=== PATIENT | male | born 1945 | race Caucasian/White ===

== ENCOUNTER → 2017-06-13 | Outpatient (CLI) | payer MEDICARE ==
[2017-06-13 16:34] LABS: ALT 35 U/L (21-72); AST 22 U/L (17-59); Albumin 4.2 g/dL (3.5-5.0); Alkaline Phosphatase 101 U/L (38-126); Anion Gap 13 mmol/L; Blood Urea Nitrogen 21 mg/dL (9-20); Calcium 10.5 mg/dL (8.4-10.2); Carbon Dioxide 28 mmol/L (22-30); Chloride 96 mmol/L (98-107); Glucose 243 mg/dL (74-99); Potassium 4.4 mmol/L (3.5-5.1); Sodium 137 mmol/L (137-145); Total Bilirubin 1.2 mg/dL (0.2-1.3); Total Protein 7.2 g/dL (6.3-8.2)
[2017-06-13 16:49] LABS: T4, Free (Free Thyroxine) 0.74 ng/dL (0.78-2.19)
[2017-06-14 02:09] LABS: ACTH 26.1 pg/mL (0.00-45.99)
== END | disposition home or self-care (01) ==
LOC: LABWHC1 15:58
PROVIDERS: ATTEND Internal Medicine Endocrinology, Diabetes & Metabolism
DX: D35.2 Benign neoplasm of pituitary gland (principal); E11.65 Type 2 diabetes mellitus with hyperglycemia
CPT/HCPCS: 36415; 80053; 82024; 82533; 83001; 83002; 84146; 84403; 84439; 84443

== ENCOUNTER → 2017-06-21 | Outpatient (CLI) | payer MEDICARE | END | disposition home or self-care (01) | LOC: LABWHC1 08:18 | PROVIDERS: ATTEND Internal Medicine Endocrinology, Diabetes & Metabolism | DX: D35.2 Benign neoplasm of pituitary gland (principal) | CPT/HCPCS: 36415; 84146 ==

== ENCOUNTER → 2017-11-03 | Outpatient (CLI) | payer MEDICARE ==
[2017-11-03 09:26] LABS: Calcium 9.5 mg/dL (8.4-10.2); Potassium 4.8 mmol/L (3.5-5.1); Total Bilirubin 1.4 mg/dL (0.2-1.3); Total Protein 6.5 g/dL (6.3-8.2)
[2017-11-03 17:33] LABS: Hemoglobin A1C 12.5 % (4.0-6.0)
== END | disposition home or self-care (01) ==
LOC: LABWHC1 07:54
PROVIDERS: ATTEND Internal Medicine Endocrinology, Diabetes & Metabolism
DX: E11.65 Type 2 diabetes mellitus with hyperglycemia (principal); E78.5 Hyperlipidemia, unspecified; D35.2 Benign neoplasm of pituitary gland
CPT/HCPCS: 36415; 80053; 80061; 82043; 82570; 83036; 84146

== ENCOUNTER → 2018-02-07 | Outpatient (CLI) | payer MEDICARE ==
[2018-02-07 08:42] LABS: Albumin 3.8 g/dL (3.5-5.0); Calcium 9.9 mg/dL (8.4-10.2); Potassium 4.4 mmol/L (3.5-5.1); Total Protein 6.7 g/dL (6.3-8.2)
== END | disposition home or self-care (01) ==
LOC: LABWHC1 07:15
PROVIDERS: ATTEND Internal Medicine
DX: E11.65 Type 2 diabetes mellitus with hyperglycemia (principal); E78.2 Mixed hyperlipidemia; D35.2 Benign neoplasm of pituitary gland; I10 Essential (primary) hypertension
CPT/HCPCS: 36415; 80053; 80061; 82043; 82570; 83036; 84146

== ENCOUNTER → 2018-03-03 | Outpatient (CLI) | payer MEDICARE ==
--- NOTE | 2018-03-03 16:25 | US ---
EXAMINATION TYPE: US abdomen complete DATE OF EXAM: 03/03/2018 COMPARISON: NONE CLINICAL HISTORY: R10.13 ABD PAIN,R22.2 ABD MASS. EXAM MEASUREMENTS: Liver Length: 15.2 cm Gallbladder Wall: Surgically absent CBD: 0.7 cm Spleen: 11.1 cm Right Kidney: 11.1 x 4.1 x 4.6 cm Left Kidney: 11.6 x 5.5 x 4.6 cm Pancreas: Obscured by bowel gas Liver: Coarse, heterogeneous. Portal vein appears dilated Gallbladder: Surgically absent Evidence for sonographic Santiago's sign: No CBD: wnl Spleen: Granulomas visualized Right Kidney: No hydronephrosis or masses seen Left Kidney: No hydronephrosis or masses seen Upper IVC: wnl Abd Aorta: Obscured by overlying bowel gas, visualized portions show no AAA At the area of the patient's palpable, there is a hyperechoic area visualized measuring 0.5 x 0.5 x 0.5 cm, possible lipoma vs other etiology. IMPRESSION: 1. Intra-abdominal ultrasound appears unremarkable. There is a subcutaneous hyperechoic nodule could be related to lipoma at the palpable abnormality.
== END ==
LOC: RADUSWWP 07:12
PROVIDERS: ATTEND Internal Medicine
DX: R10.13 Epigastric pain (principal); R19.00 Intra-abdominal and pelvic swelling, mass and lump, unspecified site
CPT/HCPCS: 76700

== ENCOUNTER → 2018-09-15 | Outpatient (CLI) | payer MEDICARE ==
[2018-09-15 17:37] LABS: Albumin 3.4 g/dL (3.80-4.90); Albumin/Globulin Ratio 1.26 (1.60-3.17); Anion Gap 9.1 mmol/L (4.00-12.00); Bilirubin, Conjugated 0.3 mg/dL (0.20-0.40); Bilirubin,Unconjugated 0.6 mg/dL; Carbon Dioxide 22.9 mmol/L (21.6-31.8); Globulin 2.7 g/dL (1.6-3.3); LDL Cholesterol,Calculated 41.8 mg/dL (0.0-131.0); Potassium 4.7 mmol/L (3.5-5.5); Total Bilirubin 0.9 mg/dL (0.3-1.2); Total Protein 6.1 g/dL (6.2-8.2); VLDL Calculation 26.2 mg/dL (5.00-40.00)
[2018-09-15 21:39] LABS: Hemoglobin A1C 8.9 % (4.0-6.0)
== END ==
LOC: LABWHC1 08:01
PROVIDERS: ATTEND Internal Medicine
DX: I10 Essential (primary) hypertension (principal); E11.9 Type 2 diabetes mellitus without complications
CPT/HCPCS: 36415; 80051; 80061; 80076; 82565; 83036; 84520

== ENCOUNTER 2018-10-01 10:24 | Inpatient (IN) | payer MEDICARE ==
[2018-10-01] MEDS ORDERED: VANCOMYCIN IV PER PHARMACY 1 EACH MISC MISCELLANE PRN (16:00)
[2018-10-01 17:00] LABS: Glucose,Whole Blood 289 mg/dL (75-99)
[2018-10-01] MEDS ORDERED: VANCOMYCIN 1,750 MG in SODIUM CHLORIDE 0.9% 500 ML 500 ML IVPB ONE (17:00)
[2018-10-01 17:18] LABS: Calcium 8.9 mg/dL (8.4-10.2)
[2018-10-01] MEDS ORDERED: LUBIPROSTONE 24 MCG PO SCH (17:30)
[2018-10-01] MEDS: PIPERACILLIN-TAZOBACTAM 3.375 GM in SODIUM CHLORIDE 0.9% 100 ML IVPB SCH ×2 (17:52→23:05)
[2018-10-01] MEDS: SODIUM CHLORIDE 0.9% 1,000 ML IV SCH (17:53)
[2018-10-01] MEDS: INSULN ASP PRT/INSULIN ASPART 100 UNIT/ML 10 ML VIAL SQ SCH (17:54)
[2018-10-01] MEDS: INSULIN ASPART (NovoLOG) 100 UNIT/ML VIAL SQ SCH ×2 (18:11→20:52)
[2018-10-01] MEDS: LUBIPROSTONE 24 MCG PO SCH (20:03)
[2018-10-01 20:37] LABS: Glucose,Whole Blood 279 mg/dL (75-99)
[2018-10-01] MEDS: ALBUTEROL NEBULIZED 2.5 MG/3 ML INHALATION PRN (20:46)
[2018-10-01] MEDS: METOPROLOL TARTRATE 25 MG TAB PO SCH (20:53)
[2018-10-01] MEDS: ATORVASTATIN 20 MG TAB PO SCH (20:53)
[2018-10-01] MEDS: DOCUSATE 100 MG CAP PO SCH (20:53)
[2018-10-01] MEDS: BENZONATATE 100 MG CAP PO PRN (20:58)
[2018-10-01] MEDS ORDERED: SERTRALINE 50 MG TAB PO SCH (21:00)
[2018-10-02] MEDS: SODIUM CHLORIDE 0.9% 1,000 ML IV SCH ×3 (03:13→20:56)
[2018-10-02 05:33] LABS: Glucose,Whole Blood 296 mg/dL (75-99)
[2018-10-02 05:33] LABS: Anisocytosis Slight; Basophils % (A) 0 %; Eosinophils # (A) 0.2 k/uL (0-0.7); Eosinophils % (A) 2 %; HCT 29.6 % (39.0-53.0); HGB 8.6 gm/dL (13.0-17.5); Hypochromasia Marked; Lymphocytes # (A) 1.2 k/uL (1.0-4.8); Lymphocytes % (A) 11 %; MCH 21.4 pg (25.0-35.0); MCHC 29.2 g/dL (31.0-37.0); MCV 73.4 fL (80.0-100.0); Microcytosis Moderate; Monocytes # (A) 0.5 k/uL (0-1.0); Monocytes % (A) 5 %; Neutrophils % (A) 79 %; Platelet Count 515 k/uL (150-450); Poikilocytosis Slight; RBC 4.04 m/uL (4.30-5.90); RDW 16.7 % (11.5-15.5); WBC 10.1 k/uL (3.8-10.6)
[2018-10-02 05:47] LABS: Potassium 4.5 mmol/L (3.5-5.1)
[2018-10-02] MEDS: PANTOPRAZOLE 40 MG TABLET PO SCH (06:29)
[2018-10-02] MEDS: LUBIPROSTONE 24 MCG PO SCH ×2 (06:30→17:50)
[2018-10-02] MEDS: INSULIN ASPART (NovoLOG) 100 UNIT/ML VIAL SQ SCH ×4 (06:31→20:51)
[2018-10-02] MEDS: ALBUTEROL NEBULIZED 2.5 MG/3 ML INHALATION PRN ×4 (07:17→20:00)
[2018-10-02] MEDS: LINAGLIPTIN 5 MG TABLET PO SCH (08:14)
[2018-10-02] MEDS: ASPIRIN 81 MG PO SCH (08:14)
[2018-10-02] MEDS: DOCUSATE 100 MG CAP PO SCH ×2 (08:14→20:56)
[2018-10-02] MEDS: PIOGLITAZONE 15 MG TAB PO SCH (08:14)
[2018-10-02] MEDS: METOPROLOL TARTRATE 25 MG TAB PO SCH ×2 (08:14→20:56)
[2018-10-02] MEDS: FUROSEMIDE 20 MG TAB PO SCH (08:14)
[2018-10-02] MEDS: PIPERACILLIN-TAZOBACTAM 3.375 GM in SODIUM CHLORIDE 0.9% 100 ML IVPB SCH ×3 (08:22→23:32)
[2018-10-02] MEDS: BENZONATATE 100 MG CAP PO PRN ×2 (08:22→20:56)
[2018-10-02] MEDS: INSULN ASP PRT/INSULIN ASPART 100 UNIT/ML 10 ML VIAL SQ SCH ×3 (08:22→17:52)
[2018-10-02] MEDS: VANCOMYCIN 1,750 MG in SODIUM CHLORIDE 0.9% 500 ML 500 ML IVPB SCH ×3 (08:25→20:48)
[2018-10-02] MEDS: CABERGOLINE 0.5 MG PO SCH (08:29)
[2018-10-02] MEDS ORDERED: CITALOPRAM HYDROBROMIDE 20 MG TAB PO SCH (09:00)
[2018-10-02 11:48] LABS: Glucose,Whole Blood 298 mg/dL (75-99)
--- NOTE | 2018-10-02 14:24 | P.GSCN ---
History of Present Illness Consult date: 10/02/18 Reason for Consult: Left pleural effusion. Requesting physician: Julia Okeefe History of present illness: This is a 73-year-old gentleman who is followed by Dr. Dietrich on an outpatient basis. He has a past medical history significant for diabetes mellitus insulin- dependent, hypertension, hyperlipidemia, chronic kidney disease stage III, TIA, benign pituitary tumor, chronic lower back pain, remote history of smoking, coronary artery disease with previous stenting and coronary artery bypass grafting surgery and recent hospitalization in June 2018 which he was treated for pneumonia and discharged home on Augmentin. Recently, over the past couple of weeks he has had complaints of a worsening cough, nausea and vomiting, generalized weakness, fever and chills. He also reports that he has had a 20 pound weight loss. He denies any pain, recent trauma, syncope or syncope. Subsequent leak, he presented to the emergency room at [facility] on 09/28/2018 with the above mentioned complaints. On presentation to the emergency department his oxygen saturations were in the 80s on 6 L high flow nasal cannula. A chest x-ray was completed which showed a left-sided pleural effusion and for further evaluation an ultrasound of his left chest was was completed which demonstrated a large left-sided pleural effusion. Subsequently a left thoracentesis was performed with roughly 1.2 L of brownish fluid drained with cytology results pending. Also on presentation to the emergency department his WBC count was 16.9, lactic acid 5.7, proBNP 6580 and 3 sets of troponins were negative. A transthoracic 2-D echocardiogram was also completed which demonstrated a normal left ventricular systolic function with an ejection fraction of 50-55%, and trace mitral valve regurgitation. Subsequently due to his left pleural effusion he was transferred to [facility] per cardiothoracic surgery was consulted for further evaluation and treatment recommendations. Review of Systems A 14 point review of system was completed and was negative except as mentioned in the HPI. Past Medical History Past Medical History: Coronary Artery Disease (CAD), Chest Pain / Angina, CVA/TIA, Diabetes Mellitus, GERD/Reflux, Hyperlipidemia, Hypertension, Pneumonia, Renal Disease Additional Past Medical History / Comment(s): IDDM type II, TIA, low back pain, occasional lower leg edema, benign pituitary tumor, L eye retinal bleed, sinus problems, recent tooth infection treated with ABX, history of bilateral eye cataracts recent weight loss of approximately 20 pounds. History of Any Multi-Drug Resistant Organisms: None Reported Past Surgical History: Appendectomy, Cholecystectomy, Coronary Bypass/CABG, Heart Catheterization, Heart Catheterization With Stent, Orthopedic Surgery Additional Past Surgical History / Comment(s): PCI with stent, 2010 CABG-6 vessel, R femur fracture with surgery-kassy inserted and since removed however, drill bit broke off and is still in leg, hemorrhoidectomy, colonoscopies, demetrius ateral cataract removals/lens implants, L eye retinal laser surgery Past Anesthesia/Blood Transfusion Reactions: No Reported Reaction Date of Last Stent Placement:: 2009 Past Psychological History: Depression Additional Psychological History / Comment(s): Pt resides with his spouse. He occasionally uses a cane to ambulate. He has not been driving lately, his spouse has been driving him. Smoking Status: Former smoker Past Alcohol Use History: None Reported Additional Past Alcohol Use History / Comment(s): Pt started smoking in 1955 and quit in 1971 Past Drug Use History: None Reported - Past Family History Father Additional Family Medical History / Comment(s): Father had a blood vessel rupture in his heart. Mother Additional Family Medical History / Comment(s): Mother had an aneurysm in the bottom of her heart that ruptured. Medications and Allergies Home Medications Medication Instructions Recorded Confirmed Type Atorvastatin Calcium [Lipitor] 20 mg PO HS 06/26/18 10/01/18 History Cabergoline 0.5 mg PO MOWE 06/26/18 10/01/18 History Furosemide [Lasix] 20 mg PO DAILY 06/26/18 10/01/18 History Insulin Aspart Protam & Aspart 60 unit SQ AC-BID@0800,1200 06/26/18 10/01/18 History [NovoLOG MIX 70-30 Flexpen] Insulin Aspart Protam & Aspart 130 unit SQ AC-SUPPER@1700 06/26/18 10/01/18 History [NovoLOG MIX 70-30 Flexpen] Lubiprostone [Amitiza] 24 mcg PO BID-W/MEALS 06/26/18 10/01/18 History Omeprazole [PriLOSEC] 20 mg PO DAILY 06/26/18 10/01/18 History Pioglitazone HCl [Actos] 15 mg PO DAILY 06/26/18 10/01/18 History amLODIPine BESYLATE/BENAZEPRIL 1 cap PO DAILY 06/26/18 10/01/18 History [Lotrel 5-20 MG] sitaGLIPtin PHOSPHATE [Januvia] 50 mg PO DAILY 06/26/18 10/01/18 History Albuterol Nebulized [Ventolin 2.5 mg INHALATION Q6H PRN 10/01/18 10/01/18 History Nebulized] Aspirin [[place] Aspirin EC] 81 mg PO DAILY 10/01/18 10/01/18 History Clindamycin HCl [Cleocin] 300 mg PO Q8H 10/01/18 10/01/18 History Docusate [Colace] 100 mg PO BID 10/01/18 10/01/18 History Losartan Potassium [Cozaar] 50 mg PO DAILY 10/01/18 10/01/18 History Metoprolol Tartrate [Lopressor] 25 mg PO BID 10/01/18 10/01/18 History amLODIPine [Norvasc] 5 mg PO DAILY 10/01/18 10/01/18 History Allergies Allergy/AdvReac Type Severity Reaction Status Date / Time dextromethorphan Allergy Rash/Hives Verified 10/01/18 14:36 [From Dimetapp Cold-Congestion] diphenhydramine Allergy Rash/Hives Verified 10/01/18 14:36 [From Dimetapp Cold-Congestion] guaifenesin Allergy Rash/Hives Verified 10/01/18 14:36 [From Dimetapp Cold-Congestion] phenylephrine Allergy Rash/Hives Verified 10/01/18 14:36 [From Dimetapp Cold-Congestion] pseudoephedrine Allergy Rash/Hives Verified 10/01/18 14:36 [From Dimetapp Cold-Congestion] Surgical - Exam Vital Signs Temp Pulse Resp BP Pulse Ox 98.6 F 89 18 152/70 94 L 10/01/18 14:48 10/01/18 14:48 10/01/18 14:48 10/01/18 14:48 10/01/18 14:48 - General well developed, well nourished, no distress, no pain, chronically ill, obese - Eyes PERRL, normal ocular movement - ENT normal pinna, normal nares, normal mucosa, no hearing loss, no congestion, poor jail - Neck Neck is supple, no lymphadenopathy. no masses, no bruits, trachea midline, no venous distension - Respiratory Lung sounds are essentially clear to his bilateral upper lobes, diminished to his left lower lobe. Respirations are symmetrical and nonlabored. Oxygen saturation are 97 percent on room air. - Cardiovascular Regular rhythm and rate. S1 and S2 present, negative for S3, gallop or murmur. Remote telemetry showing normal sinus rhythm heart rate 80. +1 edema to his bilateral lower extremities. Peripheral pulses palpable. - Abdomen Abdomen is soft, nontender nondistended. Active bowel sounds to all 4 abdominal quadrants. No guarding or rigidity. No organomegaly. - Genitourinary Deferred - Rectum Deferred - Integumentary no rash, no growths, no abnormal pigmentation - Neurologic normal coordination, normal sensation - Musculoskeletal normal gait, normal posture - Psychiatric Disoriented to time, reports the year is 2016 and could not state what month it is. oriented to person, oriented to place, speech is normal Results - Labs 10/02/18 05:16 10/02/18 05:16 Abnormal Lab Results - Last 24 Hours (Table) 10/01/18 10/01/18 10/01/18 Range/Units 16:52 16:53 20:35 RBC (4.30-5.90) m/uL Hgb (13.0-17.5) gm/dL Hct (39.0-53.0) % MCV (80.0-100.0) fL MCH (25.0-35.0) pg MCHC (31.0-37.0) g/dL RDW (11.5-15.5) % Plt Count (150-450) k/uL Neutrophils # (1.3-7.7) k/uL Sodium 135 L (137-145) mmol/L Carbon Dioxide (22-30) mmol/L Glucose 266 H (74-99) mg/dL POC Glucose (mg/dL) 289 H 279 H (75-99) mg/dL 10/02/18 10/02/18 10/02/18 Range/Units 05:16 05:16 05:31 RBC 4.04 L (4.30-5.90) m/uL Hgb 8.6 L (13.0-17.5) gm/dL Hct 29.6 L (39.0-53.0) % MCV 73.4 L (80.0-100.0) fL MCH 21.4 L (25.0-35.0) pg MCHC 29.2 L (31.0-37.0) g/dL RDW 16.7 H (11.5-15.5) % Plt Count 515 H (150-450) k/uL Neutrophils # 8.0 H (1.3-7.7) k/uL Sodium 135 L (137-145) mmol/L Carbon Dioxide 21 L (22-30) mmol/L Glucose 280 H (74-99) mg/dL POC Glucose (mg/dL) 296 H (75-99) mg/dL Diabetes panel 10/01/18 10/02/18 Range/Units 16:53 05:16 Sodium 135 L 135 L (137-145) mmol/L Potassium 4.0 4.5 (3.5-5.1) mmol/L Chloride 103 104 (98-107) mmol/L Carbon Dioxide 22 21 L (22-30) mmol/L BUN 17 12 (9-20) mg/dL Creatinine 1.09 1.00 (0.66-1.25) mg/dL Glucose 266 H 280 H (74-99) mg/dL Calcium 8.9 9.0 (8.4-10.2) mg/dL Calcium panel 10/01/18 10/02/18 Range/Units 16:53 05:16 Calcium 8.9 9.0 (8.4-10.2) mg/dL Pituitary panel 10/01/18 10/02/18 Range/Units 16:53 05:16 Sodium 135 L 135 L (137-145) mmol/L Potassium 4.0 4.5 (3.5-5.1) mmol/L Chloride 103 104 (98-107) mmol/L Carbon Dioxide 22 21 L (22-30) mmol/L BUN 17 12 (9-20) mg/dL Creatinine 1.09 1.00 (0.66-1.25) mg/dL Glucose 266 H 280 H (74-99) mg/dL Calcium 8.9 9.0 (8.4-10.2) mg/dL Adrenal panel 10/01/18 10/02/18 Range/Units 16:53 05:16 Sodium 135 L 135 L (137-145) mmol/L Potassium 4.0 4.5 (3.5-5.1) mmol/L Chloride 103 104 (98-107) mmol/L Carbon Dioxide 22 21 L (22-30) mmol/L BUN 17 12 (9-20) mg/dL Creatinine 1.09 1.00 (0.66-1.25) mg/dL Glucose 266 H 280 H (74-99) mg/dL Calcium 8.9 9.0 (8.4-10.2) mg/dL - Imaging Chest x-ray: report reviewed, image reviewed CT scan - chest: report reviewed, image reviewed Assessment and Plan Assessment: 1. Left pleural effusion status post left thoracentesis with 1150 mL of cloudy brownish colored fluid drained. 2. Acute anemia, hemoglobin today 8.6 3. Acute on chronic kidney disease stage III 4. History of hypertension 5. History of hyperlipidemia 6. History of pituitary tumor 7. History of insulin-dependent diabetes mellitus with an admission hemoglobin A1c of 8.7%. 8. History of coronary artery disease with previous coronary artery bypass grafting surgery 6 vessels and previous stent placements 9. History of TIA 10. Recent weight loss 11. Remote history of chronic back or dependence in remission in 1971 12. History of recent pneumonia left lower lobe which he was hospitalized in June 2018 13. Chronic lower back pain Plan: The patient was seen and examined. His chart diagnostics were reviewed. Chest x-ray, ultrasound results and computed tomography scan of his chest results were reviewed with Dr. Kenney from pulmonary medicine. Bronchodilators and pulmonary management recommendations per Dr. Kenney. Encourage use of incentive spirometry every hour while awake. GI and DVT prophylaxis. This case was also discussed with Dr. Ingram from cardiothoracic surgery and recommendati ons at this time are to consult interventional radiology for placement of a left chest pigtail catheter and subsequent alteplase treatments. Encourage continued smoking cessation. Plan has been discussed with the patient and his and her questions were answered to the best of my ability. Thank you Dr. Okeefe for this consult and we look for to working with you in the care of your patient. Time with Patient: Greater than 30
--- NOTE | 2018-10-02 14:37 | P.HPIM ---
History of Present Illness 73-year-old male was transferred from [facility] for possibility of VATS procedure. Patient had an empyema and had removal of 1.1 L of purulent fluid cultures are not available yet. Patient was on broad-spectrum antibiotics vancomycin and Zosyn as patient was severely septic and hypotensive although never required any pressor support. Patient had renal dysfunction secondary to acute tubular necrosis which also improved.patient is diabetic with uncontrolled blood sugars and and is on very high-dose of insulin about 200 units. Patient presently denied any fever chills nausea vomiting abdominal pain. Consider thoracic surgery evaluated the patient is recommending a pigtail catheter by interventional radiology. Review of Systems REVIEW OF SYSTEMS: CONSTITUTIONAL: No fever, no malaise, no fatigue. HEENT: No recent visual problems or hearing problems. Denied any sore throat. CARDIOVASCULAR: No chest pain, orthopnea, PND, no palpitations, no syncope. PULMONARY: No shortness of breath, no cough, no hemoptysis. GASTROINTESTINAL: No diarrhea, no nausea, no vomiting, no abdominal pain. NEUROLOGICAL: No headaches, no weakness, no numbness. HEMATOLOGICAL: Denies any bleeding or petechiae. GENITOURINARY: Denies any burning micturition, frequency, or urgency. MUSCULOSKELETAL/RHEUMATOLOGICAL: Denies any joint pain, swelling, or any muscle pain. ENDOCRINE: Denies any polyuria or polydipsia. The rest of the 14-point review of systems is negative. Past Medical History Past Medical History: Coronary Artery Disease (CAD), Chest Pain / Angina, CVA/TIA, Diabetes Mellitus, GERD/Reflux, Hyperlipidemia, Hypertension, Pneumonia, Renal Disease Additional Past Medical History / Comment(s): IDDM type II, TIA, low back pain, occasional lower leg edema, benign pituitary tumor, L eye retinal bleed, sinus problems, recent tooth infection treated with ABX, history of bilateral eye cataracts recent weight loss of approximately 20 pounds. History of Any Multi-Drug Resistant Organisms: None Reported Past Surgical History: Appendectomy, Cholecystectomy, Coronary Bypass/CABG, Heart Catheterization, Heart Catheterization With Stent, Orthopedic Surgery Additional Past Surgical History / Comment(s): PCI with stent, 2010 CABG-6 vessel, R femur fracture with surgery-kassy inserted and since removed however, drill bit broke off and is still in leg, hemorrhoidectomy, colonoscopies, bilateral cataract removals/lens implants, L eye retinal laser surgery Past Anesthesia/Blood Transfusion Reactions: No Reported Reaction Date of Last Stent Placement:: 2009 Past Psychological History: Depression Additional Psychological History / Comment(s): Pt resides with his spouse. He occasionally uses a cane to ambulate. He has not been driving lately, his spouse has been driving him. Smoking Status: Former smoker Past Alcohol Use History: None Reported Additional Past Alcohol Use History / Comment(s): Pt started smoking in 5 and quit in 1971 Past Drug Use History: None Reported - Past Family History Father Additional Family Medical History / Comment(s): Father had a blood vessel rupture in his heart. Mother Additional Family Medical History / Comment(s): Mother had an aneurysm in the bottom of her heart that ruptured. Medications and Allergies Home Medications Medication Instructions Recorded Confirmed Type Atorvastatin Calcium [Lipitor] 20 mg PO HS 06/26/18 10/01/18 History Cabergoline 0.5 mg PO MOWE 06/26/18 10/01/18 History Furosemide [Lasix] 20 mg PO DAILY 06/26/18 10/01/18 History Insulin Aspart Protam & Aspart 60 unit SQ AC-BID@0800,1200 06/26/18 10/01/18 History [NovoLOG MIX 70-30 Flexpen] Insulin Aspart Protam & Aspart 130 unit SQ AC-SUPPER@1700 06/26/18 10/01/18 History [NovoLOG MIX 70-30 Flexpen] Lubiprostone [Amitiza] 24 mcg PO BID-W/MEALS 06/26/18 10/01/18 History Omeprazole [PriLOSEC] 20 mg PO DAILY 06/26/18 10/01/18 History Pioglitazone HCl [Actos] 15 mg PO DAILY 06/26/18 10/01/18 History amLODIPine BESYLATE/BENAZEPRIL 1 cap PO DAILY 06/26/18 10/01/18 History [Lotrel 5-20 MG] sitaGLIPtin PHOSPHATE [Januvia] 50 mg PO DAILY 06/26/18 10/01/18 History Albuterol Nebulized [Ventolin 2.5 mg INHALATION Q6H PRN 10/01/18 10/01/18 History Nebulized] Aspirin [[place] Aspirin EC] 81 mg PO DAILY 10/01/18 10/01/18 History Clindamycin HCl [Cleocin] 300 mg PO Q8H 10/01/18 10/01/18 History Docusate [Colace] 100 mg PO BID 10/01/18 10/01/18 History Losartan Potassium [Cozaar] 50 mg PO DAILY 10/01/18 10/01/18 History Metoprolol Tartrate [Lopressor] 25 mg PO BID 10/01/18 10/01/18 History amLODIPine [Norvasc] 5 mg PO DAILY 10/01/18 10/01/18 History Allergies Allergy/AdvReac Type Severity Reaction Status Date / Time dextromethorphan Allergy Rash/Hives Verified 10/01/18 14:36 [From Dimetapp Cold-Congestion] diphenhydramine Allergy Rash/Hives Verified 10/01/18 14:36 [From Dimetapp Cold-Congestion] guaifenesin Allergy Rash/Hives Verified 10/01/18 14:36 [From Dimetapp Cold-Congestion] phenylephrine Allergy Rash/Hives Verified 10/01/18 14:36 [From Dimetapp Cold-Congestion] pseudoephedrine Allergy Rash/Hives Verified 10/01/18 14:36 [From Dimetapp Cold-Congestion] Physical Exam Vitals: Vital Signs Temp Pulse Pulse Resp BP Pulse Ox 10/02/18 12:23 82 10/02/18 12:13 84 10/02/18 11:22 70 16 123/67 97 10/02/18 09:10 80 10/02/18 09:01 84 10/02/18 07:46 97.1 F L 89 16 127/59 96 10/02/18 03:39 98.5 F 80 18 128/60 95 10/01/18 23:16 75 18 10/01/18 23:15 98.0 F 75 18 121/59 98 10/01/18 20:56 80 10/01/18 20:46 80 10/01/18 20:00 98.4 F 83 18 130/79 98 10/01/18 16:00 89 18 10/01/18 14:48 98.6 F 89 18 152/70 94 L Intake and Output 10/01/18 10/02/18 10/02/18 22:59 06:59 14:59 Intake Total 1300 440 Output Total 250 1250 400 Balance -250 50 40 Intake: Intake, IV Titration 1300 100 Amount Piperacillin-Tazobactam 3 100 .375 gm In Sodium Chloride 0.9% 100 ml @ 25 mls/hr IVPB Q8HR ROBERT Rx# :[id number] Sodium Chloride 0.9% 1, 800 000 ml @ 100 mls/hr IV . Q10H ROBERT Rx#:[id number] Vancomycin 1,750 mg In 500 Sodium Chloride 0.9% 500 ml 500 ml @ 167 mls/hr IVPB Q16H ROBERT Rx#: [id number] Oral 340 Output: Urine 250 1250 400 Other: Voiding Method Urinal Urinal # Voids 1 1 Weight 97.1 kg 97.2 kg PHYSICAL EXAMINATION: GENERAL: The patient is alert and oriented x3, not in any acute distress. Well developed, well nourished. HEENT: Pupils are round and equally reacting to light. EOMI. No scleral icterus. No conjunctival pallor. Normocephalic, atraumatic. No pharyngeal erythema. No thyromegaly. CARDIOVASCULAR: S1 and S2 present. No murmurs, rubs, or gallops. PULMONARY: minimal basilar crackles on the left side ABDOMEN: Soft, nontender, nondistended, normoactive bowel sounds. No palpable organomegaly. MUSCULOSKELETAL: No joint swelling or deformity. EXTREMITIES: No cyanosis, clubbing, or pedal edema. NEUROLOGICAL: Gross neurological examination did not reveal any focal deficits. SKIN: No rashes. Results CBC & Chem 7: 10/02/18 05:16 10/02/18 05:16 Labs: Abnormal Lab Results - Last 24 Hours (Table) 10/01/18 10/01/18 10/01/18 Range/Units 16:52 16:53 20:35 RBC (4.30-5.90) m/uL Hgb (13.0-17.5) gm/dL Hct (39.0-53.0) % MCV (80.0-100.0) fL MCH (25.0-35.0) pg MCHC (31.0-37.0) g/dL RDW (11.5-15.5) % Plt Count (150-450) k/uL Neutrophils # (1.3-7.7) k/uL Sodium 135 L (137-145) mmol/L Carbon Dioxide (22-30) mmol/L Glucose 266 H (74-99) mg/dL POC Glucose (mg/dL) 289 H 279 H (75-99) mg/dL 10/02/18 10/02/18 10/02/18 Range/Units 05:16 05:16 05:31 RBC 4.04 L (4.30-5.90) m/uL Hgb 8.6 L (13.0-17.5) gm/dL Hct 29.6 L (39.0-53.0) % MCV 73.4 L (80.0-100.0) fL MCH 21.4 L (25.0-35.0) pg MCHC 29.2 L (31.0-37.0) g/dL RDW 16.7 H (11.5-15.5) % Plt Count 515 H (150-450) k/uL Neutrophils # 8.0 H (1.3-7.7) k/uL Sodium 135 L (137-145) mmol/L Carbon Dioxide 21 L (22-30) mmol/L Glucose 280 H (74-99) mg/dL POC Glucose (mg/dL) 296 H (75-99) mg/dL 10/02/18 Range/Units 11:45 RBC (4.30-5.90) m/uL Hgb (13.0-17.5) gm/dL Hct (39.0-53.0) % MCV (80.0-100.0) fL MCH (25.0-35.0) pg MCHC (31.0-37.0) g/dL RDW (11.5-15.5) % Plt Count (150-450) k/uL Neutrophils # (1.3-7.7) k/uL Sodium (137-145) mmol/L Carbon Dioxide (22-30) mmol/L Glucose (74-99) mg/dL POC Glucose (mg/dL) 298 H (75-99) mg/dL Thrombosis Risk Factor Assmnt - Choose All That Apply Each Factor Represents 1 point: Abnormal pulmonary function (COPD), Obesity (BMI >25) Each Risk Factor Represents 2 Points: Age 61-74 years Thrombosis Risk Factor Assessment Total Risk Factor Score: 4 Thrombosis Risk Factor Assessment Level: Moderate Risk Assessment and Plan Plan: -pneumonia parapneumonic effusion and empyema: Status post removal of 1.1 L of purulent fluid. Cardiothoracic surgery valid the patient in the interventional radiology will be consulted for pigtail catheter placementpatient is presently on vancomycin and Zosyn -type 2 diabetes mellitus uncontrolled and elevated blood sugars will continue with present insulin regimen along with sliding scale depending on the sliding scale limits patient's insulin her diabetic regimen and we have titrated -Hyperlipidemia -Hypertension holding off antidepressant medications since his sepsis presently not requiring any medications at this time. #acute renal failure secondary to acute tubular necrosis which improved with IV fluids -COPD without any significant exacerbation -CVA and TIA in the past patient will need pharmacologic GI as well as DVT prophylaxis
[2018-10-02 14:49] LABS: Prothrombin Time 10.8 sec (9.0-12.0)
[2018-10-02] MEDS: HEPARIN SODIUM,PORCINE 5,000 UNIT/ML 1 ML VIAL SQ SCH ×2 (16:26→23:32)
[2018-10-02 16:44] LABS: Glucose,Whole Blood 180 mg/dL (75-99)
--- NOTE | 2018-10-02 16:53 | P.CNPUL ---
History of Present Illness Consult date: 10/02/18 Reason for consult: pneumonia History of present illness: A 73-year-old male patient was transferred from [facility] because of a large right-sided pleural effusion, parapneumonic in nature. The patient was in the hospital approximately 3 weeks ago for a left-sided pneumonia and treated in the hospital for total of 2 days and the patient was discharged home on Augmentin. Following that the patient continued to have shortness of breath and chest pain. The patient is known to have diabetes mellitus, hypertension, hyperlipidemia and chronic kidney disease with stage III kidney failure, TIA, previous history of pituitary tumor, chronic back pain, and previous history of coronary artery disease for which she has undergone bypass surgery back in 2019. The patient continued to be symptomatic and for that reason he end up coming back to the hospital. Over the past few weeks he was having worsening cough, shortness of breath, nausea, generalized weakness and some fever and chills. He states that he has lost also 20 pounds. He denied having any chest pain. Upon arrival to [facility], the patient was hypoxic. He was placed on high flow oxygen 6 L per minute nasal cannula. Chest x-ray showed a large loculated left-sided pleural effusion. Ultrasound was done which confirmed the findings. Following that the patient underwent a thoracentesis and a total of 1.2 L of dark brownish fluid was drained from the left side. Fluid cytology and chemistry still pending. Note that the patient's white cell count was 16.5 and lactic acid level was 5.7 with a proBNP of 6580 and the patient recently for troponins were negative. Echocardiac Eugene showed a reserved LV function with an ejection fraction of 50-55% and mild mitral regurgitation. Following the thoracentesis, the patient had a CAT scan of the chest that showed ongoing consolidation of the left lower lobe in addition to lose some residual loculated pleural effusion with some pleural thickening and formation of her rind. The patient got transferred to our hospital for a surgical evaluation. For now his culture are still pending from the pleural fluid and currently is on examination of Zosyn and vancomycin. I reviewed the CAT scan images and I discussed this with the cardiothoracic surgeon and I've recommended recommendations for insertion of a pigtail catheter in the left lung by interventional radiology. Review of Systems Constitutional: Reports fatigue, Reports fever, Reports lethargy, Reports night sweats, Reports weakness, Reports weight loss Eyes: denies as per HPI, denies blurred vision, denies bulging eye, denies decreased vision, denies diplopia, denies discharge, denies dry eye, denies irritation, denies itching, denies pain, denies photophobia, denies loss of peripheral vision, denies loss of vision, denies tunnel vision/blind spots Ears: deny: decreased hearing, ear discharge, earache, tinnitus Ears, nose, mouth and throat: Denies headache, Denies sore throat Breasts: absent: as per HPI, gynecomastia Cardiovascular: Reports decreased exercise tolerance, Reports dyspnea on exertion, Reports shortness of breath Respiratory: Reports cough, Reports dyspnea, Reports respiratory infections Gastrointestinal: Reports loss of appetite, Reports nausea Genitourinary: Reports as per HPI Musculoskeletal: Reports as per HPI Musculoskeletal: absent: ankle pain, ankle stiffness, ankle swelling, as per HPI, elbow pain, elbow stiffness, elbow swelling, foot pain, foot stiffness, foot swelling, hand pain, hand stiffness, hand swelling, hip pain, hip stiffness, hip swelling, knee pain, knee stiffness, knee swelling, shoulder pain, shoulder stiffness, shoulder swelling, wrist pain, wrist stiffness, wrist swelling Integumentary: Denies pruritus, Denies rash Neurological: Reports as per HPI, Reports weakness Psychiatric: Reports as per HPI Endocrine: Reports fatigue Hematologic/Lymphatic: Reports as per HPI Allergic/Immunologic: Reports as per HPI Past Medical History Past Medical History: Coronary Artery Disease (CAD), Chest Pain / Angina, CVA/TIA, Diabetes Mellitus, GERD/Reflux, Hyperlipidemia, Hypertension, Pneumonia, Renal Disease Additional Past Medical History / Comment(s): IDDM type II, TIA, low back pain, occasional lower leg edema, benign pituitary tumor, L eye retinal bleed, sinus problems, recent tooth infection treated with ABX, history of bilateral eye cataracts recent weight loss of approximately 20 pounds. History of Any Multi-Drug Resistant Organisms: None Reported Past Surgical History: Appendectomy, Cholecystectomy, Coronary Bypass/CABG, Heart Catheterization, Heart Catheterization With Stent, Orthopedic Surgery Additional Past Surgical History / Comment(s): PCI with stent, 2010 CABG-6 vessel, R femur fracture with surgery-kassy inserted and since removed however, drill bit broke off and is still in leg, hemorrhoidectomy, colonoscopies, bilateral cataract removals/lens implants, L eye retinal laser surgery Past Anesthesia/Blood Transfusion Reactions: No Reported Reaction Date of Last Stent Placement:: 2009 Past Psychological History: Depression Additional Psychological History / Comment(s): Pt resides with his spouse. He occasionally uses a cane to ambulate. He has not been driving lately, his spouse has been driving him. Smoking Status: Former smoker Past Alcohol Use History: None Reported Additional Past Alcohol Use History / Comment(s): Pt started smoking in 1955 and quit in 1971 Past Drug Use History: None Reported - Past Family History Father Additional Family Medical History / Comment(s): Father had a blood vessel ru pture in his heart. Mother Additional Family Medical History / Comment(s): Mother had an aneurysm in the bottom of her heart that ruptured. Medications and Allergies Home Medications Medication Instructions Recorded Confirmed Type Atorvastatin Calcium [Lipitor] 20 mg PO HS 06/26/18 10/01/18 History Cabergoline 0.5 mg PO MOWE 06/26/18 10/01/18 History Furosemide [Lasix] 20 mg PO DAILY 06/26/18 10/01/18 History Insulin Aspart Protam & Aspart 60 unit SQ AC-BID@0800,1200 06/26/18 10/01/18 History [NovoLOG MIX 70-30 Flexpen] Insulin Aspart Protam & Aspart 130 unit SQ AC-SUPPER@1700 06/26/18 10/01/18 His tory [NovoLOG MIX 70-30 Flexpen] Lubiprostone [Amitiza] 24 mcg PO BID-W/MEALS 06/26/18 10/01/18 History Omeprazole [PriLOSEC] 20 mg PO DAILY 06/26/18 10/01/18 History Pioglitazone HCl [Actos] 15 mg PO DAILY 06/26/18 10/01/18 History amLODIPine BESYLATE/BENAZEPRIL 1 cap PO DAILY 06/26/18 10/01/18 History [Lotrel 5-20 MG] sitaGLIPtin PHOSPHATE [Januvia] 50 mg PO DAILY 06/26/18 10/01/18 History Albuterol Nebulized [Ventolin 2.5 mg INHALATION Q6H PRN 10/01/18 10/01/18 History Nebulized] Aspirin [[place] Aspirin EC] 81 mg PO DAILY 10/01/18 10/01/18 History Clindamycin HCl [Cleocin] 300 mg PO Q8H 10/01/18 10/01/18 History Docusate [Colace] 100 mg PO BID 10/01/18 10/01/18 History Losartan Potassium [Cozaar] 50 mg PO DAILY 10/01/18 10/01/18 History Metoprolol Tartrate [Lopressor] 25 mg PO BID 10/01/18 10/01/18 History amLODIPine [Norvasc] 5 mg PO DAILY 10/01/18 10/01/18 History Allergies Allergy/AdvReac Type Severity Reaction Status Date / Time dextromethorphan Allergy Rash/Hives Verified 10/01/18 14:36 [From [place]app Cold-Congestion] diphenhydramine Allergy Rash/Hives Verified 10/01/18 14:36 [From [place]app Cold-Congestion] guaifenesin Allergy Rash/Hives Verified 10/01/18 14:36 [From [place]app Cold-Congestion] phenylephrine Allergy Rash/Hives Verified 10/01/18 14:36 [From [place]app Cold-Congestion] pseudoephedrine Allergy Rash/Hives Verified 10/01/18 14:36 [From [place]etapp Cold-Congestion] Physical Exam Vitals: Vital Signs Temp Pulse Pulse Resp BP Pulse Ox 10/02/18 16:33 79 16 129/64 99 10/02/18 15:55 16 134/74 98 10/02/18 15:30 16 131/76 98 10/02/18 15:15 16 151/82 97 10/02/18 12:23 82 10/02/18 12:13 84 10/02/18 11:22 70 16 123/67 97 10/02/18 09:10 80 10/02/18 09:01 84 10/02/18 07:46 97.1 F L 89 16 127/59 96 10/02/18 03:39 98.5 F 80 18 128/60 95 10/01/18 23:16 75 18 10/01/18 23:15 98.0 F 75 18 121/59 98 10/01/18 20:56 80 10/01/18 20:46 80 10/01/18 20:00 98.4 F 83 18 130/79 98 Intake and Output 10/02/18 10/02/18 10/02/18 06:59 14:59 22:59 Intake Total 1300 440 Output Total 1250 400 Balance 50 40 Intake: Intake, IV Titration 1300 100 Amount Piperacillin-Tazobactam 3 100 .375 gm In Sodium Chloride 0.9% 100 ml @ 25 mls/hr IVPB Q8HR ROBERT Rx# :[id number] Sodium Chloride 0.9% 1, 800 000 ml @ 100 mls/hr IV . Q10H ROBERT Rx#:[id number] Vancomycin 1,750 mg In 500 Sodium Chloride 0.9% 500 ml 500 ml @ 167 mls/hr IVPB Q16H ROBERT Rx#: [id number] Oral 340 Output: Urine 1250 400 Other: Voiding Method Urinal # Voids 1 Weight 97.2 kg GENERAL: The patient is alert and oriented x3, not in any acute distress. Well developed, well nourished. Head exam was generally normal. There was no scleral icterus or corneal arcus. Mucous membranes were moist. HEENT: Pupils are round and equally reacting to light. EOMI. No scleral icterus. No conjunctival pallor. Normocephalic, atraumatic. No pharyngeal erythema. No thyromegaly. CARDIOVASCULAR: S1 and S2 present. No murmurs, rubs, or gallops. PULMONARY: minimal basilar crackles on the left side ABDOMEN: Soft, nontender, nondistended, normoactive bowel sounds. No palpable organomegaly. MUSCULOSKELETAL: No joint swelling or deformity. EXTREMITIES: No cyanosis, clubbing, or pedal edema. NEUROLOGICAL: Gross neurological examination did not reveal any focal deficits. SKIN: No rashes. Examination of the skin revealed no evidence of significant rashes, suspicious appearing nevi or other concerning lesions. Results - Laboratory Findings CBC and BMP: 10/02/18 05:16 10/02/18 05:16 PT/INR, D-dimer PT 10.8 sec (9.0-12.0) 10/02/18 14:29 INR 1.0 (<1.2) 10/02/18 14:29 Abnormal lab findings: Abnormal Labs 10/01/18 10/01/18 10/01/18 16:52 16:53 20:35 RBC Hgb Hct MCV MCH MCHC RDW Plt Count Neutrophils # Sodium 135 L Carbon Dioxide Glucose 266 H POC Glucose (mg/dL) 289 H 279 H 10/02/18 10/02/18 10/02/18 05:16 05:16 05:31 RBC 4.04 L Hgb 8.6 L Hct 29.6 L MCV 73.4 L MCH 21.4 L MCHC 29.2 L RDW 16.7 H Plt Count 515 H Neutrophils # 8.0 H Sodium 135 L Carbon Dioxide 21 L Glucose 280 H POC Glucose (mg/dL) 296 H 10/02/18 10/02/18 11:45 16:41 RBC Hgb Hct MCV MCH MCHC RDW Plt Count Neutrophils # Sodium Carbon Dioxide Glucose POC Glucose (mg/dL) 298 H 180 H - Diagnostic Findings CT scan - chest: image reviewed Assessment and Plan Plan: 1 complicated parapneumonic left-sided pleural effusion which is quite loculated and there is still dense consolidation of the left lower lobe. Consider empyema. Thoracentesis was performed and a total of 1.1 L of fluid was removed from the left lung. There is still residual consolidation and effusion left lung base. Currently on a combination of Zosyn and vancomycin. Pleural fluid analysis is still pending for now. 2 recent authorization for left lower lobe pneumonia discharged home on Augmentin, cultures are all negative 3 acute hypoxic respiratory failure, improved postthoracentesis 4 acute lactic acidosis secondary to above 5 shortness of breath and cough and addition to weight loss and other constitutional symptoms secondary to pneumonia and possible pleural space infection 6 history of pituitary tumor 7 diabetes mellitus type 2 8 hypertension 9 hyperlipidemia 10 coronary artery disease with previous bypass surgery 11 COPD 13 previous history of CVA/TIA Plan Continue Zosyn and vancomycin. Reviewed the images. Consult interventional radiology for a chest tube insertion and possible TPA infusion within the left pleural space to evacuate the residual loculated left-sided pleural effusion. Meanwhile, awaiting the fluid cytology, cultures and chemistry. Continue Zosyn and vancomycin for now. Provide the patient incentive spirometer. We'll continue to follow.
[2018-10-02 20:30] LABS: Color,BF Brown
[2018-10-02 20:31] LABS: Appearance,BF Cloudy; Nucleated Cells, Body Fluid 161400 /uL; RBC, Body Fluid 1600 /uL
[2018-10-02 20:47] LABS: Glucose,Whole Blood 87 mg/dL (75-99)
[2018-10-02] MEDS: ATORVASTATIN 20 MG TAB PO SCH (20:56)
[2018-10-02] MEDS: ACETAMINOPHEN TAB 325 MG TAB PO PRN (20:56)
[2018-10-03 00:08] LABS: Total Protein, Body Fluid 1402 mg/dL
[2018-10-03 05:33] LABS: Glucose,Whole Blood 90 mg/dL (75-99)
[2018-10-03] MEDS: INSULIN ASPART (NovoLOG) 100 UNIT/ML VIAL SQ SCH ×4 (06:04→21:04)
[2018-10-03] MEDS: PANTOPRAZOLE 40 MG TABLET PO SCH (06:24)
[2018-10-03] MEDS: LUBIPROSTONE 24 MCG PO SCH ×2 (06:24→18:20)
[2018-10-03] MEDS: PIPERACILLIN-TAZOBACTAM 3.375 GM in SODIUM CHLORIDE 0.9% 100 ML IVPB SCH ×3 (08:31→23:02)
[2018-10-03] MEDS: LINAGLIPTIN 5 MG TABLET PO SCH (08:31)
[2018-10-03] MEDS: SODIUM CHLORIDE 0.9% 1,000 ML IV SCH ×4 (08:31→22:57)
[2018-10-03] MEDS: DOCUSATE 100 MG CAP PO SCH ×2 (08:31→21:04)
[2018-10-03] MEDS: METOPROLOL TARTRATE 25 MG TAB PO SCH ×2 (08:31→21:04)
[2018-10-03] MEDS: FUROSEMIDE 20 MG TAB PO SCH (08:31)
[2018-10-03] MEDS: ASPIRIN 81 MG PO SCH (08:31)
[2018-10-03] MEDS: PIOGLITAZONE 15 MG TAB PO SCH (08:31)
[2018-10-03] MEDS: HEPARIN SODIUM,PORCINE 5,000 UNIT/ML 1 ML VIAL SQ SCH ×3 (08:31→23:02)
[2018-10-03] MEDS: INSULN ASP PRT/INSULIN ASPART 100 UNIT/ML 10 ML VIAL SQ SCH ×3 (08:34→18:21)
[2018-10-03] MEDS: ALBUTEROL NEBULIZED 2.5 MG/3 ML INHALATION PRN ×2 (08:40→19:27)
--- NOTE | 2018-10-03 09:07 | XR ---
EXAMINATION TYPE: XR chest 1V portable DATE OF EXAM: 10/03/2018 COMPARISON: 10/01/2018 HISTORY: Left pleural effusion TECHNIQUE: Single frontal view of the chest is obtained. FINDINGS: There is persistent left-sided consolidation and pleural effusion which is reduced relativ e to the prior exam. Left-sided chest tube seen in position with no sizable pneumothorax. Chronic rib deformities on the right. Postsurgical changes noted. Heart size stable. IMPRESSION: Persistent left-sided consolidation and pleural effusion. Chest tube noted in position.
--- NOTE | 2018-10-03 09:28 | CT ---
EXAMINATION TYPE: CT chest tube insertion DATE OF EXAM: 10/02/2018 COMPARISON: CT chest 09/29/2018 HISTORY: Left empyema CT DLP: 885 mGycm The procedure is discussed with the patient, the risks, complications, benefits and alternatives, wer e discussed and any questions were answered. Informed consent was obtained. The patient is placed p nandini on the CT table, prepped and draped in the usual sterile fashion. Utilizing a 22-gauge Chiba needle access into the pleural space was achieved and there is aspiration approximately 20 cc of purulent material. Sample sent to pathology for analysis. There is subsequent placement of an O.018 guidewire, conversion to an O.035 system and serial dilation 8 [place] with plac ement 8 [place] drainage catheter within the left pleural space. Repeat imaging demonstrated ideal larisa cement catheter. Fixed into position. All elements of maximal barrier and sterile technique were utilized. The patient remained stable th roughout the procedure with no immediate postprocedural complication. IMPRESSION: 1. Successful CT guided left chest tube insertion for empyema
[2018-10-03 09:31] LABS: Anisocytosis Slight; Basophils # (A) 0.1 k/uL (0-0.2); Basophils % (A) 1 %; Eosinophils # (A) 0.1 k/uL (0-0.7); Eosinophils % (A) 1 %; HCT 28.6 % (39.0-53.0); HGB 8.3 gm/dL (13.0-17.5); Hypochromasia Marked; Lymphocytes # (A) 1.3 k/uL (1.0-4.8); Lymphocytes % (A) 13 %; MCH 21.2 pg (25.0-35.0); MCHC 29.1 g/dL (31.0-37.0); MCV 72.9 fL (80.0-100.0); Mean Platelet Volume 6.8; Microcytosis Moderate; Monocytes # (A) 0.5 k/uL (0-1.0); Monocytes % (A) 5 %; Neutrophils # (A) 7.8 k/uL (1.3-7.7); Neutrophils % (A) 78 %; Platelet Count 524 k/uL (150-450); Poikilocytosis Slight; RBC 3.92 m/uL (4.30-5.90); RDW 17.4 % (11.5-15.5)
[2018-10-03 09:32] LABS: Calcium 8.5 mg/dL (8.4-10.2); Magnesium 1.7 mg/dL (1.6-2.3); Potassium 3.9 mmol/L (3.5-5.1)
[2018-10-03 11:27] LABS: Glucose,Whole Blood 185 mg/dL (75-99)
--- NOTE | 2018-10-03 12:50 | P.PN ---
Subjective Progress Note Date: 10/03/18 Principal diagnosis: Complicated parapneumonic left-sided pleural effusion A 73-year-old male patient was transferred from [facility] because of a large right-sided pleural effusion, parapneumonic in nature. The patient was in the hospital approximately 3 weeks ago for a left-sided pneumonia and treated in the hospital for total of 2 days and the patient was discharged home on Augmentin. Following that the patient continued to have shortness of breath and chest pain. The patient is known to have diabetes mellitus, hypertension, hyperlipidemia and chronic kidney disease with stage III kidney failure, TIA, previous history of pituitary tumor, chronic back pain, and previous history of coronary artery disease for which she has undergone bypass surgery back in 2019. The patient continued to be symptomatic and for that reason he end up coming back to the hospital. Over the past few weeks he was having worsening cough, shortness of breath, nausea, generalized weakness and some fever and chills. He states that he has lost also 20 pounds. He denied having any chest pain. Upon arrival to [facility], the patient was hypoxic. He was placed on high flow oxygen 6 L per minute nasal cannula. Chest x-ray showed a large loculated left-sided pleural effusion. Ultrasound was done which confirmed the findings. Following that the patient underwent a thoracentesis and a total of 1.2 L of dark brownish fluid was drained from the left side. Fluid cytology and chemistry still pending. Note that the patient's white cell count was 16.5 and lactic acid level was 5.7 with a proBNP of 6580 and the patient recently for troponins were negative. Echocardiac Eugene showed a reserved LV function with an ejection fraction of 50-55% and mild mitral regurgitation. Following the thoracentesis, the patient had a CAT scan of the chest that showed ongoing consolidation of the left lower lobe in addition to lose some residual loculated pleural effusion with some pleural thickening and formation of her rind. The patient got transferred to our hospital for a surgical evaluation. For now his culture are still pending from the pleural fluid and currently is on examination of Zosyn and vancomycin. I reviewed the CAT scan images and I discussed this with the cardiothoracic surgeon and I've recommended recommendations for insertion of a pigtail catheter in the left lung by interventional radiology. The patient is seen today 10/03/2018 in follow-up on the selective care unit. He is currently awake and alert in no acute distress. Maintaining good O2 saturations in the 90s on room air. The patient did have persistent left-sided consolidation and pleural effusions on chest x-ray today. Chest tube remains in place. A total of 700 ML's of milky brown fluid has been returned. Fluid analysis is exudative in nature. Total protein 14. LDH greater than 4200. Remains on vancomycin and Zosyn. White count 10.0. Hemoglobin 8.3. Creatinine 1.05. Objective - Vital Signs Vital signs: Vital Signs Temp 97.2 F L 10/03/18 07:41 Pulse 71 10/03/18 12:00 Resp 16 10/03/18 12:00 BP 112/53 10/03/18 12:00 Pulse Ox 97 10/03/18 12:00 Intake & Output 10/02/18 10/03/18 10/03/18 18:59 06:59 18:59 Intake Total 680 1400 222 Output Total 640 1475 Balance 40 -75 222 Weight 95.4 kg Intake: Intake, IV Titration 100 1400 Amount Piperacillin-Tazobactam 3 100 100 .375 gm In Sodium Chloride 0.9% 100 ml @ 25 mls/hr IVPB Q8HR ROBERT Rx# :[id number] Sodium Chloride 0.9% 1, 800 000 ml @ 100 mls/hr IV . Q10H ROBERT Rx#:[id number] Vancomycin 1,750 mg In 500 Sodium Chloride 0.9% 500 ml 500 ml @ 167 mls/hr IVPB Q16H ROBERT Rx#: [id number] Oral 580 222 Output: Chest Tube Drainage 240 325 Left Posterior Chest 240 325 Urine 400 1150 Other: Voiding Method Urinal - Exam GENERAL: The patient is alert and oriented x3, not in any acute distress. Well developed, well nourished. On room air. Head exam was generally normal. There was no scleral icterus or corneal arcus. Mucous membranes were moist. HEENT: Pupils are round and equally reacting to light. EOMI. No scleral icterus. No conjunctival pallor. Normocephalic, atraumatic. No pharyngeal erythema. No thyromegaly. CARDIOVASCULAR: S1 and S2 present. No murmurs, rubs, or gallops. PULMONARY: minimal basilar crackles on the left side, chest tube remains in place with thick purulent drainage. ABDOMEN: Soft, nontender, nondistended, normoactive bowel sounds. No palpable organomegaly. MUSCULOSKELETAL: No joint swelling or deformity. EXTREMITIES: No cyanosis, clubbing, or pedal edema. NEUROLOGICAL: Gross neurological examination did not reveal any focal deficits. SKIN: No rashes. Examination of the skin revealed no evidence of significant rashes, suspicious appearing nevi or other concerning lesions. - Labs CBC & Chem 7: 10/03/18 08:53 10/03/18 08:53 Labs: Abnormal Lab Results - Last 24 Hours (Table) 10/02/18 10/03/18 10/03/18 Range/Units 16:41 08:53 11:23 RBC 3.92 L (4.30-5.90) m/uL Hgb 8.3 L (13.0-17.5) gm/dL Hct 28.6 L (39.0-53.0) % MCV 72.9 L (80.0-100.0) fL MCH 21.2 L (25.0-35.0) pg MCHC 29.1 L (31.0-37.0) g/dL RDW 17.4 H (11.5-15.5) % Plt Count 524 H (150-450) k/uL Neutrophils # 7.8 H (1.3-7.7) k/uL POC Glucose (mg/dL) 180 H 185 H (75-99) mg/dL Microbiology - Last 24 Hours (Table) 10/02/18 15:50 Gram Stain - Preliminary Pleural Fluid Body Fluid Culture - Preliminary 10/02/18 15:50 Anaerobic Culture - Preliminary Pleural Fluid 10/02/18 15:50 Fungal Culture - Preliminary Pleural Fluid Assessment and Plan Assessment: Impression: 1 complicated parapneumonic left-sided pleural effusion which is quite loculated and there is still dense consolidation of the left lower lobe. Thoracentesis was performed and a total of 1.1 L of fluid was removed from the left lung. There is still residual consolidation and effusion left lung base. Currently on a combination of Zosyn and vancomycin. Pleural fluid analysis is exudative in nature. Cultures pending. Left sided chest tube remains in place with 700 ML's of purulent drainage returned. Empyema. 2 recent authorization for left lower lobe pneumonia discharged home on Augmentin, cultures are all negative 3 acute hypoxic respiratory failure, improved postthoracentesis 4 acute lactic acidosis secondary to above 5 shortness of breath and cough and addition to weight loss and other const itutional symptoms secondary to pneumonia and possible pleural space infection 6 history of pituitary tumor 7 diabetes mellitus type 2 8 hypertension 9 hyperlipidemia 10 coronary artery disease with previous bypass surgery 11 COPD 13 previous history of CVA/TIA Plan The patient was seen and evaluated by Dr. Kenney. Chest x-ray and labs reviewed. Chest tube is in place with 700 ML's of thick purulent drainage returned thus far. Cultures pending. Continue vancomycin and Zosyn for now. We'll continue to follow make further recommendations based on his clinical status. I, the cosigning physician, performed a history & physical examination of the patient. Lungs sounds with scattered rhonchi left greater than right. Maintaining good O2 saturations in the 90s on room air. I discussed the assessment and plan of care with my nurse practitioner, Stephy Bonds. I attest to the above note as dictated by her.
--- NOTE | 2018-10-03 12:51 | P.PN ---
Subjective Progress Note Date: 10/03/18 Principal diagnosis: Left pleural effusion, probable empyema. Previous medical history of tobacco dependence, insulin-dependent diabetes mellitus, hypertension, hyperlipidemia, chronic kidney disease stage III, TIA, benign pituitary tumor, chronic lower back pain, coronary artery disease with previous stenting and coronary artery bypass grafting surgery and recent hospitalization for pneumonia in June 2018 discharged home on Augmentin. POD #1 CT-guided left chest tube insertion by interventional radiology The patient's currently sitting up in clinic in no acute distress. States pain is well-controlled. States breathing has significantly improved since admission. Patient has been ambulatory about the room. No new complaints. Pigtail catheter remains connected to atrium waterseal, no air leak present, drainage appears thick and yellowish white in color. Objective - Vital Signs Vital signs: Vital Signs Temp 97.2 F L 10/03/18 07:41 Pulse 89 10/03/18 08:52 Resp 18 10/03/18 07:41 BP 100/59 10/03/18 07:41 Pulse Ox 99 10/03/18 07:41 Intake & Output 10/02/18 10/03/18 10/03/18 18:59 06:59 18:59 Intake Total 680 1400 222 Output Total 640 1475 Balance 40 -75 222 Weight 95.4 kg Intake: Intake, IV Titration 100 1400 Amount Piperacillin-Tazobactam 3 100 100 .375 gm In Sodium Chloride 0.9% 100 ml @ 25 mls/hr IVPB Q8HR ROBERT Rx# :[id number] Sodium Chloride 0.9% 1, 800 000 ml @ 100 mls/hr IV . Q10H ROBERT Rx#:[id number] Vancomycin 1,750 mg In 500 Sodium Chloride 0.9% 500 ml 500 ml @ 167 mls/hr IVPB Q16H ROBERT Rx#: [id number] Oral 580 222 Output: Chest Tube Drainage 240 325 Left Posterior Chest 240 325 Urine 400 1150 Other: Voiding Method Urinal - Constitutional General appearance: Present: cooperative, no acute distress, obese - Respiratory Details: Lungs sounds diminished bilaterally. Respirations even, nonlabored. Currently on room air with oxygen saturation 96%. Able to achieve 1500 mL on his incentive spirometry. Left pleural pigtail catheter present, connected to atrium to waterseal, 325 mL yellowish-white drainage overnight, 700 mL drainage since insertion. - Cardiovascular Details: S1, S2 present. Regular rate and rhythm, sinus rhythm on telemetry. Palpable peripheral pulses bilaterally. Trace bilateral lower extremity edema present. No calf pain or tenderness noted. - Gastrointestinal Gastrointestinal Comment(s): Abdomen soft, nontender, nondistended. Active bowel sounds present 4 quadrants. Tolerating diet. - Genitourinary Genitourinary Comment(s): Continues to void clear, yellow urine. - Integumentary Integumentary Comment(s): Skin is warm and dry with evidence of good perfusion. Left pigtail catheter site covered with dry intact dressing. - Neurologic Neurologic: Present: CNII-XII intact - Musculoskeletal Musculoskeletal: Present: gait normal, strength equal bilaterally - Psychiatric Psychiatric: Present: A&O x's 3, appropriate affect, intact judgment & insight - Allied health notes Allied health notes reviewed: nursing - Labs CBC & Chem 7: 10/03/18 08:53 10/03/18 08:53 Labs: Abnormal Lab Results - Last 24 Hours (Table) 10/02/18 10/03/18 10/03/18 Range/Units 16:41 08:53 11:23 RBC 3.92 L (4.30-5.90) m/uL Hgb 8.3 L (13.0-17.5) gm/dL Hct 28.6 L (39.0-53.0) % MCV 72.9 L (80.0-100.0) fL MCH 21.2 L (25.0-35.0) pg MCHC 29.1 L (31.0-37.0) g/dL RDW 17.4 H (11.5-15.5) % Plt Count 524 H (150-450) k/uL Neutrophils # 7.8 H (1.3-7.7) k/uL POC Glucose (mg/dL) 180 H 185 H (75-99) mg/dL Microbiology - Last 24 Hours (Table) 10/02/18 15:50 Gram Stain - Preliminary Pleural Fluid Body Fluid Culture - Preliminary 10/02/18 15:50 Anaerobic Culture - Preliminary Pleural Fluid 10/02/18 15:50 Fungal Culture - Preliminary Pleural Fluid - Imaging and Cardiology Chest x-ray: report reviewed, image reviewed Assessment and Plan Assessment: 1. Left pleural effusion, likely empyema, status post left thoracentesis and placement of left sided pigtail catheter by interventional radiology. 2. Acute anemia, unknown cause 3. Acute on chronic kidney disease 4. Recent weight loss 5. History of tobacco dependence 6. Uncontrolled Insulin-dependent diabetes mellitus with hemoglobin A1c 8.7% 7. History of hypertension 8. History of hyperlipidemia 9. History of benign pituitary tumor 10. History of coronary artery disease status post previous stenting and coronary artery bypass grafting surgery 11. History of TIA 12. History of recent pneumonia left lower lobe hospitalization in June 2018 13. Chronic lower back pain Plan: 1. Continue pigtail catheter to waterseal. Will monitor drainage. We will instill alteplase as appropriate, will hold off today. 2. Encourage is and spirometry is 10 times every hour while awake. 3. Increase activity, ambulate as tolerated. 4. Will monitor x-rays. 5. Bronchodilators per pulmonology. 6. Antibiotics, management of other comorbid conditions per primary care service. 7. GI/DVT prophylaxis. 8. Patient may need thoracoscopic surgery in the near future. Recommend maximizing medical status with antibiotics, bronchodilators, and monitoring drainage for now. 9. More recommendations to follow based on clinical course. Time with Patient: Greater than 30
--- NOTE | 2018-10-03 13:29 | P.PN ---
Subjective 73-year-old male was transferred from [facility] for possibility of VATS procedure. Patient had an empyema and had removal of 1.1 L of purulent fluid cultures are not available yet. Patient was on broad-spectrum antibiotics vancomycin and Zosyn as patient was severely septic and hypotensive although never required any pressor support. Patient had renal dysfunction secondary to acute tubular necrosis which also improved.patient is diabetic with uncontrolled blood sugars and and is on very high-dose of insulin about 200 units. Patient presently denied any fever chills nausea vomiting abdominal pain. Consider thoracic surgery evaluated the patient is recommending a pigtail catheter by interventional radiology. 10/03/2018 Patient is clinically doing well patient the chest tube drained about 800 mL of purulent drainage patient has Prevotella. Patient was a evaluated by cardiac thoracic surgery. Patient is in any fevers patient is feeling well did infectious disease will be consulted. We'll cut down the dose of nighttime 7 0:30. CT surgery will continue to evaluate for VATS Constitutional: Denied any fatigue denied any fever. Cardio vascular: denied any chest pain, palpitations Gastrointestinal denied any nausea vomiting Pulmonary: Denied any shortness of breath cough Neurologic denied any new focal deficits All inpatient medications were reviewed and appropriate changes in these medications as dictated in the interval history and assessment and plan. Objective - Vital Signs Vital signs: Vital Signs Temp 97.2 F L 10/03/18 07:41 Pulse 71 10/03/18 12:00 Resp 16 10/03/18 12:00 BP 112/53 10/03/18 12:00 Pulse Ox 97 10/03/18 12:00 Intake & Output 10/02/18 10/03/18 10/03/18 18:59 06:59 18:59 Intake Total 680 1400 222 Output Total 640 1475 Balance 40 -75 222 Weight 95.4 kg Intake: Intake, IV Titration 100 1400 Amount Piperacillin-Tazobactam 3 100 100 .375 gm In Sodium Chloride 0.9% 100 ml @ 25 mls/hr IVPB Q8HR [facility]ERT Rx# :[id number] Sodium Chloride 0.9% 1, 800 000 ml @ 100 mls/hr IV . Q10H ROBERT Rx#:[id number] Vancomycin 1,750 mg In 500 Sodium Chloride 0.9% 500 ml 500 ml @ 167 mls/hr IVPB Q16H ROBERT Rx#: [id number] Oral 580 222 Output: Chest Tube Drainage 240 325 Left Posterior Chest 240 325 Urine 400 1150 Other: Voiding Method Urinal - Exam PHYSICAL EXAMINATION: GENERAL: The patient is alert and oriented x3, not in any acute distress. Well developed, well nourished. HEENT: Pupils are round and equally reacting to light. EOMI. No scleral icterus. No conjunctival pallor. Normocephalic, atraumatic. No pharyngeal erythema. No thyromegaly. CARDIOVASCULAR: S1 and S2 present. No murmurs, rubs, or gallops. PULMONARY: minimal basilar crackles on the left side, patient has a left-sided chest tube drained about 800 mL of purulent fluid ABDOMEN: Soft, nontender, nondistended, normoactive bowel sounds. No palpable organomegaly. MUSCULOSKELETAL: No joint swelling or deformity. EXTREMITIES: No cyanosis, clubbing, or pedal edema. NEUROLOGICAL: Gross neurological examination did not reveal any focal deficits. SKIN: No rashes. - Labs CBC & Chem 7: 10/03/18 08:53 10/03/18 08:53 Labs: Abnormal Lab Results - Last 24 Hours (Table) 10/02/18 10/03/18 10/03/18 Range/Units 16:41 08:53 11:23 RBC 3.92 L (4.30-5.90) m/uL Hgb 8.3 L (13.0-17.5) gm/dL Hct 28.6 L (39.0-53.0) % MCV 72.9 L (80.0-100.0) fL MCH 21.2 L (25.0-35.0) pg MCHC 29.1 L (31.0-37.0) g/dL RDW 17.4 H (11.5-15.5) % Plt Count 524 H (150-450) k/uL Neutrophils # 7.8 H (1.3-7.7) k/uL POC Glucose (mg/dL) 180 H 185 H (75-99) mg/dL Microbiology - Last 24 Hours (Table) 10/02/18 15:50 Gram Stain - Preliminary Pleural Fluid Body Fluid Culture - Preliminary 10/02/18 15:50 Anaerobic Culture - Preliminary Pleural Fluid 10/02/18 15:50 Fungal Culture - Preliminary Pleural Fluid Assessment and Plan Plan: -pneumonia parapneumonic effusion and empyema: Status post removal of 1.1 L of purulent fluid. 800 mL of purulent drainage the chest to today Cardiothoracic surgery evaluated the patient Vanco mycin will be discontinued and patient has Prevotella infectious disease was consulted Zosyn will be continued. -type 2 diabetes mellitus uncontrolled and elevated blood sugars will continue with present insulin regimen along with sliding scale depending on the sliding scale limits patient's insulin her diabetic regimen and we have titrated -Hyperlipidemia -Hypertension holding off antidepressant medications since his sepsis presently not requiring any medications at this time. #acute renal failure secondary to acute tubular necrosis which improved with IV fluids -COPD without any significant exacerbation -CVA and TIA in the past patient will need pharmacologic GI as well as DVT prophylaxis
[2018-10-03] MEDS: VANCOMYCIN 1,750 MG in SODIUM CHLORIDE 0.9% 500 ML 500 ML IVPB SCH (13:30)
[2018-10-03 16:08] LABS: Glucose,Whole Blood 273 mg/dL (75-99)
--- NOTE | 2018-10-03 16:17 | P.CONS ---
History of Present Illness - Reason for Consult Consult date: 10/03/18 - Chief Complaint Shortness of breath - History of Present Illness Pleasant 73-year-old male who has a recent extensive history starting in June 2018 which point in time he was diagnosed with pneumonia and treated with a course of antibiotic therapy. Since that time his had worsening of his symptoms with increasing amounts of weakness and shortness of breath and cough. He had episodes of nausea and emesis and fevers and chills. The relates that he had about a 20 pound weight loss also. Because he was feeling so poorly he did present to the [facility] 09/28/2018 which point in time there is evidence of relative hypoxia and complete obliteration of the left chest cavity by fluid. Thoracentesis was performed and approximately 1.2 L of a thick brownish material was drained. Pulmonary cytology report revealed no evidence of any malignant cells. Culture reveals evidence of Prevotella species and other cultures are pending at this point in time. The patient continued to have difficulties with his pulmonary status and given that he had a history of prior coronary artery bypass grafting procedure and may require surgical intervention to the chest was transferred to [facility] for further evaluation. He has now been seen by the cardiothoracic service and depending on response to treatment such as alteplase will determine if a VATS procedure will be required. Review of Systems HEENT:Denies headache or acute visual change. Denies sinus or mouth discomforts. Denies neck stiffness or pain. Denies significant oral cavity pain. Denies difficulty on swallowing. Lungs: His severe shortness of breath is improved greatly with the thoracentesis and the pigtail catheter placement that was performed at this facility Cardiovascular: Chest wall pain is occurring but no deep chest pain. His shortness of breath at rest is improved. His dyspnea with activity is also much improved. He does not have orthopnea. No syncope Gastrointestinal:Denies nausea, vomiting, diarrhea, constipation, hematemesis, melena, hematochezia. No no significant change of bowel habit noticed. Musculoskeletal: denies significant myalgias or arthralgias. No new joint swelling. Denies new back pain. Skin: Denies new rash or lesions. No new ulcers or wounds are related.. Neuro: Denies headache or visual change. Denies any new onset weakness or difficulty with ambulation. Denies falls or seizures. Psychiatric:Denies anxiety or depression. Endocrine: Has had significant fatigue and about a 20 pound weight loss with his illness. Past Medical History Past Medical History: Coronary Artery Disease (CAD), Chest Pain / Angina, CVA/TIA, Diabetes Mellitus, GERD/Reflux, Hyperlipidemia, Hypertension, Pneumonia, Renal Disease Additional Past Medical History / Comment(s): IDDM type II, TIA, low back pain, occasional lower leg edema, benign pituitary tumor, L eye retinal bleed, sinus problems, recent tooth infection treated with ABX, history of bilateral eye cataracts recent weight loss of approximately 20 pounds. History of Any Multi-Drug Resistant Organisms: None Reported Past Surgical History: Appendectomy, Cholecystectomy, Coronary Bypass/CABG, Heart Catheterization, Heart Catheterization With Stent, Orthopedic Surgery Additional Past Surgical History / Comment(s): PCI with stent, 2010 CABG-6 vessel, R femur fracture with surgery-kassy inserted and since removed however, dr adrienne henderson broke off and is still in leg, hemorrhoidectomy, colonoscopies, bilateral cataract removals/lens implants, L eye retinal laser surgery Past Anesthesia/Blood Transfusion Reactions: No Reported Reaction Date of Last Stent Placement:: 2009 Past Psychological History: Depression Additional Psychological History / Comment(s): Pt resides with his spouse. He occasionally uses a cane to ambulate. He has not been driving lately, his spouse has been driving him. 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 No experience. No extensive travel. Stopped tobacco smoking years ago. No alcohol or recreational drug use. No animals in the home Smoking Status: Former smoker Past Alcohol Use History: None Reported Additional Past Alcohol Use History / Comment(s): Pt started smoking in 1956 and quit in 1971 Past Drug Use History: None Reported - Past Family History Father Additional Family Medical History / Comment(s): Father had a blood vessel rupture in his heart. Mother Additional Family Medical History / Comment(s): Mother had an aneurysm in the bottom of her heart that ruptured. Medications and Allergies Home Medications and Allergies Comment(s): Current Medications Acetaminophen (Tylenol Tab) 650 mg PO Q4HR PRN PRN Reason: Fever and/ or Pain Last Admin: 10/02/18 20:56 Dose: 650 mg Documented by: Albuterol Sulfate (Ventolin Nebulized) 2.5 mg INHALATION Q6H PRN PRN Reason: Wheezing Last Admin: 10/03/18 08:40 Dose: 2.5 mg Documented by: Aspirin (Aspirin) 81 mg PO DAILY [facility] Last Admin: 10/03/18 08:31 Dose: 81 mg Documented by: Atorvastatin Calcium (Lipitor) 20 mg PO HS [facility] Last Admin: 10/02/18 20:56 Dose: 20 mg Documented by: Benzonatate (Tessalon Perles) 100 mg PO TID PRN PRN Reason: Cough Last Admin: 10/02/18 20:56 Dose: 100 mg Documented by: Docusate Sodium (Colace) 100 mg PO BID [facility] Last Admin: 10/03/18 08:31 Dose: 100 mg Documented by: Heparin Sodium (Porcine) (Heparin) 5,000 unit SQ Q8HR [facility] Last Admin: 10/03/18 08:31 Dose: 5,000 unit Documented by: Piperacillin Sod/Tazobactam (Sod 3.375 gm/ Sodium Chloride) 100 mls @ 25 mls/hr IVPB Q8HR [facility] Last Admin: 10/03/18 08:31 Dose: 25 mls/hr Documented by: Sodium Chloride (Saline 0.9%) 1,000 mls @ 100 mls/hr IV .Q10H [facility] Last Admin: 10/03/18 08:31 Dose: 100 mls/hr Documented by: Sodium Chloride (Saline 0.9%) 1,000 mls @ 75 mls/hr IV .[id number] [facility] Last Admin: 10/03/18 13:35 Dose: 75 mls/hr Documented by: Insulin Aspart (Novolog Mix 70-30 Vial) 60 unit SQ AC-BID@0800,1200 [facility] Last Admin: 10/03/18 13:31 Dose: 60 unit Documented by: Insulin Aspart (Novolog) 0 unit SQ ACHS [facility]; Protocol Last Admin: 10/03/18 13:30 Dose: 2 unit Documented by: Insulin Aspart (Novolog Mix 70-30 Vial) 110 unit SQ AC-SUPPER@1700 [facility] Linagliptin (Tradjenta) 5 mg PO DAILY [facility] Last Admin: 10/03/18 08:31 Dose: 5 mg Documented by: Metoprolol Tartrate (Lopressor) 25 mg PO BID [facility] Last Admin: 10/03/18 08:31 Dose: 25 mg Documented by: Patient's Own ( (Cabergoline 0.5 Mg)) 0.5 mg PO MOWE [facility] Last Admin: 10/02/18 08:29 Dose: Not Given Documented by: Patient's Own ( Lubiprostone [ Amitiza] 24 Mcg) 24 mcg PO BID-W/MEALS [facility] Last Admin: 10/03/18 06:24 Dose: 24 mcg Documented by: Pantoprazole Sodium (Protonix) 40 mg PO AC-BRKFST [facility] Last Admin: 10/03/18 06:24 Dose: 40 mg Documented by: Pioglitazone HCl (Actos) 15 mg PO DAILY [facility] Last Admin: 10/03/18 08:31 Dose: 15 mg Documented by: Home Medications Medication Instructions Recorded Confirmed Type Atorvastatin Calcium [Lipitor] 20 mg PO HS 06/26/18 10/01/18 History Cabergoline 0.5 mg PO MOWE 06/26/18 10/01/18 History Furosemide [Lasix] 20 mg PO DAILY 06/26/18 10/01/18 History Insulin Aspart Protam & Aspart 60 unit SQ AC-BID@0800,1200 06/26/18 10/01/18 History [NovoLOG MIX 70-30 Flexpen] Insulin Aspart Protam & Aspart 130 unit SQ AC-SUPPER@1700 06/26/18 10/01/18 History [NovoLOG MIX 70-30 Flexpen] Lubiprostone [Amitiza] 24 mcg PO BID-W/MEALS 06/26/18 10/01/18 History Omeprazole [PriLOSEC] 20 mg PO DAILY 06/26/18 10/01/18 History Pioglitazone HCl [Actos] 15 mg PO DAILY 06/26/18 10/01/18 History amLODIPine BESYLATE/BENAZEPRIL 1 cap PO DAILY 06/26/18 10/01/18 History [Lotrel 5-20 MG] sitaGLIPtin PHOSPHATE [Januvia] 50 mg PO DAILY 06/26/18 10/01/18 History Albuterol Nebulized [Ventolin 2.5 mg INHALATION Q6H PRN 10/01/18 10/01/18 History Nebulized] Aspirin [Enders Aspirin EC] 81 mg PO DAILY 10/01/18 10/01/18 History Clindamycin HCl [Cleocin] 300 mg PO Q8H 10/01/18 10/01/18 History Docusate [Colace] 100 mg PO BID 10/01/18 10/01/18 History Losartan Potassium [Cozaar] 50 mg PO DAILY 10/01/18 10/01/18 History Metoprolol Tartrate [Lopressor] 25 mg PO BID 10/01/18 10/01/18 History amLODIPine [Norvasc] 5 mg PO DAILY 10/01/18 10/01/18 History Allergies Allergy/AdvReac Type Severity Reaction Status Date / Time dextromethorphan Allergy Rash/Hives Verified 10/01/18 14:36 [From Dimetapp Cold-Congestion] diphenhydramine Allergy Rash/Hives Verified 10/01/18 14:36 [From Dimetapp Cold-Congestion] guaifenesin Allergy Rash/Hives Verified 10/01/18 14:36 [From Dimetapp Cold-Congestion] phenylephrine Allergy Rash/Hives Verified 10/01/18 14:36 [From Dimetapp Cold-Congestion] pseudoephedrine Allergy Rash/Hives Verified 10/01/18 14:36 [From Dimetapp Cold-Congestion] Physical Exam Vitals: Vital Signs Temp Pulse Pulse Resp BP Pulse Ox 10/03/18 12:00 71 16 112/53 97 10/03/18 08:52 89 10/03/18 08:40 91 10/03/18 07:41 97.2 F L 68 18 100/59 99 10/03/18 03:12 74 18 10/03/18 03:10 97.6 F 74 18 103/53 96 10/03/18 00:00 98.3 F 75 18 112/57 97 10/02/18 20:14 86 10/02/18 20:00 98.4 F 84 81 18 112/56 97 10/02/18 16:33 79 16 129/64 99 Intake and Output 10/03/18 10/03/18 10/03/18 06:59 14:59 22:59 Intake Total 1400 662 Output Total 975 300 Balance 425 362 Intake: Intake, IV Titration 1400 Amount Piperacillin-Tazobactam 3 100 .375 gm In Sodium Chloride 0.9% 100 ml @ 25 mls/hr IVPB Q8HR [facility] Rx# :[id number] Sodium Chloride 0.9% 1, 800 000 ml @ 100 mls/hr IV . Q10H [facility] Rx#:[id number] Vancomycin 1,750 mg In 500 Sodium Chloride 0.9% 500 ml 500 ml @ 167 mls/hr IVPB Q16H [facility] Rx#: [id number] Oral 662 Output: Chest Tube Drainage 325 Left Posterior Chest 325 Urine 650 300 Other: Voiding Method Urinal Weight 95.4 kg 73-year-old male in no acute distress Blitch is much less short of breath HEENT: Anicteric conjunctiva are pink and moist nasal mucosa grossly intact without significant lesions, there is no thrush. Neck: The neck is supple without significant lymphadenopathy or thyromegaly. Lungs: Symmetrical air entry anteriorly. There remains course crackles and diminished breath sounds. Left posterior mid and lower zones. Some dullness is noted at the left base. The percutaneous catheter site is without drainage Heart: Regular rate and rhythm with an audible S1-S2, no S3 no S4. There is no significant murmur click or rub, PMI was nondisplaced. Abdomen: Positive bowel sounds soft and nontender without palpable masses or organomegaly. There was no guarding or rebound. Extremities: The upper extremities have excellent pulses they are symmetric, no significant petechiae or telangiectasia. No splinter hemorrhages were noted. Lower extremities have trace pedal edema peripheral pulses are 2+ and symmetric no open ulcerations are seen Neuro: Awake alert oriented to person place and time. There are no acute new gross focal sensory motor deficits. Results CBC & Chem 7: 10/03/18 08:53 10/03/18 08:53 Labs: Abnormal Lab Results - Last 24 Hours (Table) 10/02/18 10/03/18 10/03/18 Range/Units 16:41 08:53 11:23 RBC 3.92 L (4.30-5.90) m/uL Hgb 8.3 L (13.0-17.5) gm/dL Hct 28.6 L (39.0-53.0) % MCV 72.9 L (80.0-100.0) fL MCH 21.2 L (25.0-35.0) pg MCHC 29.1 L (31.0-37.0) g/dL RDW 17.4 H (11.5-15.5) % Plt Count 524 H (150-450) k/uL Neutrophils # 7.8 H (1.3-7.7) k/uL POC Glucose (mg/dL) 180 H 185 H (75-99) mg/dL Microbiology - Last 24 Hours (Table) 10/02/18 15:50 Gram Stain - Preliminary Pleural Fluid Body Fluid Culture - Preliminary 10/02/18 15:50 Anaerobic Culture - Preliminary Pleural Fluid 10/02/18 15:50 Fungal Culture - Preliminary Pleural Fluid Laboratory Results WBC 10.0 k/uL (3.8-10.6) 10/03/18 08:53 RBC 3.92 m/uL (4.30-5.90) L 10/03/18 08:53 Hgb 8.3 gm/dL (13.0-17.5) L 10/03/18 08:53 Hct 28.6 % (39.0-53.0) L 10/03/18 08:53 MCV 72.9 fL (80.0-100.0) L 10/03/18 08:53 MCH 21.2 pg (25.0-35.0) L 10/03/18 08:53 MCHC 29.1 g/dL (31.0-37.0) L 10/03/18 08:53 RDW 17.4 % (11.5-15.5) H 10/03/18 08:53 Plt Count 524 k/uL (150-450) H 10/03/18 08:53 Neutrophils % 78 % 10/03/18 08:53 Lymphocytes % 13 % 10/03/18 08:53 Monocytes % 5 % 10/03/18 08:53 Eosinophils % 1 % 10/03/18 08:53 Basophils % 1 % 10/03/18 08:53 Neutrophils # 7.8 k/uL (1.3-7.7) H 10/03/18 08:53 Lymphocytes # 1.3 k/uL (1.0-4.8) 10/03/18 08:53 Monocytes # 0.5 k/uL (0-1.0) 10/03/18 08:53 Eosinophils # 0.1 k/uL (0-0.7) 10/03/18 08:53 Basophils # 0.1 k/uL (0-0.2) 10/03/18 08:53 Hypochromasia Marked 10/03/18 08:53 Poikilocytosis Slight 10/03/18 08:53 Anisocytosis Slight 10/03/18 08:53 Microcytosis Moderate 10/03/18 08:53 PT 10.8 sec (9.0-12.0) 10/02/18 14:29 INR 1.0 (<1.2) 10/02/18 14:29 Sodium 138 mmol/L (137-145) 10/03/18 08:53 Potassium 3.9 mmol/L (3.5-5.1) 10/03/18 08:53 Chloride 106 mmol/L (98-107) 10/03/18 08:53 Carbon Dioxide 26 mmol/L (22-30) 10/03/18 08:53 Anion Gap 6 mmol/L 10/03/18 08:53 BUN 10 mg/dL (9-20) 10/03/18 08:53 Creatinine 1.05 mg/dL (0.66-1.25) 10/03/18 08:53 Est GFR (CKD-EPI)AfAm 81 (>60 ml/min/1.73 sqM) 10/03/18 08:53 Est GFR (CKD-EPI)NonAf 70 (>60 ml/min/1.73 sqM) 10/03/18 08:53 Glucose 98 mg/dL (74-99) 10/03/18 08:53 POC Glucose (mg/dL) 273 mg/dL (75-99) H 10/03/18 16:05 POC Glu [employer] ID Nithya Jurado 10/03/18 16:05 Calcium 8.5 mg/dL (8.4-10.2) 10/03/18 08:53 Magnesium 1.7 mg/dL (1.6-2.3) 10/03/18 08:53 Fluid Source Pleural 10/02/18 15:50 Fluid Color Brown 10/02/18 15:50 Fluid Appearance Cloudy 10/02/18 15:50 Fluid RBC 1600 /uL 10/02/18 15:50 Fluid Nucleated Cells 269507 /uL 10/02/18 15:50 Body Fluid Protein Source Pleural Fluid 10/02/18 15:50 Fluid Total Protein 1402 mg/dL 10/02/18 15:50 Body Fluid LDH Source Pleural Fluid 10/02/18 15:50 Fluid LDH >4200 U/L 10/02/18 15:50 Fluid Comment 10/02/18 15:50 Microbiology 10/02/18 15:50 Pleural Fluid Gram Stain - Preliminary 10/02/18 15:50 Pleural Fluid Body Fluid Culture - Preliminary 10/02/18 15:50 Pleural Fluid Anaerobic Culture - Preliminary 10/02/18 15:50 Pleural Fluid Fungal Culture - Preliminary Comments: CT-guided chest tube placement related. Left empyema is noted Assessment and Plan (1) Empyema of left pleural space Narrative/Plan: 73-year-old male presents from outside hospital for further evaluation of his significant difficulty with his respiratory status. Imaging studies facility revealed the extensive empyema to the left chest. He did undergo thoracentesis and 1.2 L of material was removed. Pulmonary cultures show evidence of Prevotella and preliminary cytology does not reveal evidence of any malignant cells. 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 He is partially improving with the current interventions but imaging reveals evidence of ongoing significant residual disease. He's been seen by cardiovascular surgery and thrombolytic therapy is being planned. If this is not effective he will then need to undergo a VATS procedure in the near future. We'll plan outpatient intravenous antibiotic therapy which may be further defined in the next short period of time. Continue ongoing supportive care regarding his discomforts and shortness of breath which is markedly improved after the relatively high volume thoracentesis of occurred so far. Current Visit: Yes Status: Acute Code(s): J86.9 - PYOTHORAX WITHOUT FISTULA SNOMED Code(s): 08719471 (2) Pneumonia due to anaerobes Current Visit: Yes Status: Acute Code(s): J15.8 - PNEUMONIA DUE TO OTHER SPECIFIED BACTERIA SNOMED Code(s): 121523266 (3) Poor dentition Current Visit: Yes Status: Acute Code(s): K08.9 - DISORDER OF TEETH AND SUPPORTING STRUCTURES, UNSPECIFIED SNOMED Code(s): 508221734
[2018-10-03] MEDS: MULTIVITAMINS, THERA 1 EACH TAB PO SCH (17:10)
[2018-10-03] MEDS: KETOROLAC 30 MG/ML 1 ML VIAL IVP PRN (18:20)
[2018-10-03] MEDS: BENZONATATE 100 MG CAP PO PRN (18:20)
[2018-10-03 20:28] LABS: Glucose,Whole Blood 279 mg/dL (75-99)
[2018-10-03] MEDS: ATORVASTATIN 20 MG TAB PO SCH (21:04)
[2018-10-04] MEDS: SODIUM CHLORIDE 0.9% 1,000 ML IV SCH ×4 (01:21→21:03)
[2018-10-04 06:09] LABS: Glucose,Whole Blood 96 mg/dL (75-99)
[2018-10-04] MEDS: INSULIN ASPART (NovoLOG) 100 UNIT/ML VIAL SQ SCH ×4 (06:11→20:44)
[2018-10-04] MEDS: PANTOPRAZOLE 40 MG TABLET PO SCH (06:21)
[2018-10-04] MEDS: KETOROLAC 30 MG/ML 1 ML VIAL IVP PRN ×2 (06:21→16:40)
[2018-10-04 07:20] LABS: Anisocytosis Slight; HCT 27.6 % (39.0-53.0); HGB 8.4 gm/dL (13.0-17.5); Hypochromasia Marked; MCH 21.7 pg (25.0-35.0); MCHC 30.3 g/dL (31.0-37.0); MCV 71.7 fL (80.0-100.0); Mean Platelet Volume 6.8; Microcytosis Moderate; Platelet Count 521 k/uL (150-450); RBC 3.85 m/uL (4.30-5.90); RDW 18.5 % (11.5-15.5); WBC 10.2 k/uL (3.8-10.6)
[2018-10-04 07:30] LABS: Calcium 8.5 mg/dL (8.4-10.2); Potassium 3.6 mmol/L (3.5-5.1)
[2018-10-04] MEDS: ALBUTEROL NEBULIZED 2.5 MG/3 ML INHALATION PRN ×2 (08:48→11:01)
--- NOTE | 2018-10-04 08:59 | XR ---
EXAMINATION TYPE: XR chest 2V DATE OF EXAM: 10/04/2018 COMPARISON: 10/03/2018 TECHNIQUE: PA and lateral views submitted. HISTORY: Chest tube FINDINGS: Left-sided chest tube is seen and remains in position. Postsurgical changes noted is hyperinflation c orrelate for COPD. Left-sided pleural effusion and consolidation noted and there likely is a degree o f pneumothorax present. Subcutaneous emphysema is noted posteriorly. The amount of pleural fluid appe ars to be slightly reduced relative the previous exam. Chronic rib deformity noted. IMPRESSION: 1. Interval mild reduction in amount of pleural fluid relative to the prior exam.
[2018-10-04] MEDS ORDERED: ALTEPLASE 10 MG in SODIUM CHLORIDE 0.9% 100 ML IRRIGATION ONE (09:38)
[2018-10-04] MEDS: PIPERACILLIN-TAZOBACTAM 3.375 GM in SODIUM CHLORIDE 0.9% 100 ML IVPB SCH ×3 (09:56→23:16)
[2018-10-04] MEDS: DOCUSATE 100 MG CAP PO SCH ×2 (09:57→21:01)
[2018-10-04] MEDS: INSULN ASP PRT/INSULIN ASPART 100 UNIT/ML 10 ML VIAL SQ SCH ×3 (09:57→17:19)
[2018-10-04] MEDS: ASPIRIN 81 MG PO SCH (09:57)
[2018-10-04] MEDS: METOPROLOL TARTRATE 25 MG TAB PO SCH ×2 (09:57→21:01)
[2018-10-04] MEDS: LINAGLIPTIN 5 MG TABLET PO SCH (09:57)
[2018-10-04] MEDS: HEPARIN SODIUM,PORCINE 5,000 UNIT/ML 1 ML VIAL SQ SCH ×3 (09:58→23:15)
[2018-10-04] MEDS: PIOGLITAZONE 15 MG TAB PO SCH (10:02)
--- NOTE | 2018-10-04 10:43 | P.PN ---
Subjective Progress Note Date: 10/04/18 Principal diagnosis: Left pleural effusion, probable empyema. Previous medical history of tobacco dependence, insulin-dependent diabetes mellitus, hypertension, hyperlipidemia, chronic kidney disease stage III, TIA, benign pituitary tumor, chronic lower back pain, coronary artery disease with previous stenting and coronary artery bypass grafting surgery and recent hospitalization for pneumonia in June 2018 discharged home on Augmentin. POD #2 CT-guided left chest tube insertion by interventional radiology The patient's currently laying in bed in no acute distress. States pain is well-controlled, denies shortness of breath. Does complain of lack of sleep overnight. Patient has been ambulatory about the room. Pigtail catheter remains connected to atrium waterseal, no air leak present, drainage appears thick and yellowish white in color. Objective - Vital Signs Vital signs: Vital Signs Temp 97.5 F L 10/04/18 04:00 Pulse 77 10/04/18 09:00 Resp 16 10/04/18 08:00 BP 141/55 10/04/18 08:00 Pulse Ox 98 10/04/18 08:00 Intake & Output 10/03/18 10/04/18 10/04/18 18:59 06:59 18:59 Intake Total 902 600 240 Output Total 540 20 0 Balance 362 580 240 Weight 97.3 kg Intake: Oral 902 600 240 Output: Chest Tube Drainage 240 20 0 Left Posterior Chest 240 20 0 Urine 300 Other: Voiding Method Toilet Urinal # Voids 4 - Constitutional General appearance: Present: cooperative, no acute distress, obese - Respiratory Details: Lungs sounds diminished bilaterally. Respirations even, nonlabored. Currently on room air with oxygen saturation 98%. Able to achieve 2000 mL on his incentive spirometry. Left pleural pigtail catheter present, connected to atrium to waterseal, no drainage overnight, 200 mL drainage in the last 24 hours. - Cardiovascular Details: S1, S2 present. Regular rate and rhythm, sinus rhythm on telemetry. Palpable peripheral pulses bilaterally. Trace bilateral lower extremity edema present. No calf pain or tenderness noted. - Gastrointestinal Gastrointestinal Comment(s): Abdomen soft, nontender, nondistended. Active bowel sounds present 4 quadrants. Tolerating diet. - Genitourinary Genitourinary Comment(s): Continues to void clear, yellow urine. - Integumentary Integumentary Comment(s): Skin is warm and dry with evidence of good perfusion. Left pigtail catheter site covered with dry intact dressing. - Neurologic Neurologic: Present: CNII-XII intact - Musculoskeletal Musculoskeletal: Present: gait normal, strength equal bilaterally - Psychiatric Psychiatric: Present: A&O x's 3, appropriate affect, intact judgment & insight - Allied health notes Allied health notes reviewed: nursing - Labs CBC & Chem 7: 10/04/18 07:00 10/04/18 07:00 Labs: Abnormal Lab Results - Last 24 Hours (Table) 10/03/18 10/03/18 10/03/18 Range/Units 11:23 16:05 20:26 RBC (4.30-5.90) m/uL Hgb (13.0-17.5) gm/dL Hct (39.0-53.0) % MCV (80.0-100.0) fL MCH (25.0-35.0) pg MCHC (31.0-37.0) g/dL RDW (11.5-15.5) % Plt Count (150-450) k/uL POC Glucose (mg/dL) 185 H 273 H 279 H (75-99) mg/dL 10/04/18 Range/Units 07:00 RBC 3.85 L (4.30-5.90) m/uL Hgb 8.4 L (13.0-17.5) gm/dL Hct 27.6 L (39.0-53.0) % MCV 71.7 L (80.0-100.0) fL MCH 21.7 L (25.0-35.0) pg MCHC 30.3 L (31.0-37.0) g/dL RDW 18.5 H (11.5-15.5) % Plt Count 521 H (150-450) k/uL POC Glucose (mg/dL) (75-99) mg/dL Microbiology - Last 24 Hours (Table) 10/02/18 15:50 Gram Stain - Preliminary Pleural Fluid Body Fluid Culture - Preliminary - Imaging and Cardiology Chest x-ray: report reviewed, image reviewed Assessment and Plan Assessment: 1. Left pleural effusion, likely empyema, status post left thoracentesis and pl acement of left sided pigtail catheter by interventional radiology. 2. Acute anemia, unknown cause 3. Acute on chronic kidney disease 4. Recent weight loss 5. History of tobacco dependence 6. Uncontrolled Insulin-dependent diabetes mellitus with hemoglobin A1c 8.7% 7. History of hypertension 8. History of hyperlipidemia 9. History of benign pituitary tumor 10. History of coronary artery disease status post previous stenting and coronary artery bypass grafting surgery 11. History of TIA 12. History of recent pneumonia left lower lobe hospitalization in June 2018 13. Chronic lower back pain Plan: 1. Continue pigtail catheter to waterseal. Will monitor drainage. Will instill alteplase today. 2. Encourage is and spirometry is 10 times every hour while awake. 3. Increase activity, ambulate as tolerated. 4. Will monitor x-rays. 5. Bronchodilators per pulmonology. 6. Antibiotics, management of other comorbid conditions per primary care serv ice. 7. GI/DVT prophylaxis. 8. Patient may need thoracoscopic surgery in the near future. Recommend maximizing medical status with antibiotics, bronchodilators, and monitoring drainage for now. 9. More recommendations to follow based on clinical course. Time with Patient: Greater than 30
[2018-10-04 11:33] LABS: Glucose,Whole Blood 189 mg/dL (75-99)
[2018-10-04] MEDS: LUBIPROSTONE 24 MCG PO SCH ×2 (12:03→17:20)
[2018-10-04] MEDS: CABERGOLINE 0.5 MG PO SCH (12:49)
[2018-10-04] MEDS: MULTIVITAMINS, THERA 1 EACH TAB PO SCH (12:50)
[2018-10-04 16:23] LABS: Glucose,Whole Blood 111 mg/dL (75-99)
--- NOTE | 2018-10-04 17:37 | P.PN ---
Subjective Progress Note Date: 10/04/18 A 73-year-old male patient was transferred from [facility] because of a large right-sided pleural effusion, parapneumonic in nature. The patient was in the hospital approximately 3 weeks ago for a left-sided pneumonia and treated in the hospital for total of 2 days and the patient was discharged home on Augmentin. Following that the patient continued to have shortness of breath and chest pain. The patient is known to have diabetes mellitus, hypertension, hyperlipidemia and chronic kidney disease with stage III kidney failure, TIA, previous history of pituitary tumor, chronic back pain, and previous history of coronary artery disease for which she has undergone bypass surgery back in 2019. The patient continued to be symptomatic and for that reason he end up coming back to the hospital. Over the past few weeks he was having worsening cough, shortness of breath, nausea, generalized weakness and some fever and chills. He states that he has lost also 20 pounds. He denied h aving any chest pain. Upon arrival to [facility], the patient was hypoxic. He was placed on high flow oxygen 6 L per minute nasal cannula. Chest x-ray showed a large loculated left-sided pleural effusion. Ultrasound was done which confirmed the findings. Following that the patient underwent a thoracentesis and a total of 1.2 L of dark brownish fluid was drained from the left side. Fluid cytology and chemistry still pending. Note that the patient's white cell count was 16.5 and lactic acid level was 5.7 with a proBNP of 6580 and the patient recently for troponins were negative. Echocardiac Eugene showed a reserved LV function with an ejection fraction of 50-55% and mild mitral regurgitation. Following the thoracentesis, the patient had a CAT scan of the chest that showed ongoing consolidation of the left lower lobe in addition to lose some residual loculated pleural effusion with some pleural thickening and formation of her rind. The patient got transferred to our hospital for a surgical evaluation. For now his culture are still pending from the pleural fluid and currently is on examination of Zosyn and vancomycin. I reviewed the CAT scan images and I discussed this with the cardiothoracic surgeon and I've recommended recommendations for insertion of a pigtail catheter in the left lung by interventional radiology. The patient is seen today 10/03/2018 in follow-up on the selective care unit. He is currently awake and alert in no acute distress. Maintaining good O2 saturations in the 90s on room air. The patient did have persistent left-sided consolidation and pleural effusions on chest x-ray today. Chest tube remains in place. A total of 700 ML's of milky brown fluid has been returned. Fluid analysis is exudative in nature. Total protein 14. LDH greater than 4200. Remains on vancomycin and Zosyn. White count 10.0. Hemoglobin 8.3. Creatinine 1.05. On 10/04/2018 of seeing this patient for a follow-up in no fever. No chills. No respiratory distress. Patient is postop day #2 following a CAT scan guided the left-sided chest tube insertion that was done by interventional radiology. The output is still purulent. TPA was administered today and was still having significant amount of output from the pigtail catheter. No fever. No chills. Cultures still pending. Meanwhile the patient remains on a combination of IV Zosyn and vancomycin. No leukocytosis. Hemoglobin stable at 8.4. Renal function is also stable. Multiple mentation. He is ambulating. No other significant events over the past 24 hours. Objective - Vital Signs Vital signs: Vital Signs Temp 98.5 F 10/04/18 12:00 Pulse 74 10/04/18 12:00 Resp 20 10/04/18 12:00 BP 121/56 10/04/18 12:00 Pulse Ox 98 10/04/18 12:00 Intake & Output 10/03/18 10/04/18 10/04/18 18:59 06:59 18:59 Intake Total 902 600 480 Output Total 490 64 9592 Balance 362 580 -520 Weight 97.3 kg Intake: Oral 902 600 480 Output: Chest Tube Drainage 240 20 0 Left Posterior Chest 240 20 0 Urine 300 1000 Other: Voiding Method Toilet Urinal # Voids 1 - Exam GENERAL: The patient is alert and oriented x3, not in any acute distress. Well developed, well nourished. On room air. Head exam was generally normal. There was no scleral icterus or corneal arcus. Mucous membranes were moist. HEENT: Pupils are round and equally reacting to light. EOMI. No scleral icterus. No conjunctival pallor. Normocephalic, atraumatic. No pharyngeal erythema. No thyromegaly. CARDIOVASCULAR: S1 and S2 present. No murmurs, rubs, or gallops. PULMONARY: minimal basilar crackles on the left side, chest tube remains in place with thick purulent drainage. ABDOMEN: Soft, nontender, nondistended, normoactive bowel sounds. No palpable organomegaly. MUSCULOSKELETAL: No joint swelling or deformity. EXTREMITIES: No cyanosis, clubbing, or pedal edema. NEUROLOGICAL: Gross neurological examination did not reveal any focal deficits. SKIN: No rashes. Examination of the skin revealed no evidence of significant rashes, suspicious appearing nevi or other concerning lesions. - Labs CBC & Chem 7: 10/04/18 07:00 10/04/18 07:00 Labs: Abnormal Lab Results - Last 24 Hours (Table) 10/03/18 10/04/18 10/04/18 Range/Units 20:26 07:00 11:31 RBC 3.85 L (4.30-5.90) m/uL Hgb 8.4 L (13.0-17.5) gm/dL Hct 27.6 L (39.0-53.0) % MCV 71.7 L (80.0-100.0) fL MCH 21.7 L (25.0-35.0) pg MCHC 30.3 L (31.0-37.0) g/dL RDW 18.5 H (11.5-15.5) % Plt Count 521 H (150-450) k/uL POC Glucose (mg/dL) 279 H 189 H (75-99) mg/dL 10/04/18 Range/Units 16:21 RBC (4.30-5.90) m/uL Hgb (13.0-17.5) gm/dL Hct (39.0-53.0) % MCV (80.0-100.0) fL MCH (25.0-35.0) pg MCHC (31.0-37.0) g/dL RDW (11.5-15.5) % Plt Count (150-450) k/uL POC Glucose (mg/dL) 111 H (75-99) mg/dL Microbiology - Last 24 Hours (Table) 10/02/18 15:50 Gram Stain - Preliminary Pleural Fluid Body Fluid Culture - Preliminary Assessment and Plan Plan: 1 left lung empyema post ictal catheter insertion the patient's cultures still pending for now. Meanwhile the patient is covered with accommodation of Zosyn and vancomycin. Afebrile. Hemodynamically stable. Not septic looking at this point in time. The patient is postop day #2 following the pigtail catheter insertion and the patient received the first dose of TPA via the pigtail catheter today. Output is still considerable and the patient has put out approximately 100 mL of drainage over the past 24 hours. 2 recent hospitalization for left lower lobe pneumonia discharged home on Augmentin, cultures are all negative 3 acute hypoxic respiratory failure, improved postthoracentesis and pigtail catheter insertion the patient is currently on room air with a pulse of 98% 4 acute lactic acidosis secondary to above, improved 5 shortness of breath and cough and addition to weight loss and other constitutional symptoms secondary to pneumonia and possible pleural space infection 6 history of pituitary tumor 7 diabetes mellitus type 2 8 hypertension 9 hyperlipidemia 10 coronary artery disease with previous bypass surgery 11 COPD 13 previous history of CVA/TIA Plan Continue Zosyn and vancomycin. Daily chest x-ray. Monitor the output. Awaiting cultures and sensitivities. Clinically improving. Using incentive spirometer. We'll continue to follow.
[2018-10-04] MEDS ORDERED: VANCOMYCIN TROUGH DUE 1 EACH MISC MISCELLANE ONE (19:00)
[2018-10-04 20:30] LABS: Glucose,Whole Blood 129 mg/dL (75-99)
[2018-10-04] MEDS: ATORVASTATIN 20 MG TAB PO SCH (21:01)
--- NOTE | 2018-10-05 01:00 | P.PN ---
Subjective Progress Note Date: 10/04/18 Principal diagnosis: Left pleural effusion, likely empyema, status post left thoracentesis and placement of left sided pigtail catheter by interventional radiology. 73-year-old male was transferred from [facility] for possibility of VATS procedure. Patient had an empyema and had removal of 1.1 L of purulent fluid cultures are not available yet. Patient was on broad-spectrum antibiotics vancomycin and Zosyn as patient was severely septic and hypotensive although never required any pressor support. Patient had renal dysfunction secondary to acute tubular necrosis which also improved.patient is diabetic with uncontrolled blood sugars and and is on very high-dose of insulin about 200 units. Patient presently denied any fever chills nausea vomiting abdominal pain. Consider thoracic surgery evaluated the patient is recommending a pigtail catheter by interventional radiology. 10/03/2018 Patient is clinically doing well patient the chest tube drained about 800 mL of purulent drainage patient has Prevotella. Patient was a evaluated by cardiac thoracic surgery. Patient is in any fevers patient is feeling well did infectious disease will be consulted. We'll cut down the dose of nighttime 70:30. CT surgery will continue to evaluate for VATS 10/04/2018 Patient currently sitting in the bed comfortably. No complaints of fever or chills. Postoperative day 2 CT-guided left-sided chest tube insertion by IR. TPA was administered today. Patient is still having significant amount of purulent drainage from the pigtail catheter. Currently on antibiotics in the form of Zosyn. ID and pulmonary is following. No nausea vomiting or abdominal pain. No other acute overnight issues. Constitutional: Denied any fatigue denied any fever. Cardio vascular: denied any chest pain, palpitations Gastrointestinal denied any nausea vomiting Pulmonary: Denied any shortness of breath cough Neurologic denied any new focal deficits All inpatient medications were reviewed and appropriate changes in these medications as dictated in the interval history and assessment and plan. Objective - Vital Signs Vital signs: Vital Signs Temp 98.5 F 10/04/18 12:00 Pulse 70 10/04/18 16:00 Resp 18 10/04/18 16:00 BP 127/65 10/04/18 16:00 Pulse Ox 97 10/04/18 16:00 Intake & Output 10/04/18 10/04/18 10/05/18 06:59 18:59 06:59 Intake Total 600 720 Output Total 20 1275 Balance 580 -555 Weight 97.3 kg Intake: Oral 600 720 Output: Chest Tube Drainage 20 275 Left Posterior Chest 20 275 Urine 1000 Other: Voiding Method Toilet Urinal # Voids 1 - Exam PHYSICAL EXAMINATION: GENERAL: The patient is alert and oriented x3, not in any acute distress. Well developed, well nourished. HEENT: Pupils are round and equally reacting to light. EOMI. No scleral icterus. No conjunctival pallor. Normocephalic, atraumatic. No pharyngeal erythema. No thyromegaly. CARDIOVASCULAR: S1 and S2 present. No murmurs, rubs, or gallops. PULMONARY: minimal basilar crackles on the left side, patient has a left-sided chest tube draining purulent fluid ABDOMEN: Soft, nontender, nondistended, normoactive bowel sounds. No palpable organomegaly. MUSCULOSKELETAL: No joint swelling or deformity. EXTREMITIES: No cyanosis, clubbing, or pedal edema. NEUROLOGICAL: Gross neurological examination did not reveal any focal deficits. SKIN: No rashes. - Labs CBC & Chem 7: 10/04/18 07:00 10/04/18 07:00 Labs: Abnormal Lab Results - Last 24 Hours (Table) 10/04/18 10/04/18 10/04/18 Range/Units 07:00 11:31 16:21 RBC 3.85 L (4.30-5.90) m/uL Hgb 8.4 L (13.0-17.5) gm/dL Hct 27.6 L (39.0-53.0) % MCV 71.7 L (80.0-100.0) fL MCH 21.7 L (25.0-35.0) pg MCHC 30.3 L (31.0-37.0) g/dL RDW 18.5 H (11.5-15.5) % Plt Count 521 H (150-450) k/uL POC Glucose (mg/dL) 189 H 111 H (75-99) mg/dL 10/04/18 Range/Units 20:28 RBC (4.30-5.90) m/uL Hgb (13.0-17.5) gm/dL Hct (39.0-53.0) % MCV (80.0-100.0) fL MCH (25.0-35.0) pg MCHC (31.0-37.0) g/dL RDW (11.5-15.5) % Plt Count (150-450) k/uL POC Glucose (mg/dL) 129 H (75-99) mg/dL Microbiology - Last 24 Hours (Table) 10/02/18 15:50 Gram Stain - Preliminary Pleural Fluid Body Fluid Culture - Preliminary Assessment and Plan Assessment: -pneumonia parapneumonic effusion and empyema: Status post removal of 1.1 L of purulent fluid. 800 mL of purulent drainage the chest to today Cardiothoracic surgery evaluated the patient Vanco mycin will be discontinued and patient has Prevotella infectious disease was consulted Zosyn will be continued. -type 2 diabetes mellitus uncontrolled and elevated blood sugars will continue with present insulin regimen along with sliding scale depending on the sliding scale limits patient's insulin her diabetic regimen and we have titrated -Hyperlipidemia -Hypertension holding off antidepressant medications since his sepsis presently not requiring any medications at this time. #acute renal failure secondary to acute tubular necrosis which improved with IV fluids -COPD without any significant exacerbation -CVA and TIA in the past patient will need pharmacologic GI as well as DVT prophylaxis Time with Patient: Greater than 30
[2018-10-05] MEDS: SODIUM CHLORIDE 0.9% 1,000 ML IV SCH ×4 (03:58→20:19)
[2018-10-05 06:16] LABS: Glucose,Whole Blood 64 mg/dL (75-99)
[2018-10-05] MEDS: INSULIN ASPART (NovoLOG) 100 UNIT/ML VIAL SQ SCH ×4 (06:16→20:18)
[2018-10-05] MEDS: KETOROLAC 30 MG/ML 1 ML VIAL IVP PRN ×3 (06:28→19:24)
[2018-10-05] MEDS: PANTOPRAZOLE 40 MG TABLET PO SCH (06:28)
[2018-10-05] MEDS: LUBIPROSTONE 24 MCG PO SCH ×2 (06:28→17:15)
[2018-10-05 06:33] LABS: Glucose,Whole Blood 57 mg/dL (75-99)
[2018-10-05 06:44] LABS: Glucose,Whole Blood 58 mg/dL (75-99)
[2018-10-05 07:01] LABS: Glucose,Whole Blood 72 mg/dL (75-99)
[2018-10-05 08:14] LABS: Anisocytosis Slight; Basophils # (A) 0.1 k/uL (0-0.2); Basophils % (A) 1 %; Eosinophils # (A) 0.4 k/uL (0-0.7); Eosinophils % (A) 4 %; HCT 33.3 % (39.0-53.0); HGB 9.5 gm/dL (13.0-17.5); Hypochromasia Marked; Lymphocytes # (A) 1.3 k/uL (1.0-4.8); Lymphocytes % (A) 12 %; MCHC 28.4 g/dL (31.0-37.0); MCV 73.9 fL (80.0-100.0); Mean Platelet Volume 6.7; Microcytosis Moderate; Monocytes # (A) 0.5 k/uL (0-1.0); Monocytes % (A) 5 %; Neutrophils # (A) 7.8 k/uL (1.3-7.7); Neutrophils % (A) 77 %; Platelet Count 600 k/uL (150-450); Poikilocytosis Slight; RDW 17.9 % (11.5-15.5); WBC 10.1 k/uL (3.8-10.6)
[2018-10-05 08:19] LABS: Calcium 8.8 mg/dL (8.4-10.2)
[2018-10-05] MEDS: HEPARIN SODIUM,PORCINE 5,000 UNIT/ML 1 ML VIAL SQ SCH ×3 (08:30→23:04)
[2018-10-05] MEDS: INSULN ASP PRT/INSULIN ASPART 100 UNIT/ML 10 ML VIAL SQ SCH ×3 (08:31→17:18)
[2018-10-05] MEDS: ASPIRIN 81 MG PO SCH (08:33)
[2018-10-05] MEDS: PIPERACILLIN-TAZOBACTAM 3.375 GM in SODIUM CHLORIDE 0.9% 100 ML IVPB SCH ×3 (08:33→23:04)
[2018-10-05] MEDS: DOCUSATE 100 MG CAP PO SCH ×2 (08:34→20:18)
[2018-10-05] MEDS: LINAGLIPTIN 5 MG TABLET PO SCH (08:34)
[2018-10-05] MEDS: METOPROLOL TARTRATE 25 MG TAB PO SCH ×2 (08:34→20:18)
[2018-10-05] MEDS: PIOGLITAZONE 15 MG TAB PO SCH (08:34)
--- NOTE | 2018-10-05 09:20 | XR ---
EXAMINATION TYPE: XR chest 2V DATE OF EXAM: 10/05/2018 COMPARISON: Prior chest x-ray 10/04/2018 HISTORY: Empyema TECHNIQUE: Frontal and lateral views of the chest are obtained. FINDINGS: Pleural parenchymal changes are stable on the left. Left-sided chest tube again noted, the re is subcutaneous emphysema. There is no pneumothorax. Heart size is stable. Patient is post median sternotomy. Question some blunting of the right costophrenic angle. IMPRESSION: Stable pleural thickening, chest tube placement and subcutaneous emphysema. There may be en interval development of a small right effusion, basilar atelectasis.
[2018-10-05] MEDS: ALBUTEROL NEBULIZED 2.5 MG/3 ML INHALATION PRN ×2 (09:28→19:28)
[2018-10-05 11:41] LABS: Glucose,Whole Blood 204 mg/dL (75-99)
[2018-10-05] MEDS ORDERED: ALTEPLASE 10 MG in SODIUM CHLORIDE 0.9% 100 ML IRRIGATION ONE (12:00)
[2018-10-05] MEDS: MULTIVITAMINS, THERA 1 EACH TAB PO SCH (12:56)
--- NOTE | 2018-10-05 16:22 | P.PN ---
Subjective Progress Note Date: 10/05/18 Principal diagnosis: Left pleural effusion, probable empyema. Previous medical history of tobacco dependence, insulin-dependent diabetes mellitus, hypertension, hyperlipidemia, chronic kidney disease stage III, TIA, benign pituitary tumor, chronic lower back pain, coronary artery disease with previous stenting and coronary artery bypass grafting surgery and recent hospitalization for pneumonia in June 2018 discharged home on Augmentin. POD #3 CT-guided left chest tube insertion by interventional radiology The patient currently sitting up to the bedside chair. He is in no acute distress. States pain is well-controlled, denies any shortness of breath. His is at his bedside and her questions were answered to the best my ability. He is ambulating in his room. Pigtail catheter remains connected to atrium and is to waterseal, no air leak present, drainage appears thick, yellowish white in color. Alteplase dose was instilled yesterday with 300 mL output in the last 24 hours. Objective - Vital Signs Vital signs: Vital Signs Temp 96.9 F L 10/05/18 11:30 Pulse 81 10/05/18 11:30 Resp 18 10/05/18 11:30 BP 127/70 10/05/18 11:30 Pulse Ox 98 10/05/18 11:30 Intake & Output 10/04/18 10/05/18 10/05/18 18:59 06:59 18:59 Intake Total 720 360 Output Total 1275 840 30 Balance -555 -840 330 Weight 98.6 kg Intake: Oral 720 360 Output: Chest Tube Drainage 275 90 30 Left Posterior Chest 275 90 30 Urine 1000 750 Other: Voiding Method Toilet Toilet Urinal Urinal # Voids 1 - Constitutional General appearance: Present: cooperative, no acute distress, obese - Respiratory Details: Lung sounds essentially clear to his bilateral upper lobes, diminished to his left lower lobe. Respirations are symmetrical and nonlabored. Oxygen saturation are 98% on room air. Achieving 1500 mL on his incentive spirometry. Left pleural pigtail catheter in place to waterseal. No air leak is present. Draining thick, yellowish white-colored drainage. 300 mL output in the last 24 hours. - Cardiovascular Details: Regular rhythm and rate. S1 and S2 present, negative for S3, gallop or murmur. Remote telemetry showing normal sinus rhythm heart rate 75. Peripheral pulses palpable. +1 edema to his bilateral lower extremities. Sequential compression devices in place to his bilateral lower extremities. - Gastrointestinal Gastrointestinal Comment(s): Abdomen is soft, nontender and nondistended. Active bowel sounds all 4 abdominal quadrants. No guarding or rigidity. No organomegaly. Tolerating oral intake. - Genitourinary Genitourinary Comment(s): Voiding clear yellow urine. - Integumentary Integumentary Comment(s): Skin is warm and dry. No clubbing or cyanosis is present. No rash or abnormal pigmentation present. Left pleural pigtail catheter site dressing clean, dry and intact. - Neurologic Neurologic: Present: CNII-XII intact - Musculoskeletal Musculoskeletal: Present: gait normal, strength equal bilaterally - Psychiatric Psychiatric: Present: A&O x's 3, appropriate affect, intact judgment & insight - Allied health notes Allied health notes reviewed: nursing - Labs CBC & Chem 7: 10/05/18 06:59 10/05/18 06:59 Labs: Abnormal Lab Results - Last 24 Hours (Table) 10/04/18 10/04/18 10/05/18 Range/Units 16:21 20:28 06:15 Hgb (13.0-17.5) gm/dL Hct (39.0-53.0) % MCV (80.0-100.0) fL MCH (25.0-35.0) pg MCHC (31.0-37.0) g/dL RDW (11.5-15.5) % Plt Count (150-450) k/uL Neutrophils # (1.3-7.7) k/uL Chloride (98-107) mmol/L BUN (9-20) mg/dL POC Glucose (mg/dL) 111 H 129 H 64 L (75-99) mg/dL 10/05/18 10/05/18 10/05/18 Range/Units 06:31 06:43 06:59 Hgb 9.5 L (13.0-17.5) gm/dL Hct 33.3 L (39.0-53.0) % MCV 73.9 L (80.0-100.0) fL MCH 21.0 L (25.0-35.0) pg MCHC 28.4 L (31.0-37.0) g/dL RDW 17.9 H (11.5-15.5) % Plt Count 600 H (150-450) k/uL Neutrophils # 7.8 H (1.3-7.7) k/uL Chloride (98-107) mmol/L BUN (9-20) mg/dL POC Glucose (mg/dL) 57 L 58 L (75-99) mg/dL 10/05/18 10/05/18 10/05/18 Range/Units 06:59 07:00 11:40 Hgb (13.0-17.5) gm/dL Hct (39.0-53.0) % MCV (80.0-100.0) fL MCH (25.0-35.0) pg MCHC (31.0-37.0) g/dL RDW (11.5-15.5) % Plt Count (150-450) k/uL Neutrophils # (1.3-7.7) k/uL Chloride 108 H (98-107) mmol/L BUN 8 L (9-20) mg/dL POC Glucose (mg/dL) 72 L 204 H (75-99) mg/dL Microbiology - Last 24 Hours (Table) 10/02/18 15:50 Gram Stain - Preliminary Pleural Fluid Body Fluid Culture - Preliminary - Imaging and Cardiology Chest x-ray: report reviewed, image reviewed Assessment and Plan Assessment: 1. Left pleural effusion, likely empyema, status post left thoracentesis and placement of left sided pigtail catheter by interventional radiology. 2. Acute anemia, unknown cause 3. Acute on chronic kidney disease 4. Recent weight loss 5. History of tobacco dependence 6. Uncontrolled Insulin-dependent diabetes mellitus with hemoglobin A1c 8.7% 7. History of hypertension 8. History of hyperlipidemia 9. History of benign pituitary tumor 10. History of coronary artery disease status post previous stenting and coronary artery bypass grafting surgery 11. History of TIA 12. History of recent pneumonia left lower lobe hospitalization in June 2018 13. Chronic lower back pain Plan: 1. Continue pigtail catheter to waterseal. Will monitor drainage. Will complete a pleural instillation of alteplase today. This will be his second dose. 2. Encourage use of his spirometry is 10 times every hour while awake. 3. Increase activity, ambulate as tolerated. 4. Will monitor daily chest x-rays. 5. Bronchodilators per pulmonology. 6. Antibiotics, management of other comorbid conditions per primary care service. 7. GI/DVT prophylaxis. 8. Patient may need thoracoscopic surgery in the near future. Recommend maximizing medical status with antibiotics, bronchodilators, and monitoring dr mcnally for now. 9. More recommendations to follow based on clinical course. Time with Patient: Greater than 30
[2018-10-05 16:56] LABS: Glucose,Whole Blood 254 mg/dL (75-99)
--- NOTE | 2018-10-05 18:54 | P.PN ---
Subjective Progress Note Date: 10/05/18 Principal diagnosis: Complicated parapneumonic left-sided pleural effusion A 73-year-old male patient was transferred from [facility] because of a large right-sided pleural effusion, parapneumonic in nature. The patient was in the hospital approximately 3 weeks ago for a left-sided pneumonia and treated in the hospital for total of 2 days and the patient was discharged home on Augmentin. Following that the patient continued to have shortness of breath and chest pain. The patient is known to have diabetes mellitus, hypertension, hyperlipidemia and chronic kidney disease with stage III kidney failure, TIA, previous history of pituitary tumor, chronic back pain, and previous history of coronary artery disease for which she has undergone bypass surgery back in 2019. The patient continued to be symptomatic and for that reason he end up coming back to the hospital. Over the past few weeks he was having worsening cough, shortness of breath, nausea, generalized weakness and some fever and chills. He states that he has lost also 20 pounds. He denied having any chest pain. Upon arrival to [facility], the patient was hypoxic. He was placed on high flow oxygen 6 L per minute nasal cannula. Chest x-ray showed a large loculated left-sided pleural effusion. Ultrasound was done which confirmed the findings. Following that the patient underwent a thoracentesis and a total of 1.2 L of dark brownish fluid was drained from the left side. Fluid cytology and chemistry still pending. Note that the patient's white cell count was 16.5 and lactic acid level was 5.7 with a proBNP of 6580 and the patient recently for troponins were negative. Echocardiac Eugene showed a reserved LV function with an ejection fraction of 50-55% and mild mitral regurgitation. Following the thoracentesis, the patient had a CAT scan of the chest that showed ongoing consolidation of the left lower lobe in addition to lose some residual loculated pleural effusion with some pleural thickening and formation of her rind. The patient got transferred to our hospital for a surgical evaluation. For now his culture are still pending from the pleural fluid and currently is on examination of Zosyn and vancomycin. I reviewed the CAT scan images and I discussed this with the cardiothoracic surgeon and I've recommended recommendations for insertion of a pigtail catheter in the left lung by interventional radiology. The patient is seen today 10/03/2018 in follow-up on the selective care unit. He is currently awake and alert in no acute distress. Maintaining good O2 saturations in the 90s on room air. The patient did have persistent left-sided consolidation and pleural effusions on chest x-ray today. Chest tube remains in place. A total of 700 ML's of milky brown fluid has been returned. Fluid analysis is exudative in nature. Total protein 14. LDH greater than 4200. Remains on vancomycin and Zosyn. White count 10.0. Hemoglobin 8.3. Creatinine 1.05. On 10/04/2018 of seeing this patient for a follow-up in no fever. No chills. No respiratory distress. Patient is postop day #2 following a CAT scan guided the left-sided chest tube insertion that was done by interventional radiology. The output is still purulent. TPA was administered today and was still having significant amount of output from the pigtail catheter. No fever. No chills. Cultures still pending. Meanwhile the patient remains on a combination of IV Zosyn and vancomycin. No leukocytosis. Hemoglobin stable at 8.4. Renal function is also stable. Multiple mentation. He is ambulating. No other significant events over the past 24 hours. The patient is seen today 10/05/2018 in follow-up on the selective care unit. He is currently sitting up in the bedside. Awake and alert in no acute distress. Chest x-ray reveals stable pleural thickening, subcutaneous emphysema, interval development of a small right effusion, basilar atelectasis. No pneumothorax. Left-sided chest tube remains in place. Alteplase was administered again today. Fluid is less thick and clear. Cultures are pending. White count 10.1. Hemoglobin 9.5. Creatinine 1.06. He remains on Zosyn and bronchodilators. He is maintaining good O2 saturations in the mid 90s on room air. He's been afebrile. Hemodynamically stable. Objective - Vital Signs Vital signs: Vital Signs Temp 96.9 F L 10/05/18 11:30 Pulse 84 10/05/18 15:55 Resp 16 10/05/18 15:55 BP 140/68 10/05/18 15:55 Pulse Ox 96 10/05/18 15:55 Intake & Output 10/04/18 10/05/18 10/05/18 18:59 06:59 18:59 Intake Total 720 600 Output Total 1275 840 40 Balance -555 -840 560 Weight 98.6 kg Intake: Oral 720 600 Output: Chest Tube Drainage 275 90 40 Left Posterior Chest 275 90 40 Urine 1000 750 Other: Voiding Method Toilet Toilet Urinal Urinal # Voids 1 1 # Bowel Movements 0 - Exam GENERAL: The patient is alert and oriented x3, not in any acute distress. Well developed, well nourished. On room air. Head exam was generally normal. There was no scleral icterus or corneal arcus. Mucous membranes were moist. HEENT: Pupils are round and equally reacting to light. EOMI. No scleral icterus. No conjunctival pallor. Normocephalic, atraumatic. No pharyngeal erythema. No thyromegaly. CARDIOVASCULAR: S1 and S2 present. No murmurs, rubs, or gallops. PULMONARY: minimal basilar crackles on the left side, chest tube remains in place with clear thin drainage status post alteplase. ABDOMEN: Soft, nontender, nondistended, normoactive bowel sounds. No palpable organomegaly. MUSCULOSKELETAL: No joint swelling or deformity. EXTREMITIES: No cyanosis, clubbing, or pedal edema. NEUROLOGICAL: Gross neurological examination did not reveal any focal deficits. SKIN: No rashes. Examination of the skin revealed no evidence of significant rashes, suspicious appearing nevi or other concerning lesions. - Labs CBC & Chem 7: 10/05/18 06:59 10/05/18 06:59 Labs: Abnormal Lab Results - Last 24 Hours (Table) 10/04/18 10/05/18 10/05/18 Range/Units 20:28 06:15 06:31 Hgb (13.0-17.5) gm/dL Hct (39.0-53.0) % MCV (80.0-100.0) fL MCH (25.0-35.0) pg MCHC (31.0-37.0) g/dL RDW (11.5-15.5) % Plt Count (150-450) k/uL Neutrophils # (1.3-7.7) k/uL Chloride (98-107) mmol/L BUN (9-20) mg/dL POC Glucose (mg/dL) 129 H 64 L 57 L (75-99) mg/dL 10/05/18 10/05/18 10/05/18 Range/Units 06:43 06:59 06:59 Hgb 9.5 L (13.0-17.5) gm/dL Hct 33.3 L (39.0-53.0) % MCV 73.9 L (80.0-100.0) fL MCH 21.0 L (25.0-35.0) pg MCHC 28.4 L (31.0-37.0) g/dL RDW 17.9 H (11.5-15.5) % Plt Count 600 H (150-450) k/uL Neutrophils # 7.8 H (1.3-7.7) k/uL Chloride 108 H (98-107) mmol/L BUN 8 L (9-20) mg/dL POC Glucose (mg/dL) 58 L (75-99) mg/dL 10/05/18 10/05/18 10/05/18 Range/Units 07:00 11:40 16:47 Hgb (13.0-17.5) gm/dL Hct (39.0-53.0) % MCV (80.0-100.0) fL MCH (25.0-35.0) pg MCHC (31.0-37.0) g/dL RDW (11.5-15.5) % Plt Count (150-450) k/uL Neutrophils # (1.3-7.7) k/uL Chloride (98-107) mmol/L BUN (9-20) mg/dL POC Glucose (mg/dL) 72 L 204 H 254 H (75-99) mg/dL Microbiology - Last 24 Hours (Table) 10/02/18 15:50 Gram Stain - Preliminary Pleural Fluid Body Fluid Culture - Preliminary Assessment and Plan Assessment: Impression: 1 complicated parapneumonic left-sided pleural effusion which is quite loculated and there is still dense consolidation of the left lower lobe. Thoracentesis was performed and a total of 1.1 L of fluid was removed from the left lung. There is still residual consolidation and effusion left lung base. Currently on a combination of Zosyn and vancomycin. Pleural fluid analysis is exudative in nature. Cultures pending. Left sided chest tube remains in place, fluid is clearing status post alteplase. 2 recent authorization for left lower lobe pneumonia discharged home on Augmentin, cultures are all negative 3 acute hypoxic respiratory failure, improved postthoracentesis 4 acute lactic acidosis secondary to above 5 shortness of breath and cough and addition to weight loss and other constitutional symptoms secondary to pneumonia and possible pleural space infection 6 history of pituitary tumor 7 diabetes mellitus type 2 8 hypertension 9 hyperlipidemia 10 coronary artery disease with previous bypass surgery 11 COPD 13 previous history of CVA/TIA Plan The patient was seen and evaluated by Dr. Kenney. Chest x-ray and labs reviewed. Chest tube remains in place. Cultures pending. Continue Zosyn for now. We'll continue to follow make further recommendations based on his clinical status. I, the cosigning physician, performed a history & physical examination of the patient. Lungs sounds with scattered rhonchi left greater than right. Maintaining good O2 saturations in the 90s on room air. I discussed the assessment and plan of care with my nurse practitioner, Stephy Bonds. I attest to the above note as dictated by her.
[2018-10-05 20:13] LABS: Glucose,Whole Blood 168 mg/dL (75-99)
[2018-10-05] MEDS: ATORVASTATIN 20 MG TAB PO SCH (20:18)
[2018-10-05] MEDS: BENZONATATE 100 MG CAP PO PRN (23:03)
--- NOTE | 2018-10-05 23:26 | P.PN ---
Subjective Progress Note Date: 10/05/18 Pleasant 73-year-old male who has a recent extensive history starting in June 2018 which point in time he was diagnosed with pneumonia and treated with a course of antibiotic therapy. Since that time his had worsening of his symptoms with increasing amounts of weakness and shortness of breath and cough. He had episodes of nausea and emesis and fevers and chills. The relates that he had about a 20 pound weight loss also. Because he was feeling so poorly he did present to the [facility] 09/28/2018 which point in time there is evidence of relative hypoxia and complete obliteration of the left chest cavity by fluid. Thoracentesis was performed and approximately 1.2 L of a thick brownish material was drained. Pulmonary cytology report revealed no evidence of any malignant cells. Culture reveals evidence of Prevotella species and other cultures are pending at this point in time. The patient continued to have difficulties with his pulmonary status and given that he had a history of prior coronary artery bypass grafting procedure and may require surgical intervention to the chest was transferred to [facility] for further evaluation. He has now been seen by the cardiothoracic service and depending on response to treatment such as alteplase will determine if a VATS procedure will be required. 10/05/2018 patient is feeling somewhat better. Is responding well to current antibiotic therapy. Is being followed by thoracic surgery as far as any needs for surgical intervention. Alteplase being utilized to hopefully mobilize the pleural effusion. Other than some minimal tenderness at the pleural drain site he has no other acute complaint. He is having no fevers or chills and is less short of breath. Objective - Vital Signs Vital signs: Vital Signs Temp 97.9 F 10/05/18 20:00 Pulse 82 10/05/18 20:00 Resp 18 10/05/18 20:00 BP 123/66 10/05/18 20:00 Pulse Ox 100 10/05/18 20:00 Intake & Output 10/05/18 10/05/18 10/06/18 06:59 18:59 06:59 Intake Total 600 500 Output Total 840 40 30 Balance -840 560 470 Weight 98.6 kg Intake: Oral 600 500 Output: Chest Tube Drainage 90 40 30 Left Posterior Chest 90 40 30 Urine 750 Other: Voiding Method Toilet Toilet Toilet Urinal Urinal Urinal # Voids 1 # Bowel Movements 0 - Exam 73-year-old male in no acute distress but is much less short of breath than at admission HEENT: Anicteric conjunctiva are pink and moist nasal mucosa grossly intact without significant lesions, there is no thrush. Neck: The neck is supple without significant lymphadenopathy or thyromegaly. Lungs: Symmetrical air entry anteriorly. There remains course crackles and diminished breath sounds. Left posterior mid and lower zones. Some dullness is noted at the left base. The percutaneous catheter site is without drainage Heart: Regular rate and rhythm with an audible S1-S2, no S3 no S4. There is no significant murmur click or rub, PMI was nondisplaced. Abdomen: Positive bowel sounds soft and nontender without palpable masses or organomegaly. There was no guarding or rebound. Extremities: The upper extremities have excellent pulses they are symmetric, no significant petechiae or telangiectasia. No splinter hemorrhages were noted. Lower extremities have trace pedal edema peripheral pulses are 2+ and symmetric no open ulcerations are seen Neuro: Awake alert oriented to person place and time. There are no acute new gr oss focal sensory motor deficits. - Labs CBC & Chem 7: 10/05/18 06:59 10/05/18 06:59 Labs: Abnormal Lab Results - Last 24 Hours (Table) 10/05/18 10/05/18 10/05/18 Range/Units 06:15 06:31 06:43 Hgb (13.0-17.5) gm/dL Hct (39.0-53.0) % MCV (80.0-100.0) fL MCH (25.0-35.0) pg MCHC (31.0-37.0) g/dL RDW (11.5-15.5) % Plt Count (150-450) k/uL Neutrophils # (1.3-7.7) k/uL Chloride (98-107) mmol/L BUN (9-20) mg/dL POC Glucose (mg/dL) 64 L 57 L 58 L (75-99) mg/dL 10/05/18 10/05/18 10/05/18 Range/Units 06:59 06:59 07:00 Hgb 9.5 L (13.0-17.5) gm/dL Hct 33.3 L (39.0-53.0) % MCV 73.9 L (80.0-100.0) fL MCH 21.0 L (25.0-35.0) pg MCHC 28.4 L (31.0-37.0) g/dL RDW 17.9 H (11.5-15.5) % Plt Count 600 H (150-450) k/uL Neutrophils # 7.8 H (1.3-7.7) k/uL Chloride 108 H (98-107) mmol/L BUN 8 L (9-20) mg/dL POC Glucose (mg/dL) 72 L (75-99) mg/dL 10/05/18 10/05/18 10/05/18 Range/Units 11:40 16:47 20:08 Hgb (13.0-17.5) gm/dL Hct (39.0-53.0) % MCV (80.0-100.0) fL MCH (25.0-35.0) pg MCHC (31.0-37.0) g/dL RDW (11.5-15.5) % Plt Count (150-450) k/uL Neutrophils # (1.3-7.7) k/uL Chloride (98-107) mmol/L BUN (9-20) mg/dL POC Glucose (mg/dL) 204 H 254 H 168 H (75-99) mg/dL Microbiology - Last 24 Hours (Table) 10/02/18 15:50 Anaerobic Culture - Preliminary Pleural Fluid Laboratory Results WBC 10.1 k/uL (3.8-10.6) 10/05/18 06:59 RBC 4.50 m/uL (4.30-5.90) 10/05/18 06:59 Hgb 9.5 gm/dL (13.0-17.5) L 10/05/18 06:59 Hct 33.3 % (39.0-53.0) L 10/05/18 06:59 MCV 73.9 fL (80.0-100.0) L 10/05/18 06:59 MCH 21.0 pg (25.0-35.0) L 10/05/18 06:59 MCHC 28.4 g/dL (31.0-37.0) L 10/05/18 06:59 RDW 17.9 % (11.5-15.5) H 10/05/18 06:59 Plt Count 600 k/uL (150-450) H 10/05/18 06:59 Neutrophils % 77 % 10/05/18 06:59 Lymphocytes % 12 % 10/05/18 06:59 Monocytes % 5 % 10/05/18 06:59 Eosinophils % 4 % 10/05/18 06:59 Basophils % 1 % 10/05/18 06:59 Neutrophils # 7.8 k/uL (1.3-7.7) H 10/05/18 06:59 Lymphocytes # 1.3 k/uL (1.0-4.8) 10/05/18 06:59 Monocytes # 0.5 k/uL (0-1.0) 10/05/18 06:59 Eosinophils # 0.4 k/uL (0-0.7) 10/05/18 06:59 Basophils # 0.1 k/uL (0-0.2) 10/05/18 06:59 Hypochromasia Marked 10/05/18 06:59 Poikilocytosis Slight 10/05/18 06:59 Anisocytosis Slight 10/05/18 06:59 Microcytosis Moderate 10/05/18 06:59 PT 10.8 sec (9.0-12.0) 10/02/18 14:29 INR 1.0 (<1.2) 10/02/18 14:29 Sodium 140 mmol/L (137-145) 10/05/18 06:59 Potassium 4.0 mmol/L (3.5-5.1) 10/05/18 06:59 Chloride 108 mmol/L (98-107) H 10/05/18 06:59 Carbon Dioxide 23 mmol/L (22-30) 10/05/18 06:59 Anion Gap 9 mmol/L 10/05/18 06:59 BUN 8 mg/dL (9-20) L 10/05/18 06:59 Creatinine 1.06 mg/dL (0.66-1.25) 10/05/18 06:59 Est GFR (CKD-EPI)AfAm 80 (>60 ml/min/1.73 sqM) 10/05/18 06:59 Est GFR (CKD-EPI)NonAf 69 (>60 ml/min/1.73 sqM) 10/05/18 06:59 Glucose 93 mg/dL (74-99) 10/05/18 06:59 POC Glucose (mg/dL) 168 mg/dL (75-99) H 10/05/18 20:08 POC Glu Pipe Finisher ID Ellen Fernandez 10/05/18 20:08 Calcium 8.8 mg/dL (8.4-10.2) 10/05/18 06:59 Magnesium 1.7 mg/dL (1.6-2.3) 10/03/18 08:53 Fluid Source Pleural 10/02/18 15:50 Fluid Color Brown 10/02/18 15:50 Fluid Appearance Cloudy 10/02/18 15:50 Fluid RBC 1600 /uL 10/02/18 15:50 Fluid Nucleated Cells 207298 /uL 10/02/18 15:50 Body Fluid Protein Source Pleural Fluid 10/02/18 15:50 Fluid Total Protein 1402 mg/dL 10/02/18 15:50 Body Fluid LDH Source Pleural Fluid 10/02/18 15:50 Fluid LDH >4200 U/L 10/02/18 15:50 Fluid Comment 10/02/18 15:50 Vancomycin Trough 11.3 ug/mL 10/04/18 18:59 Microbiology 10/02/18 15:50 Pleural Fluid Anaerobic Culture - Preliminary 10/02/18 15:50 Pleural Fluid Gram Stain - Preliminary 10/02/18 15:50 Pleural Fluid Body Fluid Culture - Preliminary 10/02/18 15:50 Pleural Fluid Fungal Culture - Preliminary Assessment and Plan (1) Empyema of left pleural space Narrative/Plan: 73-year-old male presents from outside hospital for further evaluation of his significant difficulty with his respiratory status. Imaging studies facility revealed the extensive empyema to the left chest. He did undergo thoracentesis and 1.2 L of material was removed. Pulmonary cultures show evidence of Prevotella and preliminary cytology does not reveal evidence of any malignant cells. 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 He is partially improving with the current interventions but imaging reveals evidence of ongoing significant residual disease. He's been seen by cardiovascular surgery and thrombolytic therapy is being planned. If this is not effective he will then need to undergo a VATS procedure in the near future. We'll plan outpatient intravenous antibiotic therapy which may be further defined in the next short period of time. Continue ongoing supportive care regarding his discomforts and shortness of breath which is markedly improved after the relatively high volume thoracentesis of occurred so far. 10/05/2018 patient is doing well with current antibiotic therapy of Zosyn is being followed by thoracic surgery for the potential need for a VATS procedure. IV access for outpatient antibiotic therapy has been arranged. The patient will require antibiotic therapy in the home setting. However he did not want to have home care. Consequently a teach and treatment program will be utilized. Based on current data with Prevotella will be treated with Invanz 1 g daily in the outpatient setting when ready for discharge. Current Visit: Yes Status: Acute Code(s): J86.9 - PYOTHORAX WITHOUT FISTULA SNOMED Code(s): 56525183 (2) Pneumonia due to anaerobes Current Visit: Yes Status: Acute Code(s): J15.8 - PNEUMONIA DUE TO OTHER SPECIFIED BACTERIA SNOMED Code(s): 865711032 (3) Poor dentition Current Visit: Yes Status: Acute Code(s): K08.9 - DISORDER OF TEETH AND SUPPORTING STRUCTURES, UNSPECIFIED SNOMED Code(s): 210860044
--- NOTE | 2018-10-06 00:42 | P.PN ---
Subjective Progress Note Date: 10/05/18 Principal diagnosis: Left pleural effusion, likely empyema, status post left thoracentesis and placement of left sided pigtail catheter by interventional radiology. 73-year-old male was transferred from [facility] for possibility of VATS procedure. Patient had an empyema and had removal of 1.1 L of purulent fluid cultures are not available yet. Patient was on broad-spectrum antibiotics vancomycin and Zosyn as patient was severely septic and hypotensive although never required any pressor support. Patient had renal dysfunction secondary to acute tubular necrosis which also improved.patient is diabetic with uncontrolled blood sugars and and is on very high-dose of insulin about 200 units. Patient presently denied any fever chills nausea vomiting abdominal pain. Consider thoracic surgery evaluated the patient is recommending a pigtail catheter by interventional radiology. 10/03/2018 Patient is clinically doing well patient the chest tube drained about 800 mL of purulent drainage patient has Prevotella. Patient was a evaluated by cardiac thoracic surgery. Patient is in any fevers patient is feeling well did infectious disease will be consulted. We'll cut down the dose of nighttime 70:30. CT surgery will continue to evaluate for VATS 10/04/2018 Patient currently sitting in the bed comfortably. No complaints of fever or chills. Postoperative day 2 CT-guided left-sided chest tube insertion by IR. TPA was administered today. Patient is still having significant amount of purulent drainage from the pigtail catheter. Currently on antibiotics in the form of Zosyn. ID and pulmonary is following. No nausea vomiting or abdominal pain. No other acute overnight issues. 10/05/2018 Patient denied any complains of chest pain or worsening shortness of breath. Currently able to sit in the chair comfortably. Chest x-ray showed stable pleural thickening, subcutaneous emphysema, interval development of small right effusion and basilar atelectasis. No pneumothorax is. Left-sided chest tube remains in place. TPA was administered again today. Patient remained on antibiotics in form of Zosyn. Currently saturating about 90% on room air. Afebrile. Pulmonary is following. Constitutional: Denied any fatigue denied any fever. Cardio vascular: denied any chest pain, palpitations Gastrointestinal denied any nausea vomiting Pulmonary: Denied any shortness of breath cough Neurologic denied any new focal deficits All inpatient medications were reviewed and appropriate changes in these medications as dictated in the interval history and assessment and plan. Objective - Vital Signs Vital signs: Vital Signs Temp 96.9 F L 10/05/18 11:30 Pulse 55 L 10/05/18 19:38 Resp 16 10/05/18 19:38 BP 140/68 10/05/18 15:55 Pulse Ox 96 10/05/18 15:55 Intake & Output 10/05/18 10/05/18 10/06/18 06:59 18:59 06:59 Intake Total 600 Output Total 840 40 Balance -840 560 Weight 98.6 kg Intake: Oral 600 Output: Chest Tube Drainage 90 40 Left Posterior Chest 90 40 Urine 750 Other: Voiding Method Toilet Toilet Urinal Urinal # Voids 1 # Bowel Movements 0 - Exam PHYSICAL EXAMINATION: GENERAL: The patient is alert and oriented x3, not in any acute distress. Well developed, well nourished. HEENT: Pupils are round and equally reacting to light. EOMI. No scleral icterus. No conjunctival pallor. Normocephalic, atraumatic. No pharyngeal erythema. No thyromegaly. CARDIOVASCULAR: S1 and S2 present. No murmurs, rubs, or gallops. PULMONARY: minimal basilar crackles on the left side, patient has a left-sided chest tube draining purulent fluid ABDOMEN: Soft, nontender, nondistended, normoactive bowel sounds. No palpable organomegaly. MUSCULOSKELETAL: No joint swelling or deformity. EXTREMITIES: No cyanosis, clubbing, or pedal edema. NEUROLOGICAL: Gross neurological examination did not reveal any focal deficits. SKIN: No rashes. - Labs CBC & Chem 7: 10/05/18 06:59 10/05/18 06:59 Labs: Abnormal Lab Results - Last 24 Hours (Table) 10/05/18 10/05/18 10/05/18 Range/Units 06:15 06:31 06:43 Hgb (13.0-17.5) gm/dL Hct (39.0-53.0) % MCV (80.0-100.0) fL MCH (25.0-35.0) pg MCHC (31.0-37.0) g/dL RDW (11.5-15.5) % Plt Count (150-450) k/uL Neutrophils # (1.3-7.7) k/uL Chloride (98-107) mmol/L BUN (9-20) mg/dL POC Glucose (mg/dL) 64 L 57 L 58 L (75-99) mg/dL 10/05/18 10/05/18 10/05/18 Range/Units 06:59 06:59 07:00 Hgb 9.5 L (13.0-17.5) gm/dL Hct 33.3 L (39.0-53.0) % MCV 73.9 L (80.0-100.0) fL MCH 21.0 L (25.0-35.0) pg MCHC 28.4 L (31.0-37.0) g/dL RDW 17.9 H (11.5-15.5) % Plt Count 600 H (150-450) k/uL Neutrophils # 7.8 H (1.3-7.7) k/uL Chloride 108 H (98-107) mmol/L BUN 8 L (9-20) mg/dL POC Glucose (mg/dL) 72 L (75-99) mg/dL 10/05/18 10/05/18 10/05/18 Range/Units 11:40 16:47 20:08 Hgb (13.0-17.5) gm/dL Hct (39.0-53.0) % MCV (80.0-100.0) fL MCH (25.0-35.0) pg MCHC (31.0-37.0) g/dL RDW (11.5-15.5) % Plt Count (150-450) k/uL Neutrophils # (1.3-7.7) k/uL Chloride (98-107) mmol/L BUN (9-20) mg/dL POC Glucose (mg/dL) 204 H 254 H 168 H (75-99) mg/dL Microbiology - Last 24 Hours (Table) 10/02/18 15:50 Gram Stain - Preliminary Pleural Fluid Body Fluid Culture - Preliminary Assessment and Plan Assessment: -pneumonia parapneumonic effusion and empyema: Status post removal of 1.1 L of purulent fluid. 800 mL of purulent drainage the chest to today Cardiothoracic surgery evaluated the patient Vanco mycin will be discontinued and patient has Prevotella infectious disease was consulted Zosyn will be continued. -type 2 diabetes mellitus uncontrolled and elevated blood sugars will continue with present insulin regimen along with sliding scale depending on the sliding scale limits patient's insulin her diabetic regimen and we have titrated -Hyperlipidemia -Hypertension holding off antidepressant medications since his sepsis presently not requiring any medications at this time. #acute renal failure secondary to acute tubular necrosis which improved with IV fluids -COPD without any significant exacerbation -CVA and TIA in the past patient will need pharmacologic GI as well as DVT prophylaxis Time with Patient: Greater than 30
[2018-10-06 02:02] LABS: Glucose,Whole Blood 84 mg/dL (75-99)
[2018-10-06 05:54] LABS: Glucose,Whole Blood 67 mg/dL (75-99)
[2018-10-06] MEDS: PANTOPRAZOLE 40 MG TABLET PO SCH (06:13)
[2018-10-06] MEDS: LUBIPROSTONE 24 MCG PO SCH ×2 (06:13→17:48)
[2018-10-06 06:15] LABS: Glucose,Whole Blood 90 mg/dL (75-99)
[2018-10-06] MEDS: INSULIN ASPART (NovoLOG) 100 UNIT/ML VIAL SQ SCH ×4 (06:15→22:01)
[2018-10-06] MEDS: SODIUM CHLORIDE 0.9% 1,000 ML IV SCH ×3 (06:15→22:01)
[2018-10-06] MEDS: HEPARIN SODIUM,PORCINE 5,000 UNIT/ML 1 ML VIAL SQ SCH ×3 (07:59→23:26)
[2018-10-06] MEDS: DOCUSATE 100 MG CAP PO SCH ×2 (08:00→22:01)
[2018-10-06] MEDS: MULTIVITAMINS, THERA 1 EACH TAB PO SCH (08:00)
[2018-10-06] MEDS: LINAGLIPTIN 5 MG TABLET PO SCH (08:00)
[2018-10-06] MEDS: PIOGLITAZONE 15 MG TAB PO SCH (08:00)
[2018-10-06] MEDS: INSULN ASP PRT/INSULIN ASPART 100 UNIT/ML 10 ML VIAL SQ SCH ×3 (08:04→17:49)
[2018-10-06 08:08] LABS: Anisocytosis Slight; Basophils % (A) 0 %; Eosinophils # (A) 0.4 k/uL (0-0.7); Eosinophils % (A) 4 %; HCT 29.5 % (39.0-53.0); HGB 8.7 gm/dL (13.0-17.5); Hypochromasia Marked; Lymphocytes # (A) 1.4 k/uL (1.0-4.8); Lymphocytes % (A) 16 %; MCH 21.4 pg (25.0-35.0); MCHC 29.3 g/dL (31.0-37.0); MCV 72.9 fL (80.0-100.0); Mean Platelet Volume 6.4; Microcytosis Moderate; Monocytes # (A) 0.4 k/uL (0-1.0); Monocytes % (A) 4 %; Neutrophils # (A) 6.6 k/uL (1.3-7.7); Neutrophils % (A) 74 %; Platelet Count 516 k/uL (150-450); RBC 4.05 m/uL (4.30-5.90); RDW 18.7 % (11.5-15.5); WBC 8.9 k/uL (3.8-10.6)
[2018-10-06 08:27] LABS: Calcium 8.8 mg/dL (8.4-10.2); Potassium 4.4 mmol/L (3.5-5.1)
--- NOTE | 2018-10-06 08:30 | XR ---
EXAMINATION TYPE: XR chest 1V portable DATE OF EXAM: 10/06/2018 COMPARISON: Prior chest x-ray 10/05/2018 HISTORY: Empyema TECHNIQUE: Single frontal view of the chest is obtained. FINDINGS: Left-sided pleural drainage catheter is in place as on prior, pleural parenchymal changes are similar. Subcutaneous emphysema again noted. There is improved visualization of the right costoph renic angle. Heart size is unchanged. Patient is post median sternotomy. No evident pneumothorax. The re are overlying cardiac leads. IMPRESSION: Stable pleural drainage catheter placement for empyema.
[2018-10-06] MEDS: ALBUTEROL NEBULIZED 2.5 MG/3 ML INHALATION PRN ×3 (08:47→20:11)
[2018-10-06] MEDS: PIPERACILLIN-TAZOBACTAM 3.375 GM in SODIUM CHLORIDE 0.9% 100 ML IVPB SCH ×3 (08:51→23:25)
[2018-10-06] MEDS: METOPROLOL TARTRATE 25 MG TAB PO SCH ×2 (08:52→22:01)
[2018-10-06] MEDS: BENZONATATE 100 MG CAP PO PRN ×2 (08:52→18:34)
[2018-10-06] MEDS: ASPIRIN 81 MG PO SCH (08:52)
[2018-10-06] MEDS ORDERED: ALTEPLASE 10 MG in SODIUM CHLORIDE 0.9% 100 ML IRRIGATION ONE (10:30)
[2018-10-06] MEDS: KETOROLAC 30 MG/ML 1 ML VIAL IVP PRN ×2 (11:09→18:30)
[2018-10-06 11:41] LABS: Glucose,Whole Blood 144 mg/dL (75-99)
--- NOTE | 2018-10-06 13:02 | CDI ---
Documentation Clarification Form Date: 10/06/2018 From: Martina Rincon RN, CCDS Admit Date: 10/01/2018 2:20:00 PM Patient Name: Hebert Christian Visit Number: [id number] Discharge Date: ATTENTION: The Clinical Documentation Specialists (CDI) and [facility] Coding Staff appreciate your assistance in clarifying documentation. Please respond to the clarification below the line at the bottom and electronically sign. The CDI & [facility] Coding staff will review the response and follow-up if needed. Please note: Queries are made part of the Legal Health Record. If you have any questions, please contact the author of this message via ITS. Dr. Taiwo Whiting The following has been documented in your H & P and Progress Notes Hypertension holding off antihypertensive medications since his sepsis presently not requiring any medications at this time. History/Risk Factors: 73 year old male presents as a Direct Admit from [facility] with an Empyema Clinical Indicators: CXR persistent left sided consolidation and pleural effusion . Chest tube noted in position. 152/70 89 98.6 18 94% Treatment: Vancomycin ivpb x 1; Zosyn ivpb, Definition of Present on Admission (POA): A diagnosis present at the time the order for admission to inpatient status was written. For each diagnosis, documentation must be clear to determine if the condition was present at the time of the patients inpatient admission or developed during the hospital stay. Please clarify if Sepsis was POA: * Sepsis present on admission with continuous treatment. * Sepsis resolved prior to admission from [facility]. * Unable to determine * Other please Specify. (Last Revision: May 2018) Sepsis present on admission with continuous treatment. MTDD
--- NOTE | 2018-10-06 16:06 | P.PN ---
Subjective Progress Note Date: 10/06/18 Principal diagnosis: Left pleural effusion, probable empyema. Previous medical history of tobacco dependence, insulin-dependent diabetes mellitus, hypertension, hyperlipidemia, chronic kidney disease stage III, TIA, benign pituitary tumor, chronic lower back pain, coronary artery disease with previous stenting and coronary artery bypass grafting surgery and recent hospitalization for pneumonia in June 2018 discharged home on Augmentin. POD #4 CT-guided left chest tube insertion by interventional radiology, status post alteplase instillation The patient's currently laying in bed in no acute distress. States pain is well-controlled, denies shortness of breath. Patient has been ambulatory about the room. Pigtail catheter remains connected to atrium waterseal, no air leak present, drainage appears to be thinning out. Objective - Vital Signs Vital signs: Vital Signs Temp 97.4 F L 10/06/18 11:51 Pulse 62 10/06/18 13:56 Resp 18 10/06/18 11:51 BP 132/69 10/06/18 11:51 Pulse Ox 100 10/06/18 11:51 Intake & Output 10/05/18 10/06/18 10/06/18 18:59 06:59 18:59 Intake Total 600 2200 1120 Output Total 40 940 0 Balance 560 1260 1120 Weight 100.9 kg Intake: IV 700 Piperacillin-Tazobactam 3 100 .375 gm In Sodium Chloride 0.9% 100 ml @ 25 mls/hr IVPB Q8HR ROBERT Rx# :[id number] Sodium Chloride 0.9% 1, 600 000 ml @ 75 mls/hr IV . [id number] ROBERT Rx#:[id number] Intake, IV Titration 1200 Amount Piperacillin-Tazobactam 3 100 .375 gm In Sodium Chloride 0.9% 100 ml @ 25 mls/hr IVPB Q8HR ROBERT Rx# :[id number] Sodium Chloride 0.9% 1, 1100 000 ml @ 100 mls/hr IV . Q10H ROBERT Rx#:[id number] Oral 600 1000 420 Output: Chest Tube Drainage 40 40 0 Left Posterior Chest 40 40 0 Urine 900 Other: Voiding Method Toilet Toilet Toilet Urinal Urinal Urinal # Voids 1 # Bowel Movements 0 - Constitutional General appearance: Present: cooperative, no acute distress, obese - Respiratory Details: Lungs sounds diminished bilaterally. Respirations even, nonlabored. Currently on room air with oxygen saturation 98%. Able to achieve 1500 mL on his incentive spirometry. Left pleural pigtail catheter present, connected to atrium to waterseal, 200 mL drainage in the last 24 hours. - Cardiovascular Details: S1, S2 present. Regular rate and rhythm, sinus rhythm on telemetry. Palpable peripheral pulses bilaterally. Trace bilateral lower extremity edema present. No calf pain or tenderness noted. - Gastrointestinal Gastrointestinal Comment(s): Abdomen soft, nontender, nondistended. Active bowel sounds present 4 ishmael drants. Tolerating diet. - Genitourinary Genitourinary Comment(s): Continues to void clear, yellow urine. - Integumentary Integumentary Comment(s): Skin is warm and dry with evidence of good perfusion. Left pigtail catheter site covered with dry intact dressing. - Neurologic Neurologic: Present: CNII-XII intact - Musculoskeletal Musculoskeletal: Present: gait normal, strength equal bilaterally - Psychiatric Psychiatric: Present: A&O x's 3, appropriate affect, intact judgment & insight - Allied health notes Allied health notes reviewed: nursing - Labs CBC & Chem 7: 10/06/18 07:16 10/06/18 07:16 Labs: Abnormal Lab Results - Last 24 Hours (Table) 10/05/18 10/05/18 10/06/18 Range/Units 16:47 20:08 05:52 RBC (4.30-5.90) m/uL Hgb (13.0-17.5) gm/dL Hct (39.0-53.0) % MCV (80.0-100.0) fL MCH (25.0-35.0) pg MCHC (31.0-37.0) g/dL RDW (11.5-15.5) % Plt Count (150-450) k/uL Chloride (98-107) mmol/L Glucose (74-99) mg/dL POC Glucose (mg/dL) 254 H 168 H 67 L (75-99) mg/dL 10/06/18 10/06/18 10/06/18 Range/Units 07:16 07:16 11:27 RBC 4.05 L (4.30-5.90) m/uL Hgb 8.7 L (13.0-17.5) gm/dL Hct 29.5 L (39.0-53.0) % MCV 72.9 L (80.0-100.0) fL MCH 21.4 L (25.0-35.0) pg MCHC 29.3 L (31.0-37.0) g/dL RDW 18.7 H (11.5-15.5) % Plt Count 516 H (150-450) k/uL Chloride 108 H (98-107) mmol/L Glucose 72 L (74-99) mg/dL POC Glucose (mg/dL) 144 H (75-99) mg/dL Microbiology - Last 24 Hours (Table) 10/02/18 15:50 Gram Stain - Preliminary Pleural Fluid Body Fluid Culture - Preliminary 10/02/18 15:50 Anaerobic Culture - Preliminary Pleural Fluid - Imaging and Cardiology Chest x-ray: report reviewed, image reviewed Assessment and Plan Assessment: 1. Left pleural effusion, likely empyema, status post left thoracentesis and placement of left sided pigtail catheter by interventional radiology. 2. Acute anemia, unknown cause 3. Acute on chronic kidney disease 4. Recent weight loss 5. History of tobacco dependence 6. Uncontrolled Insulin-dependent diabetes mellitus with hemoglobin A1c 8.7% 7. History of hypertension 8. History of hyperlipidemia 9. History of benign pituitary tumor 10. History of coronary artery disease status post previous stenting and coronary artery bypass grafting surgery 11. History of TIA 12. History of recent pneumonia left lower lobe hospitalization in June 2018 13. Chronic lower back pain Plan: 1. Continue pigtail catheter to waterseal. Will monitor drainage. Will instill alteplase today. 2. Encourage is and spirometry is 10 times every hour while awake. 3. Increase activity, ambulate as tolerated. 4. Will monitor x-rays. 5. Bronchodilators per pulmonology. 6. Antibiotics, management of other comorbid conditions per primary care service. 7. GI/DVT prophylaxis. 8. Patient may need thoracoscopic surgery in the near future. Recommend maximizing medical status with antibiotics, bronchodilators, and monitoring drainage for now. 9. More recommendations to follow based on clinical course. Time with Patient: Greater than 30
[2018-10-06 16:58] LABS: Glucose,Whole Blood 262 mg/dL (75-99)
--- NOTE | 2018-10-06 17:45 | P.PN ---
Subjective Progress Note Date: 10/06/18 Principal diagnosis: Complicated parapneumonic left-sided pleural effusion A 73-year-old male patient was transferred from [facility] because of a large right-sided pleural effusion, parapneumonic in nature. The patient was in the hospital approximately 3 weeks ago for a left-sided pneumonia and treated in the hospital for total of 2 days and the patient was discharged home on Augmentin. Following that the patient continued to have shortness of breath and chest pain. The patient is known to have diabetes mellitus, hypertension, hyperlipidemia and chronic kidney disease with stage III kidney failure, TIA, previous history of pituitary tumor, chronic back pain, and previous history of coronary artery disease for which she has undergone bypass surgery back in 2019. The patient continued to be symptomatic and for that reason he end up coming back to the hospital. Over the past few weeks he was having worsening cough, shortness of breath, nausea, generalized weakness and some fever and chills. He states that he has lost also 20 pounds. He denied having any chest pain. Upon arrival to [facility], the patient was hypoxic. He was placed on high flow oxygen 6 L per minute nasal cannula. Chest x-ray showed a large loculated left-sided pleural effusion. Ultrasound was done which confirmed the findings. Following that the patient underwent a thoracentesis and a total of 1.2 L of dark brownish fluid was drained from the left side. Fluid cytology and chemistry still pending. Note that the patient's white cell count was 16.5 and lactic acid level was 5.7 with a proBNP of 6580 and the patient recently for troponins were negative. Echocardiac Eugene showed a reserved LV function with an ejection fraction of 50-55% and mild mitral regurgitation. Following the thoracentesis, the patient had a CAT scan of the chest that showed ongoing consolidation of the left lower lobe in addition to lose some residual loculated pleural effusion with some pleural thickening and formation of her rind. The patient got transferred to our hospital for a surgical evaluation. For now his culture are still pending from the pleural fluid and currently is on examination of Zosyn and vancomycin. I reviewed the CAT scan images and I discussed this with the cardiothoracic surgeon and I've recommended recommendations for insertion of a pigtail catheter in the left lung by interventional radiology. The patient is seen today 10/03/2018 in follow-up on the selective care unit. He is currently awake and alert in no acute distress. Maintaining good O2 saturations in the 90s on room air. The patient did have persistent left-sided consolidation and pleural effusions on chest x-ray today. Chest tube remains in place. A total of 700 ML's of milky brown fluid has been returned. Fluid analysis is exudative in nature. Total protein 14. LDH greater than 4200. Remains on vancomycin and Zosyn. White count 10.0. Hemoglobin 8.3. Creatinine 1.05. On 10/04/2018 of seeing this patient for a follow-up in no fever. No chills. No respiratory distress. Patient is postop day #2 following a CAT scan guided the left-sided chest tube insertion that was done by interventional radiology. The output is still purulent. TPA was administered today and was still having significant amount of output from the pigtail catheter. No fever. No chills. Cultures still pending. Meanwhile the patient remains on a combination of IV Zosyn and vancomycin. No leukocytosis. Hemoglobin stable at 8.4. Renal function is also stable. Multiple mentation. He is ambulating. No other significant events over the past 24 hours. The patient is seen today 10/05/2018 in follow-up on the selective care unit. He is currently sitting up in the bedside. Awake and alert in no acute distress. Chest x-ray reveals stable pleural thickening, subcutaneous emphysema, interval development of a small right effusion, basilar atelectasis. No pneumothorax. Left-sided chest tube remains in place. Alteplase was administered again today. Fluid is less thick and clear. Cultures are pending. White count 10.1. Hemoglobin 9.5. Creatinine 1.06. He remains on Zosyn and bronchodilators. He is maintaining good O2 saturations in the mid 90s on room air. He's been afebrile. Hemodynamically stable. Patient is seen today 10/06/2018 in follow-up on the selective care unit. He is awake and alert in no acute distress. Up ambulating with assistance. No worsening shortness of breath, cough or congestion. Chest x-ray remains stable. Left-sided chest tube remains in place. Alteplase administered again today. Today's to drain clear fluid than previously. White count 8.9. Hemoglobin 8.7. Creatinine 0.98. Objective - Vital Signs Vital signs: Vital Signs Temp 97.7 F 10/06/18 16:00 Pulse 85 10/06/18 16:00 Resp 18 10/06/18 16:00 BP 145/59 10/06/18 16:00 Pulse Ox 100 10/06/18 16:00 Intake & Output 10/05/18 10/06/18 10/06/18 18:59 06:59 18:59 Intake Total 600 2200 1120 Output Total 40 940 200 Balance 560 1260 920 Weight 100.9 kg Intake: IV 700 Piperacillin-Tazobactam 3 100 .375 gm In Sodium Chloride 0.9% 100 ml @ 25 mls/hr IVPB Q8HR ROBERT Rx# :[id number] Sodium Chloride 0.9% 1, 600 000 ml @ 75 mls/hr IV . [id number] ROBERT Rx#:[id number] Intake, IV Titration 1200 Amount Piperacillin-Tazobactam 3 100 .375 gm In Sodium Chloride 0.9% 100 ml @ 25 mls/hr IVPB Q8HR ROBERT Rx# :[id number] Sodium Chloride 0.9% 1, 1100 000 ml @ 100 mls/hr IV . Q10H ROBERT Rx#:[id number] Oral 600 1000 420 Output: Chest Tube Drainage 40 40 200 Left Posterior Chest 40 40 200 Urine 900 Other: Voiding Method Toilet Toilet Toilet Urinal Urinal Urinal # Voids 1 # Bowel Movements 0 - Exam GENERAL: The patient is alert and oriented x3, not in any acute distress. Well developed, well nourished. On room air. Head exam was generally normal. There was no scleral icterus or corneal arcus. Mucous membranes were moist. HEENT: Pupils are round and equally reacting to light. EOMI. No scleral icterus. No conjunctival pallor. Normocephalic, atraumatic. No pharyngeal erythema. No thyromegaly. CARDIOVASCULAR: S1 and S2 present. No murmurs, rubs, or gallops. PULMONARY: minimal basilar crackles on the left side, chest tube remains in p lace with clear thin drainage status post alteplase. ABDOMEN: Soft, nontender, nondistended, normoactive bowel sounds. No palpable organomegaly. MUSCULOSKELETAL: No joint swelling or deformity. EXTREMITIES: No cyanosis, clubbing, or pedal edema. NEUROLOGICAL: Gross neurological examination did not reveal any focal deficits. SKIN: No rashes. Examination of the skin revealed no evidence of significant rashes, suspicious appearing nevi or other concerning lesions. - Labs CBC & Chem 7: 10/06/18 07:16 10/06/18 07:16 Labs: Abnormal Lab Results - Last 24 Hours (Table) 10/05/18 10/06/18 10/06/18 Range/Units 20:08 05:52 07:16 RBC 4.05 L (4.30-5.90) m/uL Hgb 8.7 L (13.0-17.5) gm/dL Hct 29.5 L (39.0-53.0) % MCV 72.9 L (80.0-100.0) fL MCH 21.4 L (25.0-35.0) pg MCHC 29.3 L (31.0-37.0) g/dL RDW 18.7 H (11.5-15.5) % Plt Count 516 H (150-450) k/uL Chloride (98-107) mmol/L Glucose (74-99) mg/dL POC Glucose (mg/dL) 168 H 67 L (75-99) mg/dL 10/06/18 10/06/18 10/06/18 Range/Units 07:16 11:27 16:49 RBC (4.30-5.90) m/uL Hgb (13.0-17.5) gm/dL Hct (39.0-53.0) % MCV (80.0-100.0) fL MCH (25.0-35.0) pg MCHC (31.0-37.0) g/dL RDW (11.5-15.5) % Plt Count (150-450) k/uL Chloride 108 H (98-107) mmol/L Glucose 72 L (74-99) mg/dL POC Glucose (mg/dL) 144 H 262 H (75-99) mg/dL Microbiology - Last 24 Hours (Table) 10/02/18 15:50 Gram Stain - Preliminary Pleural Fluid Body Fluid Culture - Preliminary 10/02/18 15:50 Anaerobic Culture - Preliminary Pleural Fluid Assessment and Plan Assessment: Impression: 1 complicated parapneumonic left-sided pleural effusion which is quite loculated and there is still dense consolidation of the left lower lobe. Thoracentesis was performed and a total of 1.1 L of fluid was removed from the left lung. There is still residual consolidation and effusion left lung base. Currently on a combination of Zosyn and vancomycin. Pleural fluid analysis is exudative in nature. Cultures pending. Left sided chest tube remains in place, fluid is clearing status post alteplase. 2 recent authorization for left lower lobe pneumonia discharged home on Augmentin, cultures are all negative 3 acute hypoxic respiratory failure, improved postthoracentesis 4 acute lactic acidosis secondary to above 5 shortness of breath and cough and addition to weight loss and other constitutional symptoms secondary to pneumonia and possible pleural space infection 6 history of pituitary tumor 7 diabetes mellitus type 2 8 hypertension 9 hyperlipidemia 10 coronary artery disease with previous bypass surgery 11 COPD 13 previous history of CVA/TIA Plan The patient was seen and evaluated by Dr. Kenney. Chest x-ray and labs reviewed. Chest tube remains in place. Alteplase was injected again today. Continues to drain clearer and thinner fluid Continue Zosyn for now. We'll continue to follow and make further recommendations based on his clinical status. I, the cosigning physician, performed a history & physical examination of the patient. Lungs sounds with scattered rhonchi left greater than right. Maintaining good O2 saturations in the 90s on room air. I discussed the assessment and plan of care with my nurse practitioner, Stephy Bonds. I attest to the above note as dictated by her.
[2018-10-06 20:52] LABS: Glucose,Whole Blood 204 mg/dL (75-99)
[2018-10-06] MEDS: ATORVASTATIN 20 MG TAB PO SCH (22:01)
--- NOTE | 2018-10-06 22:10 | P.PN ---
Subjective Progress Note Date: 10/06/18 Pleasant 73-year-old male who has a recent extensive history starting in June 2018 which point in time he was diagnosed with pneumonia and treated with a course of antibiotic therapy. Since that time his had worsening of his symptoms with increasing amounts of weakness and shortness of breath and cough. He had episodes of nausea and emesis and fevers and chills. The relates that he had about a 20 pound weight loss also. Because he was feeling so poorly he did present to the [facility] 09/28/2018 which point in time there is evidence of relative hypoxia and complete obliteration of the left chest cavity by fluid. Thoracentesis was performed and approximately 1.2 L of a thick brownish material was drained. Pulmonary cytology report revealed no evidence of any malignant cells. Culture reveals evidence of Prevotella species and other cultures are pending at this point in time. The patient continued to have difficulties with his pulmonary status and given that he had a history of prior coronary artery bypass grafting procedure and may require surgical intervention to the chest was transferred to [facility] for further evaluation. He has now been seen by the cardiothoracic service and depending on response to treatment such as alteplase will determine if a VATS procedure will be required. 10/05/2018 patient is feeling somewhat better. Is responding well to current antibiotic therapy. Is being followed by thoracic surgery as far as any needs for surgical intervention. Alteplase being utilized to hopefully mobilize the pleural effusion. Other than some minimal tenderness at the pleural drain site he has no other acute complaint. He is having no fevers or chills and is less short of breath. 10/06/2018 feeling better did some PT and tolerated some walking. Less SOB with exertion. Arrangements for home intravenous antibiotic therapy are in process. Objective - Vital Signs Vital signs: Vital Signs Temp 97.7 F 10/06/18 16:00 Pulse 80 10/06/18 20:23 Resp 18 10/06/18 20:11 BP 145/59 10/06/18 16:00 Pulse Ox 100 10/06/18 16:00 Intake & Output 10/06/18 10/06/18 10/07/18 06:59 18:59 06:59 Intake Total 2200 1320 Output Total 940 200 Balance 1260 1120 Weight 100.9 kg Intake: IV 700 Piperacillin-Tazobactam 3 100 .375 gm In Sodium Chloride 0.9% 100 ml @ 25 mls/hr IVPB Q8HR ROBERT Rx# :[id number] Sodium Chloride 0.9% 1, 600 000 ml @ 75 mls/hr IV . [id number] ROBERT Rx#:[id number] Intake, IV Titration 1200 Amount Piperacillin-Tazobactam 3 100 .375 gm In Sodium Chloride 0.9% 100 ml @ 25 mls/hr IVPB Q8HR ROBERT Rx# :[id number] Sodium Chloride 0.9% 1, 1100 000 ml @ 100 mls/hr IV . Q10H ROBERT Rx#:[id number] Oral 1000 620 Output: Chest Tube Drainage 40 200 Left Posterior Chest 40 200 Urine 900 Other: Voiding Method Toilet Toilet Urinal Urinal - Exam 73-year-old male in no acute distress but is much less short of breath than at admission HEENT: Anicteric conjunctiva are pink and moist nasal mucosa grossly intact wi thout significant lesions, there is no thrush. Neck: The neck is supple without significant lymphadenopathy or thyromegaly. Lungs: Symmetrical air entry anteriorly. There remains course crackles and diminished breath sounds. Left posterior mid and lower zones. Some dullness is noted at the left base. The percutaneous catheter site is with some output and the fistula tract has purulent drainage. Heart: Regular rate and rhythm with an audible S1-S2, no S3 no S4. There is no significant murmur click or rub, PMI was nondisplaced. Abdomen: Positive bowel sounds soft and nontender without palpable masses or organomegaly. There was no guarding or rebound. Extremities: The upper extremities have excellent pulses they are symmetric, no significant petechiae or telangiectasia. No splinter hemorrhages were noted. Lower extremities have trace pedal edema peripheral pulses are 2+ and symmetric no open ulcerations are seen Neuro: Awake alert oriented to person place and time. There are no acute new gross focal sensory motor deficits. - Labs CBC & Chem 7: 10/06/18 07:16 10/06/18 07:16 Labs: Abnormal Lab Results - Last 24 Hours (Table) 10/06/18 10/06/18 10/06/18 Range/Units 05:52 07:16 07:16 RBC 4.05 L (4.30-5.90) m/uL Hgb 8.7 L (13.0-17.5) gm/dL Hct 29.5 L (39.0-53.0) % MCV 72.9 L (80.0-100.0) fL MCH 21.4 L (25.0-35.0) pg MCHC 29.3 L (31.0-37.0) g/dL RDW 18.7 H (11.5-15.5) % Plt Count 516 H (150-450) k/uL Chloride 108 H (98-107) mmol/L Glucose 72 L (74-99) mg/dL POC Glucose (mg/dL) 67 L (75-99) mg/dL 10/06/18 10/06/18 10/06/18 Range/Units 11:27 16:49 20:50 RBC (4.30-5.90) m/uL Hgb (13.0-17.5) gm/dL Hct (39.0-53.0) % MCV (80.0-100.0) fL MCH (25.0-35.0) pg MCHC (31.0-37.0) g/dL RDW (11.5-15.5) % Plt Count (150-450) k/uL Chloride (98-107) mmol/L Glucose (74-99) mg/dL POC Glucose (mg/dL) 144 H 262 H 204 H (75-99) mg/dL Microbiology - Last 24 Hours (Table) 10/02/18 15:50 Gram Stain - Final Pleural Fluid Body Fluid Culture - Final 10/02/18 15:50 Anaerobic Culture - Preliminary Pleural Fluid Laboratory Results WBC 8.9 k/uL (3.8-10.6) 10/06/18 07:16 RBC 4.05 m/uL (4.30-5.90) L 10/06/18 07:16 Hgb 8.7 gm/dL (13.0-17.5) L 10/06/18 07:16 Hct 29.5 % (39.0-53.0) L 10/06/18 07:16 MCV 72.9 fL (80.0-100.0) L 10/06/18 07:16 MCH 21.4 pg (25.0-35.0) L 10/06/18 07:16 MCHC 29.3 g/dL (31.0-37.0) L 10/06/18 07:16 RDW 18.7 % (11.5-15.5) H 10/06/18 07:16 Plt Count 516 k/uL (150-450) H 10/06/18 07:16 Neutrophils % 74 % 10/06/18 07:16 Lymphocytes % 16 % 10/06/18 07:16 Monocytes % 4 % 10/06/18 07:16 Eosinophils % 4 % 10/06/18 07:16 Basophils % 0 % 10/06/18 07:16 Neutrophils # 6.6 k/uL (1.3-7.7) 10/06/18 07:16 Lymphocytes # 1.4 k/uL (1.0-4.8) 10/06/18 07:16 Monocytes # 0.4 k/uL (0-1.0) 10/06/18 07:16 Eosinophils # 0.4 k/uL (0-0.7) 10/06/18 07:16 Basophils # 0.0 k/uL (0-0.2) 10/06/18 07:16 Hypochromasia Marked 10/06/18 07:16 Poikilocytosis Slight 10/05/18 06:59 Anisocytosis Slight 10/06/18 07:16 Microcytosis Moderate 10/06/18 07:16 PT 10.8 sec (9.0-12.0) 10/02/18 14:29 INR 1.0 (<1.2) 10/02/18 14:29 Sodium 138 mmol/L (137-145) 10/06/18 07:16 Potassium 4.4 mmol/L (3.5-5.1) 10/06/18 07:16 Chloride 108 mmol/L (98-107) H 10/06/18 07:16 Carbon Dioxide 23 mmol/L (22-30) 10/06/18 07:16 Anion Gap 7 mmol/L 10/06/18 07:16 BUN 9 mg/dL (9-20) 10/06/18 07:16 Creatinine 0.98 mg/dL (0.66-1.25) 10/06/18 07:16 Est GFR (CKD-EPI)AfAm 88 (>60 ml/min/1.73 sqM) 10/06/18 07:16 Est GFR (CKD-EPI)NonAf 76 (>60 ml/min/1.73 sqM) 10/06/18 07:16 Glucose 72 mg/dL (74-99) L 10/06/18 07:16 POC Glucose (mg/dL) 204 mg/dL (75-99) H 10/06/18 20:50 POC Glu [employer] [place] 10/06/18 20:50 Calcium 8.8 mg/dL (8.4-10.2) 10/06/18 07:16 Magnesium 1.7 mg/dL (1.6-2.3) 10/03/18 08:53 Fluid Source Pleural 10/02/18 15:50 Fluid Color Brown 10/02/18 15:50 Fluid Appearance Cloudy 10/02/18 15:50 Fluid RBC 1600 /uL 10/02/18 15:50 Fluid Nucleated Cells 003080 /uL 10/02/18 15:50 Body Fluid Protein Source Pleural Fluid 10/02/18 15:50 Fluid Total Protein 1402 mg/dL 10/02/18 15:50 Body Fluid LDH Source Pleural Fluid 10/02/18 15:50 Fluid LDH >4200 U/L 10/02/18 15:50 Fluid Comment 10/02/18 15:50 Vancomycin Trough 11.3 ug/mL 10/04/18 18:59 Microbiology 10/02/18 15:50 Pleural Fluid Gram Stain - Final 10/02/18 15:50 Pleural Fluid Body Fluid Culture - Final 10/02/18 15:50 Pleural Fluid Anaerobic Culture - Preliminary 10/02/18 15:50 Pleural Fluid Fungal Culture - Preliminary Assessment and Plan (1) Empyema of left pleural space Narrative/Plan: 73-year-old male presents from outside hospital for further evaluation of his significant difficulty with his respiratory status. Imaging studies facility revealed the extensive empyema to the left chest. He did undergo thoracentesis and 1.2 L of material was removed. Pulmonary cultures show evidence of Prevotella and preliminary cytology does not reveal evidence of any malignant cells. 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 He is partially improving with the current interventions but imaging reveals evidence of ongoing significant residual disease. He's been seen by cardiovasc ular surgery and thrombolytic therapy is being planned. If this is not effective he will then need to undergo a VATS procedure in the near future. We'll plan outpatient intravenous antibiotic therapy which may be further defined in the next short period of time. Continue ongoing supportive care r egarding his discomforts and shortness of breath which is markedly improved after the relatively high volume thoracentesis of occurred so far. 10/05/2018 patient is doing well with current antibiotic therapy of Zosyn is being followed by thoracic surgery for the potential need for a VATS procedure. IV access for outpatient antibiotic therapy has been arranged. The patient will require antibiotic therapy in the home setting. However he did not want to have home care. Consequently a teach and treatment program will be utilized. Based on current data with Prevotella will be treated with Invanz 1 g daily in the outpatient setting when ready for discharge. 10/06/2018 patient does not feel poorly, some output from the catheter. Arrangements for home IV antibiotics in progress. Current Visit: Yes Status: Acute Code(s): J86.9 - PYOTHORAX WITHOUT FISTULA SNOMED Code(s): 76782984 (2) Pneumonia due to anaerobes Current Visit: Yes Status: Acute Code(s): J15.8 - PNEUMONIA DUE TO OTHER SPECIFIED BACTERIA SNOMED Code(s): 613742959 (3) Poor dentition Current Visit: Yes Status: Acute Code(s): K08.9 - DISORDER OF TEETH AND SUPPORTING STRUCTURES, UNSPECIFIED SNOMED Code(s): 761051939
--- NOTE | 2018-10-07 00:41 | P.PN ---
Subjective Progress Note Date: 10/06/18 Principal diagnosis: Left pleural effusion, likely empyema, status post left thoracentesis and placement of left sided pigtail catheter by interventional radiology. 73-year-old male was transferred from [facility] for possibility of VATS procedure. Patient had an empyema and had removal of 1.1 L of purulent fluid cultures are not available yet. Patient was on broad-spectrum antibiotics vancomycin and Zosyn as patient was severely septic and hypotensive although never required any pressor support. Patient had renal dysfunction secondary to acute tubular necrosis which also improved.patient is diabetic with uncontrolled blood sugars and and is on very high-dose of insulin about 200 units. Patient presently denied any fever chills nausea vomiting abdominal pain. Consider thoracic surgery evaluated the patient is recommending a pigtail catheter by interventional radiology. 10/03/2018 Patient is clinically doing well patient the chest tube drained about 800 mL of purulent drainage patient has Prevotella. Patient was a evaluated by cardiac thoracic surgery. Patient is in any fevers patient is feeling well did infectious disease will be consulted. We'll cut down the dose of nighttime 70:30. CT surgery will continue to evaluate for VATS 10/04/2018 Patient currently sitting in the bed comfortably. No complaints of fever or chills. Postoperative day 2 CT-guided left-sided chest tube insertion by IR. TPA was administered today. Patient is still having significant amount of purulent drainage from the pigtail catheter. Currently on antibiotics in the form of Zosyn. ID and pulmonary is following. No nausea vomiting or abdominal pain. No other acute overnight issues. 10/05/2018 Patient denied any complains of chest pain or worsening shortness of breath. Currently able to sit in the chair comfortably. Chest x-ray showed stable pleural thickening, subcutaneous emphysema, interval development of small right effusion and basilar atelectasis. No pneumothorax is. Left-sided chest tube remains in place. TPA was administered again today. Patient remained on antibiotics in form of Zosyn. Currently saturating about 90% on room air. Afebrile. Pulmonary is following. 10/06/2018 Patient is currently awake alert and oriented 3. Sitting in a chair comfortably. Denied any worsening shortness of breath or chest pain. Alteplase administered again. Left-sided chest tube is in place. Pulmonary is following. Currently being continued on antibiotics in the office Zosyn. Patient is able to ambulate and no other acute overnight issues. Patient has been afebrile. No nausea vomiting or diarrhea. Tolerating oral diet. No leukocytosis. WBC count 8.9. Constitutional: Denied any fatigue denied any fever. Cardio vascular: denied any chest pain, palpitations Gastrointestinal denied any nausea vomiting Pulmonary: Denied any shortness of breath cough Neurologic denied any new focal deficits All inpatient medications were reviewed and appropriate changes in these medications as dictated in the interval history and assessment and plan. Objective - Vital Signs Vital signs: Vital Signs Temp 97.4 F L 10/06/18 11:51 Pulse 62 10/06/18 13:56 Resp 18 10/06/18 11:51 BP 132/69 10/06/18 11:51 Pulse Ox 100 10/06/18 11:51 Intake & Output 10/05/18 10/06/18 10/06/18 18:59 06:59 18:59 Intake Total 600 2200 1120 Output Total 40 940 0 Balance 560 1260 1120 Weight 100.9 kg Intake: IV 700 Piperacillin-Tazobactam 3 100 .375 gm In Sodium Chloride 0.9% 100 ml @ 25 mls/hr IVPB Q8HR [facility]ERT Rx# :[id number] Sodium Chloride 0.9% 1, 600 000 ml @ 75 mls/hr IV . [id number] ROBERT Rx#:[id number] Intake, IV Titration 1200 Amount Piperacillin-Tazobactam 3 100 .375 gm In Sodium Chloride 0.9% 100 ml @ 25 mls/hr IVPB Q8HR ROBERT Rx# :[id number] Sodium Chloride 0.9% 1, 1100 000 ml @ 100 mls/hr IV . Q10H ROBERT Rx#:[id number] Oral 600 1000 420 Output: Chest Tube Drainage 40 40 0 Left Posterior Chest 40 40 0 Urine 900 Other: Voiding Method Toilet Toilet Toilet Urinal Urinal Urinal # Voids 1 # Bowel Movements 0 - Exam PHYSICAL EXAMINATION: GENERAL: The patient is alert and oriented x3, not in any acute distress. Well developed, well nourished. HEENT: Pupils are round and equally reacting to light. EOMI. No scleral icterus. No conjunctival pallor. Normocephalic, atraumatic. No pharyngeal erythema. No thyromegaly. CARDIOVASCULAR: S1 and S2 present. No murmurs, rubs, or gallops. PULMONARY: minimal basilar crackles on the left side, patient has a left-sided chest tube draining purulent fluid ABDOMEN: Soft, nontender, nondistended, normoactive bowel sounds. No palpable organomegaly. MUSCULOSKELETAL: No joint swelling or deformity. EXTREMITIES: No cyanosis, clubbing, or pedal edema. NEUROLOGICAL: Gross neurological examination did not reveal any focal deficits. SKIN: No rashes. - Labs CBC & Chem 7: 10/06/18 07:16 10/06/18 07:16 Labs: Abnormal Lab Results - Last 24 Hours (Table) 10/05/18 10/05/18 10/06/18 Range/Units 16:47 20:08 05:52 RBC (4.30-5.90) m/uL Hgb (13.0-17.5) gm/dL Hct (39.0-53.0) % MCV (80.0-100.0) fL MCH (25.0-35.0) pg MCHC (31.0-37.0) g/dL RDW (11.5-15.5) % Plt Count (150-450) k/uL Chloride (98-107) mmol/L Glucose (74-99) mg/dL POC Glucose (mg/dL) 254 H 168 H 67 L (75-99) mg/dL 10/06/18 10/06/18 10/06/18 Range/Units 07:16 07:16 11:27 RBC 4.05 L (4.30-5.90) m/uL Hgb 8.7 L (13.0-17.5) gm/dL Hct 29.5 L (39.0-53.0) % MCV 72.9 L (80.0-100.0) fL MCH 21.4 L (25.0-35.0) pg MCHC 29.3 L (31.0-37.0) g/dL RDW 18.7 H (11.5-15.5) % Plt Count 516 H (150-450) k/uL Chloride 108 H (98-107) mmol/L Glucose 72 L (74-99) mg/dL POC Glucose (mg/dL) 144 H (75-99) mg/dL Microbiology - Last 24 Hours (Table) 10/02/18 15:50 Gram Stain - Preliminary Pleural Fluid Body Fluid Culture - Preliminary 10/02/18 15:50 Anaerobic Culture - Preliminary Pleural Fluid Assessment and Plan Assessment: -pneumonia parapneumonic effusion and empyema: Status post removal of 1.1 L of purulent fluid. 800 mL of purulent drainage. Status post left chest tube placement. Vanco mycin will be discontinued and patient has Prevotella infectious disease was consulted Zosyn will be continued. Patient was given alteplase. -type 2 diabetes mellitus uncontrolled and elevated blood sugars will continue with present insulin regimen along with sliding scale depending on the sliding scale limits patient's insulin her diabetic regimen and we have titrated -Hyperlipidemia -Hypertension holding off antidepressant medications since his sepsis presently not requiring any medications at this time. #acute renal failure secondary to acute tubular necrosis which improved with IV fluids -COPD without any significant exacerbation -CVA and TIA in the past patient will need pharmacologic GI as well as DVT prophylaxis Time with Patient: Greater than 30
[2018-10-07] MEDS: BENZONATATE 100 MG CAP PO PRN ×3 (02:42→20:35)
[2018-10-07 06:21] LABS: Glucose,Whole Blood 149 mg/dL (75-99)
[2018-10-07] MEDS: LUBIPROSTONE 24 MCG PO SCH ×2 (06:46→16:28)
[2018-10-07] MEDS: PANTOPRAZOLE 40 MG TABLET PO SCH (06:46)
[2018-10-07] MEDS: INSULIN ASPART (NovoLOG) 100 UNIT/ML VIAL SQ SCH ×4 (06:46→21:46)
--- NOTE | 2018-10-07 07:30 | XR ---
EXAMINATION TYPE: XR chest 2V DATE OF EXAM: 10/07/2018 HISTORY: empyema. REFERENCE: Previous study dated 10/06/2018. FINDINGS: There has been a midline sternotomy. A left pleural drain is in place. There is increased o pacity to the lower half the left hemithorax. This may represent patient's known empyema. No pneumoth orax is evident. The heart is not enlarged. The right lung is clear. IMPRESSION: STABLE APPEARANCE OF THE CHEST.
[2018-10-07] MEDS: INSULN ASP PRT/INSULIN ASPART 100 UNIT/ML 10 ML VIAL SQ SCH ×3 (08:08→17:31)
[2018-10-07] MEDS: HEPARIN SODIUM,PORCINE 5,000 UNIT/ML 1 ML VIAL SQ SCH ×3 (08:08→23:32)
[2018-10-07] MEDS: PIPERACILLIN-TAZOBACTAM 3.375 GM in SODIUM CHLORIDE 0.9% 100 ML IVPB SCH ×3 (08:09→23:33)
[2018-10-07] MEDS: LINAGLIPTIN 5 MG TABLET PO SCH (08:09)
[2018-10-07] MEDS: METOPROLOL TARTRATE 25 MG TAB PO SCH ×2 (08:09→20:35)
[2018-10-07] MEDS: ASPIRIN 81 MG PO SCH (08:09)
[2018-10-07] MEDS: DOCUSATE 100 MG CAP PO SCH ×2 (08:09→20:35)
[2018-10-07] MEDS: MULTIVITAMINS, THERA 1 EACH TAB PO SCH (08:10)
[2018-10-07] MEDS: PIOGLITAZONE 15 MG TAB PO SCH (08:10)
[2018-10-07] MEDS: KETOROLAC 30 MG/ML 1 ML VIAL IVP PRN ×2 (08:11→14:26)
[2018-10-07] MEDS: ALBUTEROL NEBULIZED 2.5 MG/3 ML INHALATION PRN ×2 (08:34→20:47)
[2018-10-07] MEDS ORDERED: ALTEPLASE 10 MG in SODIUM CHLORIDE 0.9% 100 ML IRRIGATION ONE (11:07)
[2018-10-07 11:54] LABS: Glucose,Whole Blood 165 mg/dL (75-99)
[2018-10-07] MEDS: SODIUM CHLORIDE 0.9% 1,000 ML IV SCH (12:36)
--- NOTE | 2018-10-07 12:55 | P.PN ---
Subjective Progress Note Date: 10/07/18 Principal diagnosis: Left pleural effusion, probable empyema. Previous medical history of tobacco dependence, insulin-dependent diabetes mellitus, hypertension, hyperlipidemia, chronic kidney disease stage III, TIA, benign pituitary tumor, chronic lower back pain, coronary artery disease with previous stenting and coronary artery bypass grafting surgery and recent hospitalization for pneumonia in June 2018 discharged home on Augmentin. POD #5 CT-guided left chest tube insertion by interventional radiology, status post alteplase instillation The patient's currently sitting up in the recliner in no acute distress. States pain is well-controlled, denies shortness of breath. Patient has been ambulatory in the hallway. Pigtail catheter remains connected to atrium wa terseal, no air leak present, drainage appears to be thinning out. Objective - Vital Signs Vital signs: Vital Signs Temp 98.5 F 10/07/18 08:00 Pulse 84 10/07/18 08:53 Resp 18 10/07/18 08:00 BP 134/67 10/07/18 08:00 Pulse Ox 100 10/07/18 08:00 Intake & Output 10/06/18 10/07/18 10/07/18 18:59 06:59 18:59 Intake Total 1320 450 240 Output Total 200 610 200 Balance 1120 -160 40 Weight 99.9 kg Intake: IV 700 Piperacillin-Tazobactam 3 100 .375 gm In Sodium Chloride 0.9% 100 ml @ 25 mls/hr IVPB Q8HR ROBERT Rx# :[id number] Sodium Chloride 0.9% 1, 600 000 ml @ 75 mls/hr IV . [id number] ROBERT Rx#:[id number] Intake, IV Titration 450 Amount Sodium Chloride 0.9% 1, 450 000 ml @ 75 mls/hr IV . [id number] ROBERT Rx#:[id number] Oral 620 240 Output: Chest Tube Drainage 200 10 0 Left Posterior Chest 200 10 0 Urine 600 200 Other: Voiding Method Toilet Toilet Urinal Urinal # Voids 1 # Bowel Movements 1 - Respiratory Details: Lungs sounds diminished bilaterally. Respirations even, nonlabored. Currently on room air with oxygen saturation 100%. Able to achieve 2000 mL on his incentive spirometry. Left pleural pigtail catheter present, connected to atrium to waterseal, 210 mL drainage in the last 24 hours. - Cardiovascular Details: S1, S2 present. Regular rate and rhythm, sinus rhythm on telemetry. Palpable peripheral pulses bilaterally. Trace bilateral lower extremity edema present. No calf pain or tenderness noted. - Gastrointestinal Gastrointestinal Comment(s): Abdomen soft, nontender, nondistended. Active bowel sounds present 4 quadrants. Tolerating diet. - Genitourinary Genitourinary Comment(s): Abdomen soft, nontender, nondistended. Active bowel sounds present 4 quadrants. Tolerating diet. - Integumentary Integumentary Comment(s): Skin is warm and dry with evidence of good perfusion. Left pigtail catheter site covered with dry intact dressing. - Neurologic Neurologic: Present: CNII-XII intact - Musculoskeletal Musculoskeletal: Present: gait normal, strength equal bilaterally - Psychiatric Psychiatric: Present: A&O x's 3, appropriate affect, intact judgment & insight - Allied health notes Allied health notes reviewed: nursing - Labs CBC & Chem 7: 10/06/18 07:16 10/06/18 07:16 Labs: Abnormal Lab Results - Last 24 Hours (Table) 10/06/18 10/06/18 10/07/18 Range/Units 16:49 20:50 06:19 POC Glucose (mg/dL) 262 H 204 H 149 H (75-99) mg/dL 10/07/18 Range/Units 11:51 POC Glucose (mg/dL) 165 H (75-99) mg/dL Microbiology - Last 24 Hours (Table) 10/02/18 15:50 Anaerobic Culture - Final Pleural Fluid 10/02/18 15:50 Gram Stain - Final Pleural Fluid Body Fluid Culture - Final - Imaging and Cardiology Chest x-ray: report reviewed, image reviewed Assessment and Plan Assessment: 1. Left pleural effusion, likely empyema, status post left thoracentesis and placement of left sided pigtail catheter by interventional radiology. 2. Acute anemia, unknown cause 3. Acute on chronic kidney disease 4. Recent weight loss 5. History of tobacco dependence 6. Uncontrolled Insulin-dependent diabetes mellitus with hemoglobin A1c 8.7% 7. History of hypertension 8. History of hyperlipidemia 9. History of benign pituitary tumor 10. History of coronary artery disease status post previous stenting and coronary artery bypass grafting surgery 11. History of TIA 12. History of recent pneumonia left lower lobe hospitalization in June 2018 13. Chronic lower back pain Plan: 1. Continue pigtail catheter to waterseal. Will monitor drainage. Will instill alteplase today. 2. Encourage is and spirometry is 10 times every hour while awake. 3. Increase activity, ambulate as tolerated. 4. Will monitor x-rays. 5. Bronchodilators per pulmonology. 6. Antibiotics, management of other comorbid conditions per primary care service. 7. GI/DVT prophylaxis. 8. Patient may need thoracoscopic surgery in the near future. Recommend maximizing medical status with antibiotics, bronchodilators, and monitoring drainage for now. 9. More recommendations to follow based on clinical course. Time with Patient: Greater than 30
[2018-10-07 14:17] VITALS: BMI 35.0
--- NOTE | 2018-10-07 14:45 | P.PN ---
Subjective Progress Note Date: 10/07/18 Principal diagnosis: Complicated parapneumonic left-sided pleural effusion A 73-year-old male patient was transferred from [facility] because of a large right-sided pleural effusion, parapneumonic in nature. The patient was in the hospital approximately 3 weeks ago for a left-sided pneumonia and treated in the hospital for total of 2 days and the patient was discharged home on Augmentin. Following that the patient continued to have shortness of breath and chest pain. The patient is known to have diabetes mellitus, hypertension, hyperlipidemia and chronic kidney disease with stage III kidney failure, TIA, previous history of pituitary tumor, chronic back pain, and previous history of coronary artery disease for which she has undergone bypass surgery back in 2019. The patient continued to be symptomatic and for that reason he end up coming back to the hospital. Over the past few weeks he was having worsening cough, shortness of breath, nausea, generalized weakness and some fever and chills. He states that he has lost also 20 pounds. He denied having any chest pain. Upon arrival to [facility], the patient was hypoxic. He was placed on high flow oxygen 6 L per minute nasal cannula. Chest x-ray showed a large loculated left-sided pleural effusion. Ultrasound was done which confirmed the findings. Following that the patient underwent a thoracentesis and a total of 1.2 L of dark brownish fluid was drained from the left side. Fluid cytology and chemistry still pending. Note that the patient's white cell count was 16.5 and lactic acid level was 5.7 with a proBNP of 6580 and the patient recently for troponins were negative. Echocardiac Eugene showed a reserved LV function with an ejection fraction of 50-55% and mild mitral regurgitation. Following the thoracentesis, the patient had a CAT scan of the chest that showed ongoing consolidation of the left lower lobe in addition to lose some residual loculated pleural effusion with some pleural thickening and formation of her rind. The patient got transferred to our hospital for a surgical evaluation. For now his culture are still pending from the pleural fluid and currently is on examination of Zosyn and vancomycin. I reviewed the CAT scan images and I discussed this with the cardiothoracic surgeon and I've recommended recommendations for insertion of a pigtail catheter in the left lung by interventional radiology. The patient is seen today 10/03/2018 in follow-up on the selective care unit. He is currently awake and alert in no acute distress. Maintaining good O2 saturations in the 90s on room air. The patient did have persistent left-sided consolidation and pleural effusions on chest x-ray today. Chest tube remains in place. A total of 700 ML's of milky brown fluid has been returned. Fluid analysis is exudative in nature. Total protein 14. LDH greater than 4200. Remains on vancomycin and Zosyn. White count 10.0. Hemoglobin 8.3. Creatinine 1.05. On 10/04/2018 of seeing this patient for a follow-up in no fever. No chills. No respiratory distress. Patient is postop day #2 following a CAT scan guided the left-sided chest tube insertion that was done by interventional radiology. The output is still purulent. TPA was administered today and was still having significant amount of output from the pigtail catheter. No fever. No chills. Cultures still pending. Meanwhile the patient remains on a combination of IV Zosyn and vancomycin. No leukocytosis. Hemoglobin stable at 8.4. Renal function is also stable. Multiple mentation. He is ambulating. No other significant events over the past 24 hours. The patient is seen today 10/05/2018 in follow-up on the selective care unit. He is currently sitting up in the bedside. Awake and alert in no acute distress. Chest x-ray reveals stable pleural thickening, subcutaneous emphysema, interval development of a small right effusion, basilar atelectasis. No pneumothorax. Left-sided chest tube remains in place. Alteplase was administered again today. Fluid is less thick and clear. Cultures are pending. White count 10.1. Hemoglobin 9.5. Creatinine 1.06. He remains on Zosyn and bronchodilators. He is maintaining good O2 saturations in the mid 90s on room air. He's been afebrile. Hemodynamically stable. Patient is seen today 10/06/2018 in follow-up on the selective care unit. He is awake and alert in no acute distress. Up ambulating with assistance. No worsening shortness of breath, cough or congestion. Chest x-ray remains stable. Left-sided chest tube remains in place. Alteplase administered again today. Today's to drain clear fluid than previously. White count 8.9. Hemoglobin 8.7. Creatinine 0.98. The patient is seen today 10/07/2018 in follow-up on the selective care unit. He is currently sitting up in a chair at the bedside. Awake and alert in no acute distress. His x-ray continues to show opacity in the lower half of the left hemothorax. Stable compared to previous. Right lung is clear. Pigtail catheter remains in place to the left chest. Connected to water seal. No air leak currently. Drainage is less thick and purulent. Alteplase instilled again today. He continues to work well with the incentive spirometer. Pleural fluid cultures reveal no growth. He remains on bronchodilators, Tessalon, Zosyn. Objective - Vital Signs Vital signs: Vital Signs Temp 98 F 10/07/18 12:00 Pulse 74 10/07/18 12:00 Resp 18 10/07/18 12:00 BP 149/72 10/07/18 12:00 Pulse Ox 100 10/07/18 12:00 Intake & Output 10/06/18 10/07/18 10/07/18 18:59 06:59 18:59 Intake Total 1320 450 480 Output Total 200 610 240 Balance 1120 -160 240 Weight 99.9 kg 99.9 kg Intake: IV 700 Piperacillin-Tazobactam 3 100 .375 gm In Sodium Chloride 0.9% 100 ml @ 25 mls/hr IVPB Q8HR ROBERT Rx# :[id number] Sodium Chloride 0.9% 1, 600 000 ml @ 75 mls/hr IV . [id number] ROBERT Rx#:[id number] Intake, IV Titration 450 Amount Sodium Chloride 0.9% 1, 450 000 ml @ 75 mls/hr IV . [id number] ROBERT Rx#:[id number] Oral 620 480 Output: Chest Tube Drainage 200 10 40 Left Posterior Chest 200 10 40 Urine 600 200 Other: Voiding Method Toilet Toilet Urinal Urinal # Voids 1 1 # Bowel Movements 1 - Exam GENERAL: The patient is alert and oriented x3, not in any acute distress. Well developed, well nourished. On room air. Head exam was generally normal. There was no scleral icterus or corneal arcus. Mucous membranes were moist. HEENT: Pupils are round and equally reacting to light. EOMI. No scleral icterus. No conjunctival pallor. Normocephalic, atraumatic. No pharyngeal erythema. No thyromegaly. CARDIOVASCULAR: S1 and S2 present. No murmurs, rubs, or gallops. PULMONARY: minimal basilar crackles on the left side, chest tube remains in place with clearing thinner drainage status post alteplase. ABDOMEN: Soft, nontender, nondistended, normoactive bowel sounds. No palpable organomegaly. MUSCULOSKELETAL: No joint swelling or deformity. EXTREMITIES: No cyanosis, clubbing, or pedal edema. NEUROLOGICAL: Gross neurological examination did not reveal any focal deficits. SKIN: No rashes. Examination of the skin revealed no evidence of significant rashes, suspicious appearing nevi or other concerning lesions. - Labs CBC & Chem 7: 10/06/18 07:16 10/06/18 07:16 Labs: Abnormal Lab Results - Last 24 Hours (Table) 10/06/18 10/06/18 10/07/18 Range/Units 16:49 20:50 06:19 POC Glucose (mg/dL) 262 H 204 H 149 H (75-99) mg/dL 10/07/18 Range/Units 11:51 POC Glucose (mg/dL) 165 H (75-99) mg/dL Microbiology - Last 24 Hours (Table) 10/02/18 15:50 Anaerobic Culture - Final Pleural Fluid 10/02/18 15:50 Gram Stain - Final Pleural Fluid Body Fluid Culture - Final Assessment and Plan Assessment: Impression: 1 complicated parapneumonic left-sided pleural effusion which is quite loculated and there is still dense consolidation of the left lower lobe. Thoracentesis was performed and a total of 1.1 L of fluid was removed from the left lung. There is still residual consolidation and effusion left lung base. Currently on Zosyn. Pleural fluid analysis is exudative in nature. Cultures reveal no growth. Left sided chest tube remains in place, fluid is clearing status post alteplase. 2 recent admission for left lower lobe pneumonia discharged home on Augmentin, cultures are all negative 3 acute hypoxic respiratory failure, improved postthoracentesis 4 acute lactic acidosis secondary to above 5 shortness of breath and cough and addition to weight loss and other constituti onal symptoms secondary to pneumonia and possible pleural space infection 6 history of pituitary tumor 7 diabetes mellitus type 2 8 hypertension 9 hyperlipidemia 10 coronary artery disease with previous bypass surgery 11 COPD 13 previous history of CVA/TIA Plan The patient was seen and evaluated by Dr. Kenney. Chest x-ray reviewed. Chest tube remains in place. Alteplase was injected again today. Continues to drain clearer and thinner fluid Continue Zosyn for now. Continue to work with the incentive spirometer. Increase his activity as tolerated We'll continue to follow and make further recommendations based on his clinical status. I, the cosigning physician, performed a history & physical examination of the patient. Lungs sounds with scattered rhonchi left greater than right. Maintaining good O2 saturations in the 90s on room air. I discussed the as sessment and plan of care with my nurse practitioner, Stephy Bonds. I attest to the above note as dictated by her.
--- NOTE | 2018-10-07 16:11 | P.PN ---
Subjective Progress Note Date: 10/07/18 10/07/2018 Patient is seen and evaluated in follow-up on the selective care unit. He is currently sitting up in a chair at the bedside. Awake and alert in no acute distress. His x-ray continues to show opacity in the lower half of the left hemothorax. Stable compared to previous. Right lung is clear. Pigtail catheter remains in place to the left chest. Connected to water seal. No air leak currently. Drainage is less thick and purulent. Alteplase instilled again today. He continues to work well with the incentive spirometer. Pleural fluid cultures reveal no growth. He remains on bronchodilators, Tessalon, Zosyn. Objective - Vital Signs Vital signs: Vital Signs Temp 98.5 F 10/07/18 08:00 Pulse 84 10/07/18 08:53 Resp 18 10/07/18 08:00 BP 134/67 10/07/18 08:00 Pulse Ox 100 10/07/18 08:00 Intake & Output 10/06/18 10/07/18 10/07/18 18:59 06:59 18:59 Intake Total 1320 450 240 Output Total 200 610 200 Balance 1120 -160 40 Weight 99.9 kg Intake: IV 700 Piperacillin-Tazobactam 3 100 .375 gm In Sodium Chloride 0.9% 100 ml @ 25 mls/hr IVPB Q8HR ROBERT Rx# :[id number] Sodium Chloride 0.9% 1, 600 000 ml @ 75 mls/hr IV . [id number] ROBERT Rx#:[id number] Intake, IV Titration 450 Amount Sodium Chloride 0.9% 1, 450 000 ml @ 75 mls/hr IV . [id number] ROBERT Rx#:[id number] Oral 620 240 Output: Chest Tube Drainage 200 10 0 Left Posterior Chest 200 10 0 Urine 600 200 Other: Voiding Method Toilet Toilet Urinal Urinal # Voids 1 # Bowel Movements 1 - Exam PHYSICAL EXAMINATION: GENERAL: The patient is alert and oriented x3, not in any acute distress. Well d eveloped, well nourished. HEENT: Pupils are round and equally reacting to light. EOMI. No scleral icterus. No conjunctival pallor. Normocephalic, atraumatic. No pharyngeal erythema. No thyromegaly. CARDIOVASCULAR: S1 and S2 present. No murmurs, rubs, or gallops. PULMONARY: Chest is clear to auscultation, no wheezing or crackles. ABDOMEN: Soft, nontender, nondistended, normoactive bowel sounds. No palpable organomegaly. MUSCULOSKELETAL: No joint swelling or deformity. EXTREMITIES: No cyanosis, clubbing, or pedal edema. NEUROLOGICAL: Gross neurological examination did not reveal any focal deficits. SKIN: No rashes. - Labs CBC & Chem 7: 10/06/18 07:16 10/06/18 07:16 Labs: Abnormal Lab Results - Last 24 Hours (Table) 10/06/18 10/06/18 10/07/18 Range/Units 16:49 20:50 06:19 POC Glucose (mg/dL) 262 H 204 H 149 H (75-99) mg/dL 10/07/18 Range/Units 11:51 POC Glucose (mg/dL) 165 H (75-99) mg/dL Microbiology - Last 24 Hours (Table) 10/02/18 15:50 Anaerobic Culture - Final Pleural Fluid 10/02/18 15:50 Gram Stain - Final Pleural Fluid Body Fluid Culture - Final Assessment and Plan Plan: 1. Complicated parapneumonic left-sided pleural effusion - loculated and there is still dense consolidation of the left lower lobe. Thoracentesis was performed and a total of 1.1 L of fluid was removed from the left lung. There is still residual consolidation and effusion left lung base. Currently on Zosyn. Pleural fluid analysis is exudative in nature. Cultures reveal no growth. Left sided chest tube remains in place, fluid is clearing status post alteplase. 2. Recent left lower lobe pneumonia; patient was discharged home on Augmentin, cultures are all negative 3. Acute hypoxic respiratory failure; improved postthoracentesis 4. Acute lactic acidosis; resolved 5. Diabetes mellitus type 2; continue with Accu-Cheks with insulin sliding scale; we will resume Actos 15 mg daily 6. Hypertension; stable on home dose of metoprolol 25 mg twice a day 7. Hyperlipidemia; Lipitor 20 mg by mouth daily at bedtime 8. Coronary artery disease with previous bypass surgery 9. COPD; bronchodilator nebulizer treatments 4 times a day and when necessary 10. DVT prophylaxis; subcu heparin Time with Patient: Greater than 30
--- NOTE | 2018-10-07 16:23 | P.PN ---
Subjective Progress Note Date: 10/07/18 Pleasant 73-year-old male who has a recent extensive history starting in June 2018 which point in time he was diagnosed with pneumonia and treated with a course of antibiotic therapy. Since that time his had worsening of his symptoms with increasing amounts of weakness and shortness of breath and cough. He had episodes of nausea and emesis and fevers and chills. The relates that he had about a 20 pound weight loss also. Because he was feeling so poorly he did present to the [facility] 09/28/2018 which point in time there is evidence of relative hypoxia and complete obliteration of the left chest cavity by fluid. Thoracentesis was performed and approximately 1.2 L of a thick brownish material was drained. Pulmonary cytology report revealed no evidence of any malignant cells. Culture reveals evidence of Prevotella species and other cultures are pending at this point in time. The patient continued to have difficulties with his pulmonary status and given that he had a history of prior coronary artery bypass grafting procedure and may require surgical intervention to the chest was transferred to [facility] for further evaluation. He has now been seen by the cardiothoracic service and depending on response to treatment such as alteplase will determine if a VATS procedure will be required. 10/05/2018 patient is feeling somewhat better. Is responding well to current antibiotic therapy. Is being followed by thoracic surgery as far as any needs for surgical intervention. Alteplase being utilized to hopefully mobilize the pleural effusion. Other than some minimal tenderness at the pleural drain site he has no other acute complaint. He is having no fevers or chills and is less short of breath. 10/06/2018 feeling better did some PT and tolerated some walking. Less SOB with exertion. Arrangements for home intravenous antibiotic therapy are in process. 10/06/2018 patient is certainly doing better today. With the therapist was able to get evaluated nursing unit desk and back without any assistance other than his IV pole. He is less short of breath and feeling better. Alteplase is being utilized. Being seen by cardiothoracic surgery and hopefully will not require a VATS procedure given his improvement that's being seen at this time. Objective - Vital Signs Vital signs: Vital Signs Temp 98.1 F 10/07/18 15:22 Pulse 68 10/07/18 15:22 Resp 18 10/07/18 15:22 BP 150/69 10/07/18 15:22 Pulse Ox 100 10/07/18 15:22 Intake & Output 10/06/18 10/07/18 10/07/18 18:59 06:59 18:59 Intake Total 3123 202 4815 Output Total 200 610 240 Balance 1120 -160 940 Weight 99.9 kg 99.9 kg Intake: IV 700 700 Piperacillin-Tazobactam 3 100 100 .375 gm In Sodium Chloride 0.9% 100 ml @ 25 mls/hr IVPB Q8HR ROBERT Rx# :[id number] Sodium Chloride 0.9% 1, 600 600 000 ml @ 75 mls/hr IV . [id number] ROBERT Rx#:[id number] Intake, IV Titration 450 Amount Sodium Chloride 0.9% 1, 450 000 ml @ 75 mls/hr IV . [id number] ROBERT Rx#:[id number] Oral 620 480 Output: Chest Tube Drainage 200 10 40 Left Posterior Chest 200 10 40 Urine 600 200 Other: Voiding Method Toilet Toilet Urinal Urinal # Voids 1 1 # Bowel Movements 1 - Exam 73-year-old male in no acute distress but is much less short of breath than at admission HEENT: Anicteric conjunctiva are pink and moist nasal mucosa grossly intact without significant lesions, there is no thrush. Neck: The neck is supple without significant lymphadenopathy or thyromegaly. Lungs: Symmetrical air entry anteriorly. There remains course crackles and diminished breath sounds. there is however improved aeration to the left posterior zones Heart: Regular rate and rhythm with an audible S1-S2, no S3 no S4. There is no significant murmur click or rub, PMI was nondisplaced. Abdomen: Positive bowel sounds soft and nontender without palpable masses or organomegaly. There was no guarding or rebound. Extremities: The upper extremities have excellent pulses they are symmetric, no significant petechiae or telangiectasia. No splinter hemorrhages were noted. Lower extremities have trace pedal edema peripheral pulses are 2+ and symmetric no open ulcerations are seen Neuro: Awake alert oriented to person place and time. There are no acute new gross focal sensory motor deficits. - Labs CBC & Chem 7: 10/06/18 07:16 10/06/18 07:16 Labs: Abnormal Lab Results - Last 24 Hours (Table) 10/06/18 10/06/18 10/07/18 Range/Units 16:49 20:50 06:19 POC Glucose (mg/dL) 262 H 204 H 149 H (75-99) mg/dL 10/07/18 Range/Units 11:51 POC Glucose (mg/dL) 165 H (75-99) mg/dL Microbiology - Last 24 Hours (Table) 10/02/18 15:50 Anaerobic Culture - Final Pleural Fluid 10/02/18 15:50 Gram Stain - Final Pleural Fluid Body Fluid Culture - Final Laboratory Results WBC 8.9 k/uL (3.8-10.6) 10/06/18 07:16 RBC 4.05 m/uL (4.30-5.90) L 10/06/18 07:16 Hgb 8.7 gm/dL (13.0-17.5) L 10/06/18 07:16 Hct 29.5 % (39.0-53.0) L 10/06/18 07:16 MCV 72.9 fL (80.0-100.0) L 10/06/18 07:16 MCH 21.4 pg (25.0-35.0) L 10/06/18 07:16 MCHC 29.3 g/dL (31.0-37.0) L 10/06/18 07:16 RDW 18.7 % (11.5-15.5) H 10/06/18 07:16 Plt Count 516 k/uL (150-450) H 10/06/18 07:16 Neutrophils % 74 % 10/06/18 07:16 Lymphocytes % 16 % 10/06/18 07:16 Monocytes % 4 % 10/06/18 07:16 Eosinophils % 4 % 10/06/18 07:16 Basophils % 0 % 10/06/18 07:16 Neutrophils # 6.6 k/uL (1.3-7.7) 10/06/18 07:16 Lymphocytes # 1.4 k/uL (1.0-4.8) 10/06/18 07:16 Monocytes # 0.4 k/uL (0-1.0) 10/06/18 07:16 Eosinophils # 0.4 k/uL (0-0.7) 10/06/18 07:16 Basophils # 0.0 k/uL (0-0.2) 10/06/18 07:16 Hypochromasia Marked 10/06/18 07:16 Poikilocytosis Slight 10/05/18 06:59 Anisocytosis Slight 10/06/18 07:16 Microcytosis Moderate 10/06/18 07:16 PT 10.8 sec (9.0-12.0) 10/02/18 14:29 INR 1.0 (<1.2) 10/02/18 14:29 Sodium 138 mmol/L (137-145) 10/06/18 07:16 Potassium 4.4 mmol/L (3.5-5.1) 10/06/18 07:16 Chloride 108 mmol/L (98-107) H 10/06/18 07:16 Carbon Dioxide 23 mmol/L (22-30) 10/06/18 07:16 Anion Gap 7 mmol/L 10/06/18 07:16 BUN 9 mg/dL (9-20) 10/06/18 07:16 Creatinine 0.98 mg/dL (0.66-1.25) 10/06/18 07:16 Est GFR (CKD-EPI)AfAm 88 (>60 ml/min/1.73 sqM) 10/06/18 07:16 Est GFR (CKD-EPI)NonAf 76 (>60 ml/min/1.73 sqM) 10/06/18 07:16 Glucose 72 mg/dL (74-99) L 10/06/18 07:16 POC Glucose (mg/dL) 165 mg/dL (75-99) H 10/07/18 11:51 POC Glu Chief Creative Officer ID Iliana Noguera 10/07/18 11:51 Calcium 8.8 mg/dL (8.4-10.2) 10/06/18 07:16 Magnesium 1.7 mg/dL (1.6-2.3) 10/03/18 08:53 Fluid Source Pleural 10/02/18 15:50 Fluid Color Brown 10/02/18 15:50 Fluid Appearance Cloudy 10/02/18 15:50 Fluid RBC 1600 /uL 10/02/18 15:50 Fluid Nucleated Cells 319473 /uL 10/02/18 15:50 Body Fluid Protein Source Pleural Fluid 10/02/18 15:50 Fluid Total Protein 1402 mg/dL 10/02/18 15:50 Body Fluid LDH Source Pleural Fluid 10/02/18 15:50 Fluid LDH >4200 U/L 10/02/18 15:50 Fluid Comment 10/02/18 15:50 Vancomycin Trough 11.3 ug/mL 10/04/18 18:59 Microbiology 10/02/18 15:50 Pleural Fluid Anaerobic Culture - Final 10/02/18 15:50 Pleural Fluid Gram Stain - Final 10/02/18 15:50 Pleural Fluid Body Fluid Culture - Final 10/02/18 15:50 Pleural Fluid Fungal Culture - Preliminary Assessment and Plan (1) Empyema of left pleural space Narrative/Plan: 73-year-old male presents from outside hospital for further evaluation of his significant difficulty with his respiratory status. Imaging studies facility revealed the extensive empyema to the left chest. He did undergo thoracentesis and 1.2 L of material was removed. Pulmonary cultures show evidence of Prevotella and preliminary cytology does not reveal evidence of any malignant cells. 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 He is partially improving with the current interventions but imaging reveals evidence of ongoing significant residual disease. He's been seen by cardiovascular surgery and thrombolytic therapy is being planned. If this is not effective he will then need to undergo a VATS procedure in the near future. We'll plan outpatient intravenous antibiotic therapy which may be further defined in the next short period of time. Continue ongoing supportive care regarding his discomforts and shortness of breath which is markedly improved after the relatively high volume thoracentesis of occurred so far. 10/05/2018 patient is doing well with current antibiotic therapy of Zosyn is being followed by thoracic surgery for the potential need for a VATS procedure. IV access for outpatient antibiotic therapy has been arranged. The patient will require antibiotic therapy in the home setting. However he did not want to have home care. Consequently a teach and treatment program will be utilized. Based on current data with Prevotella will be treated with Invanz 1 g daily in the outpatient setting when ready for discharge. 10/06/2018 patient does not feel poorly, some output from the catheter. Arrangements for home IV antibiotics in progress. 10/06/2018 patient continues to have some improvement. There is ongoing drainage from the pleural catheter. However the chest x-ray today does show evidence of improved aeration to the left lower lobe and decreased diffusion. Seems to involve antibiotic therapy and plans are in process for his outpatient intravenous antibiotic therapy discharge for the polymicrobial lung abscess and empyema Current Visit: Yes Status: Acute Code(s): J86.9 - PYOTHORAX WITHOUT FISTULA SNOMED Code(s): 36382322 (2) Pneumonia due to anaerobes Current Visit: Yes Status: Acute Code(s): J15.8 - PNEUMONIA DUE TO OTHER SPECIFIED BACTERIA SNOMED Code(s): 732827933 (3) Poor dentition Current Visit: Yes Status: Acute Code(s): K08.9 - DISORDER OF TEETH AND SUPPORTING STRUCTURES, UNSPECIFIED SNOMED Code(s): 564979882
[2018-10-07 16:47] LABS: Glucose,Whole Blood 146 mg/dL (75-99)
[2018-10-07] MEDS: ATORVASTATIN 20 MG TAB PO SCH (20:35)
[2018-10-07] MEDS: ACETAMINOPHEN TAB 325 MG TAB PO PRN (20:36)
[2018-10-07 20:45] LABS: Glucose,Whole Blood 135 mg/dL (75-99)
[2018-10-07] MEDS ORDERED: KETOROLAC 30 MG/ML 1 ML VIAL IVP PRN (22:03)
[2018-10-07] MEDS: traMADol 50 MG TAB PO SCH (23:32)
[2018-10-08] MEDS: SODIUM CHLORIDE 0.9% 1,000 ML IV SCH ×2 (00:34→15:23)
[2018-10-08 06:16] LABS: Anisocytosis Slight; HCT 29.9 % (39.0-53.0); HGB 9.1 gm/dL (13.0-17.5); Hypochromasia Marked; MCH 21.6 pg (25.0-35.0); MCHC 30.3 g/dL (31.0-37.0); MCV 71.4 fL (80.0-100.0); Mean Platelet Volume 6.5; Microcytosis Marked; Platelet Count 468 k/uL (150-450); RBC 4.19 m/uL (4.30-5.90); RDW 19.2 % (11.5-15.5); WBC 8.9 k/uL (3.8-10.6)
[2018-10-08 06:35] LABS: Calcium 9.1 mg/dL (8.4-10.2)
[2018-10-08] MEDS: INSULIN ASPART (NovoLOG) 100 UNIT/ML VIAL SQ SCH ×4 (06:36→20:50)
[2018-10-08 06:40] LABS: Glucose,Whole Blood 68 mg/dL (75-99)
[2018-10-08] MEDS: PANTOPRAZOLE 40 MG TABLET PO SCH (06:40)
[2018-10-08] MEDS: LUBIPROSTONE 24 MCG PO SCH ×2 (06:41→17:33)
[2018-10-08] MEDS: INSULN ASP PRT/INSULIN ASPART 100 UNIT/ML 10 ML VIAL SQ SCH ×3 (07:10→17:38)
[2018-10-08] MEDS: DOCUSATE 100 MG CAP PO SCH ×2 (07:11→20:40)
[2018-10-08] MEDS: ALBUTEROL NEBULIZED 2.5 MG/3 ML INHALATION PRN ×4 (07:25→20:26)
--- NOTE | 2018-10-08 07:32 | XR ---
EXAMINATION TYPE: XR chest 2V DATE OF EXAM: 10/08/2018 HISTORY: empyema. REFERENCE: Previous study dated 10/07/2018. FINDINGS: There has been a midline sternotomy. A left pleural drain remains in place. There is a small air-fluid level present in the left lung base . There is left-sided subcutaneous emphysema. The heart is not enlarged. The right lung is clear. IMPRESSION: AIR-FLUID LEVEL HAS DEVELOPED PATIENT'S KNOWN LEFT-SIDED EMPYEMA.
[2018-10-08] MEDS: METOPROLOL TARTRATE 25 MG TAB PO SCH ×2 (07:36→20:50)
[2018-10-08] MEDS: PIOGLITAZONE 15 MG TAB PO SCH (07:36)
[2018-10-08] MEDS: HEPARIN SODIUM,PORCINE 5,000 UNIT/ML 1 ML VIAL SQ SCH ×3 (07:36→23:57)
[2018-10-08] MEDS: LINAGLIPTIN 5 MG TABLET PO SCH (07:36)
[2018-10-08] MEDS: PIPERACILLIN-TAZOBACTAM 3.375 GM in SODIUM CHLORIDE 0.9% 100 ML IVPB SCH ×3 (07:36→23:57)
[2018-10-08] MEDS: ASPIRIN 81 MG PO SCH (07:36)
[2018-10-08] MEDS: MULTIVITAMINS, THERA 1 EACH TAB PO SCH (07:37)
[2018-10-08] MEDS: BENZONATATE 100 MG CAP PO PRN (07:39)
[2018-10-08] MEDS: traMADol 50 MG TAB PO SCH ×4 (09:16→21:27)
[2018-10-08] MEDS ORDERED: ALTEPLASE 10 MG in SODIUM CHLORIDE 0.9% 100 ML IRRIGATION ONE (11:01)
[2018-10-08 11:48] LABS: Glucose,Whole Blood 152 mg/dL (75-99)
--- NOTE | 2018-10-08 12:44 | P.PN ---
Subjective Progress Note Date: 10/08/18 Principal diagnosis: Left pleural effusion, probable empyema. Previous medical history of tobacco dependence, insulin-dependent diabetes mellitus, hypertension, hyperlipidemia, chronic kidney disease stage III, TIA, benign pituitary tumor, chronic lower back pain, coronary artery disease with previous stenting and coronary artery bypass grafting surgery and recent hospitalization for pneumonia in June 2018 discharged home on Augmentin. POD #6 CT-guided left pigtail insertion by interventional radiology, status post alteplase instillation The patient's currently sitting up in the recliner in no acute distress. States pain is well-controlled, denies shortness of breath, states he got good sleep last night. Patient has been ambulatory in the hallway. Pigtail catheter remains connected to atrium waterseal, no air leak present, drainage appears to be thinning out. Objective - Vital Signs Vital signs: Vital Signs Temp 97.8 F 10/08/18 11:48 Pulse 82 10/08/18 11:48 Resp 18 10/08/18 11:48 BP 136/72 10/08/18 11:48 Pulse Ox 100 10/08/18 11:48 Intake & Output 10/07/18 10/08/18 10/08/18 18:59 06:59 18:59 Intake Total 1420 525 240 Output Total 240 1340 1240 Balance 1180 -815 -1000 Weight 99.9 kg 100 kg Intake: IV 700 525 Piperacillin-Tazobactam 3 100 .375 gm In Sodium Chloride 0.9% 100 ml @ 25 mls/hr IVPB Q8HR [facility] Rx# :[id number] Sodium Chloride 0.9% 1, 600 525 000 ml @ 75 mls/hr IV . [id number] [facility] Rx#:[id number] Oral 720 240 Output: Chest Tube Drainage 40 140 40 Left Posterior Chest 40 140 40 Urine 200 1200 1200 Other: Voiding Method Toilet Urinal # Voids 1 # Bowel Movements 1 1 1 - Constitutional General appearance: Present: cooperative, no acute distress, obese - Respiratory Details: Lungs sounds diminished bilaterally. Respirations even, nonlabored. Currently on room air with oxygen saturation 100%. Able to achieve 2000 mL on his inc entive spirometry. Left pleural pigtail catheter present, connected to atrium to waterseal, 60 mL drainage overnight, 250 mL in the last 24 hours. - Cardiovascular Details: S1, S2 present. Regular rate and rhythm, sinus rhythm on telemetry. Palpable peripheral pulses bilaterally. Trace bilateral lower extremity edema present. No calf pain or tenderness noted. - Gastrointestinal Gastrointestinal Comment(s): Abdomen soft, nontender, nondistended. Active bowel sounds present 4 quadrants. Tolerating diet. - Genitourinary Genitourinary Comment(s): Abdomen soft, nontender, nondistended. Active bowel sounds present 4 quadrants. Tolerating diet. - Integumentary Integumentary Comment(s): Skin is warm and dry with evidence of good perfusion. Left pigtail catheter site covered with dry intact dressing. - Neurologic Neurologic: Present: CNII-XII intact - Musculoskeletal Musculoskeletal: Present: gait normal, strength equal bilaterally - Psychiatric Psychiatric: Present: A&O x's 3, appropriate affect, intact judgment & insight - Allied health notes Allied health notes reviewed: nursing - Labs CBC & Chem 7: 10/08/18 05:38 10/08/18 05:38 Labs: Abnormal Lab Results - Last 24 Hours (Table) 10/07/18 10/07/18 10/08/18 Range/Units 16:36 20:44 05:38 RBC 4.19 L (4.30-5.90) m/uL Hgb 9.1 L (13.0-17.5) gm/dL Hct 29.9 L (39.0-53.0) % MCV 71.4 L (80.0-100.0) fL MCH 21.6 L (25.0-35.0) pg MCHC 30.3 L (31.0-37.0) g/dL RDW 19.2 H (11.5-15.5) % Plt Count 468 H (150-450) k/uL Chloride (98-107) mmol/L Glucose (74-99) mg/dL POC Glucose (mg/dL) 146 H 135 H (75-99) mg/dL 10/08/18 10/08/18 10/08/18 Range/Units 05:38 06:35 11:36 RBC (4.30-5.90) m/uL Hgb (13.0-17.5) gm/dL Hct (39.0-53.0) % MCV (80.0-100.0) fL MCH (25.0-35.0) pg MCHC (31.0-37.0) g/dL RDW (11.5-15.5) % Plt Count (150-450) k/uL Chloride 109 H (98-107) mmol/L Glucose 69 L (74-99) mg/dL POC Glucose (mg/dL) 68 L 152 H (75-99) mg/dL - Imaging and Cardiology Chest x-ray: report reviewed, image reviewed Assessment and Plan Assessment: 1. Left pleural effusion, likely empyema, status post left thoracentesis and placement of left sided pigtail catheter by interventional radiology. 2. Acute anemia, unknown cause 3. Acute on chronic kidney disease 4. Recent weight loss 5. History of tobacco dependence 6. Uncontrolled Insulin-dependent diabetes mellitus with hemoglobin A1c 8.7% 7. History of hypertension 8. History of hyperlipidemia 9. History of benign pituitary tumor 10. History of coronary artery disease status post previous stenting and coronary artery bypass grafting surgery 11. History of TIA 12. History of recent pneumonia left lower lobe hospitalization in June 2018 13. Chronic lower back pain Plan: 1. Continue pigtail catheter to waterseal. Will monitor drainage. Will instill alteplase again today. 2. Encourage is and spirometry is 10 times every hour while awake. 3. Increase activity, ambulate as tolerated. 4. Will monitor x-rays. 5. Bronchodilators per pulmonology. 6. Antibiotics, management of other comorbid conditions per primary care service. 7. GI/DVT prophylaxis. 8. Patient likely will not need thoracoscopic surgery. Recommend maximizing medical status with antibiotics, bronchodilators, and monitoring drainage. 9. Patient may be transferred off 3 S. to [facility] floor without telemetry from our standpoint 10. More recommendations to follow based on clinical course. Time with Patient: Greater than 30
--- NOTE | 2018-10-08 14:21 | P.PN ---
Subjective Progress Note Date: 10/08/18 The patient is doing well. No specific complaints. Ambulating. The patient has a pigtail catheter which is draining around 80 mL over the past shift of purulent material. He will be receiving another alteplase today. He has been receiving antibiotics and the patient is currently on IV Zosyn. Chest x-ray from today shows some residual loculation an investigation of the left lung base. Chest tube is in good location. The patient's pulse ox is 100% on room air. Afebrile. Cultures of been negative for now. PICC line to be inserted tomorrow. Objective - Vital Signs Vital signs: Vital Signs Temp 97.8 F 10/08/18 11:48 Pulse 82 10/08/18 11:48 Resp 18 10/08/18 11:48 BP 136/72 10/08/18 11:48 Pulse Ox 100 10/08/18 11:48 Intake & Output 10/07/18 10/08/18 10/08/18 18:59 06:59 18:59 Intake Total 3425 694 5623 Output Total 240 1340 2140 Balance 1180 -815 -1060 Weight 99.9 kg 100 kg Intake: IV 700 525 600 Piperacillin-Tazobactam 3 100 .375 gm In Sodium Chloride 0.9% 100 ml @ 25 mls/hr IVPB Q8HR [facility] Rx# :[id number] Sodium Chloride 0.9% 1, 600 525 600 000 ml @ 75 mls/hr IV . [id number] [facility] Rx#:[id number] Oral 720 480 Output: Chest Tube Drainage 40 140 40 Left Posterior Chest 40 140 40 Urine 200 1200 2100 Other: Voiding Method Toilet Urinal # Voids 1 # Bowel Movements 1 1 1 - Exam GENERAL: The patient is alert and oriented x3, not in any acute distress. Well developed, well nourished. On room air. Head exam was generally normal. There was no scleral icterus or corneal arcus. Mucous membranes were moist. HEENT: Pupils are round and equally reacting to light. EOMI. No scleral icterus. No conjunctival pallor. Normocephalic, atraumatic. No pharyngeal erythema. No thyromegaly. CARDIOVASCULAR: S1 and S2 present. No murmurs, rubs, or gallops. PULMONARY: minimal basilar crackles on the left side, chest tube remains in place with thick purulent drainage. ABDOMEN: Soft, nontender, nondistended, normoactive bowel sounds. No palpable organomegaly. MUSCULOSKELETAL: No joint swelling or deformity. EXTREMITIES: No cyanosis, clubbing, or pedal edema. NEUROLOGICAL: Gross neurological examination did not reveal any focal deficits. SKIN: No rashes. Examination of the skin revealed no evidence of significant rashes, suspicious appearing nevi or other concerning lesions. - Labs CBC & Chem 7: 10/08/18 05:38 10/08/18 05:38 Labs: Abnormal Lab Results - Last 24 Hours (Table) 10/07/18 10/07/18 10/08/18 Range/Units 16:36 20:44 05:38 RBC 4.19 L (4.30-5.90) m/uL Hgb 9.1 L (13.0-17.5) gm/dL Hct 29.9 L (39.0-53.0) % MCV 71.4 L (80.0-100.0) fL MCH 21.6 L (25.0-35.0) pg MCHC 30.3 L (31.0-37.0) g/dL RDW 19.2 H (11.5-15.5) % Plt Count 468 H (150-450) k/uL Chloride (98-107) mmol/L Glucose (74-99) mg/dL POC Glucose (mg/dL) 146 H 135 H (75-99) mg/dL 10/08/18 10/08/18 10/08/18 Range/Units 05:38 06:35 11:36 RBC (4.30-5.90) m/uL Hgb (13.0-17.5) gm/dL Hct (39.0-53.0) % MCV (80.0-100.0) fL MCH (25.0-35.0) pg MCHC (31.0-37.0) g/dL RDW (11.5-15.5) % Plt Count (150-450) k/uL Chloride 109 H (98-107) mmol/L Glucose 69 L (74-99) mg/dL POC Glucose (mg/dL) 68 L 152 H (75-99) mg/dL Assessment and Plan Plan: 1 left lung empyema post pigtail catheter insertion the patient's cultures are still negative. The patient has received several doses about the place and the patient continues to drain pus from the left lung with some residual opacification location of the left lung. 2 recent hospitalization for left lower lobe pneumonia discharged home on A ugmentin, cultures are all negative 3 acute hypoxic respiratory failure, improved postthoracentesis and pigtail catheter insertion the patient is currently on room air with a pulse of 98% 4 acute lactic acidosis secondary to above, improved 5 shortness of breath and cough and addition to weight loss and other constitutional symptoms secondary to pneumonia and possible pleural space infection 6 history of pituitary tumor 7 diabetes mellitus type 2 8 hypertension 9 hyperlipidemia 10 coronary artery disease with previous bypass surgery 11 COPD 13 previous history of CVA/TIA Plan Continue antibiotics. Daily chest x-ray. Alteplase will be administered today. Monitor the output from the chest tube. PICC line insertion tomorrow. We'll continue to follow. Patient is ambulating. The patient is using incentive spirometer. No other significant events overnight.
--- NOTE | 2018-10-08 15:07 | P.PN ---
Subjective Progress Note Date: 10/08/18 10/07/2018 Patient is seen and evaluated in follow-up on the selective care unit. He is currently sitting up in a chair at the bedside. Awake and alert in no acute distress. His x-ray continues to show opacity in the lower half of the left hemothorax. Stable compared to previous. Right lung is clear. Pigtail catheter remains in place to the left chest. Connected to water seal. No air leak currently. Drainage is less thick and purulent. Alteplase instilled again today. He continues to work well with the incentive spirometer. Pleural fluid cultures reveal no growth. He remains on bronchodilators, Tessalon, Zosyn. 10/08/2018 The patient is doing well. No specific complaints. Ambulating. The patient has a pigtail catheter which is draining around 80 mL over the past shift of purulent material. He will be receiving another alteplase today. He has been receiving antibiotics and the patient is currently on IV Zosyn. Chest x-ray f rom today shows some residual loculation an investigation of the left lung base. Chest tube is in good location. The patient's pulse ox is 100% on room air. Afebrile. Cultures of been negative for now. PICC line to be inserted tomorrow. Plan of care was discussed with patient's sitting at bedside who is very motivated to do IV antibiotic therapy Objective - Vital Signs Vital signs: Vital Signs Temp 97.6 F 10/08/18 08:00 Pulse 80 10/08/18 11:18 Resp 18 10/08/18 08:00 BP 138/68 10/08/18 08:00 Pulse Ox 100 10/08/18 08:00 Intake & Output 10/07/18 10/08/18 10/08/18 18:59 06:59 18:59 Intake Total 1420 525 240 Output Total 240 1340 40 Balance 1180 -815 200 Weight 99.9 kg 100 kg Intake: IV 700 525 Piperacillin-Tazobactam 3 100 .375 gm In Sodium Chloride 0.9% 100 ml @ 25 mls/hr IVPB Q8HR [facility] Rx# :[id number] Sodium Chloride 0.9% 1, 600 525 000 ml @ 75 mls/hr IV . [id number] [facility] Rx#:[id number] Oral 720 240 Output: Chest Tube Drainage 40 140 40 Left Posterior Chest 40 140 40 Urine 200 1200 Other: Voiding Method Toilet Urinal # Voids 1 # Bowel Movements 1 1 1 - Exam PHYSICAL EXAMINATION: GENERAL: The patient is alert and oriented x3, not in any acute distress. Well developed, well nourished. HEENT: Pupils are round and equally reacting to light. EOMI. No scleral icterus. No conjunctival pallor. Normocephalic, atraumatic. No pharyngeal erythema. No thyromegaly. CARDIOVASCULAR: S1 and S2 present. No murmurs, rubs, or gallops. PULMONARY: Chest is clear to auscultation, no wheezing or crackles. ABDOMEN: Soft, nontender, nondistended, normoactive bowel sounds. No palpable organomegaly. MUSCULOSKELETAL: No joint swelling or deformity. EXTREMITIES: No cyanosis, clubbing, or pedal edema. NEUROLOGICAL: Gross neurological examination did not reveal any focal deficits. SKIN: No rashes. - Labs CBC & Chem 7: 10/08/18 05:38 10/08/18 05:38 Labs: Abnormal Lab Results - Last 24 Hours (Table) 10/07/18 10/07/18 10/07/18 Range/Units 11:51 16:36 20:44 RBC (4.30-5.90) m/uL Hgb (13.0-17.5) gm/dL Hct (39.0-53.0) % MCV (80.0-100.0) fL MCH (25.0-35.0) pg MCHC (31.0-37.0) g/dL RDW (11.5-15.5) % Plt Count (150-450) k/uL Chloride (98-107) mmol/L Glucose (74-99) mg/dL POC Glucose (mg/dL) 165 H 146 H 135 H (75-99) mg/dL 10/08/18 10/08/18 10/08/18 Range/Units 05:38 05:38 06:35 RBC 4.19 L (4.30-5.90) m/uL Hgb 9.1 L (13.0-17.5) gm/dL Hct 29.9 L (39.0-53.0) % MCV 71.4 L (80.0-100.0) fL MCH 21.6 L (25.0-35.0) pg MCHC 30.3 L (31.0-37.0) g/dL RDW 19.2 H (11.5-15.5) % Plt Count 468 H (150-450) k/uL Chloride 109 H (98-107) mmol/L Glucose 69 L (74-99) mg/dL POC Glucose (mg/dL) 68 L (75-99) mg/dL Assessment and Plan Plan: 1. Complicated parapneumonic left-sided pleural effusion - loculated and there is still dense consolidation of the left lower lobe. Thoracentesis was performed and a total of 1.1 L of fluid was removed from the left lung. There is still residual consolidation and effusion left lung base. Currently on Zosyn. Pleural fluid analysis is exudative in nature. Cultures reveal no growth. Left sided chest tube remains in place, fluid is clearing status post alteplase. 2. Recent left lower lobe pneumonia; patient was discharged home on Augmentin, cultures are all negative 3. Acute hypoxic respiratory failure; improved postthoracentesis 4. Acute lactic acidosis; resolved 5. Diabetes mellitus type 2; continue with Accu-Cheks with insulin sliding scale; we will resume Actos 15 mg daily 6. Hypertension; stable on home dose of metoprolol 25 mg twice a day 7. Hyperlipidemia; Lipitor 20 mg by mouth daily at bedtime 8. Coronary artery disease with previous bypass surgery 9. COPD; bronchodilator nebulizer treatments 4 times a day and when necessary 10. DVT prophylaxis; subcu heparin Time with Patient: Greater than 30
[2018-10-08 16:56] LABS: Glucose,Whole Blood 206 mg/dL (75-99)
[2018-10-08 20:28] LABS: Glucose,Whole Blood 216 mg/dL (75-99)
[2018-10-08] MEDS: ATORVASTATIN 20 MG TAB PO SCH (20:50)
[2018-10-09] MEDS: SODIUM CHLORIDE 0.9% 1,000 ML IV SCH ×2 (03:26→15:34)
[2018-10-09] MEDS: LUBIPROSTONE 24 MCG PO SCH ×2 (05:25→17:58)
[2018-10-09] MEDS: DOCUSATE 100 MG CAP PO SCH ×2 (05:25→21:07)
[2018-10-09 06:17] LABS: Glucose,Whole Blood 63 mg/dL (75-99)
[2018-10-09] MEDS: PANTOPRAZOLE 40 MG TABLET PO SCH (06:31)
[2018-10-09] MEDS: INSULIN ASPART (NovoLOG) 100 UNIT/ML VIAL SQ SCH ×4 (06:31→21:07)
[2018-10-09 06:44] LABS: Glucose,Whole Blood 65 mg/dL (75-99)
[2018-10-09 06:55] LABS: Glucose,Whole Blood 92 mg/dL (75-99)
[2018-10-09 07:32] LABS: Anisocytosis Slight; HGB 8.9 gm/dL (13.0-17.5); Hypochromasia Marked; MCH 21.8 pg (25.0-35.0); MCHC 29.8 g/dL (31.0-37.0); MCV 73.3 fL (80.0-100.0); Mean Platelet Volume 6.1; Microcytosis Moderate; Platelet Count 479 k/uL (150-450); RBC 4.09 m/uL (4.30-5.90); RDW 19.4 % (11.5-15.5); WBC 11.6 k/uL (3.8-10.6)
[2018-10-09] MEDS: traMADol 50 MG TAB PO SCH ×4 (08:09→21:07)
[2018-10-09] MEDS: ASPIRIN 81 MG PO SCH (08:09)
[2018-10-09] MEDS: HEPARIN SODIUM,PORCINE 5,000 UNIT/ML 1 ML VIAL SQ SCH ×3 (08:09→23:49)
[2018-10-09] MEDS: MULTIVITAMINS, THERA 1 EACH TAB PO SCH (08:10)
[2018-10-09] MEDS: METOPROLOL TARTRATE 25 MG TAB PO SCH ×2 (08:10→21:07)
[2018-10-09] MEDS: PIPERACILLIN-TAZOBACTAM 3.375 GM in SODIUM CHLORIDE 0.9% 100 ML IVPB SCH ×3 (08:10→23:49)
[2018-10-09] MEDS: LINAGLIPTIN 5 MG TABLET PO SCH (08:10)
[2018-10-09] MEDS: INSULN ASP PRT/INSULIN ASPART 100 UNIT/ML 10 ML VIAL SQ SCH ×3 (08:11→18:03)
[2018-10-09] MEDS: PIOGLITAZONE 15 MG TAB PO SCH (08:11)
--- NOTE | 2018-10-09 08:25 | XR ---
EXAMINATION TYPE: XR chest 2V DATE OF EXAM: 10/09/2018 COMPARISON: 10/08/2018 TECHNIQUE: PA and lateral views submitted. HISTORY: Empyema FINDINGS: Left-sided pleural thickening, consolidation and small effusion are stable. Left-sided chest tube not ed. Subcutaneous emphysema seen. Postsurgical changes noted. Right lung is clear. No sizable pneumoth orax. IMPRESSION: 1. Stable left-sided small effusion with subcutaneous emphysema and left basilar infiltrate.
[2018-10-09] MEDS: ALBUTEROL NEBULIZED 2.5 MG/3 ML INHALATION PRN ×3 (08:38→16:40)
--- NOTE | 2018-10-09 11:21 | P.PN ---
Subjective Progress Note Date: 10/09/18 Principal diagnosis: Left pleural effusion, probable empyema. Previous medical history of tobacco dependence, insulin-dependent diabetes mellitus, hypertension, hyperlipidemia, chronic kidney disease stage III, TIA, benign pituitary tumor, chronic lower back pain, coronary artery disease with previous stenting and coronary artery bypass grafting surgery and recent hospitalization for pneumonia in June 2018 discharged home on Augmentin. POD #7 CT-guided left pigtail insertion by interventional radiology, status post alteplase instillation The patient's currently sitting up in the recliner in no acute distress. States pain is well-controlled, denies shortness of breath. Patient has been ambulating laps in the hallway. Pigtail catheter remains connected to atrium waterseal, no air leak present. Alteplase instilled again yesterday, however there was some leakage around the catheter as it was being instilled. Objective - Vital Signs Vital signs: Vital Signs Temp 98.3 F 10/09/18 07:46 Pulse 80 10/09/18 08:51 Resp 17 10/09/18 08:00 BP 137/60 10/09/18 07:46 Pulse Ox 100 10/09/18 07:46 Intake & Output 10/08/18 10/09/18 10/09/18 18:59 06:59 18:59 Intake Total 1320 600 480 Output Total 2140 1170 0 Balance -820 -570 480 Weight 101.5 kg Intake: IV 600 600 Sodium Chloride 0.9% 1, 600 600 000 ml @ 75 mls/hr IV . [id number] [facility] Rx#:[id number] Oral 720 480 Output: Chest Tube Drainage 40 20 0 Left Posterior Chest 40 20 0 Urine 2100 1150 Other: Voiding Method Toilet Toilet Urinal Urinal # Voids 1 # Bowel Movements 1 1 - Constitutional General appearance: Present: cooperative, no acute distress, obese - Respiratory Details: Lungs sounds diminished bilaterally. Respirations even, nonlabored. Currently on room air with oxygen saturation 100%. Able to achieve 2500 mL on his incentive spirometry. Left pleural pigtail catheter present, connected to atrium to waterseal, 20 mL drainage in the last 24 hours. - Cardiovascular Details: S1, S2 present. Regular rate and rhythm, sinus rhythm on telemetry. Palpable peripheral pulses bilaterally. Trace bilateral lower extremity edema present. No calf pain or tenderness noted. - Gastrointestinal Gastrointestinal Comment(s): Abdomen soft, nontender, nondistended. Active bowel sounds present 4 quadrants. Tolerating diet. - Genitourinary Genitourinary Comment(s): Continues to void clear, yellow urine - Integumentary Integumentary Comment(s): Skin is warm and dry with evidence of good perfusion. Left pigtail catheter site covered with dry intact dressing. - Neurologic Neurologic: Present: CNII-XII intact - Musculoskeletal Musculoskeletal: Present: gait normal, strength equal bilaterally - Psychiatric Psychiatric: Present: A&O x's 3, appropriate affect, intact judgment & insight - Allied health notes Allied health notes reviewed: nursing - Labs CBC & Chem 7: 10/09/18 06:31 10/08/18 05:38 Labs: Abnormal Lab Results - Last 24 Hours (Table) 10/08/18 10/08/18 10/08/18 Range/Units 11:36 16:44 20:27 WBC (3.8-10.6) k/uL RBC (4.30-5.90) m/uL Hgb (13.0-17.5) gm/dL Hct (39.0-53.0) % MCV (80.0-100.0) fL MCH (25.0-35.0) pg MCHC (31.0-37.0) g/dL RDW (11.5-15.5) % Plt Count (150-450) k/uL POC Glucose (mg/dL) 152 H 206 H 216 H (75-99) mg/dL 10/09/18 10/09/18 10/09/18 Range/Units 06:16 06:31 06:35 WBC 11.6 H (3.8-10.6) k/uL RBC 4.09 L (4.30-5.90) m/uL Hgb 8.9 L (13.0-17.5) gm/dL Hct 30.0 L (39.0-53.0) % MCV 73.3 L (80.0-100.0) fL MCH 21.8 L (25.0-35.0) pg MCHC 29.8 L (31.0-37.0) g/dL RDW 19.4 H (11.5-15.5) % Plt Count 479 H (150-450) k/uL POC Glucose (mg/dL) 63 L 65 L (75-99) mg/dL - Imaging and Cardiology Chest x-ray: report reviewed, image reviewed Assessment and Plan Assessment: 1. Left pleural effusion, likely empyema, status post left thoracentesis and placement of left sided pigtail catheter by interventional radiology. 2. Acute anemia, unknown cause 3. Acute on chronic kidney disease 4. Recent weight loss 5. History of tobacco dependence 6. Uncontrolled Insulin-dependent diabetes mellitus with hemoglobin A1c 8.7% 7. History of hypertension 8. History of hyperlipidemia 9. History of benign pituitary tumor 10. History of coronary artery disease status post previous stenting and coronary artery bypass grafting surgery 11. History of TIA 12. History of recent pneumonia left lower lobe hospitalization in June 2018 13. Chronic lower back pain Plan: 1. Pigtail catheter does not appear to be functioning appropriately anymore, v rebecca minimal drainage and leakage around the site with instillation of alteplase yesterday. No alteplase today, our recommendation is for removal by interventional radiology. 2. Encourage incentive spirometry is 10 times every hour while awake. 3. Increase activity, ambulate as tolerated. 4. Will monitor x-rays. 5. Bronchodilators per pulmonology. 6. Antibiotics, management of other comorbid conditions per primary care service. 7. GI/DVT prophylaxis. 8. Patient likely will not need thoracoscopic surgery. Recommend maximizing medical status with antibiotics, bronchodilators. Once patient has completed IV antibiotic course we would recommend repeat computed tomography scan of the ches t to determine further treatment needs. 9. Patient may be transferred off 3 S. to [facility] floor without telemetry from our standpoint. Once pigtail catheter has been discontinued, may be discharged to home with IV antibiotics when okay with primary and infectious disease services. Time with Patient: Greater than 30
[2018-10-09 12:04] LABS: Glucose,Whole Blood 157 mg/dL (75-99)
[2018-10-09] MEDS: FUROSEMIDE 20 MG TAB PO SCH (12:42)
[2018-10-09] MEDS: CABERGOLINE 0.5 MG PO SCH (12:45)
[2018-10-09] MEDS ORDERED: LIDOCAINE 2% (PF) 20 MG/ML 2 ML AMP SQ ONE (14:40)
--- NOTE | 2018-10-09 16:38 | P.PN ---
Subjective Progress Note Date: 10/09/18 Principal diagnosis: Left lung empyema post-pigtail catheter insertion On 10/09/2018 patient seen in follow-up on selective care unit, he is sitting up in the recliner, in no acute distress, he denies any worsening shortness of breath, denies any chest pain, his pigtail catheter has been draining very minimal output spite the TPA infusions, there has been only 60 mL out of the chest tube, pleural fluid cultures remain negative thus far. There has been no fever or chills, vital signs are stable. Room air pulse ox is 100%, lung sounds are positive for diminished breath sounds at the left base, and clear on the right. Patient has been tolerating ambulation. ID service is following, and patient is on Zosyn for antibiotic coverage. Objective - Vital Signs Vital signs: Vital Signs Temp 98.2 F 10/09/18 15:32 Pulse 74 10/09/18 13:42 Resp 16 10/09/18 15:32 BP 136/67 10/09/18 15:32 Pulse Ox 100 10/09/18 15:32 Intake & Output 10/08/18 10/09/18 10/09/18 18:59 06:59 18:59 Intake Total 1320 600 720 Output Total 2140 1170 0 Balance -820 -570 720 Weight 101.5 kg Intake: IV 600 600 Sodium Chloride 0.9% 1, 600 600 000 ml @ 75 mls/hr IV . [id number] [facility] Rx#:[id number] Oral 720 720 Output: Chest Tube Drainage 40 20 0 Left Posterior Chest 40 20 0 Urine 2100 1150 Other: Voiding Method Toilet Toilet Urinal Urinal # Voids 1 # Bowel Movements 1 1 - Exam GENERAL EXAM: Alert, active, comfortable in no apparent distress. HEAD: Normocephalic/atraumatic. EYES: Normal reaction of pupils, equal size. Conjunctiva pink, sclera white. NOSE: Clear with pink turbinates. THROAT: No erythema or exudates. NECK: No masses, no JVD, no thyroid enlargement, no adenopathy. CHEST: No chest wall deformity. Symmetrical expansion. Left-sided pigtail chest tube catheter in place connected to a Pleur-evac, and there has been diminishing output from the chest tube with only 60 mL of pleural fluid in the last 24 hours LUNGS: Equal air entry with no crackles, wheeze, rhonchi or dullness. Diminished breath sounds at the left base, clear on the right CVS: Regular rate and rhythm, normal S1 and S2, no gallops, no murmurs, no rubs ABDOMEN: Soft, nontender. No hepatosplenomegaly, normal bowel sounds, no guarding or rigidity. EXTREMITIES: No clubbing, no edema, no cyanosis, 2+ pulses and upper and lower extremities. MUSCULOSKELETAL: Muscle strength and tone normal. SPINE: No scoliosis or deformity SKIN: No rashes CENTRAL NERVOUS SYSTEM: Alert and oriented -3. No focal deficits, tone is normal in all 4 extremities. PSYCHIATRIC: Alert and oriented -3. Appropriate affect. Intact judgment and insight. - Labs CBC & Chem 7: 10/09/18 06:31 10/08/18 05:38 Labs: Abnormal Lab Results - Last 24 Hours (Table) 10/08/18 10/08/18 10/09/18 Range/Units 16:44 20:27 06:16 WBC (3.8-10.6) k/uL RBC (4.30-5.90) m/uL Hgb (13.0-17.5) gm/dL Hct (39.0-53.0) % MCV (80.0-100.0) fL MCH (25.0-35.0) pg MCHC (31.0-37.0) g/dL RDW (11.5-15.5) % Plt Count (150-450) k/uL POC Glucose (mg/dL) 206 H 216 H 63 L (75-99) mg/dL 10/09/18 10/09/18 10/09/18 Range/Units 06:31 06:35 11:53 WBC 11.6 H (3.8-10.6) k/uL RBC 4.09 L (4.30-5.90) m/uL Hgb 8.9 L (13.0-17.5) gm/dL Hct 30.0 L (39.0-53.0) % MCV 73.3 L (80.0-100.0) fL MCH 21.8 L (25.0-35.0) pg MCHC 29.8 L (31.0-37.0) g/dL RDW 19.4 H (11.5-15.5) % Plt Count 479 H (150-450) k/uL POC Glucose (mg/dL) 65 L 157 H (75-99) mg/dL Assessment and Plan Plan: Assessment: 1 left lung empyema post pigtail catheter insertion the patient's cultures are still negative. The patient has received several doses about the place and the patient continues to drain pus from the left lung with some residual opacification location of the left lung. 2 recent hospitalization for left lower lobe pneumonia discharged home on Augmentin, cultures are all negative 3 acute hypoxic respiratory failure, improved postthoracentesis and pigtail catheter insertion the patient is currently on room air with a pulse of 98% 4 acute lactic acidosis secondary to above, improved 5 shortness of breath and cough and addition to weight loss and other constitutional symptoms secondary to pneumonia and possible pleural space infection 6 history of pituitary tumor 7 diabetes mellitus type 2 8 hypertension 9 hyperlipidemia 10 coronary artery disease with previous bypass surgery 11 COPD 13 previous history of CVA/TIA Plan: There has been minimal output from the left-sided pigtail catheter despite the TPA infusions, and the pigtail catheter can now be discontinued. Likely patient is stable, no specific complaints no acute events overnight, vital signs are stable, no fever or chills, pleural fluid culture showed no growth. From pulmonary perspective patient is stable for discharge home following the removal of the chest tube, provided he remains stable, antibiotics per ID service recommendations, patient will need follow-up with Dr. Means in the office in 7-10 days. I performed a history & physical examination of the patient and discussed their management with my nurse practitioner, Casie Knight. I reviewed the nurse practitioner's note and agree with the documented findings and plan of care. Lung sounds are positive for diminished breath sounds at the left base. The findings and the impression was discussed with the patient. I attest to the documentation by the nurse practitioner. Time with Patient: Less than 30
[2018-10-09 17:07] LABS: Glucose,Whole Blood 174 mg/dL (75-99)
[2018-10-09 21:05] LABS: Glucose,Whole Blood 107 mg/dL (75-99)
[2018-10-09] MEDS: ATORVASTATIN 20 MG TAB PO SCH (21:07)
--- NOTE | 2018-10-09 22:58 | P.PN ---
Subjective Progress Note Date: 10/09/18 Pleasant 73-year-old male who has a recent extensive history starting in June 2018 which point in time he was diagnosed with pneumonia and treated with a course of antibiotic therapy. Since that time his had worsening of his symptoms with increasing amounts of weakness and shortness of breath and cough. He had episodes of nausea and emesis and fevers and chills. The relates that he had about a 20 pound weight loss also. Because he was feeling so poorly he did present to the [facility] 09/28/2018 which point in time there is evidence of relative hypoxia and complete obliteration of the left chest cavity by fluid. Thoracentesis was performed and approximately 1.2 L of a thick brownish material was drained. Pulmonary cytology report revealed no evidence of any malignant cells. Culture reveals evidence of Prevotella species and other cultures are pending at this point in time. The patient continued to have difficulties with his pulmonary status and given that he had a history of prior coronary artery bypass grafting procedure and may require surgical intervention to the chest was transferred to [facility] for further evaluation. He has now been seen by the cardiothoracic service and depending on response to treatment such as alteplase will determine if a VATS procedure will be required. 10/05/2018 patient is feeling somewhat better. Is responding well to current antibiotic therapy. Is being followed by thoracic surgery as far as any needs for surgical intervention. Alteplase being utilized to hopefully mobilize the pleural effusion. Other than some minimal tenderness at the pleural drain site he has no other acute complaint. He is having no fevers or chills and is less short of breath. 10/06/2018 feeling better did some PT and tolerated some walking. Less SOB with exertion. Arrangements for home intravenous antibiotic therapy are in process. 10/06/2018 patient is certainly doing better today. With the therapist was able to get evaluated nursing unit desk and back without any assistance other than his IV pole. He is less short of breath and feeling better. Alteplase is being utilized. Being seen by cardiothoracic surgery and hopefully will not require a VATS procedure given his improvement that's being seen at this time. 10/09/2018 patient is feeling better today. The chest tube has been removed. The patient's up and ambulating much less short of breath improving strength. Be ready for discharge to home. Objective - Vital Signs Vital signs: Vital Signs Temp 97.9 F 10/09/18 21:00 Pulse 74 10/09/18 16:51 Resp 18 10/09/18 21:00 BP 159/75 10/09/18 21:00 Pulse Ox 98 10/09/18 21:00 Intake & Output 10/09/18 10/09/18 10/10/18 06:59 18:59 06:59 Intake Total 600 1440 Output Total 1170 600 Balance -570 840 Weight 101.5 kg Intake: IV 600 20 Invasive Line 4 20 Sodium Chloride 0.9% 1, 600 000 ml @ 75 mls/hr IV . [id number] [facility] Rx#:[id number] Intake, IV Titration 200 Amount Piperacillin-Tazobactam 3 200 .375 gm In Sodium Chloride 0.9% 100 ml @ 25 mls/hr IVPB Q8HR [facility] Rx# :[id number] Oral 1220 Output: Chest Tube Drainage 20 0 Left Posterior Chest 20 0 Urine 1150 600 Other: Voiding Method Toilet Toilet Urinal Urinal # Bowel Movements 1 - Exam 73-year-old male in no acute distress but is much less short of breath than at admission HEENT: Anicteric conjunctiva are pink and moist nasal mucosa grossly intact without significant lesions, there is no thrush. Neck: The neck is supple without significant lymphadenopathy or thyromegaly. Lungs: Symmetrical air entry anteriorly. There remains course crackles and diminished breath sounds. there is however improved aeration to the left posterior zones Heart: Regular rate and rhythm with an audible S1-S2, no S3 no S4. There is no significant murmur click or rub, PMI was nondisplaced. Abdomen: Positive bowel sounds soft and nontender without palpable masses or organomegaly. There was no guarding or rebound. Extremities: The upper extremities have excellent pulses they are symmetric, no significant petechiae or telangiectasia. No splinter hemorrhages were noted. Lower extremities have trace pedal edema peripheral pulses are 2+ and symmetric no open ulcerations are seen Neuro: Awake alert oriented to person place and time. There are no acute new gross focal sensory motor deficits. - Labs CBC & Chem 7: 10/09/18 06:31 10/08/18 05:38 Labs: Abnormal Lab Results - Last 24 Hours (Table) 10/09/18 10/09/18 10/09/18 Range/Units 06:16 06:31 06:35 WBC 11.6 H (3.8-10.6) k/uL RBC 4.09 L (4.30-5.90) m/uL Hgb 8.9 L (13.0-17.5) gm/dL Hct 30.0 L (39.0-53.0) % MCV 73.3 L (80.0-100.0) fL MCH 21.8 L (25.0-35.0) pg MCHC 29.8 L (31.0-37.0) g/dL RDW 19.4 H (11.5-15.5) % Plt Count 479 H (150-450) k/uL POC Glucose (mg/dL) 63 L 65 L (75-99) mg/dL 10/09/18 10/09/18 10/09/18 Range/Units 11:53 16:44 21:03 WBC (3.8-10.6) k/uL RBC (4.30-5.90) m/uL Hgb (13.0-17.5) gm/dL Hct (39.0-53.0) % MCV (80.0-100.0) fL MCH (25.0-35.0) pg MCHC (31.0-37.0) g/dL RDW (11.5-15.5) % Plt Count (150-450) k/uL POC Glucose (mg/dL) 157 H 174 H 107 H (75-99) mg/dL Laboratory Results WBC 11.6 k/uL (3.8-10.6) H 10/09/18 06:31 RBC 4.09 m/uL (4.30-5.90) L 10/09/18 06:31 Hgb 8.9 gm/dL (13.0-17.5) L 10/09/18 06:31 Hct 30.0 % (39.0-53.0) L 10/09/18 06:31 MCV 73.3 fL (80.0-100.0) L 10/09/18 06:31 MCH 21.8 pg (25.0-35.0) L 10/09/18 06:31 MCHC 29.8 g/dL (31.0-37.0) L 10/09/18 06:31 RDW 19.4 % (11.5-15.5) H 10/09/18 06:31 Plt Count 479 k/uL (150-450) H 10/09/18 06:31 Neutrophils % 74 % 10/06/18 07:16 Lymphocytes % 16 % 10/06/18 07:16 Monocytes % 4 % 10/06/18 07:16 Eosinophils % 4 % 10/06/18 07:16 Basophils % 0 % 10/06/18 07:16 Neutrophils # 6.6 k/uL (1.3-7.7) 10/06/18 07:16 Lymphocytes # 1.4 k/uL (1.0-4.8) 10/06/18 07:16 Monocytes # 0.4 k/uL (0-1.0) 10/06/18 07:16 Eosinophils # 0.4 k/uL (0-0.7) 10/06/18 07:16 Basophils # 0.0 k/uL (0-0.2) 10/06/18 07:16 Hypochromasia Marked 10/09/18 06:31 Poikilocytosis Slight 10/05/18 06:59 Anisocytosis Slight 10/09/18 06:31 Microcytosis Moderate 10/09/18 06:31 PT 10.8 sec (9.0-12.0) 10/02/18 14:29 INR 1.0 (<1.2) 10/02/18 14:29 Sodium 141 mmol/L (137-145) 10/08/18 05:38 Potassium 4.0 mmol/L (3.5-5.1) 10/08/18 05:38 Chloride 109 mmol/L (98-107) H 10/08/18 05:38 Carbon Dioxide 26 mmol/L (22-30) 10/08/18 05:38 Anion Gap 6 mmol/L 10/08/18 05:38 BUN 10 mg/dL (9-20) 10/08/18 05:38 Creatinine 1.16 mg/dL (0.66-1.25) 10/08/18 05:38 Est GFR (CKD-EPI)AfAm 72 (>60 ml/min/1.73 sqM) 10/08/18 05:38 Est GFR (CKD-EPI)NonAf 62 (>60 ml/min/1.73 sqM) 10/08/18 05:38 Glucose 69 mg/dL (74-99) L 10/08/18 05:38 POC Glucose (mg/dL) 107 mg/dL (75-99) H 10/09/18 21:03 POC Glu Avionics Engineer ID 10/09/18 21:03 Calcium 9.1 mg/dL (8.4-10.2) 10/08/18 05:38 Magnesium 1.7 mg/dL (1.6-2.3) 10/03/18 08:53 Fluid Source Pleural 10/02/18 15:50 Fluid Color Brown 10/02/18 15:50 Fluid Appearance Cloudy 10/02/18 15:50 Fluid RBC 1600 /uL 10/02/18 15:50 Fluid Nucleated Cells 151118 /uL 10/02/18 15:50 Body Fluid Protein Source Pleural Fluid 10/02/18 15:50 Fluid Total Protein 1402 mg/dL 10/02/18 15:50 Body Fluid LDH Source Pleural Fluid 10/02/18 15:50 Fluid LDH >4200 U/L 10/02/18 15:50 Fluid Comment 10/02/18 15:50 Vancomycin Trough 11.3 ug/mL 10/04/18 18:59 Microbiology 10/02/18 15:50 Pleural Fluid Anaerobic Culture - Final 10/02/18 15:50 Pleural Fluid Gram Stain - Final 10/02/18 15:50 Pleural Fluid Body Fluid Culture - Final 10/02/18 15:50 Pleural Fluid Fungal Culture - Preliminary Assessment and Plan (1) Empyema of left pleural space Narrative/Plan: 73-year-old male presents from outside hospital for further evaluation of his significant difficulty with his respiratory status. Imaging studies facility revealed the extensive empyema to the left chest. He did undergo thoracentesis and 1.2 L of material was removed. Pulmonary cultures show evidence of Prevotella and preliminary cytology does not reveal evidence of any malignant cells. 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 He is partially improving with the current interventions but imaging reveals evidence of ongoing significant residual disease. He's been seen by cardiovascular surgery and thrombolytic therapy is being planned. If this is not effective he will then need to undergo a VATS procedure in the near future. We'll plan outpatient intravenous antibiotic therapy which may be further defined in the next short period of time. Continue ongoing supportive care regarding his discomforts and shortness of breath which is markedly improved after the relatively high volume thoracentesis of occurred so far. 10/05/2018 patient is doing well with current antibiotic therapy of Zosyn is being followed by thoracic surgery for the potential need for a VATS procedure. IV access for outpatient antibiotic therapy has been arranged. The patient will require antibiotic therapy in the home setting. However he did not want to have home care. Consequently a teach and treatment program will be utilized. Based on current data with Prevotella will be treated with Invanz 1 g daily in the outpatient setting when ready for discharge. 10/06/2018 patient does not feel poorly, some output from the catheter. Arrangements for home IV antibiotics in progress. 10/07/2018 patient continues to have some improvement. There is ongoing drainage from the pleural catheter. However the chest x-ray today does show evidence of improved aeration to the left lower lobe and decreased diffusion. Seems to involve antibiotic therapy and plans are in process for his outpatient intravenous antibiotic therapy discharge for the polymicrobial lung abscess and empyema 10/09/2018 she has had further improvement. Chest tube has been removed. Pleural effusion is improved. Shortness of breath fatigue and malaise of all improved. Patient walking in the hallway under his own power without difficulty. Patient has had significant improvement and will chest tube removal will likely be discharged home the next short period of time. Planning at least 2 weeks of Invanz 1 g IV piggyback daily followed up in the office. Current Visit: Yes Status: Acute Code(s): J86.9 - PYOTHORAX WITHOUT FISTULA SNOMED Code(s): 43356136 (2) Pneumonia due to anaerobes Current Visit: Yes Status: Acute Code(s): J15.8 - PNEUMONIA DUE TO OTHER SPECIFIED BACTERIA SNOMED Code(s): 054927856 (3) Poor dentition Current Visit: Yes Status: Acute Code(s): K08.9 - DISORDER OF TEETH AND SUPPORTING STRUCTURES, UNSPECIFIED SNOMED Code(s): 096303298
--- NOTE | 2018-10-10 01:59 | PN ---
PROGRESS NOTE DATE OF SERVICE: 10/09/2018 This 73-year-old gentleman admitted with pneumonia paralytic pneumonia and as well as empyema had chest tube drainage. The patient is on broad-spectrum IV antibiotics. Infectious Disease and Pulmonary is following the patient closely. The patient is followed by Dr. Dietrich in the outpatient setting. Blood sugar slightly elevated. The patient has some anemia. The patient culture florentino the growths are negative so far. A PICC line and outpatient antibiotics recommended. The chest tube drainage has been diminished significantly. PAST MEDICAL HISTORY: Reviewed. REVIEW OF SYSTEMS: CARDIOVASCULAR: No angina or palpitations. RESPIRATION: As mentioned earlier. GI no nausea or vomiting. : No dysuria. NERVOUS SYSTEM: No numbness or weakness. CURRENT MEDICATIONS: Reviewed and include: 1. Tylenol 650 q.4 p.r.n. 2. Ventolin. 3. Lipitor 20 mg q.h.s. 5. Colace 100 mg p.o. b.i.d. 6. Lasix 20 mg. 7. Heparin. 8. NovoLog mix. 9. Tradjenta. 10.Multivitamins. 11.Protonix. 12.Actos. 13.Zosyn 3.375 IV q.8h. PHYSICAL EXAM: Patient is alert, oriented times three. Pulse is 72. Blood pressure 130/76, respirations 16, temperature 98.2. Pulse ox 100 percent on room air. HEENT: Conjunctivae normal. NECK: No jugular venous distention. CARDIOVASCULAR: S1, S2 muffled. RESPIRATORY: Breath sounds diminished in the bases. Bilateral scattered rhonchi and crackles. ABDOMEN: Soft, nontender. LEGS are no edema. No swelling. CENTRAL NERVOUS SYSTEM: No focal deficits. LABS: WBC 11.7, hemoglobin is 8.9, sodium 140, potassium 4. ASSESSMENT: 1. Empyema on the left side with parapneumonic left-sided effusion status post chest tube drainage. 2. History of recent left lower lobe pneumonia. 3. Acute hypoxic respiratory failure. 4. Lactic acidosis. 5. Diabetes mellitus type 2. 6. Hypertension. 7. History of coronary artery disease. 8. Chronic obstructive pulmonary disease. 9. Anemia, microcytic, possibly secondary to anemia of chronic disease. 10.History of coronary artery disease. 11.History of gastroesophageal reflux disease. 12.History of renal disease. 13.History of coronary artery disease, coronary artery bypass grafting, stent. 14.History of depression. 15.Remote history of nicotine dependence. 16.Obesity with body mass of 34.3. RECOMMENDATIONS AND DISCUSSION: In this 73-year-old gentleman who presented with multiple complex medical issues, we will monitor the patient closely. Continue the current medications, management and symptomatic treatment. I would monitor blood sugar closely. Continue with insulins and continue with antibiotics. Continue with chest tube drainage per cardiovascular surgery. Guarded prognosis because of multiple complex medical issues. See further orders for details. Further recommendations to follow. Discussed with family and discussed with Dr. Dietrich. MMODL / ROLYN: [id number] / LANCE
[2018-10-10] MEDS: SODIUM CHLORIDE 0.9% 1,000 ML IV SCH (06:52)
[2018-10-10 07:30] LABS: Glucose,Whole Blood 69 mg/dL (75-99)
[2018-10-10] MEDS: INSULIN ASPART (NovoLOG) 100 UNIT/ML VIAL SQ SCH (07:30)
[2018-10-10 07:51] LABS: Glucose,Whole Blood 72 mg/dL (75-99)
[2018-10-10] MEDS: INSULN ASP PRT/INSULIN ASPART 100 UNIT/ML 10 ML VIAL SQ SCH (09:01)
[2018-10-10] MEDS: HEPARIN SODIUM,PORCINE 5,000 UNIT/ML 1 ML VIAL SQ SCH (09:07)
[2018-10-10] MEDS: PANTOPRAZOLE 40 MG TABLET PO SCH (09:07)
[2018-10-10] MEDS: ASPIRIN 81 MG PO SCH (09:07)
[2018-10-10] MEDS: FUROSEMIDE 20 MG TAB PO SCH (09:07)
[2018-10-10] MEDS: METOPROLOL TARTRATE 25 MG TAB PO SCH (09:08)
[2018-10-10] MEDS: MULTIVITAMINS, THERA 1 EACH TAB PO SCH (09:08)
[2018-10-10] MEDS: traMADol 50 MG TAB PO SCH (09:08)
[2018-10-10] MEDS: DOCUSATE 100 MG CAP PO SCH (09:08)
[2018-10-10] MEDS: PIOGLITAZONE 15 MG TAB PO SCH (09:09)
[2018-10-10] MEDS: LUBIPROSTONE 24 MCG PO SCH (09:10)
[2018-10-10 09:13] LABS: Glucose,Whole Blood 98 mg/dL (75-99)
--- NOTE | 2018-10-10 09:24 | IR ---
PICC LINE PLACEMENT: HISTORY: Infection requiring long-term antibiotic therapy PROCEDURE: Ultrasound and fluoroscopic guidance of PICC line placement. COMPLICATIONS: None ANESTHESIA: 1. 1% Lidocaine locally. FINDINGS/TECHNIQUE: The procedure was explained to the patient. The risks, complications, benefits and alternatives were discussed and any questions were answered. Informed consent was obtained. The patient was placed supine on the fluoroscopic table and prepped and draped in the usual sterile fash ion. Utilizing a 21 gauge needle and sonographic and fluoroscopic guidance, access in the right bas ilic vein was achieved and there is placement of a 0.018 guidewire. The vein is patent. A 4-F sheat h was placed over the guidewire. The guidewire and dilator were removed and a 4-F. PICC line was larisa rell through the sheath with the tip at the level of the SVC. The sheath was removed, the catheter wa s flushed and sutured into position. The patient was stable throughout the procedure and remained st able upon discharge from the Department of Radiology. The vein puncture was patent under ultrasound. A larson scale image was obtained to document patency of the vein punctured. All elements of the maximal barrier technique were utilized. FLUOROSCOPY TIME: 0.1 minutes of fluoroscopy and one image submitted IMPRESSION: Successful PICC line placement under ultrasound and fluoroscopic guidance.
[2018-10-10] MEDS: PIPERACILLIN-TAZOBACTAM 3.375 GM in SODIUM CHLORIDE 0.9% 100 ML IVPB SCH (09:48)
[2018-10-10] MEDS: LINAGLIPTIN 5 MG TABLET PO SCH (09:48)
[2018-10-10] MEDS: ALBUTEROL NEBULIZED 2.5 MG/3 ML INHALATION PRN (10:35)
[2018-10-10] MEDS ORDERED: ERTAPENEM 1 GM in SODIUM CHLORIDE 0.9% 50 ML IVPB ONE (11:00)
[2018-10-10 11:23] LABS: Glucose,Whole Blood 160 mg/dL (75-99)
--- NOTE | 2018-10-10 11:39 | P.PN ---
Subjective Progress Note Date: 10/10/18 Principal diagnosis: Complicated parapneumonic left-sided pleural effusion A 73-year-old male patient was transferred from [facility] because of a large right-sided pleural effusion, parapneumonic in nature. The patient was in the hospital approximately 3 weeks ago for a left-sided pneumonia and treated in the hospital for total of 2 days and the patient was discharged home on Augmentin. Following that the patient continued to have shortness of breath and chest pain. The patient is known to have diabetes mellitus, hypertension, hyperlipidemia and chronic kidney disease with stage III kidney failure, TIA, previous history of pituitary tumor, chronic back pain, and previous history of coronary artery disease for which she has undergone bypass surgery back in 2019. The patient continued to be symptomatic and for that reason he end up coming back to the hospital. Over the past few weeks he was having worsening cough, shortness of breath, nausea, generalized weakness and some fever and chills. He states that he has lost also 20 pounds. He denied having any chest pain. Upon arrival to [facility], the patient was hypoxic. He was placed on high flow oxygen 6 L per minute nasal cannula. Chest x-ray showed a large loculated left-sided pleural effusion. Ultrasound was done which confirmed the findings. Following that the patient underwent a thoracentesis and a total of 1.2 L of dark brownish fluid was drained from the left side. Fluid cytology and chemistry still pending. Note that the patient's white cell count was 16.5 and lactic acid level was 5.7 with a proBNP of 6580 and the patient recently for troponins were negative. Echocardiac Eugene showed a reserved LV function with an ejection fraction of 50-55% and mild mitral regurgitation. Following the thoracentesis, the patient had a CAT scan of the chest that showed ongoing consolidation of the left lower lobe in addition to lose some residual loculated pleural effusion with some pleural thickening and formation of her rind. The patient got transferred to our hospital for a surgical evaluation. For now his culture are still pending from the pleural fluid and currently is on examination of Zosyn and vancomycin. I reviewed the CAT scan images and I discussed this with the cardiothoracic surgeon and I've recommended recommendations for insertion of a pigtail catheter in the left lung by interventional radiology. The patient is seen today in 10/10/2018 in follow-up on the regular medical floor. He is currently sitting up at the bedside. Awake and alert in no acute distress. Hoping to go home today. He is maintaining good O2 saturations in th e high 90s on room air. He's been afebrile. Hemodynamically stable. Pigtail catheter was removed. The plan is for 2 weeks of Invanz. PICC line has been placed. Objective - Vital Signs Vital signs: Vital Signs Temp 97.5 F L 10/10/18 05:00 Pulse 72 10/10/18 10:46 Resp 16 10/10/18 08:00 BP 122/65 10/10/18 05:00 Pulse Ox 98 10/10/18 05:00 Intake & Output 10/09/18 10/10/18 10/10/18 18:59 06:59 18:59 Intake Total 1440 625 360 Output Total 600 500 Balance 840 125 360 Weight 98.94 kg Intake: IV 20 625 Invasive Line 4 20 Piperacillin-Tazobactam 3 100 .375 gm In Sodium Chloride 0.9% 100 ml @ 25 mls/hr IVPB Q8HR ROBERT Rx# :[id number] Sodium Chloride 0.9% 1, 525 000 ml @ 75 mls/hr IV . [id number] ROBERT Rx#:[id number] Intake, IV Titration 200 Amount Piperacillin-Tazobactam 3 200 .375 gm In Sodium Chloride 0.9% 100 ml @ 25 mls/hr IVPB Q8HR ROBERT Rx# :[id number] Oral 1220 360 Output: Chest Tube Drainage 0 Left Posterior Chest 0 Urine 600 500 Other: Voiding Method Toilet Toilet Toilet Urinal Urinal Urinal - Exam GENERAL: The patient is alert and oriented x3, not in any acute distress. Well developed, well nourished. On room air. Head exam was generally normal. There was no scleral icterus or corneal arcus. Mucous membranes were moist. HEENT: Pupils are round and equally reacting to light. EOMI. No scleral icterus. No conjunctival pallor. Normocephalic, atraumatic. No pharyngeal erythema. No thyromegaly. CARDIOVASCULAR: S1 and S2 present. No murmurs, rubs, or gallops. PULMONARY: minimal basilar crackles on the left side. ABDOMEN: Soft, nontender, nondistended, normoactive bowel sounds. No palpable organomegaly. MUSCULOSKELETAL: No joint swelling or deformity. EXTREMITIES: No cyanosis, clubbing, or pedal edema. NEUROLOGICAL: Gross neurological examination did not reveal any focal deficits. SKIN: No rashes. Examination of the skin revealed no evidence of significant rashes, suspicious appearing nevi or other concerning lesions. - Labs CBC & Chem 7: 10/09/18 06:31 10/08/18 05:38 Labs: Abnormal Lab Results - Last 24 Hours (Table) 10/09/18 10/09/18 10/09/18 Range/Units 11:53 16:44 21:03 POC Glucose (mg/dL) 157 H 174 H 107 H (75-99) mg/dL 10/10/18 10/10/18 10/10/18 Range/Units 07:29 07:51 11:22 POC Glucose (mg/dL) 69 L 72 L 160 H (75-99) mg/dL Assessment and Plan Assessment: Impression: 1 complicated parapneumonic left-sided pleural effusion which is quite loculated and there is still dense consolidation of the left lower lobe. Thoracentesis was performed and a total of 1.1 L of fluid was removed from the left lung. There is still residual consolidation and effusion left lung base. The plan is for 2 weeks of Invanz. PICC line has been placed. Pigtail catheter to be removed. 2 recent admission for left lower lobe pneumonia discharged home on Augmentin, cultures are all negative 3 acute hypoxic respiratory failure, improved postthoracentesis 4 acute lactic acidosis secondary to above 5 shortness of breath and cough and addition to weight loss and other constitutional symptoms secondary to pneumonia and possible pleural space infection 6 history of pituitary tumor 7 diabetes mellitus type 2 8 hypertension 9 hyperlipidemia 10 coronary artery disease with previous bypass surgery 11 COPD 13 previous history of CVA/TIA Plan The patient was seen and evaluated by Dr. Jarrett. He is cleared for discharge from the pulmonary standpoint. The plan is for 2 weeks of Invanz. PICC line is in place. Continue to work with the incentive spirometer. Follow up with Dr. Kenney in our office in 1-2 weeks' time. He and his are both encouraged to call sooner with any recurrence of symptoms or other questions or concerns. I, the cosigning physician, performed a history & physical examination of the patient. Lungs sounds with scattered rhonchi left greater than right. Maintaining good O2 saturations in the 90s on room air. I discussed the assessment and plan of care with my nurse practitioner, Stephy Bonds. I attest to the above note as dictated by her.
[2018-10-10 11:45] VITALS: BP 174/95; PULSE 75; RESP 18; TEMP 98.1
--- NOTE | 2018-10-11 09:00 | DS ---
DISCHARGE SUMMARY DATE OF SERVICE: 10/10/2018 FINAL DIAGNOSES: 1. Empyema of the left side with a parapneumonic left-sided effusion, status post chest tube drainage. 2. History of recent left lower pneumonia. 3. Acute hypoxic respiratory failure, secondary to above. 4. Lactic acidosis. 5. Diabetes mellitus type 2. 6. Hypertension. 7. History of coronary artery disease. 8. History of chronic obstructive pulmonary disease. 9. History anemia, microcytic, possibly secondary to anemia of chronic disease. 10.History of coronary artery disease. 11.History of gastroesophageal reflux disease. 12.History of renal disease. 13.History of coronary artery disease, coronary artery bypass grafting, stent. 14.History of depression. 15.Remote history of nicotine dependence. 16.Obesity with body mass index of 34.3. DISCHARGED DISPOSITION: The patient will be discharged in a stable condition with guarded prognosis. HISTORY OF PRESENT ILLNESS:: This is a 73-year-old gentleman with the past medical history of multiple medical problems, as mentioned earlier. Total time taken 35 minutes. Earlier had features of empyema and pneumonia and as well as features of acute hypoxic respiratory failure. Patient treated with chest tube drainage and on multiple medications, including Infectious Disease, Pulmonary and cardiovascular service of the patient. Cultures were negative so far. On exam, vitals are stable. CARDIOVASCULAR: S1, S2. RESPIRATION: A few scattered rhonchi. ABDOMEN: Soft. NERVOUS SYSTEM: No focal deficits. Patient was recommended to have IV PICC line and IV antibiotics by Infectious Disease. Discharged diet is cardiac diet. Activity limited until followup. DISCHARGE MEDICATIONS: 1. Actos 15 mg p.o. daily. 2. Amitiza 25 mcg p.o. b.i.d. with meals. 3. Cabergoline 0.5 mg. 4. Colace 100 mg b.i.d. 5. Cozaar 50 mg daily. 6. Januvia 50 mg p.o. daily. 7. Lasix 20 mg p.o. daily. 8. Lipitor 20 mg q.h.s. 9. Lopressor 25 mg p.o. b.i.d. 10.Lotrel 5/20 p.o. daily. 11.Norvasc 5 mg p.o. daily. 12.NovoLog mix 70/30 one hundred thirty units subcu a.c. supper and 60 units a.c. b.i.d. 13.Prilosec 20 mg p.o. daily. 14.Ecotrin 81 mg p.o. daily. 15.Ventolin 2.5 q.6 p.r.n. 16.Invanz 1 g IV daily for 14 days. 17.Multivitamins 1 p.o. daily. 18.Tylenol 650 q.4 p.r.n. Follow up with Dr. Dietrich in 2 to 3 days. Home care is being arranged. Follow up with Dr. Kenney and Dr. Sow as recommended. Once again, the patient will be discharged in a stable condition with guarded prognosis. MMODL / IJN: [id number] /
== END 2018-10-10 12:20 | disposition home health service (06) | DRG 871 ==
LOC: 3SCARD 14:20 → 3NMEDONC 10-09 18:53
PROVIDERS: ADMIT Internal Medicine; ATTEND Internal Medicine
PROC: 0W9B30Z Drainage of Left Pleural Cavity with Drainage Device, Percutaneous Approach (ICD-10-PCS; principal; 2018-10-02 14:30)
PROC: 05HD33Z Insertion of Infusion Device into Right Cephalic Vein, Percutaneous Approach (ICD-10-PCS; 2018-10-02 14:30)
PROC: 02HV33Z Insertion of Infusion Device into Superior Vena Cava, Percutaneous Approach (ICD-10-PCS; 2018-10-09)
DX: A41.9 Sepsis, unspecified organism (principal); J86.9 Pyothorax without fistula; N17.0 Acute kidney failure with tubular necrosis; J96.01 Acute respiratory failure with hypoxia; J15.8 Pneumonia due to other specified bacteria; J91.8 Pleural effusion in other conditions classified elsewhere; E87.2 Acidosis; J44.0 Chronic obstructive pulmonary disease with (acute) lower respiratory infection; I95.9 Hypotension, unspecified; E11.22 Type 2 diabetes mellitus with diabetic chronic kidney disease; E11.65 Type 2 diabetes mellitus with hyperglycemia; N18.3 Chronic kidney disease, stage 3 (moderate); I34.0 Nonrheumatic mitral (valve) insufficiency; D63.8 Anemia in other chronic diseases classified elsewhere; K21.9 Gastro-esophageal reflux disease without esophagitis; I25.10 Atherosclerotic heart disease of native coronary artery without angina pectoris; I12.9 Hypertensive chronic kidney disease with stage 1 through stage 4 chronic kidney disease, or unspecified chronic kidney disease; E78.5 Hyperlipidemia, unspecified; F32.9 Major depressive disorder, single episode, unspecified; G89.29 Other chronic pain; M54.5 Low back pain; E66.9 Obesity, unspecified; Z68.34 Body mass index [BMI] 34.0-34.9, adult; Z71.3 Dietary counseling and surveillance; Z79.899 Other long term (current) drug therapy; Z79.4 Long term (current) use of insulin; Z79.82 Long term (current) use of aspirin; Z86.73 Personal history of transient ischemic attack (TIA), and cerebral infarction without residual deficits; Z95.1 Presence of aortocoronary bypass graft; Z98.42 Cataract extraction status, left eye; Z98.41 Cataract extraction status, right eye; Z96.1 Presence of intraocular lens; Z95.5 Presence of coronary angioplasty implant and graft; Z87.891 Personal history of nicotine dependence; Z87.81 Personal history of (healed) traumatic fracture; Z87.01 Personal history of pneumonia (recurrent); Z88.8 Allergy status to other drugs, medicaments and biological substances; Z82.49 Family history of ischemic heart disease and other diseases of the circulatory system
CPT/HCPCS: 32551; 36410; 36573; 71045; 71046; 76937; 80048; 80202; 83615; 83735; 84157; 85025; 85027; 85610; 87070; 87075; 87102; 87205; 88108; 88305; 89050; 94640

== ENCOUNTER → 2019-01-04 | Outpatient (CLI) | payer MEDICARE ==
[2019-01-04 08:17] LABS: Anisocytosis Slight; Basophils % (A) 1 %; Eosinophils # (A) 0.2 k/uL (0-0.7); Eosinophils % (A) 3 %; HCT 41.4 % (39.0-53.0); HGB 13.1 gm/dL (13.0-17.5); Lymphocytes # (A) 2.2 k/uL (1.0-4.8); Lymphocytes % (A) 29 %; MCH 24.9 pg (25.0-35.0); MCHC 31.7 g/dL (31.0-37.0); MCV 78.6 fL (80.0-100.0); Mean Platelet Volume 7.8; Microcytosis Slight; Monocytes # (A) 0.4 k/uL (0-1.0); Monocytes % (A) 5 %; Neutrophils # (A) 4.5 k/uL (1.3-7.7); Neutrophils % (A) 60 %; Platelet Count 227 k/uL (150-450); RBC 5.28 m/uL (4.30-5.90); RDW 16.7 % (11.5-15.5); WBC 7.5 k/uL (3.8-10.6)
[2019-01-04 11:28] LABS: African American GFR (CKD) 62.3 (60.0-200.0); Albumin/Globulin Ratio 1.6 (1.60-3.17); Anion Gap 17.9 mmol/L (4.00-12.00); BUN/Creat Ratio 13.85 Ratio (12.00-20.00); Calcium 9.4 mg/dL (8.7-10.3); Carbon Dioxide 26.1 mmol/L (21.6-31.8); Chol/HDL Ratio 3.51; Globulin 2.5 g/dL (1.6-3.3); LDL Cholesterol,Calculated 68.8 mg/dL (0.0-131.0); Non-African American GFR(CKD) 53.8 (60.0-200.0); Potassium 4.1 mmol/L (3.5-5.5); Total Bilirubin 1.4 mg/dL (0.2-1.2); Total Protein 6.5 g/dL (6.2-8.2); VLDL Calculation 34.2 mg/dL (5.00-40.00)
[2019-01-04 14:26] LABS: Hemoglobin A1C 9.7 % (4.0-6.0)
== END | disposition home or self-care (01) ==
LOC: LABWHC1 06:56
PROVIDERS: ATTEND Internal Medicine
DX: D64.9 Anemia, unspecified (principal); I25.10 Atherosclerotic heart disease of native coronary artery without angina pectoris; E11.22 Type 2 diabetes mellitus with diabetic chronic kidney disease; N18.9 Chronic kidney disease, unspecified
CPT/HCPCS: 36415; 80053; 80061; 83036; 85025

== ENCOUNTER → 2019-01-08 | Outpatient (CLI) | payer MEDICARE ==
--- NOTE | 2019-01-08 11:19 | CT ---
EXAMINATION TYPE: CT chest wo con DATE OF EXAM: 01/08/2019 COMPARISON: Outside chest CT September 29, 2018 HISTORY: High resolution protocol. Follow up for pneumonia. CT DLP: 850.9 mGycm. Automated Exposure Control for Dose Reduction was Utilized. TECHNIQUE: CT scan of the thorax is performed without IV contrast. High resolution protocol with 10 mm sequences obtained in supine and prone technique. FINDINGS: LUNGS: There is persistent focal mild to moderate left-sided pleural thickening involving the mid to lower left lung lateral and posterior aspects. No significant recurrent left-sided pleural effusion i s seen. Some adjacent round atelectasis with mild bronchiectasis also present left lower lobe axial i mage 21 as there is masslike consolidation is seen at this level. Few calcified nodules are granuloma s anterior lateral and inferior to this are redemonstrated. Mild linear scarring in the left lung bas e is noted. No suspicious peripheral reticulation or distortion. No pleural effusion or pneumothorax. MEDIASTINUM: Lack of IV contrast is noted to limit evaluation for mediastinal and especially hilar a denopathy. There are no definitive greater than 1 cm noncalcified hilar or mediastinal lymph nodes. Prominent calcified left hilar lymph nodes are redemonstrated . No significant pericardial effusion i s seen. Heart size is stable and upper limits of normal. Post-CABG changes with mediastinal clips and sternal wires is redemonstrated. OTHER: Bilateral gynecomastia again seen. Cholecystectomy clips incidentally noted. IMPRESSION: Persistent mid to lower lateral and posterior left lung pleural thickening with suspected associated round atelectasis. Findings improved from prior. Evidence of old granulomatous disease le ft lung redemonstrated. Mild parenchymal fibrotic changes left lung. Right lung shows no significant acute or chronic pulmonary process.
== END | disposition home or self-care (01) ==
LOC: RADCTMAIN 10:16
PROVIDERS: ATTEND Internal Medicine
DX: J92.9 Pleural plaque without asbestos (principal)
CPT/HCPCS: 71250

== ENCOUNTER → 2019-06-12 | Outpatient (CLI) | payer MEDICARE ==
[2019-06-12 15:58] LABS: Chol/HDL Ratio 4.33; LDL Cholesterol,Calculated 63.6 mg/dL (0.0-131.0); VLDL Calculation 76.4 mg/dL (5.00-40.00)
[2019-06-12 15:59] LABS: Albumin 4.4 g/dL (3.80-4.90); Calcium 9.5 mg/dL (8.7-10.3); Globulin 2.2 g/dL (1.6-3.3); Non-African American GFR(CKD) 44.9 (60.0-200.0); Potassium 4.2 mmol/L (3.5-5.5); Total Bilirubin 1.7 mg/dL (0.2-1.2); Total Protein 6.6 g/dL (6.2-8.2)
[2019-06-12 16:07] LABS: Hemoglobin A1C 12.7 % (4.0-6.0)
== END | disposition home or self-care (01) ==
LOC: LABWHC1 07:54
PROVIDERS: ATTEND Internal Medicine
DX: I10 Essential (primary) hypertension (principal); E11.9 Type 2 diabetes mellitus without complications; E78.5 Hyperlipidemia, unspecified
CPT/HCPCS: 36415; 80053; 80061; 83036

== ENCOUNTER 2021-01-12 15:09 | Inpatient (IN) | payer MEDICARE ==
--- NOTE | 2021-01-12 15:19 | ED ---
Neuro HPI - General Stated Complaint: Poss Stroke - History of Present Illness Is the patient presenting with stroke symptoms?: Yes Initial Comments: Patient is a 5-year-old male with history of coronary disease, CVA with no residual deficits, diabetes presents emergency Department with strokelike symptoms. His provides the history. States 20 minutes prior to hospital arrival the patient had complete paralysis of his left upper extremity as well as aphasia. Patient has previous history of stroke several years ago however has no lasting deficits. Patient denies any current vision changes, headaches or head trauma. No chest pain or shortness of breath. Unknown if there is any weakness in the lower extremities. Patient presents to the emergency department with normal speech and is able to answer questions appropriately. He admits to mild weakness in his left upper extremity. He is not on any blood thinners. Takes a baby aspirin daily. No other alleviating, precipitating or modifying factors - Related Data Home Medications: Home Medications Medication Instructions Recorded Confirmed Atorvastatin Calcium [Lipitor] 20 mg PO HS 06/26/18 01/12/21 Furosemide [Lasix] 20 mg PO DAILY 06/26/18 01/12/21 Insulin Aspart Protam & Aspart 65 unit SQ AC-BID@1100,199906/26/18 01/12/21 [NovoLOG MIX 70-30 Flexpen] Pioglitazone HCl [Actos] 15 mg PO DAILY 06/26/18 01/12/21 Albuterol Nebulized [Ventolin 2.5 mg INHALATION RT-Q6H PRN 10/01/18 01/12/21 Nebulized] Aspirin [[place] Aspirin EC] 81 mg PO DAILY 10/01/18 01/12/21 Docusate [Colace] 100 mg PO BID 10/01/18 01/12/21 Losartan Potassium [Cozaar] 50 mg PO DAILY 10/01/18 01/12/21 amLODIPine [Norvasc] 5 mg PO DAILY 10/01/18 01/12/21 Esomeprazole Magnesium [NexIUM] 20 mg PO DAILY 01/12/21 01/12/21 Metoprolol Succinate [Toprol XL] 25 mg PO BID 01/12/21 01/12/21 Sertraline [Zoloft] 50 mg PO DAILY 01/12/21 01/12/21 Allergies/Adverse Reactions: Allergies Allergy/AdvReac Type Severity Reaction Status Date / Time dextromethorphan Allergy Rash/Hives Verified 01/12/21 17:19 [From Dimetapp Cold-Congestion] diphenhydramine Allergy Rash/Hives Verified 01/12/21 17:19 [From Dimetapp Cold-Congestion] guaifenesin Allergy Rash/Hives Verified 01/12/21 17:19 [From Dimetapp Cold-Congestion] phenylephrine Allergy Rash/Hives Verified 01/12/21 17:19 [From Dimetapp Cold-Congestion] pseudoephedrine Allergy Rash/Hives Verified 01/12/21 17:19 [From Dimetapp Cold-Congestion] Review of Systems ROS Statement: Those systems with pertinent positive or pertinent negative responses have been documented in the HPI. ROS Other: All systems not noted in ROS Statement are negative. Stroke MDM - Lab Data Result diagrams: 01/12/21 15:22 01/12/21 15:22 Lab Results 01/12/21 01/12/21 01/12/21 Range/Units 15:22 15:22 15:22 WBC 11.7 H (3.8-10.6) k/uL RBC 5.17 (4.30-5.90) m/uL Hgb 14.9 (13.0-17.5) gm/dL Hct 44.8 (39.0-53.0) % MCV 86.6 (80.0-100.0) fL MCH 28.8 (25.0-35.0) pg MCHC 33.2 (31.0-37.0) g/dL RDW 14.0 (11.5-15.5) % Plt Count 271 (150-450) k/uL MPV 9.5 Neutrophils % 60 % Lymphocytes % 29 % Monocytes % 6 % Eosinophils % 2 % Basophils % 1 % Neutrophils # 7.0 (1.3-7.7) k/uL Lymphocytes # 3.4 (1.0-4.8) k/uL Monocytes # 0.8 (0-1.0) k/uL Eosinophils # 0.3 (0-0.7) k/uL Basophils # 0.1 (0-0.2) k/uL PT 10.0 (9.0-12.0) sec INR 0.9 (<1.2) APTT 19.7 L (22.0-30.0) sec Sodium 135 L (137-145) mmol/L Potassium 3.7 (3.5-5.1) mmol/L Chloride 97 L (98-107) mmol/L Carbon Dioxide 28 (22-30) mmol/L Anion Gap 10 mmol/L BUN 24 H (9-20) mg/dL Creatinine 1.40 H (0.66-1.25) mg/dL Est GFR (CKD-EPI)AfAm 56 (>60 ml/min/1.73 sqM) Est GFR (CKD-EPI)NonAf 49 (>60 ml/min/1.73 sqM) Glucose 340 H (74-99) mg/dL POC Glucose (mg/dL) (75-99) mg/dL POC Glu Chain Builder ID Calcium 10.3 H (8.4-10.2) mg/dL Total Bilirubin 1.6 H (0.2-1.3) mg/dL AST 23 (17-59) U/L ALT 16 (4-49) U/L Alkaline Phosphatase 132 H (38-126) U/L Troponin I (0.000-0.034) ng/mL Total Protein 7.0 (6.3-8.2) g/dL Albumin 4.2 (3.5-5.0) g/dL 01/12/21 01/12/21 Range/Units 15:22 15:23 WBC (3.8-10.6) k/uL RBC (4.30-5.90) m/uL Hgb (13.0-17.5) gm/dL Hct (39.0-53.0) % MCV (80.0-100.0) fL MCH (25.0-35.0) pg MCHC (31.0-37.0) g/dL RDW (11.5-15.5) % Plt Count (150-450) k/uL MPV Neutrophils % % Lymphocytes % % Monocytes % % Eosinophils % % Basophils % % Neutrophils # (1.3-7.7) k/uL Lymphocytes # (1.0-4.8) k/uL Monocytes # (0-1.0) k/uL Eosinophils # (0-0.7) k/uL Basophils # (0-0.2) k/uL PT (9.0-12.0) sec INR (<1.2) APTT (22.0-30.0) sec Sodium (137-145) mmol/L Potassium (3.5-5.1) mmol/L Chloride (98-107) mmol/L Carbon Dioxide (22-30) mmol/L Anion Gap mmol/L BUN (9-20) mg/dL Creatinine (0.66-1.25) mg/dL Est GFR (CKD-EPI)AfAm (>60 ml/min/1.73 sqM) Est GFR (CKD-EPI)NonAf (>60 ml/min/1.73 sqM) Glucose (74-99) mg/dL POC Glucose (mg/dL) 349 H (75-99) mg/dL POC Glu Chain Builder ID [place] Calcium (8.4-10.2) mg/dL Total Bilirubin (0.2-1.3) mg/dL AST (17-59) U/L ALT (4-49) U/L Alkaline Phosphatase (38-126) U/L Troponin I <0.012 (0.000-0.034) ng/mL Total Protein (6.3-8.2) g/dL Albumin (3.5-5.0) g/dL - Medical Decision Making Upon arrival patient is promptly placed into trauma bay 1. A thorough history and physical exam was performed. Patient does have an NIH of 1 which appears improved from what the describes. IV was established. Accu-Chek is obtained. Patient went over for a CT of his brain. CT angiography is also performed. Laboratory studies were conducted. Patient does have some worsening weakness of his left side as well as dysarthria. NIH does increase to a 5. Patient is placed back into the trauma bay. I reviewed the patient's laboratory studies. Dr. Stacy evaluated the patient via stroke robot. Dr. Ha does recommend TPA administration due to waxing and waning symptoms, moderate weakness on the patient's dominant side. Risks of administration are discussed with the family and the family is adamant that they do want TPA. Patient is provided TPA bolus and drip after consent is obtained. Patient will be admitted to the ICU. Spoke with Dr. Lock who agreed to admit the patient. I also spoke with after because no who presents emergency department to evaluate the patient. Dr. Ta is made were patient's presence in the ER and does evaluate the behzad ent as well. He did have improvement in his neurologic deficit and was transported to the ICU in stable condition 01/12/21 17:07 EKG demonstrates a sinus rhythm with PVCs. Rate of 70. DE interval 182. QRS 88. QTC of 453. No acute ST segment elevations. Inverted T waves in V4 through V6 Past Medical History Past Medical History: Coronary Artery Disease (CAD), Chest Pain / Angina, CVA/TIA, Diabetes Mellitus, GERD/Reflux, Hyperlipidemia, Hypertension, Pneumonia, Renal Disease Additional Past Medical History / Comment(s): IDDM type II, TIA, low back pain, occasional lower leg edema, benign pituitary tumor, L eye retinal bleed, sinus problems, recent tooth infection treated with ABX, history of bilateral eye cataracts recent weight loss of approximately 20 pounds. History of Any Multi-Drug Resistant Organisms: None Reported Past Surgical History: Appendectomy, Cholecystectomy, Coronary Bypass/CABG, Heart Catheterization, Heart Catheterization With Stent, Orthopedic Surgery Additional Past Surgical History / Comment(s): PCI with stent, 2010 CABG-6 vessel, R femur fracture with surgery-kassy inserted and since removed however, drill bit broke off and is still in leg, hemorrhoidectomy, colonoscopies, bilateral cataract removals/lens implants, L eye retinal laser surgery Past Anesthesia/Blood Transfusion Reactions: No Reported Reaction Date of Last Stent Placement:: 2009 Past Psychological History: Depression Additional Psychological History / Comment(s): Pt resides with his spouse. He occasionally uses a cane to ambulate. He has not been driving lately, his spouse has been driving him. 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 No experience. No extensive travel. Stopped tobacco smoking years ago. No alcohol or recreational drug use. No animals in the home Past Alcohol Use History: None Reported Additional Past Alcohol Use History / Comment(s): Pt started smoking in 1956 and quit in 1971 Past Drug Use History: None Reported - Past Family History Father Additional Family Medical History / Comment(s): Father had a blood vessel rupture in his heart. Mother Additional Family Medical History / Comment(s): Mother had an aneurysm in the bottom of her heart that ruptured. Course Vital Signs 01/12/21 01/12/21 01/12/21 15:10 15:15 15:25 Temperature 98 F 98.0 F 98 F Pulse Rate 73 73 71 Respiratory 18 18 18 Rate Blood Pressure 139/68 139/68 138/73 O2 Sat by Pulse 95 95 95 Oximetry 01/12/21 01/12/21 01/12/21 15:35 15:50 15:56 Temperature 98 F 98 F 98 F Pulse Rate 72 73 72 Respiratory 18 18 18 Rate Blood Pressure 134/79 135/62 132/78 O2 Sat by Pulse 95 97 98 Oximetry 01/12/21 01/12/21 01/12/21 16:05 16:11 16:20 Temperature 98 F 98 F 98 F Pulse Rate 71 71 76 Respiratory 18 18 18 Rate Blood Pressure 133/69 136/60 O2 Sat by Pulse 96 97 Oximetry 01/12/21 01/12/21 01/12/21 16:26 16:35 16:41 Temperature 98 F 98 F 98 F Pulse Rate 75 80 75 Respiratory 18 18 18 Rate Blood Pressure 136/60 136/72 139/64 O2 Sat by Pulse 97 97 97 Oximetry 01/12/21 01/12/21 01/12/21 16:45 16:51 16:56 Temperature 98 F 98 F 98 F Pulse Rate 80 80 71 Respiratory 18 18 18 Rate Blood Pressure 139/64 139/64 112/62 O2 Sat by Pulse 97 97 96 Oximetry 01/12/21 01/12/21 01/12/21 17:11 17:26 17:33 Temperature 98 F 98 F 98 F Pulse Rate 67 68 68 Respiratory 18 18 18 Rate Blood Pressure 102/56 126/71 126/71 O2 Sat by Pulse 96 97 97 Oximetry - Reevaluation(s) Reevaluation #1: Spoke with Dr. Stacy - reviewing images 01/12/21 15:38 Reevaluation #2: 01/12/21 16:[address] Stacy- recommending TPA. Family and patient agree to risk Reevaluation #3: 01/12/21 16:17 Dr. Morgan aware of patient Disposition Clinical Impression: Cerebrovascular accident (CVA), Left hemiparesis Disposition: ADMITTED IP TO THIS [facility] Condition: Serious Is patient prescribed a controlled substance at d/c from ED?: No Decision to Admit Reason: Admit from EC Decision Date: 01/12/21 Decision Time: 16:41
[2021-01-12 15:29] LABS: Basophils # (A) 0.1 k/uL (0-0.2); Basophils % (A) 1 %; Eosinophils # (A) 0.3 k/uL (0-0.7); Eosinophils % (A) 2 %; HCT 44.8 % (39.0-53.0); HGB 14.9 gm/dL (13.0-17.5); Lymphocytes # (A) 3.4 k/uL (1.0-4.8); Lymphocytes % (A) 29 %; MCH 28.8 pg (25.0-35.0); MCHC 33.2 g/dL (31.0-37.0); MCV 86.6 fL (80.0-100.0); Mean Platelet Volume 9.5; Monocytes # (A) 0.8 k/uL (0-1.0); Monocytes % (A) 6 %; Neutrophils % (A) 60 %; Platelet Count 271 k/uL (150-450); RBC 5.17 m/uL (4.30-5.90); WBC 11.7 k/uL (3.8-10.6)
[2021-01-12 15:34] LABS: Glucose,Whole Blood 349 mg/dL (75-99)
[2021-01-12 15:37] LABS: Albumin 4.2 g/dL (3.5-5.0); Calcium 10.3 mg/dL (8.4-10.2); Potassium 3.7 mmol/L (3.5-5.1); Total Bilirubin 1.6 mg/dL (0.2-1.3)
--- NOTE | 2021-01-12 15:47 | CT ---
EXAMINATION TYPE: CT brain wo con for TPA DATE OF EXAM: 01/12/2021 COMPARISON: None HISTORY: 75-year-old male neurologic deficit, acute, stroke suspected. Left sided facial droop and ar m weakness. TECHNIQUE: Examination was done in axial plane without intravenous contrast. Coronal and sagittal r econstructions performed. CT DLP: 1161.8 mGycm Automated exposure control for dose reduction was used. FINDINGS: There is no evidence of acute intracranial hemorrhage, acute ischemic changes, mass effect, or extra -axial fluid collection. There is no effacement of cerebral sulci or basal subarachnoid cisterns. T here is no hydrocephalus. There is no midline shift. Mariee-white matter distinction is preserved. Large 2.0 cm pituitary mass enlarging the sella and measuring 2.0 cm craniocaudal. No significant sup rasellar extension at this time. Atherosclerotic calcifications proximal V4 segment left vertebral artery. Additional atherosclerotic calcifications in the carotid siphons. Moderate lobulated mucosal thickening floor of the left maxillary sinus. Some trapped fluid in the in ferior right mastoid air cells. Orbits and globes are intact. IMPRESSION: 1. Incidental 2.0 cm pituitary mass enlarging the sella. 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 Further MR I, surgical, and laboratory correlation recommended. 2. No acute intracranial abnormality seen. 3. Some trapped fluid in the inferior right mastoid air cells. Correlate for any right-sided mastoid pain to exclude mastoiditis.
[2021-01-12] MEDS ORDERED: Alteplase PER PHARMACY Stroke 1 EACH MISC MISCELLANE PRN (15:55)
[2021-01-12] MEDS ORDERED: ALTEPLASE BOLUS 9 MG in EMPTY SYRINGE 1 SYR IV STA (15:57)
[2021-01-12] MEDS ORDERED: ALTEPLASE 81 MG in EMPTY BAG 1 BAG IV STA (15:57)
--- NOTE | 2021-01-12 16:17 | CT ---
EXAMINATION TYPE: CT angio head neck DATE OF EXAM: 01/12/2021 COMPARISON: Correlation CT brain same day HISTORY: 75-year-old male Left sided facial droop and arm weakness, TECHNIQUE: Contiguous axial scanning of the head and neck performed with IV Contrast, patient injecte d with 75 mL of Isovue 370. Coronal/sagittal MIP reconstructions performed. 3-D reconstructions gener ated on a dedicated workstation. CT DLP: 742.4 mGycm Automated exposure control for dose reduction was used. FINDINGS: NECK: Ectatic upper descending thoracic aorta at 3.1 cm. Conventional arch vessel branching anatomy. There is a dominant left vertebral artery. The right vertebral artery is severely diminutive/hypoplas tic. Unable to exclude a severe narrowing at its origin. Thyroid gland nodularity measuring up to 1 cm. Dedicated thyroid ultrasound to further evaluate. Right common carotid artery is patent. There is focal atherosclerotic plaque in the proximal carotid bulb resulting in a severe, greater kvng n 80% stenosis by NASCET criteria. The left common carotid artery is patent. Circumferential atherosclerotic plaque at the origin of the left ICA at the proximal carotid bulb res ulting in a borderline moderate, 50% ICA narrowing by NASCET criteria. Bilateral palatine tonsillar hypertrophy. HEAD: Hypoplastic right vertebral artery. There is moderate atherosclerotic narrowing at the V3/V4 junction of the left vertebral artery with focal severe, 70% stenosis proximal V4 segment left vertebral dion ry, refer to sagittal series 411 image 19. The vertebral artery is patent. Scattered mild to moderate atherosclerotic irregularity throughout the posterior circulation. There i s either occlusion or congenital aplasia of the A1 segment right anterior cerebral artery Moderate atherosclerotic narrowing proximal M2 segments of the middle cerebral arteries on both sides , for example, refer to axial series 4071 image 181 on the right and axial image 170 on the left. There is severe, greater than 70% stenosis within the lacerum segment right ICA, referred axial image 128. No aneurysmal change is seen IMPRESSION: NECK: 1. SEVERE, GREATER THAN 80% PROXIMAL RIGHT ICA STENOSIS. 2. BORDERLINE MODERATE, 50% PROXIMAL LEFT ICA STENOSIS. 3. HYPOPLASTIC, MARKEDLY DIMINUTIVE RIGHT VERTEBRAL ARTERY. 4. THYROID NODULARITY MEASURING UP TO 1 CM CAN BE FURTHER EVALUATED WITH OUTPATIENT THYROID ULTRASOUN D. HEAD: 5. MODERATE ATHEROSCLEROTIC CALCIFICATION NARROWING THE V3/V4 JUNCTION OF THE LEFT VERTEBRAL ARTERY. THIS IS FOLLOWED BY A SEVERE, 70% PROXIMAL LEFT V4 SEGMENT STENOSIS. 6. SEVERE, GREATER THAN 70% STENOSIS OF THE LACERUM SEGMENT RIGHT ICA. 7. EITHER OCCLUSION VERSUS CONGENITAL APLASIA OF THE A1 SEGMENT RIGHT SHUBHAM. 8. VARIABLE MODERATE ATHEROSCLEROTIC IRREGULARITY AND NARROWING THROUGHOUT THE ANTERIOR AND POSTERIOR CIRCULATION.
[2021-01-12 16:43] LABS: INR 0.9 (<1.2)
[2021-01-12 16:47] LABS: Partial Thromboplastin Time 19.7 sec (22.0-30.0)
[2021-01-12] MEDS ORDERED: SODIUM CHLORIDE 0.9% 50 ML MINI-BAG IV ONE ×3 (16:56→17:45)
[2021-01-12] MEDS ORDERED: LORazepam 2 MG/ML INJ IV PRN (16:58)
[2021-01-12] MEDS ORDERED: Potassium Replacement Protocol 1 EACH MISC MISCELLANE PRN (17:30)
[2021-01-12 17:53] LABS: Glucose,Whole Blood 288 mg/dL (75-99)
[2021-01-12] MEDS ORDERED: INSULIN ASPART (NovoLOG) 100 UNIT/ML VIAL SQ SCH ×2 (18:00→20:00)
[2021-01-12] MEDS ORDERED: ALBUTEROL NEBULIZED 2.5 MG/3 ML INHALATION PRN (18:16)
--- NOTE | 2021-01-12 18:19 | XR ---
EXAMINATION TYPE: XR chest 2V DATE OF EXAM: 01/12/2021 COMPARISON: Radiograph October 09, 2018 HISTORY: Altered mental status TECHNIQUE: Frontal and lateral views of the chest are obtained. FINDINGS: Surgical clips chest tube tract over the left hemithorax. Sternotomy wires. There is no focal air space opacity, pleural effusion, or pneumothorax seen. The cardiac silhouette size is within normal limits. The osseous structures are intact. There is similar-appearing left-sided pleural thickening/small effusion. IMPRESSION: [place] S costophrenic angle which could relate to a tiny effusion or pleural thickeni ng..
--- NOTE | 2021-01-12 18:27 | P.HPIM ---
History of Present Illness Patient is a pleasant 75-year-old male Came in with the symptoms of weakness in the right side of the body and the slurred speech which resolved on arrival to ER and the patient symptoms started 20 minutes prior to arrival patient received the TPA. Patient still has some weakness in the left arm which has 3/5 strength. Patient had history of cerebrovascular accident in the past without any residual symptoms. Patient does have history of coronary artery disease as well. Patient denied any fever chills patient denied any headache nausea vomiting. 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 Patient is a getting an MRI as a part of stroke workup which we'll give a better picture of this mass as well. Etiology of the head and neck showed 80% right proximal RCA stenosis and 50% stenosis in the left the ICA there multiple other blockages and calcification in other cerebral vasculature. Patient's creatinine is 1.4 baseline appears to be around this. REVIEW OF SYSTEMS: CONSTITUTIONAL: No fever, no malaise, no fatigue. HEENT: No recent visual problems or hearing problems. Denied any sore throat. CARDIOVASCULAR: No chest pain, orthopnea, PND, no palpitations, no syncope. PULMONARY: No shortness of breath, no cough, no hemoptysis. GASTROINTESTINAL: No diarrhea, no nausea, no vomiting, no abdominal pain. NEUROLOGICAL: No headaches. HEMATOLOGICAL: Denies any bleeding or petechiae. GENITOURINARY: Denies any burning micturition, frequency, or urgency. MUSCULOSKELETAL/RHEUMATOLOGICAL: Denies any joint pain, swelling, or any muscle pain. ENDOCRINE: Denies any polyuria or polydipsia. The rest of the 14-point review of systems is negative. PHYSICAL EXAMINATION: GENERAL: The patient is alert and oriented x3, not in any acute distress. Well developed, well nourished. HEENT: Pupils are round and equally reacting to light. EOMI. No scleral icterus. No conjunctival pallor. Normocephalic, atraumatic. No pharyngeal erythema. No thyromegaly. CARDIOVASCULAR: S1 and S2 present. No murmurs, rubs, or gallops. PULMONARY: Chest is clear to auscultation, no wheezing or crackles. ABDOMEN: Soft, nontender, nondistended, normoactive bowel sounds. No palpable organomegaly. MUSCULOSKELETAL: No joint swelling or deformity. EXTREMITIES: No cyanosis, clubbing, or pedal edema. NEUROLOGICAL: Patient has 3/5 strength in the left upper extremity SKIN: No rashes. Assessment and plan -Cerbro- vascular accident involving left side of the body along with slurred speech, middle cerebral artery territory probably due to sclerotic, patient received TPA because of which will hold off on antiplatelet therapy MRI will be obtained. -Hypertension hold off on antidepressant medications for permissive hypertension patient uses losartan and amlodipine at home which will be held temporally for now. 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 Past Medical History Past Medical History: Coronary Artery Disease (CAD), Chest Pain / Angina, CVA/TIA, Diabetes Mellitus, GERD/Reflux, Hyperlipidemia, Hypertension, Pneumonia, Renal Disease Additional Past Medical History / Comment(s): IDDM type II, TIA, low back pain, occasional lower leg edema, benign pituitary tumor, L eye retinal bleed, sinus problems, recent tooth infection treated with ABX, history of bilateral eye cataracts recent weight loss of approximately 20 pounds. Memory loss. 01/12/21 CVA with left side flaccid; and aphasia; TPA History of Any Multi-Drug Resistant Organisms: None Reported Past Surgical History: Appendectomy, Cholecystectomy, Coronary Bypass/CABG, Heart Catheterization, Heart Catheterization With Stent, Orthopedic Surgery Additional Past Surgical History / Comment(s): PCI with stent, 2010 CABG-6 vessel, R femur fracture with surgery-kassy inserted and since removed however, drill bit broke off and is still in leg, hemorrhoidectomy, colonoscopies, bilateral cataract removals/lens implants, L eye retinal laser surgery. Thoracentesis 2019 Past Anesthesia/Blood Transfusion Reactions: No Reported Reaction Date of Last Stent Placement:: 2009 Past Psychological History: Depression Additional Psychological History / Comment(s): Pt resides with his spouse. He occasionally uses a cane to ambulate. He has not been driving lately, his spouse has been driving him. 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 No experience. No extensive travel. Stopped tobacco smoking years ago. No alcohol or recreational drug use. No animals in the home Smoking Status: Former smoker Past Alcohol Use History: None Reported Additional Past Alcohol Use History / Comment(s): Pt started smoking in 1955 and quit in 1971 Past Drug Use History: None Reported - Past Family History Father Additional Family Medical History / Comment(s): Father had a blood vessel rupture in his heart. Mother Additional Family Medical History / Comment(s): Mother had an aneurysm in the bottom of her heart that ruptured. Medications and Allergies Home Medications Medication Instructions Recorded Confirmed Type Atorvastatin Calcium [Lipitor] 20 mg PO HS 06/26/18 01/12/21 History Furosemide [Lasix] 20 mg PO DAILY 06/26/18 01/12/21 History Insulin Aspart Protam & Aspart 65 unit SQ AC-BID@1100,199906/26/18 01/12/21 History [NovoLOG MIX 70-30 Flexpen] Pioglitazone HCl [Actos] 15 mg PO DAILY 06/26/18 01/12/21 History Albuterol Nebulized [Ventolin 2.5 mg INHALATION RT-Q6H PRN 10/01/18 01/12/21 History Nebulized] Aspirin [[place] Aspirin EC] 81 mg PO DAILY 10/01/18 01/12/21 History Docusate [Colace] 100 mg PO BID 10/01/18 01/12/21 History Losartan Potassium [Cozaar] 50 mg PO DAILY 10/01/18 01/12/21 History amLODIPine [Norvasc] 5 mg PO DAILY 10/01/18 01/12/21 History Esomeprazole Magnesium [NexIUM] 20 mg PO DAILY 01/12/21 01/12/21 History Metoprolol Succinate [Toprol XL] 25 mg PO BID 01/12/21 01/12/21 History Sertraline [Zoloft] 50 mg PO DAILY 01/12/21 01/12/21 History Allergies Allergy/AdvReac Type Severity Reaction Status Date / Time dextromethorphan Allergy Rash/Hives Verified 01/12/21 17:19 [From Dimetapp Cold-Congestion] diphenhydramine Allergy Rash/Hives Verified 01/12/21 17:19 [From Dimetapp Cold-Congestion] guaifenesin Allergy Rash/Hives Verified 01/12/21 17:19 [From Dimeta Cold-Congestion] phenylephrine Allergy Rash/Hives Verified 01/12/21 17:19 [From Dimeta Cold-Congestion] pseudoephedrine Allergy Rash/Hives Verified 01/12/21 17:19 [facility] Physical Exam Vitals: Vital Signs Temp Pulse Resp BP Pulse Ox 01/12/21 18:11 98.1 F 69 21 131/68 96 01/12/21 18:00 70 15 131/68 97 01/12/21 17:50 74 15 148/78 97 01/12/21 17:41 98.1 F 67 14 148/78 96 01/12/21 17:40 98.1 F 71 17 97 01/12/21 17:39 27 H 01/12/21 17:33 98 F 68 18 126/71 97 01/12/21 17:26 98 F 68 18 126/71 97 01/12/21 17:11 98 F 67 18 102/56 96 01/12/21 16:56 98 F 71 18 112/62 96 01/12/21 16:51 98 F 80 18 139/64 97 01/12/21 16:45 98 F 80 18 139/64 97 01/12/21 16:41 98 F 75 18 139/64 97 01/12/21 16:35 98 F 80 18 136/72 97 01/12/21 16:26 98 F 75 18 136/60 97 01/12/21 16:20 98 F 76 18 136/60 97 01/12/21 16:11 98 F 71 18 133/69 96 01/12/21 16:05 98 F 71 18 01/12/21 15:56 98 F 72 18 132/78 98 01/12/21 15:50 98 F 73 18 135/62 97 01/12/21 15:35 98 F 72 18 134/79 95 01/12/21 15:25 98 F 71 18 138/73 95 01/12/21 15:15 98.0 F 73 18 139/68 95 01/12/21 15:10 98 F 73 18 139/68 95 Intake and Output 01/12/21 01/12/21 01/12/21 06:59 14:59 22:59 Intake Total 75 Output Total 0 Balance 75 Intake: IV 75 0.9 @75mls/hr 75 Output: Urine 0 Other: Voiding Method Urinal # Voids 0 Weight 105.233 kg Results CBC & Chem 7: 01/12/21 15:22 01/12/21 15:22 Labs: Abnormal Lab Results - Last 24 Hours (Table) 01/12/21 01/12/21 01/12/21 Range/Units 15:22 15:22 15:22 WBC 11.7 H (3.8-10.6) k/uL APTT 19.7 L (22.0-30.0) sec Sodium 135 L (137-145) mmol/L Chloride 97 L (98-107) mmol/L BUN 24 H (9-20) mg/dL Creatinine 1.40 H (0.66-1.25) mg/dL Glucose 340 H (74-99) mg/dL POC Glucose (mg/dL) (75-99) mg/dL Calcium 10.3 H (8.4-10.2) mg/dL Total Bilirubin 1.6 H (0.2-1.3) mg/dL Alkaline Phosphatase 132 H (38-126) U/L 01/12/21 01/12/21 Range/Units 15:23 17:42 WBC (3.8-10.6) k/uL APTT (22.0-30.0) sec Sodium (137-145) mmol/L Chloride (98-107) mmol/L BUN (9-20) mg/dL Creatinine (0.66-1.25) mg/dL Glucose (74-99) mg/dL POC Glucose (mg/dL) 349 H 288 H (75-99) mg/dL Calcium (8.4-10.2) mg/dL Total Bilirubin (0.2-1.3) mg/dL Alkaline Phosphatase (38-126) U/L Thrombosis Risk Factor Assmnt - Choose All That Apply Any of the Below Risk Factors Present?: Yes Each Factor Represents 1 point: Medical pt on bed rest, Obesity (BMI >25), Swollen legs (current) Other Risk Factors: Yes Each Risk Factor Represents 2 Points: Age 61-74 years Other congenital or acquired thrombophilia - If yes, enter type in comment: No Thrombosis Risk Factor Assessment Total Risk Factor Score: 5 Thrombosis Risk Factor Assessment Level: High Risk
[2021-01-12] MEDS: POTASSIUM CHLORIDE 10 MEQ in WATER FOR INJECTION 1 100ML.BAG IVPB SCH ×2 (18:38→21:18)
[2021-01-12] MEDS: SODIUM CHLORIDE 0.9% 1,000 ML IV SCH (18:38)
--- NOTE | 2021-01-12 19:21 | P.CNNES ---
History of Present Illness Consult date: 01/12/21 Requesting physician: Rebecca Linda Reason for Consult: Acute CVA, status post TPA History of Present Illness: Patient is a 75-year-old left-handed male with history of hypertension, diabetes, who had an acute episode of strokelike symptoms this morning. Patient came to the hospital at 3:09 PM, brought by his grandson. Shortly before arrival to the hospital, patient developed difficulty speaking, couldn't express himself, right leg became stiff and was twitching and postured. Patient's described that the left leg was under him while he was sitting in the chair and weak. The left arm was also weak, and was postured, could not use his left arm or left leg. The only extremity which was normal was right arm. The speech difficulty lasted for about 10 minutes and slowly improved but he still has slurred speech. His left side continued to be weak. Patient's blood pressure on arrival was 139/68, pulse rate 73, temperature 90.8. Patient's NIH stroke scale was reported between 3-4. Patient's symptoms were fluctuating with intermittent slurring of speech and left-sided weakness. Stroke neurologist was consulted by the ED staff, and was recommended TPA. Patient received the bolus dose of 9 mg at 3:58 PM. Patient's has noticed that his left arm is getting better. Speech has improved but still with some difficulty. Computed tomography scan of head showed incidental 2.0 cm pituitary mass enlarging the sella. 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 Further MRI, surgical and lumbar treat correlation recommended. No acute intracranial abnormality seen. Some trapped fluid in the inferior right mastoid air cells. Correlate for any right-sided mastoid pain to exclude mastoiditis. CTA of the head showed moderate atherosclerotic calcification narrowing the V3/before junction of the left vertebral artery. This is followed by a severe, 70% proximal left V4 segment stenosis. Severe, greater than 70% stenosis of the left forearm segment right ICA. Either occlusion versus congenital aplasia of the A1 segment right SHUB[place]AM. Variable moderate atherosclerotic irregularity and narrowing throughout the anterior and posterior circulation. Patient apparently had a stroke "years and years ago", which affected his balance and he was walking like a "drunk and staggering". Patient was given IV TPA at that time. Patient recovered very well. Patient has history of 6 bypass surgeries. Patient has history of hypertension. Also has hyperlipidemia. Patient has diabetes for last 20 years, which is not well controlled. Patient smokes 2 packs per day for 10 years, quit 40 years ago. No alcohol or marijuana. He does take aspirin 81 mg every day. Review of Systems As above in detail. Patient is very hard of hearing. Patient has slurred speech which is improved. Denies any chest pain shortness of breath wheezing or cough. Patient has peripheral edema. Denies any bowel pain nausea vomiting diarrhea. No headache. Patient has obstructive sleep apnea. Past Medical History Past Medical History: Coronary Artery Disease (CAD), Chest Pain / Angina, CVA/TIA, Diabetes Mellitus, GERD/Reflux, Hyperlipidemia, Hypertension, Pneumonia, Renal Disease Additional Past Medical History / Comment(s): IDDM type II, TIA, low back pain, occasional lower leg edema, benign pituitary tumor, L eye retinal bleed, sinus problems, recent tooth infection treated with ABX, history of bilateral eye cataracts recent weight loss of approximately 20 pounds. History of Any Multi-Drug Resistant Organisms: None Reported Past Surgical History: Appendectomy, Cholecystectomy, Coronary Bypass/CABG, Heart Catheterization, Heart Catheterization With Stent, Orthopedic Surgery Additional Past Surgical History / Comment(s): PCI with stent, 2010 CABG-6 vessel, R femur fracture with surgery-kassy inserted and since removed however, drill bit broke off and is still in leg, hemorrhoidectomy, colonoscopies, bilateral cataract removals/lens implants, L eye retinal laser surgery Past Anesthesia/Blood Transfusion Reactions: No Reported Reaction Date of Last Stent Placement:: 2009 Past Psychological History: Depression Additional Psychological History / Comment(s): Pt resides with his spouse. He occasionally uses a cane to ambulate. He has not been driving lately, his spouse has been driving him. 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 No experience. No extensive travel. Stopped tobacco smoking years ago. No alcohol or recreational drug use. No animals in the home Past Alcohol Use History: None Reported Additional Past Alcohol Use History / Comment(s): Pt started smoking in 5 and quit in 1971 Past Drug Use History: None Reported - Past Family History Father Additional Family Medical History / Comment(s): Father had a blood vessel rupture in his heart. Mother Additional Family Medical History / Comment(s): Mother had an aneurysm in the bottom of her heart that ruptured. Medications and Allergies Home Medications Medication Instructions Recorded Confirmed Type Atorvastatin Calcium [Lipitor] 20 mg PO HS 06/26/18 01/12/21 History Furosemide [Lasix] 20 mg PO DAILY 06/26/18 01/12/21 History Insulin Aspart Protam & Aspart 65 unit SQ AC-BID@1100,199906/26/18 01/12/21 History [NovoLOG MIX 70-30 Flexpen] Pioglitazone HCl [Actos] 15 mg PO DAILY 06/26/18 01/12/21 History Albuterol Nebulized [Ventolin 2.5 mg INHALATION RT-Q6H PRN 10/01/18 01/12/21 History Nebulized] Aspirin [[place] Aspirin EC] 81 mg PO DAILY 10/01/18 01/12/21 History Docusate [Colace] 100 mg PO BID 10/01/18 01/12/21 History Losartan Potassium [Cozaar] 50 mg PO DAILY 10/01/18 01/12/21 History amLODIPine [Norvasc] 5 mg PO DAILY 10/01/18 01/12/21 History Esomeprazole Magnesium [NexIUM] 20 mg PO DAILY 01/12/21 01/12/21 History Metoprolol Succinate [Toprol XL] 25 mg PO BID 01/12/21 01/12/21 History Sertraline [Zoloft] 50 mg PO DAILY 01/12/21 01/12/21 History Allergies Allergy/AdvReac Type Severity Reaction Status Date / Time dextromethorphan Allergy Rash/Hives Verified 01/12/21 17:19 [From Dimetapp Cold-Congestion] diphenhydramine Allergy Rash/Hives Verified 01/12/21 17:19 [From Dimetapp Cold-Congestion] guaifenesin Allergy Rash/Hives Verified 01/12/21 17:19 [From Dimetapp Cold-Congestion] phenylephrine Allergy Rash/Hives Verified 01/12/21 17:19 [From Dimetapp Cold-Congestion] pseudoephedrine Allergy Rash/Hives Verified 01/12/21 17:19 [From Dimetapp Cold-Congestion] Physical Examination - Vital Signs Vital Signs: Vital Signs Temp Pulse Resp BP Pulse Ox 01/12/21 16:35 98 F 80 18 139/64 97 01/12/21 16:20 98 F 76 18 136/60 97 01/12/21 16:11 98 F 71 18 133/69 96 01/12/21 16:05 98 F 71 18 01/12/21 15:56 98 F 72 18 132/78 98 01/12/21 15:50 98 F 73 18 135/62 97 01/12/21 15:35 98 F 72 18 134/79 95 01/12/21 15:25 98 F 71 18 138/73 95 01/12/21 15:15 98.0 F 73 18 139/68 95 01/12/21 15:10 98 F 73 18 139/68 95 Intake and Output 01/12/21 01/12/21 01/12/21 06:59 14:59 22:59 Other: Weight 105.233 kg Patient is an elderly male, in no acute distress. Patient is alert awake oriented to time place and person. Speech is mildly dysarthric and language functions are normal. Patient can name, repeat very well. Attention, concentration and fund of knowledge is adequate. On cranial examination, pupils are round and reacting to light, visual ray are full on confrontation, extraocular muscles are intact with no nystagmus. Face is symmetric, tongue protrudes to the midline. Palatal elevation and sensation normal, hearing is moderately decreased which is chronic and shoulder shrug normal, facial sensation normal. On muscle strength testing, there is left pronator drift and the arm hits the bed. Otherwise the strength is normal in arms and legs distally and proximally. Deep tendon reflexes are 2 at the biceps, 0 brachioradialis bilaterally. Knees are 1 on the right, 2+ left knee. Ankles are diminished. Plantars are downgoing on the right, upgoing on the left. Sensory to touch is equal with no neglect on double simultaneous stimulation. Cerebellar function showed moderate ataxia for [id number] testing on the left. No ataxia for [id number] testing. Tone and bulk of muscles normal. Gait not checked. On general examination, there is no carotid bruit or murmur, S1-S2 audible. Abdomen is soft nontender. Chest is clear. Patient has moderate peripheral edema. Results - Laboratory Findings CBC and BMP: 01/12/21 15:22 01/12/21 15:22 Abnormal Lab Findings: Abnormal Labs 01/12/21 01/12/21 01/12/21 15:22 15:22 15:22 WBC 11.7 H APTT 19.7 L Sodium 135 L Chloride 97 L BUN 24 H Creatinine 1.40 H Glucose 340 H POC Glucose (mg/dL) Calcium 10.3 H Total Bilirubin 1.6 H Alkaline Phosphatase 132 H 01/12/21 15:23 WBC APTT Sodium Chloride BUN Creatinine Glucose POC Glucose (mg/dL) 349 H Calcium Total Bilirubin Alkaline Phosphatase Assessment and Plan Assessment: * Acute ischemic stroke manifesting with mild left hemiparesis, ataxia and dysarthria. Patient's current NIH stroke scale is 4. * Diabetes, not well controlled * Pituitary macroadenoma, stable. * Hypertension * Hyperlipidemia * Coronary artery disease * Obesity Plan: * Patient has received TPA. Patient is tolerating TPA very well. Recommend to follow post-TPA orders. * Keep blood pressure <185/110. * Patient will undergo an MRI of the brain. * No anticoagulants or antiplatelets for 24 hours. * 2-D echo to rule out embolic source. * Patient will undergo repeat computed tomography scan of head in 24 hours to rule out hemorrhagic conversion. If negative, I would consider placing him on dual antiplatelet medication. * Continue neuro checks as per post-TPA protocol. * Hemoglobin A1c, fasting lipid panel. * We will follow. Discussed case with primary team.
[2021-01-12 20:47] LABS: Glucose,Whole Blood 200 mg/dL (75-99)
[2021-01-12] MEDS: INSULIN ASPART (NovoLOG) 100 UNIT/ML VIAL SQ SCH (21:20)
[2021-01-12] MEDS: ATORVASTATIN 20 MG TAB PO SCH (21:22)
[2021-01-13 03:25] LABS: Hemoglobin A1C 12.8 % (4.0-6.0)
[2021-01-13 03:48] LABS: HCT 39.7 % (39.0-53.0); HGB 13.7 gm/dL (13.0-17.5); MCH 29.6 pg (25.0-35.0); MCHC 34.5 g/dL (31.0-37.0); MCV 85.8 fL (80.0-100.0); Mean Platelet Volume 9.7; Platelet Count 204 k/uL (150-450); RBC 4.62 m/uL (4.30-5.90); RDW 13.4 % (11.5-15.5); WBC 9.4 k/uL (3.8-10.6)
[2021-01-13 04:01] LABS: Calcium 9.8 mg/dL (8.4-10.2)
[2021-01-13 05:16] LABS: Chol/HDL Ratio 5.37
[2021-01-13 06:51] LABS: Glucose,Whole Blood 350 mg/dL (75-99)
[2021-01-13] MEDS: INSULIN ASPART (NovoLOG) 100 UNIT/ML VIAL SQ SCH ×4 (07:02→20:56)
[2021-01-13] MEDS: PANTOPRAZOLE 40 MG TABLET PO SCH (07:02)
--- NOTE | 2021-01-13 07:14 | P.CNPUL ---
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 History of present illness: Pulmonary/critical care consultation dated 01/13/2021. 75-year-old male, with history of coronary disease, previous CVA, diabetes, previous bypass grafting, who presents to the emergency department with strokelike symptoms. They apparently developed about 20 minutes prior to arrival to the hospital. He apparently had aphasia, as well as complete loss of function of the left upper extremity. He was evaluated by Dr. Linda in the emergency department, and also by neurology, and the patient did receive TPA in the emergency room. I believe his highest NIH score was 5. Currently, the patient is on 2 L nasal cannula. The patient is receiving saline at 75 mL an hour. He has significantly improved function of the left upper extremity. Also, his speech is much improved. White count 9.4, hemoglobin 13.7, hematocrit 39.7, platelet count 204,000. Sodium is 132, potassium 4, chlorides 98, CO2 24, anion gap 10, BUN 28, creatinine 1.26. Brain CT showed a 2.0 cm pituitary mass enlarging the sella. 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 No acute abnormality seen otherwise. Angiography and CT was done, and findings are noted in the reports. Chest x-rays also reviewed. Review of Systems REVIEW OF SYSTEMS: CONSTITUTIONAL: [Negative.] NEUROLOGIC: Aphasis, and paralysis of the left upper extremity, both much improved. HEENT: [ Negative.] CARDIAC: [Negative.] PULMONARY: [Negative.] GI: [Negative.] : [Negative.] RHEUMATOLOGIC: [ Negative.] IMMUNOLOGIC: [ Negative.] ENDOCRINE: [Negative. ] DERMATOLOGIC: [Negative.] Past Medical History Past Medical History: Coronary Artery Disease (CAD), Chest Pain / Angina, CVA/TIA, Diabetes Mellitus, GERD/Reflux, Hyperlipidemia, Hypertension, Pneumonia, Renal Disease Additional Past Medical History / Comment(s): IDDM type II, TIA, low back pain, occasional lower leg edema, benign pituitary tumor, L eye retinal bleed, sinus problems, recent tooth infection treated with ABX, history of bilateral eye cataracts recent weight loss of approximately 20 pounds. History of Any Multi-Drug Resistant Organisms: None Reported Past Surgical History: Appendectomy, Cholecystectomy, Coronary Bypass/CABG, Heart Catheterization, Heart Catheterization With Stent, Orthopedic Surgery Additional Past Surgical History / Comment(s): PCI with stent, 2010 CABG-6 vessel, R femur fracture with surgery-kassy inserted and since removed however, drill bit broke off and is still in leg, hemorrhoidectomy, colonoscopies, bilateral cataract removals/lens implants, L eye retinal laser surgery Past Anesthesia/Blood Transfusion Reactions: No Reported Reaction Date of Last Stent Placement:: 2009 Past Psychological History: Depression Additional Psychological History / Comment(s): Pt resides with his spouse. He occasionally uses a cane to ambulate. He has not been driving lately, his spouse has been driving him. 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 No experience. No extensive travel. Stopped tobacco smoking years ago. No alcohol or recreational drug use. No animals in the home Past Alcohol Use History: None Reported Additional Past Alcohol Use History / Comment(s): Pt started smoking in 1955 and quit in 1971 Past Drug Use History: None Reported - Past Family History Father Additional Family Medical History / Comment(s): Father had a blood vessel rupture in his heart. Mother Additional Family Medical History / Comment(s): Mother had an aneurysm in the bottom of her heart that ruptured. Medications and Allergies Home Medications Medication Instructions Recorded Confirmed Type Atorvastatin Calcium [Lipitor] 20 mg PO HS 06/26/18 01/12/21 History Furosemide [Lasix] 20 mg PO DAILY 06/26/18 01/12/21 History Insulin Aspart Protam & Aspart 65 unit SQ AC-BID@1100,199906/26/18 01/12/21 History [NovoLOG MIX 70-30 Flexpen] Pioglitazone HCl [Actos] 15 mg PO DAILY 06/26/18 01/12/21 History Albuterol Nebulized [Ventolin 2.5 mg INHALATION RT-Q6H PRN 10/01/18 01/12/21 History Nebulized] Aspirin [Hudspeth Aspirin EC] 81 mg PO DAILY 10/01/18 01/12/21 History Docusate [Colace] 100 mg PO BID 10/01/18 01/12/21 History Losartan Potassium [Cozaar] 50 mg PO DAILY 10/01/18 01/12/21 History amLODIPine [Norvasc] 5 mg PO DAILY 10/01/18 01/12/21 History Esomeprazole Magnesium [NexIUM] 20 mg PO DAILY 01/12/21 01/12/21 History Metoprolol Succinate [Toprol XL] 25 mg PO BID 01/12/21 01/12/21 History Sertraline [Zoloft] 50 mg PO DAILY 01/12/21 01/12/21 History Allergies Allergy/AdvReac Type Severity Reaction Status Date / Time dextromethorphan Allergy Rash/Hives Verified 01/12/21 17:19 [From Dimetapp Cold-Congestion] diphenhydramine Allergy Rash/Hives Verified 01/12/21 17:19 [From Dimetapp Cold-Congestion] guaifenesin Allergy Rash/Hives Verified 01/12/21 17:19 [From Dimetapp Cold-Congestion] phenylephrine Allergy Rash/Hives Verified 01/12/21 17:19 [From Dimetapp Cold-Congestion] pseudoephedrine Allergy Rash/Hives Verified 01/12/21 17:19 [From Dimetapp Cold-Congestion] Physical Exam Osteopathic Statement: *. No significant issues noted on an osteopathic struct ural exam other than those noted in the History and Physical/Consult. Vitals: Vital Signs Temp Pulse Resp BP Pulse Ox 01/13/21 05:00 60 14 130/69 97 01/13/21 04:30 97.7 F 66 11 L 149/80 98 01/13/21 04:00 61 12 165/86 98 01/13/21 03:30 59 L 13 130/69 97 01/13/21 03:00 62 12 150/82 95 01/13/21 02:30 72 18 140/74 97 01/13/21 02:00 66 12 144/67 98 01/13/21 01:30 66 20 135/66 96 01/13/21 01:00 65 18 128/57 97 01/13/21 00:30 65 16 151/93 97 01/13/21 00:00 97.8 F 62 15 150/76 98 01/12/21 23:30 64 13 145/85 97 01/12/21 23:00 64 18 151/80 97 01/12/21 22:30 64 12 140/80 96 01/12/21 22:00 66 17 141/76 97 08/09/21 21:30 65 11 L 158/73 97 01/12/21 21:00 66 16 136/81 97 01/12/21 20:30 64 13 141/85 98 01/12/21 20:00 98.2 F 72 11 L 148/65 96 01/12/21 19:30 64 12 139/86 98 01/12/21 19:00 64 18 97 01/12/21 18:50 69 19 133/69 95 01/12/21 18:41 69 21 133/69 98 01/12/21 18:40 65 16 98 01/12/21 18:30 65 16 98 01/12/21 18:20 67 20 132/68 98 01/12/21 18:11 98.1 F 69 21 131/68 96 01/12/21 18:10 67 14 97 01/12/21 18:00 70 15 131/68 97 01/12/21 17:50 74 15 148/78 97 01/12/21 17:41 98.1 F 67 14 148/78 96 01/12/21 17:40 98.1 F 71 17 97 01/12/21 17:39 27 H 01/12/21 17:33 98 F 68 18 126/71 97 01/12/21 17:26 98 F 68 18 126/71 97 01/12/21 17:11 98 F 67 18 102/56 96 01/12/21 16:56 98 F 71 18 112/62 96 01/12/21 16:51 98 F 80 18 139/64 97 01/12/21 16:45 98 F 80 18 139/64 97 01/12/21 16:41 98 F 75 18 139/64 97 01/12/21 16:35 98 F 80 18 136/72 97 01/12/21 16:26 98 F 75 18 136/60 97 01/12/21 16:20 98 F 76 18 136/60 97 01/12/21 16:11 98 F 71 18 133/69 96 01/12/21 16:05 98 F 71 18 01/12/21 15:56 98 F 72 18 132/78 98 01/12/21 15:50 98 F 73 18 135/62 97 01/12/21 15:35 98 F 72 18 134/79 95 01/12/21 15:25 98 F 71 18 138/73 95 01/12/21 15:15 98.0 F 73 18 139/68 95 01/12/21 15:10 98 F 73 18 139/68 95 Intake and Output 01/12/21 01/13/21 01/13/21 22:59 06:59 14:59 Intake Total 725 625 Output Total 325 0 Balance 400 625 Intake: IV 475 625 0.9 @75mls/hr 375 525 Potassium Chloride 10 meq 100 100 In Water For Injection 1 100ml.bag @ 100 mls/hr IVPB Q1H [facility] Rx#: [id number] Oral 250 Output: Urine 325 0 Other: Voiding Method Urinal Urinal # Voids 0 Weight 105.233 kg 106.9 kg No acute distress, oriented 3. Nasal O2 in place at 2 L. HEENT examination is grossly unremarkable. Neck supple. Full range of motion. No adenopathy thyromegaly or neck vein distention. Cardiovascular examination reveals regular rhythm rate. S1-S2 normal. No S3 or S4. No discernible murmur noted. Heart rate 73 bpm. Lungs reveal clear breath sounds. Her sounds are equal bilaterally. No adventitious lung sounds including wheezes rhonchi or crackles. Abdomen soft bowel sounds are heard. No masses or tenderness. Extremities are intact. No cyanosis clubbing or edema. Skin is without rash or lesion. Neurologic examination reveals an alert and oriented patient. The patient has much improved function of the left upper extremity. The aphasia is completely resolved. Results - Laboratory Findings CBC and BMP: 01/13/21 03:02 01/13/21 03:02 PT/INR, D-dimer PT 10.0 sec (9.0-12.0) 01/12/21 15:22 INR 0.9 (<1.2) 01/12/21 15:22 Abnormal lab findings: Abnormal Labs 01/12/21 01/12/21 01/12/21 15:22 15:22 15:22 WBC 11.7 H APTT 19.7 L Sodium 135 L Chloride 97 L BUN 24 H Creatinine 1.40 H Glucose 340 H POC Glucose (mg/dL) Hemoglobin A1c Calcium 10.3 H Total Bilirubin 1.6 H Alkaline Phosphatase 132 H Triglycerides Cholesterol 01/12/21 01/12/21 01/12/21 15:22 15:22 15:23 WBC APTT Sodium Chloride BUN Creatinine Glucose POC Glucose (mg/dL) 349 H Hemoglobin A1c 12.8 H Calcium Total Bilirubin Alkaline Phosphatase Triglycerides 475.0 H Cholesterol 220 H 01/12/21 01/12/21 01/13/21 17:42 20:46 03:02 WBC APTT Sodium 132 L Chloride BUN 28 H Creatinine 1.26 H Glucose 241 H POC Glucose (mg/dL) 288 H 200 H Hemoglobin A1c Calcium Total Bilirubin Alkaline Phosphatase Triglycerides Cholesterol 01/13/21 06:50 WBC APTT Sodium Chloride BUN Creatinine Glucose POC Glucose (mg/dL) 350 H Hemoglobin A1c Calcium Total Bilirubin Alkaline Phosphatase Triglycerides Cholesterol - Diagnostic Findings Chest x-ray: image reviewed Assessment and Plan Assessment: 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 History of CAD, status post bypass grafting. History of prior CVA without neurologic residuals. History of diabetes mellitus. History of hyperlipidemia. History of hypertension. History of gastroesophageal reflux disease. History of benign pituitary tumor. History of bilateral cataracts. Multiple other medical problems and comorbidities. Plan: Plan dated 01/13/2021. Currently, the patient's doing much better. He has much improved function of the left upper extremity. His speech is back to normal. Clinically he stable. He is receiving 2 L nasal cannula. Additional recommendations and suggestions are forthcoming. We will continue to follow make recommendations where appropriate. Time with Patient: Greater than 30
[2021-01-13] MEDS: SODIUM CHLORIDE 0.9% 1,000 ML IV SCH (08:46)
[2021-01-13] MEDS: SERTRALINE 50 MG TAB PO SCH (08:46)
--- NOTE | 2021-01-13 10:00 | ECHOF ---
Referral Reason:stroke MEASUREMENTS -------- HEIGHT: 170.2 cm WEIGHT: 106.6 kg BP: 155/76 RVIDd: 3.8 cm (< 3.3) IVSd: 1.4 cm (0.6 - 1.1) LVIDd: 4.2 cm (3.9 - 5.3) LVPWd: 1.4 cm (0.6 - 1.1) IVSs: 1.7 cm LVIDs: 3.7 cm LVPWs: 1.5 cm LA Diam: 3.8 cm (2.7 - 3.8) LAESV Index (A-L): 19.66 ml/m Ao Diam: 3.7 cm (2.0 - 3.7) AV Cusp: 2.2 cm (1.5 - 2.6) MV EXCURSION: 10.412 mm (> 18.000) MV EF SLOPE: 54 mm/s (70 - 150) EPSS: 0.7 cm MV E Mingo: 0.98 m/s MV DecT: 249 ms MV A Mingo: 0.90 m/s MV E/A Ratio: 1.09 RAP: 5.00 mmHg RVSP: 36.65 mmHg FINDINGS -------- Sinus rhythm. This was a technically adequate study. The left ventricular size is normal. There is moderate concentric left ventricular hypertrophy. O verall left ventricular systolic function is normal with, an EF between 60 - 65 %. The right ventricle is mild to moderately enlarged. Normal LA size by volume 22+/-6 ml/m2. The right atrium is normal in size. Interatrial and interventricular septum intact. The aortic valve is trileaflet, and appears structurally normal. No aortic stenosis or regurgitation. The mitral valve is normal. Mild tricuspid regurgitation present. There is mild pulmonary hypertension. The right ventricular systolic pressure, as measured by Doppler, is 36.65mmHg. Trace/mild (physiologic) pulmonic regurgitation. The aortic root size is normal. Normal inferior vena cava with normal inspiratory collapse consistent with estimated right atrial pre ssure of 5 mmHg. There is no pericardial effusion. CONCLUSIONS -------- 1. The left ventricular size is normal. 2. There is moderate concentric left ventricular hypertrophy. 3. Overall left ventricular systolic function is normal with, an EF between 60 - 65 %. 4. The right ventricle is mild to moderately enlarged. 5. Normal LA size by volume 22+/-6 ml/m2. 6. The aortic valve is trileaflet, and appears structurally normal. No aortic stenosis or regurgitati on. 7. Mild tricuspid regurgitation present. 8. There is mild pulmonary hypertension. 9. The right ventricular systolic pressure, as measured by Doppler, is 36.65mmHg. 10. Trace/mild (physiologic) pulmonic regurgitation. 11. There is no pericardial effusion. FAMILY [employer] DIVORCE LEGAL ASSISTANT: Anai Ramirez RDCS
[2021-01-13 10:17] VITALS: BMI 36.9
--- NOTE | 2021-01-13 10:43 | P.PN ---
Subjective All inpatient medications were reviewed and appropriate changes in these medications as dictated in the interval history and assessment and plan.Patient is a pleasant 75-year-old male Came in with the symptoms of weakness in the right side of the body and the slurred speech which resolved on arrival to ER and the patient symptoms started 20 minutes prior to arrival patient received the TPA. Patient still has some weakness in the left arm which has 3/5 strength. Patient had history of cerebrovascular accident in the past without any residual symptoms. Patient does have history of coronary artery disease as well. Patient denied any fever chills patient denied any headache nausea vomiting. 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 Patient is a getting an MRI as a part of stroke workup which we'll give a better picture of this mass as well. Etiology of the head and neck showed 80% right proximal RCA stenosis and 50% stenosis in the left the ICA there multiple other blockages and calcification in other cerebral vasculature. Patient's creatinine is 1.4 baseline appears to be around this. Patient is admitted for a stroke involving the left side of the body patient had some residual weakness in the left hand which presently resolved at this time. Patient received TPA last night. Patient is being monitored in ICU will be transferred out of ICU repeat the CT of the head didn't will be obtained after which patient probably will be started on antiplatelet therapy. Patient is otherwise clinically doing well. Echocardiogram is pending. LDL cannot be palpated because of hypertriglyceridemia patient's dose of statin need to be in creased anyways because of hypertrophic azotemia patient is on 40 mg of Lipitor at this time. Constitutional: Denied any fatigue denied any fever. Cardio vascular: denied any chest pain, palpitations Gastrointestinal denied any nausea vomiting Pulmonary: Denied any shortness of breath cough Neurologic denied any new focal deficits PHYSICAL EXAMINATION: GENERAL: The patient is alert and oriented x3, not in any acute distress. Well developed, well nourished. HEENT: Pupils are round and equally reacting to light. EOMI. No scleral icterus. No conjunctival pallor. Normocephalic, atraumatic. No pharyngeal erythema. No thyromegaly. CARDIOVASCULAR: S1 and S2 present. No murmurs, rubs, or gallops. PULMONARY: Chest is clear to auscultation, no wheezing or crackles. ABDOMEN: Soft, nontender, nondistended, normoactive bowel sounds. No palpable organomegaly. MUSCULOSKELETAL: No joint swelling or deformity. EXTREMITIES: No cyanosis, clubbing, or pedal edema. NEUROLOGICAL: Patient's weakness completely resolved no residual weakness at this time. SKIN: No rashes. Assessment and plan -Cerbro- vascular accident involving left side of the body along with slurred speech, middle cerebral artery territory probably due to sclerotic, patient received TPA MRI will be obtained. DT today as MRA cannot be obtained today. If there is no intracranial bleed patient was started on antiplatelet therapy. He with statin. Echocardiogram did not show any ventricular thrombus. -Hypertension due to hold off on amlodipine patient was started on losartan starting tomorrow -Acute renal failure: Improved patient doesn't creatinine is 1.2 to probably this is baseline -leukocytosis reactive in nature secondary to stroke -Coronary artery disease with stents and CABG in the past -Type 2 diabetes mellitus will be started back on his home regimen as patient is tolerating his diet very well at this time patient blood sugars are very high uncontrolled, elevated. 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 Objective - Vital Signs Vital signs: Vital Signs Temp 97.7 F 01/13/21 08:00 Pulse 71 01/13/21 10:00 Resp 9 L 01/13/21 10:00 BP 157/77 01/13/21 10:00 Pulse Ox 95 01/13/21 10:00 Intake & Output 01/12/21 01/13/21 01/13/21 18:59 06:59 18:59 Intake Total 75 1900 550 Output Total 0 325 275 Balance 75 1575 275 Weight 105.233 kg 106.9 kg 106.9 kg Intake: IV 75 1100 300 0.9 @75mls/hr 75 900 300 Potassium Chloride 10 meq 200 In Water For Injection 1 100ml.bag @ 100 mls/hr IVPB Q1H [facility] Rx#: [id number] Oral 800 250 Output: Urine 0 325 275 Other: Voiding Method Urinal Urinal Urinal # Voids 0 - Labs CBC & Chem 7: 01/13/21 03:02 01/13/21 03:02 Labs: Abnormal Lab Results - Last 24 Hours (Table) 01/12/21 01/12/21 01/12/21 Range/Units 15:22 15:22 15:22 WBC 11.7 H (3.8-10.6) k/uL APTT 19.7 L (22.0-30.0) sec Sodium 135 L (137-145) mmol/L Chloride 97 L (98-107) mmol/L BUN 24 H (9-20) mg/dL Creatinine 1.40 H (0.66-1.25) mg/dL Glucose 340 H (74-99) mg/dL POC Glucose (mg/dL) (75-99) mg/dL Hemoglobin A1c (4.0-6.0) % Calcium 10.3 H (8.4-10.2) mg/dL Total Bilirubin 1.6 H (0.2-1.3) mg/dL Alkaline Phosphatase 132 H (38-126) U/L Triglycerides (0.0-149.0) mg/dL Cholesterol (0-200) mg/dL 01/12/21 01/12/21 01/12/21 Range/Units 15:22 15:22 15:23 WBC (3.8-10.6) k/uL APTT (22.0-30.0) sec Sodium (137-145) mmol/L Chloride (98-107) mmol/L BUN (9-20) mg/dL Creatinine (0.66-1.25) mg/dL Glucose (74-99) mg/dL POC Glucose (mg/dL) 349 H (75-99) mg/dL Hemoglobin A1c 12.8 H (4.0-6.0) % Calcium (8.4-10.2) mg/dL Total Bilirubin (0.2-1.3) mg/dL Alkaline Phosphatase (38-126) U/L Triglycerides 475.0 H (0.0-149.0) mg/dL Cholesterol 220 H (0-200) mg/dL 01/12/21 01/12/21 01/13/21 Range/Units 17:42 20:46 03:02 WBC (3.8-10.6) k/uL APTT (22.0-30.0) sec Sodium 132 L (137-145) mmol/L Chloride (98-107) mmol/L BUN 28 H (9-20) mg/dL Creatinine 1.26 H (0.66-1.25) mg/dL Glucose 241 H (74-99) mg/dL POC Glucose (mg/dL) 288 H 200 H (75-99) mg/dL Hemoglobin A1c (4.0-6.0) % Calcium (8.4-10.2) mg/dL Total Bilirubin (0.2-1.3) mg/dL Alkaline Phosphatase (38-126) U/L Triglycerides (0.0-149.0) mg/dL Cholesterol (0-200) mg/dL 01/13/21 Range/Units 06:50 WBC (3.8-10.6) k/uL APTT (22.0-30.0) sec Sodium (137-145) mmol/L Chloride (98-107) mmol/L BUN (9-20) mg/dL Creatinine (0.66-1.25) mg/dL Glucose (74-99) mg/dL POC Glucose (mg/dL) 350 H (75-99) mg/dL Hemoglobin A1c (4.0-6.0) % Calcium (8.4-10.2) mg/dL Total Bilirubin (0.2-1.3) mg/dL Alkaline Phosphatase (38-126) U/L Triglycerides (0.0-149.0) mg/dL Cholesterol (0-200) mg/dL
[2021-01-13 11:13] LABS: Glucose,Whole Blood 397 mg/dL (75-99)
[2021-01-13 14:39] LABS: Chol/HDL Ratio 6.12; LDL Cholesterol,Calculated 89.6 mg/dL (0.0-131.0); VLDL Calculation 79.4 mg/dL (5.00-40.00)
--- NOTE | 2021-01-13 15:52 | CT ---
EXAMINATION TYPE: CT brain wo con DATE OF EXAM: 01/13/2021 COMPARISON: 01/12/2021 INDICATION: 24 hour post TPA DLP: 1157.4 mGycm, Automated exposure control for dose reduction was used. CONTRAST: None CT of the brain is performed utilizing 3 mm thick sections through the posterior fossa and 3 mm thick sections through the remaining calvarium. Study is performed within 24 hours of arrival to the hosp [facility]. No abnormal hyperdensity is present to suggest an acute intracranial hemorrhage. There is fullness again evident within the sella extending towards the suprasellar cistern. 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 The pituitary stalk nicole ears to remain midline. This can be better evaluated with MRI. No acute infarcts are evident. Ventricles and sulci are appropriate for the patient age. Small amount of fluid may be within the inferior right mastoid air cells. Paranasal sinuses and masto id air cells otherwise appear clear. IMPRESSIONS: 1. No acute or subacute hemorrhage evident. 2. No acute infarct identified. 3. Sellar mass. MRI with contrast could further evaluate. 4. Right mastoiditis
[2021-01-13 16:49] LABS: Glucose,Whole Blood 514 mg/dL (75-99)
[2021-01-13] MEDS: INSULN ASP PRT/INSULIN ASPART 100 UNIT/ML 10 ML VIAL SQ SCH (17:33)
[2021-01-13] MEDS: CLOPIDOGREL 75 MG TAB PO SCH (18:31)
[2021-01-13] MEDS: ASPIRIN 81 MG PO SCH (18:31)
[2021-01-13 20:45] LABS: Glucose,Whole Blood 346 mg/dL (75-99)
[2021-01-13] MEDS: ATORVASTATIN 20 MG TAB PO SCH (20:53)
[2021-01-14 06:59] LABS: Glucose,Whole Blood 320 mg/dL (75-99)
[2021-01-14] MEDS: INSULN ASP PRT/INSULIN ASPART 100 UNIT/ML 10 ML VIAL SQ SCH ×2 (07:09→18:01)
[2021-01-14] MEDS: INSULIN ASPART (NovoLOG) 100 UNIT/ML VIAL SQ SCH ×4 (07:09→21:40)
[2021-01-14] MEDS: PANTOPRAZOLE 40 MG TABLET PO SCH (07:10)
[2021-01-14] MEDS ORDERED: LOSARTAN 50 MG TAB PO SCH (09:00)
[2021-01-14] MEDS: SERTRALINE 50 MG TAB PO SCH (09:03)
[2021-01-14] MEDS: CLOPIDOGREL 75 MG TAB PO SCH (09:03)
[2021-01-14] MEDS: ASPIRIN 81 MG PO SCH (09:03)
--- NOTE | 2021-01-14 09:20 | P.PN ---
Subjective Progress Note Date: 01/13/21 Patient was seen for a follow-up. Patient's was also present. Patient is doing much better. Patient's believes that his speech is back to normal. No dysarthria. No new concerns. Objective - Vital Signs Vital signs: Vital Signs Temp 97.7 F 01/13/21 16:00 Pulse 73 01/13/21 18:00 Resp 23 01/13/21 18:00 BP 171/99 01/13/21 18:00 Pulse Ox 95 01/13/21 18:00 Intake & Output 01/12/21 01/13/21 01/13/21 18:59 06:59 18:59 Intake Total 75 1900 1650 Output Total 0 325 475 Balance 75 1575 1175 Weight 105.233 kg 106.9 kg 106.9 kg Intake: IV 75 1100 900 0.9 @75mls/hr 75 900 900 Potassium Chloride 10 meq 200 In Water For Injection 1 100ml.bag @ 100 mls/hr IVPB Q1H [facility] Rx#: [id number] Oral 800 750 Output: Urine 0 325 475 Other: Voiding Method Urinal Urinal Urinal # Voids 0 0 # Bowel Movements 1 - Exam Patient is an elderly male, in no distress. Patient is alert awake oriented to time place and person. Speech and language functions are normal. Attention, concentration and fund of knowledge is adequate. No aphasia or dysarthria. On cranial examination, pupils are round and reacting to light, visual ray are full on confrontation, extraocular muscles are intact with no nystagmus. Face is symmetric, tongue protrudes to the midline. Palatal elevation and sensation normal, hearing and shoulder shrug normal, facial sensation normal. Shoulder shrug normal. On muscle strength testing, there is very minimal left pronator drift and the strength is normal in arms and legs distally and proximally. Deep tendon reflexes are 2+ at the biceps, 0 brachioradialis bilaterally. Knees are 1 on the right, 2+ on the left. Ankles are diminished. Sensory to touch is equal with no neglect. Cerebellar function showed mild ataxia for [id number]-foco testing only on the left. Tone and bulk of muscles normal. Gait not checked. On general examination, there is no carotid bruit or murmur, S1-S2 audible. Abdomen is soft nontender. Chest is clear. Peripheral pulses are present. Patient has moderate peripheral edema. - Labs CBC & Chem 7: 01/13/21 03:02 01/13/21 03:02 Labs: Abnormal Lab Results - Last 24 Hours (Table) 01/12/21 01/12/21 01/12/21 Range/Units 15:22 15:22 20:46 Sodium (137-145) mmol/L BUN (9-20) mg/dL Creatinine (0.66-1.25) mg/dL Glucose (74-99) mg/dL POC Glucose (mg/dL) 200 H (75-99) mg/dL Hemoglobin A1c 12.8 H (4.0-6.0) % Triglycerides 475.0 H (0.0-149.0) mg/dL Cholesterol 220 H (0-200) mg/dL VLDL Cholesterol, Calc (5.00-40.00) mg/dL HDL Cholesterol (40.0-60.0) mg/dL 01/13/21 01/13/21 01/13/21 Range/Units 03:02 06:50 11:11 Sodium 132 L (137-145) mmol/L BUN 28 H (9-20) mg/dL Creatinine 1.26 H (0.66-1.25) mg/dL Glucose 241 H (74-99) mg/dL POC Glucose (mg/dL) 350 H 397 H (75-99) mg/dL Hemoglobin A1c (4.0-6.0) % Triglycerides 397.0 H (0.0-149.0) mg/dL Cholesterol 202 H (0-200) mg/dL VLDL Cholesterol, Calc 79.40 H (5.00-40.00) mg/dL HDL Cholesterol 33.0 L (40.0-60.0) mg/dL 01/13/21 Range/Units 16:48 Sodium (137-145) mmol/L BUN (9-20) mg/dL Creatinine (0.66-1.25) mg/dL Glucose (74-99) mg/dL POC Glucose (mg/dL) 514 H (75-99) mg/dL Hemoglobin A1c (4.0-6.0) % Triglycerides (0.0-149.0) mg/dL Cholesterol (0-200) mg/dL VLDL Cholesterol, Calc (5.00-40.00) mg/dL HDL Cholesterol (40.0-60.0) mg/dL Assessment and Plan Assessment: * Acute ischemic stroke manifesting with mild left hemiparesis, ataxia and dysarthria. Patient's current NIH stroke scale is 2. * Diabetes, not well controlled * Pituitary macroadenoma, stable. * Hypertension * Hyperlipidemia * Coronary artery disease * Obesity Plan: * Patient's neurological examination is much improved. * Optimize control of blood pressure. * Await MRI of the brain. * 24 hour post-TPA computed tomography scan of head showed no acute process. No hemorrhage. * Patient will be started on dual antiplatelet medications with aspirin 81 mg and Plavix 75 mg for 21 days, then stop aspirin and maintain on Plavix. * 2-D echo revealed normal left ventricular size. Moderate concentric LVH. EF is between 60-65%. Right ventricle is mild to moderately dilated. Normal left atrial size. * Continue neuro checks every shift. * Hemoglobin A1c 12.8, indicating poorly controlled diabetes. Suggest optimize diabetes to target A1c <7.0. * Fasting lipid panel with cholesterol 202, LDL 89, HDL 33 and triglycerides 397. Continue Lipitor 40 mg. * We will follow.
--- NOTE | 2021-01-14 09:36 | P.PN ---
Subjective Progress Note Date: 01/14/21 Principal diagnosis: CVA. Pulmonary/critical care consultation dated 01/13/2021. 75-year-old male, with history of coronary disease, previous CVA, diabetes, previous bypass grafting, who presents to the emergency department with strokelike symptoms. They apparently developed about 20 minutes prior to arrival to the hospital. He apparently had aphasia, as well as complete loss of function of the left upper extremity. He was evaluated by Dr. Linda in the emergency department, and also by neurology, and the patient did receive TPA in the emergency room. I believe his highest NIH score was 5. Currently, the patient is on 2 L nasal cannula. The patient is receiving saline at 75 mL an hour. He has significantly improved function of the left upper extremity. Also, his speech is much improved. White count 9.4, hemoglobin 13.7, hematocrit 39.7, platelet count 204,000. Sodium is 132, potassium 4, chlorides 98, CO2 24, anion gap 10, BUN 28, creatinine 1.26. Brain CT showed a 2.0 cm pituitary mass enlarging the sella. 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 No acute abnormality seen otherwise. Angiography and CT was done, and findings are noted in the reports. Chest x-rays also reviewed. Progress note dated 01/14/2021. This is a 75-year-old male who is again seen in the intensive care unit, room 263. The patient seems to be recovering very well from his recent CVA. The patient has a history of coronary disease, previous CVA, diabetes, and previous bypass grafting. The patient received TPA in our emergency department. His symptoms have improved her medically. His issues included speech disturbance, and weakness/paralysis of the left upper extremity. No new labs today. A brain CT done yesterday shows no acute or subacute hemorrhagic evidence, no acute infarct, sellar mass, and right mastoiditis. Objective - Vital Signs Vital signs: Vital Signs Temp 97.7 F 01/13/21 16:00 Pulse 85 01/14/21 07:00 Resp 17 01/14/21 07:00 BP 170/84 01/14/21 07:00 Pulse Ox 99 01/14/21 07:00 Intake & Output 01/13/21 01/14/21 01/14/21 18:59 06:59 18:59 Intake Total 1650 490 Output Total 475 1950 525 Balance 1175 -1460 -525 Weight 106.9 kg 105.9 kg Intake: IV 900 0.9 @75mls/hr 900 Oral 750 490 Output: Urine 475 1950 525 Other: Voiding Method Urinal Urinal # Voids 0 # Bowel Movements 1 - Exam No acute distress, oriented 3. Patient currently only on room air. HEENT examination is grossly unremarkable. Neck supple. Full range of motion. No adenopathy thyromegaly or neck vein distention. Cardiovascular examination reveals regular rhythm rate. S1-S2 normal. No S3 or S4. No discernible murmur noted. Heart rate 85 bpm. Lungs reveal clear breath sounds. Her sounds are equal bilaterally. No adventitious lung sounds including wheezes rhonchi or crackles. Abdomen soft bowel sounds are heard. No masses or tenderness. Extremities are intact. No cyanosis clubbing or edema. Skin is without rash or lesion. Neurologic examination reveals an alert and oriented patient. The patient has much improved function of the left upper extremity. The aphasia is completely resolved. - Labs CBC & Chem 7: 01/13/21 03:02 01/13/21 03:02 Labs: Abnormal Lab Results - Last 24 Hours (Table) 01/13/21 01/13/21 01/13/21 Range/Units 03:02 11:11 16:48 POC Glucose (mg/dL) 397 H 514 H (75-99) mg/dL Triglycerides 397.0 H (0.0-149.0) mg/dL Cholesterol 202 H (0-200) mg/dL VLDL Cholesterol, Calc 79.40 H (5.00-40.00) mg/dL HDL Cholesterol 33.0 L (40.0-60.0) mg/dL 01/13/21 01/14/21 Range/Units 20:43 06:58 POC Glucose (mg/dL) 346 H 320 H (75-99) mg/dL Triglycerides (0.0-149.0) mg/dL Cholesterol (0-200) mg/dL VLDL Cholesterol, Calc (5.00-40.00) mg/dL HDL Cholesterol (40.0-60.0) mg/dL Assessment and Plan Assessment: 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 History of CAD, status post bypass grafting. History of prior CVA without neurologic residuals. History of diabetes mellitus. History of hyperlipidemia. History of hypertension. History of gastroesophageal reflux disease. History of benign pituitary tumor. History of bilateral cataracts. Multiple other medical problems and comorbidities. Plan: Plan dated 01/13/2021. Currently, the patient's doing much better. He has much improved function of the left upper extremity. His speech is back to normal. Clinically he stable. He is receiving 2 L nasal cannula. Additional recommendations and suggestions are forthcoming. We will continue to follow make recommendations where appropriate. Plan dated 01/14/2021. Currently, the patient's doing much better. The patient has been weaned off of oxygen. His speech disturbance/aphasia, has completely resolved. Also, his left upper extremity seems to be functioning just fine. The patient can be transferred to 3 S. unit. Additional recommendations and suggestions are forthcoming. We will continue to follow make recommendations where appropriate. Time with Patient: Less than 30
[2021-01-14 10:30] LABS: Calcium 10.1 mg/dL (8.4-10.2)
[2021-01-14 11:38] LABS: Glucose,Whole Blood 272 mg/dL (75-99)
[2021-01-14] MEDS ORDERED: LORazepam 2 MG/ML INJ ONE (12:18)
--- NOTE | 2021-01-14 15:05 | MR ---
MR brain without contrast history: Neuro deficit, cerebrovascular accident status post TPA administration Multiplanar multisequence imaging through the brain Scattered cortical hyperintensities are present on diffusion images within the right occipital lobe, right frontal and right parietal lobe. Corresponding hyperintensity noted on inversion recovery, T2-w eighted sequences. Periventricular and pericallosal, subcortical hyperintensities are present on inve rsion recovery T2-weighted sequences. No evident hemorrhage. Cortical atrophy is present. Pituitary mass is expansile as noted on CT with intermediate and low signal on T1, increased signal o n T2-weighted sequences. Inflammatory changes are present in the right mastoid air cells, temporal to[place]. There is motion on the exam. IMPRESSION: Correlate for embolic disease, multiple small areas of subacute infarct are noted, there is evidence of chronic small vessel ischemic change and age-related atrophy. Mastoid inflammatory jens nges and pituitary tumor again noted. Motion is present on the exam.
--- NOTE | 2021-01-14 15:26 | P.PN ---
Subjective Progress Note Date: 01/14/21 Patient is a pleasant 75-year-old male Came in with the symptoms of weakness in the right side of the body and the slurred speech which resolved on arrival to ER and the patient symptoms started 20 minutes prior to arrival patient received the TPA. Patient still has some weakness in the left arm which has 3/5 strength. Patient had history of cerebrovascular accident in the past without any residual symptoms. Patient does have history of coronary artery disease as well. Patient denied any fever chills patient denied any headache nausea vomiting. 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 Patient is a g etting an MRI as a part of stroke workup which we'll give a better picture of this mass as well. Etiology of the head and neck showed 80% right proximal RCA stenosis and 50% stenosis in the left the ICA there multiple other blockages and calcification in other cerebral vasculature. Patient's creatinine is 1.4 baseline appears to be around this. Patient is admitted for a stroke involving the left side of the body patient had some residual weakness in the left hand which presently resolved at this time. Patient received TPA last night. Patient is being monitored in ICU will be transferred out of ICU repeat the CT of the head didn't will be obtained after which patient probably will be started on antiplatelet therapy. Patient is otherwise clinically doing well. Echocardiogram is pending. LDL cannot be palpated because of hypertriglyceridemia patient's dose of statin need to be increased anyways because of hypertrophic azotemia patient is on 40 mg of Lipitor at this time. 01/14/2021 Patient Is seen and evaluated in the ICU being closely monitored with family at the bedside. Patient awaiting to undergo MRI with neurology following closely. No acute overnight issues noted. Patient states he is feeling much better and denies any residual deficits and is actually requesting to go home. Patient is maintained on aspirin and Plavix along with Lipitor 40 mg and will continue. Patient's blood sugars continue to be elevated and on NovoLog 70/30 and will increase to 80 units twice daily and continue with sliding scale. Creatinine improved at 1.11, sodium is 137 with a potassium of 4.0. 2-D echo was done showing overall left ventricular systolic function is normal with an EF of 60- 65% with mild pulmonary hypertension along with mild tricuspid regurgitation present. Constitutional: Denied any fatigue denied any fever. Cardio vascular: denied any chest pain, palpitations Gastrointestinal denied any nausea vomiting Pulmonary: Denied any shortness of breath cough Neurologic denied any new focal deficits PHYSICAL EXAMINATION: GENERAL: The patient is alert and oriented x3, not in any acute distress. Well developed, well nourished. HEENT: Pupils are round and equally reacting to light. EOMI. No scleral icterus. No conjunctival pallor. Normocephalic, atraumatic. No pharyngeal erythema. No thyromegaly. CARDIOVASCULAR: S1 and S2 present. No murmurs, rubs, or gallops. PULMONARY: Chest is clear to auscultation, no wheezing or crackles. ABDOMEN: Soft, nontender, nondistended, normoactive bowel sounds. No palpable organomegaly. MUSCULOSKELETAL: No joint swelling or deformity. EXTREMITIES: No cyanosis, clubbing, or pedal edema. NEUROLOGICAL: Patient's weakness completely resolved no residual weakness at this time. Strength 5 out of 5 left upper extremity and lower extremity SKIN: No rashes. Assessment and plan: -Cerebrovascular accident involving left side of the body along with slurred speech, middle cerebral artery territory probably due to sclerosis, patient received TPA, MRI was done today showing multiple small areas of subacute infarct noted correlate for embolic disease, evidence of chronic small vessel ischemic change and age-related atrophy with mastoid inflammatory changes and pituitary tumor again noted. Echo done did not show any thrombus -Hypertension, continued on losartan and Norvasc held -Acute renal failure: Improved, current creatinine is 1.11 -leukocytosis reactive in nature secondary to stroke, improved -Coronary artery disease with stents and CABG in the past -Type 2 diabetes mellitus with uncontrolled hyperglycemia, continue sliding scale and have increased 70/30 dose to 80 units twice a day and will continue with Accu-Cheks before meals and at bedtime -CVA/TIA in the past without any residual symptoms -Gastroesophageal reflux disease -Hyperlipidemia we'll increase the dose of atorvastatin because of stroke -Hypertension -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 stage III -DVT prophylaxis: Holding off any pharmacological anticoagulation because of TPA that he received yesterday Objective - Vital Signs Vital signs: Vital Signs Temp 97.7 F 01/13/21 16:00 Pulse 85 01/14/21 07:00 Resp 17 01/14/21 07:00 BP 170/84 01/14/21 07:00 Pulse Ox 99 01/14/21 07:00 Intake & Output 01/13/21 01/14/21 01/14/21 18:59 06:59 18:59 Intake Total 1650 490 Output Total 475 1950 525 Balance 1175 -1460 -525 Weight 106.9 kg 105.9 kg Intake: IV 900 0.9 @75mls/hr 900 Oral 750 490 Output: Urine 475 1950 525 Other: Voiding Method Urinal Urinal # Voids 0 # Bowel Movements 1 - Labs CBC & Chem 7: 01/13/21 03:02 01/14/21 09:57 Labs: Abnormal Lab Results - Last 24 Hours (Table) 01/13/21 01/13/21 01/13/21 Range/Units 03:02 11:11 16:48 POC Glucose (mg/dL) 397 H 514 H (75-99) mg/dL Triglycerides 397.0 H (0.0-149.0) mg/dL Cholesterol 202 H (0-200) mg/dL VLDL Cholesterol, Calc 79.40 H (5.00-40.00) mg/dL HDL Cholesterol 33.0 L (40.0-60.0) mg/dL 01/13/21 01/14/21 Range/Units 20:43 06:58 POC Glucose (mg/dL) 346 H 320 H (75-99) mg/dL Triglycerides (0.0-149.0) mg/dL Cholesterol (0-200) mg/dL VLDL Cholesterol, Calc (5.00-40.00) mg/dL HDL Cholesterol (40.0-60.0) mg/dL
[2021-01-14 16:24] LABS: Glucose,Whole Blood 223 mg/dL (75-99)
[2021-01-14] MEDS ORDERED: INSULN ASP PRT/INSULIN ASPART 100 UNIT/ML 10 ML VIAL SQ SCH (17:30)
[2021-01-14 17:52] LABS: Glucose,Whole Blood 284 mg/dL (75-99)
[2021-01-14 21:29] LABS: Glucose,Whole Blood 216 mg/dL (75-99)
[2021-01-14] MEDS: ATORVASTATIN 20 MG TAB PO SCH (21:41)
[2021-01-15 07:06] LABS: Glucose,Whole Blood 225 mg/dL (75-99)
[2021-01-15] MEDS: INSULN ASP PRT/INSULIN ASPART 100 UNIT/ML 10 ML VIAL SQ SCH (08:58)
[2021-01-15] MEDS: INSULIN ASPART (NovoLOG) 100 UNIT/ML VIAL SQ SCH ×2 (08:58→12:27)
[2021-01-15] MEDS ORDERED: LOSARTAN 50 MG TAB PO SCH (09:00)
[2021-01-15] MEDS: ASPIRIN 81 MG PO SCH (09:12)
[2021-01-15] MEDS: PANTOPRAZOLE 40 MG TABLET PO SCH (09:12)
[2021-01-15] MEDS: CLOPIDOGREL 75 MG TAB PO SCH (09:12)
[2021-01-15] MEDS: SERTRALINE 50 MG TAB PO SCH (09:14)
--- NOTE | 2021-01-15 09:16 | P.PN ---
Subjective Progress Note Date: 01/15/21 Principal diagnosis: CVA. Pulmonary/critical care consultation dated 01/13/2021. 75-year-old male, with history of coronary disease, previous CVA, diabetes, previous bypass grafting, who presents to the emergency department with strokelike symptoms. They apparently developed about 20 minutes prior to arrival to the hospital. He apparently had aphasia, as well as complete loss of function of the left upper extremity. He was evaluated by Dr. Linda in the emergency department, and also by neurology, and the patient did receive TPA in the emergency room. I believe his highest NIH score was 5. Currently, the patient is on 2 L nasal cannula. The patient is receiving saline at 75 mL an hour. He has significantly improved function of the left upper extremity. Also, his speech is much improved. White count 9.4, hemoglobin 13.7, hematocrit 39.7, platelet count 204,000. Sodium is 132, potassium 4, chlorides 98, CO2 24, anion gap 10, BUN 28, creatinine 1.26. Brain CT showed a 2.0 cm pituitary mass enlarging the sella. 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 No acute abnormality seen otherwise. Angiography and CT was done, and findings are noted in the reports. Chest x-rays also reviewed. Progress note dated 01/14/2021. This is a 75-year-old male who is again seen in the intensive care unit, room 263. The patient seems to be recovering very well from his recent CVA. The patient has a history of coronary disease, previous CVA, diabetes, and previous bypass grafting. The patient received TPA in our emergency department. His symptoms have improved her medically. His issues included speech disturbance, and weakness/paralysis of the left upper extremity. No new labs today. A brain CT done yesterday shows no acute or subacute hemorrhagic evidence, no acute infarct, sellar mass, and right mastoiditis. Progress note dated 01/15/2021. 75-year-old male, again seen in the intensive care unit, room 263. The patient is doing very well. He is been off of supplemental oxygen in not receiving any IV fluids were quite some time. The patient was initially admitted with a diagnosis of CVA. The patient had a significant impairment in speech, and weakness of his left upper extremity. Of that these complaints have completely resolved. The patient did receive TPA. Clinically he is doing well. The patient will likely be discharged home. From my perspective that's fine. If not home, general medical floor. No new labs or x-rays today. Objective - Vital Signs Vital signs: Vital Signs Temp 98.5 F 01/15/21 02:00 Pulse 64 01/15/21 02:00 Resp 14 01/15/21 02:00 BP 162/83 01/15/21 02:00 Pulse Ox 97 01/15/21 02:00 Intake & Output 01/14/21 01/15/21 01/15/21 18:59 06:59 18:59 Intake Total 250 Output Total 525 Balance -525 250 Intake: Oral 250 Output: Urine 525 Other: # Voids 1 1 - Exam No acute distress, oriented 3. Patient currently only on room air. HEENT examination is grossly unremarkable. Neck supple. Full range of motion. No adenopathy thyromegaly or neck vein distention. Cardiovascular examination reveals regular rhythm rate. S1-S2 normal. No S3 or S4. No discernible murmur noted. Heart rate 64 bpm. Lungs reveal clear breath sounds. Her sounds are equal bilaterally. No adventitious lung sounds including wheezes rhonchi or crackles. Abdomen soft bowel sounds are heard. No masses or tenderness. Extremities are intact. No cyanosis clubbing or edema. Skin is without rash or lesion. Neurologic examination reveals an alert and oriented patient. The patient has much improved function of the left upper extremity. The aphasia is completely resolved. - Labs CBC & Chem 7: 01/13/21 03:02 01/14/21 09:57 Labs: Abnormal Lab Results - Last 24 Hours (Table) 01/14/21 01/14/21 01/14/21 Range/Units 09:57 11:36 16:23 BUN 21 H (9-20) mg/dL Glucose 287 H (74-99) mg/dL POC Glucose (mg/dL) 272 H 223 H (75-99) mg/dL 01/14/21 01/14/21 01/15/21 Range/Units 17:51 21:28 07:04 BUN (9-20) mg/dL Glucose (74-99) mg/dL POC Glucose (mg/dL) 284 H 216 H 225 H (75-99) mg/dL Assessment and Plan Assessment: 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 History of CAD, status post bypass grafting. History of prior CVA without neurologic residuals. History of diabetes mellitus. History of hyperlipidemia. History of hypertension. History of gastroesophageal reflux disease. History of benign pituitary tumor. History of bilateral cataracts. Multiple other medical problems and comorbidities. Plan: Plan dated 01/13/2021. Currently, the patient's doing much better. He has much improved function of the left upper extremity. His speech is back to normal. Clinically he stable. He is receiving 2 L nasal cannula. Additional recommendations and suggestions are forthcoming. We will continue to follow make recommendations where appropriate. Plan dated 01/14/2021. Currently, the patient's doing much better. The patient has been weaned off of oxygen. His speech disturbance/aphasia, has completely resolved. Also, his left upper extremity seems to be functioning just fine. The patient can be transferred to 3 S. unit. Additional recommendations and suggestions are forthcoming. We will continue to follow make recommendations where appropriate. Plan dated 01/15/2021. Currently, the patient's doing well. The patient's on on any supplemental oxygen. He's not receiving any IV fluids. The patient in my opinion, could be discharged to the general medical floor, or actually discharged home. We'll leave that up to the primary and the neurological team. From our perspective, the patient does not need any additional follow-up from pulmonary/critical care service. We will sign off on this patient. Time with Patient: Less than 30
[2021-01-15 09:21] VITALS: RESP 18
--- NOTE | 2021-01-15 10:47 | P.PN ---
Subjective Progress Note Date: 01/14/21 Patient was seen for a follow-up. Patient's was also present. Patient is doing much better. Patient's believes that his speech is back to normal. No dysarthria. Left arm clumsiness also has mostly resolved. No new concerns. Objective - Vital Signs Vital signs: Vital Signs Temp 97.2 F L 01/14/21 15:32 Pulse 75 01/14/21 15:32 Resp 14 01/14/21 15:32 BP 175/86 01/14/21 15:32 Pulse Ox 96 01/14/21 15:32 Intake & Output 01/14/21 01/14/21 01/15/21 06:59 18:59 06:59 Intake Total 490 Output Total 1950 525 Balance -1460 -525 Weight 105.9 kg Intake: Oral 490 Output: Urine 1950 525 Other: Voiding Method Urinal # Voids 1 - Exam Patient is an elderly male, in no distress. Patient is alert awake oriented to time place and person. Speech and language functions are normal. Attention, concentration and fund of knowledge is adequate. No aphasia or dysarthria. On cranial examination, pupils are round and reacting to light, visual ray are full on confrontation, extraocular muscles are intact with no nystagmus. Face is symmetric, tongue protrudes to the midline. Palatal elevation and sensation normal, hearing and shoulder shrug normal, facial sensation normal. Shoulder shrug normal. On muscle strength testing, there is very minimal left pronation, no drift and the strength is normal in arms and legs distally and proximally. Deep tendon reflexes are 2+ at the biceps, 0 brachioradialis bilaterally. Knees are 1 on the right, 2+ on the left. Ankles are diminished. Sensory to touch is equal with no neglect. Cerebellar function showed minimal ataxia for [id number] testing only on the left. Tone and bulk of muscles normal. Gait not checked. On general examination, there is no carotid bruit or murmur, S1-S2 audible. Abdomen is soft nontender. Chest is clear. Peripheral pulses are present. Patient has moderate peripheral edema. - Labs CBC & Chem 7: 01/13/21 03:02 01/14/21 09:57 Labs: Abnormal Lab Results - Last 24 Hours (Table) 01/13/21 01/14/21 01/14/21 Range/Units 20:43 06:58 09:57 BUN 21 H (9-20) mg/dL Glucose 287 H (74-99) mg/dL POC Glucose (mg/dL) 346 H 320 H (75-99) mg/dL 01/14/21 01/14/21 01/14/21 Range/Units 11:36 16:23 17:51 BUN (9-20) mg/dL Glucose (74-99) mg/dL POC Glucose (mg/dL) 272 H 223 H 284 H (75-99) mg/dL Assessment and Plan Assessment: * Acute ischemic stroke manifesting with mild left hemiparesis, ataxia and dysarthria. Patient's current NIH stroke scale is 1. * Diabetes, not well controlled * Pituitary macroadenoma, stable. * Hypertension * Hyperlipidemia * Coronary artery disease * Obesity Plan: * CTA of the neck revealed severe, greater than 80% proximal right ICA stenosis. Borderline moderate, 50% proximal left ICA stenosis. Hypoplastic, markedly diminutive right vertebral artery. Thyroid nodularity, which I would defer to IM. * CTA of the head showed moderate atherosclerotic calcification narrowing the V3/V4 junction of the left vertebral artery. This is followed by severe 70% proximal left V4 segment stenosis. Severe greater than 70% stenosis of the lacerum segment right ICA. Either occlusion versus congenital aplasia of the A1 segment right SHUBHAM. Variable moderate atherosclerotic irregularity and narrowing throughout the anterior and posterior circulation. Recommend vascular surgery consultation for symptomatic right ICA stenosis. May need CEA. * Patient's neurological examination is much improved. * Optimize control of blood pressure, to target blood pressure <130/80. * MRI of the brain revealed multiple small areas of subacute infarct within the right occipital lobe, right frontal and right parietal lobe, correlate for embolic disease. There is some small vessel ischemic change also noted. Mastoid inflammatory change. Pituitary tumor again noted. * Continue and maintain dual antiplatelet medications aspirin 81 mg and Plavix 75 mg, because of significant extracranial and intracranial atherosclerotic disease. * 2-D echo revealed normal left ventricular size. Moderate concentric LVH. EF is between 60-65%. Right ventricle is mild to moderately dilated. Normal left atrial size. * Hemoglobin A1c 12.8, indicating poorly controlled diabetes. Suggest optimize diabetes to target A1c <7.0. * Fasting lipid panel with cholesterol 202, LDL 89, HDL 33 and triglycerides 397. Continue Lipitor 40 mg. * PT and OT.
[2021-01-15 11:35] LABS: Glucose,Whole Blood 269 mg/dL (75-99)
[2021-01-15 15:41] VITALS: BP 135/82; PULSE 76; TEMP 98
--- NOTE | 2021-01-15 15:57 | US ---
EXAMINATION TYPE: US carotid duplex BILAT DATE OF EXAM: 01/15/2021 COMPARISON: NONE CLINICAL HISTORY: CVA. CT angio head and neck showed stenosis, left sided weakness, CVA EXAM MEASUREMENTS: RIGHT: Peak Systolic Velocity (PSV) cm/sec ----- Right CCA: 83.0 ----- Right ICA: 316.9 ----- Right ECA: 255.3 ICA/CCA ratio: 3.8 RIGHT: End Diastole cm/sec ----- Right CCA: 11.2 ----- Right ICA: 52.8 ----- Right ECA: 15.6 LEFT: Peak Systolic Velocity (PSV) cm/sec ----- Left CCA: 146.3 ----- Left ICA: 137.2 ----- Left ECA: 109.2 ICA/CCA ratio: 0.9 LEFT: End Diastole cm/sec ----- Left CCA: 18.7 ----- Left ICA: 18.9 ----- Left ECA: 18.7 VERTEBRALS (direction of flow): Right Vertebral: Antegrade Left Vertebral: Antegrade Rhythm: Arrhythmia Heterogenous plaque bilaterally, severe stenosis noted at proximal right ICA IMPRESSION: 1. Heterogeneous plaque bilaterally with findings suggestive of a severe stenosis involving the proxi mal right internal carotid artery . Estimated approximately 70% or greater. NASCET criteria was used in interpretation of this exam? Criteria for Assigning % of Stenosis / Diameter reduction (Estimation based on the indirect measurements of the internal carotid artery velocities (ICA PSV). 1. Normal (no stenosis)=ICA PSV < 125 cm/s: ratio < 2.0: ICA EDV<40 cm/s. 2. Less than 50% stenosis=ICA PSV < 125 cm/s: ratio < 2.0: ICA EDV<40 cm/s. 3. 50 to 69% stenosis=ICA PSV of 125 to 230 cm/s: ration 2.0 ? 4.0: ICA EDV 40-100 cm/s. 4. Greater than 70% stenosis to near occlusion= ICA PSV > 230 cm/s: ratio > 4.0: ICA EDV > 100 cm/s. 5. Near occlusion= ICA PSV velocities may be low or undetectable: variable ratio and ICA EDV. 6. Total occlusion=unable to detect flow.
--- NOTE | 2021-01-15 16:15 | P.GSCN ---
History of Present Illness Consult date: 01/15/21 Reason for Consult: severe symptomatic right ICA stenosis Requesting physician: Bertin Morgan History of present illness: Patient is a 75-year-old male with medical history of hypertension, hyperlipidemia, diabetes, former smoker, coronary artery disease status post bypass, and previous history of stroke who had an acute episode of stroke-like symptoms Tuesday morning. Patient came to the hospital at 3:09 PM, brought by his grandson on Tuesday. Shortly before arrival to the hospital, patient developed difficulty speaking, couldn't express himself, right leg became stiff and was twitching and postured. Patient's described that the left leg was under him while he was sitting in the chair and weak. The left arm was also weak, and was postured, could not use his left arm or left leg. The only extremity which was normal was right arm. The speech difficulty lasted for about 10 minutes and slowly improved but he still has slurred speech. His left side continued to be weak. Patient's symptoms were fluctuating with intermittent slurring of speech and left-sided weakness. Stroke neurologist was consulted by the ED staff, and was recommended TPA. Patient received the bolus dose of 9 mg at 3:58 PM. Patient's has noticed that his left arm had gotten better. Speech has improved. Computed tomography scan of head showed incidental 2.0 cm pituitary mass enlarging the sella. 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 Further MRI, surgical and lumbar treat correlation recommended. No acute intracranial abnormality seen. Some trapped fluid in the inferior right mastoid air cells. Correlate for any right-sided mastoid pain to exclude mastoiditis. CTA of the head showed moderate atherosclerotic calcification narrowing the V3/before junction of the left vertebral artery. This is followed by a severe, 70% proximal left V4 segment stenosis. Severe, greater than 70% stenosis of the left forearm segment right ICA. Either occlusion versus congenital aplasia of the A1 segment right SHUBHAM. Variable moderate atherosclerotic irregularity and narrowing throughout the anterior and posterior circulation. Patient apparently had a stroke "years and years ago", which affected his balance and he was walking like a "drunk and staggering". Patient was given IV TPA at that time. Patient recovered very well. Patient has history of 6 bypass surgeries. Patient has diabetes for last 20 years, which is not well controlled. Patient smokes 2 packs per day for 10 years, quit 40 years ago. No alcohol or marijuana. Patient states his symptoms have almost completely improved. He still has minimal left upper extremity weakness. States his speech is fluent and normal, he is having no difficulty with swallowing. He denies any shortness of breath, chest pain, abdominal pain, fever or chills. He has been started on aspirin, Plavix, and continues with Lipitor. Plan is for discharge home today according to the patient. Review of Systems A 14 point review of systems was completed all pertinent positives and negatives as stated in the HPI. Past Medical History Past Medical History: Coronary Artery Disease (CAD), Chest Pain / Angina, CVA/TIA, Diabetes Mellitus, GERD/Reflux, Hyperlipidemia, Hypertension, Pneumonia, Renal Disease Additional Past Medical History / Comment(s): IDDM type II, TIA, low back pain, occasional lower leg edema, benign pituitary tumor, L eye retinal bleed, sinus problems, recent tooth infection treated with ABX, history of bilateral eye cataracts recent weight loss of approximately 20 pounds. History of Any Multi-Drug Resistant Organisms: None Reported Past Surgical History: Appendectomy, Cholecystectomy, Coronary Bypass/CABG, Heart Catheterization, Heart Catheterization With Stent, Orthopedic Surgery Additional Past Surgical History / Comment(s): PCI with stent, 2010 CABG-6 vessel, R femur fracture with surgery-kassy inserted and since removed however, drill bit broke off and is still in leg, hemorrhoidectomy, colonoscopies, bilateral cataract removals/lens implants, L eye retinal laser surgery Past Anesthesia/Blood Transfusion Reactions: No Reported Reaction Date of Last Stent Placement:: 2009 Past Psychological History: Depression Additional Psychological History / Comment(s): Pt resides with his spouse. He occasionally uses a cane to ambulate. He has not been driving lately, his spouse has been driving him. 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 No experience. No extensive travel. Stopped tobacco smoking years ago. No alcohol or recreational drug use. No animals in the home Past Alcohol Use History: None Reported Additional Past Alcohol Use History / Comment(s): Pt started smoking in 5 and quit in 1971 Past Drug Use History: None Reported - Past Family History Father Additional Family Medical History / Comment(s): Father had a blood vessel rupture in his heart. Mother Additional Family Medical History / Comment(s): Mother had an aneurysm in the bottom of her heart that ruptured. Medications and Allergies Home Medications Medication Instructions Recorded Confirmed Type Atorvastatin Calcium [Lipitor] 20 mg PO HS 06/26/18 01/12/21 History Furosemide [Lasix] 20 mg PO DAILY 06/26/18 01/12/21 History Insulin Aspart Protam & Aspart 65 unit SQ AC-BID@1100,2000 06/26/18 01/12/21 History [NovoLOG MIX 70-30 Flexpen] Pioglitazone HCl [Actos] 15 mg PO DAILY 06/26/18 01/12/21 History Albuterol Nebulized [Ventolin 2.5 mg INHALATION RT-Q6H PRN 10/01/18 01/12/21 History Nebulized] Aspirin [[place]ek Aspirin EC] 81 mg PO DAILY 10/01/18 01/12/21 History Docusate [Colace] 100 mg PO BID 10/01/18 01/12/21 History Losartan Potassium [Cozaar] 50 mg PO DAILY 10/01/18 01/12/21 History amLODIPine [Norvasc] 5 mg PO DAILY 10/01/18 01/12/21 History Esomeprazole Magnesium [NexIUM] 20 mg PO DAILY 01/12/21 01/12/21 History Metoprolol Succinate [Toprol XL] 25 mg PO BID 01/12/21 01/12/21 History Sertraline [Zoloft] 50 mg PO DAILY 01/12/21 01/12/21 History Allergies Allergy/AdvReac Type Severity Reaction Status Date / Time dextromethorphan Allergy Rash/Hives Verified 01/12/21 17:19 [From Dimetapp Cold-Congestion] diphenhydramine Allergy Rash/Hives Verified 01/12/21 17:19 [From Dimetapp Cold-Congestion] guaifenesin Allergy Rash/Hives Verified 01/12/21 17:19 [From Dimetapp Cold-Congestion] phenylephrine Allergy Rash/Hives Verified 01/12/21 17:19 [From Dimetapp Cold-Congestion] pseudoephedrine Allergy Rash/Hives Verified 01/12/21 17:19 [From Dimetapp Cold-Congestion] Surgical - Exam Vital Signs Temp Pulse Resp BP Pulse Ox 98 F 73 18 139/68 95 01/12/21 15:10 01/12/21 15:10 01/12/21 15:10 01/12/21 15:10 01/12/21 15:10 General appearance: The patient is alert, oriented, in no acute distress. HET: Head is normocephalic and atraumatic. Pupils are equal and reactive. Neck: Supple without lymphadenopathy. Trachea midline. Right carotid bruit. Heart: S1 S2. Regular rate and rhythm. Lungs: Clear to auscultation. Abdomen: Soft, nontender, nondistended. Extremities: Normal skin color and turgor. No cyanosis, rash, ulceration, clubbing, or edema. Radial and pedal pulses are 2/4 bilaterally. Neurological: No focal deficits. Strength and sensation are grossly intact. Results - Labs 01/13/21 03:02 01/14/21 09:57 Abnormal Lab Results - Last 24 Hours (Table) 01/14/21 01/14/21 01/14/21 Range/Units 16:23 17:51 21:28 POC Glucose (mg/dL) 223 H 284 H 216 H (75-99) mg/dL 01/15/21 01/15/21 Range/Units 07:04 11:34 POC Glucose (mg/dL) 225 H 269 H (75-99) mg/dL - Imaging Comments: See HPI Assessment and Plan Assessment: 1. Symptomatic right Carotid artery stenosis 2. CVA 3. Previous history of stroke 4. Diabetes Mellitus 5. Hypertension 6. Former smoker 7. Coronary artery disease status post bypass 6 Plan: 1. Carotid US ordered 2. CTA reviewed 3. Continue with ASA, plavix, statin 4. Plan for outpatient follow up next week, will then schedule outpatient Carotid surgery 5. Patient will need cardiac clearance prior to carotid endarterectomy 6. Discuss with primary medicine Dr. Okeefe patient will need medical clearance for surgery Thank you for this consultation and allowing us take part in the plan of care of your patient during his hospital stay. Patient is clear for discharge by vascular surgery once cleared by medicine and neurology. The impression and plan of care has been dictated as directed. I performed a history and examination of this patient, discussed the same with the dictator. I agree with the dictator's note ,documented as a scribe. Any additional findings or plans will be noted.
[2021-01-15 16:22] LABS: Glucose,Whole Blood 233 mg/dL (75-99)
--- NOTE | 2021-01-16 02:52 | P.DS ---
Providers Date of admission: 01/12/21 16:43 Expected date of discharge: 01/15/21 Attending physician: Julia Okeefe Consults: 01/12/21 16:43 Consult Physician Urgent Consulting Provider: Gerry Lock Consult Reason/Comments: acute cva s/p tpa Do you want consulting provider notified?: Already Contacted 01/12/21 16:44 Consult Physician Urgent Consulting Provider: Bertin Morgan Consult Reason/Comments: acute cva s/p tpa Do you want consulting provider notified?: Already Contacted Primary care physician: Karlo Mandujano Hospital Course: Final diagnosis -Cerebrovascular accident involving left side of the body along with slurred speech, middle cerebral artery territory probably due to sclerosis, patient received TPA, -Hypertension, continued on losartan and Norvasc held -Acute renal failure: Improved -leukocytosis reactive in nature secondary to stroke, improved -Coronary artery disease with stents and CABG in the past -Type 2 diabetes mellitus with uncontrolled hyperglycemia -CVA/TIA in the past without any residual symptoms -Gastroesophageal reflux disease -Hyperlipidemia -Hypertension -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 Patient will follow-up with Dr. Dietrich in the outpatient setting upon discharge. Patient will also follow up with cardiology, neurology, and vascular surgery outpatient. Patient to continue on statin, aspirin, and Plavix. Total time taken is greater than 35 minutes. Hospital course Patient is a pleasant 75-year-old male Came in with the symptoms of weakness in the right side of the body and the slurred speech which resolved on arrival to ER and the patient symptoms started 20 minutes prior to arrival patient received the TPA. Patient still has some weakness in the left arm which has 3/5 strength. Patient had history of cerebrovascular accident in the past without any residual symptoms. Patient does have history of coronary artery disease as well. Patient denied any fever chills patient denied any headache nausea vomiting. 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 Patient is a getting an MRI as a part of stroke workup which we'll give a better picture of this mass as well. Etiology of the head and neck showed 80% right proximal RCA stenosis and 50% stenosis in the left the ICA there multiple other blockages and calcification in other cerebral vasculature. Patient's creatinine is 1.4 baseline appears to be around this. Patient is admitted for a stroke involving the left side of the body patient had some residual weakness in the left hand which presently resolved at this time. Patient received TPA last night. Patient is being monitored in ICU will be transferred out of ICU repeat the CT of the head didn't will be obtained after which patient probably will be started on antiplatelet therapy. Patient is otherwise clinically doing well. Echocardiogram is pending. LDL cannot be palpated because of hypertriglyceridemia patient's dose of statin need to be increased anyways because of hypertrophic azotemia patient is on 40 mg of Lipitor at this time. 01/14/2021 Patient Is seen and evaluated in the ICU being closely monitored with family at the bedside. Patient awaiting to undergo MRI with neurology following closely. No acute overnight issues noted. Patient states he is feeling much better and denies any residual deficits and is actually requesting to go home. Patient is maintained on aspirin and Plavix along with Lipitor 40 mg and will continue. Patient's blood sugars continue to be elevated and on NovoLog 70/30 and will increase to 80 units twice daily and continue with sliding scale. Creatinine improved at 1.11, sodium is 137 with a potassium of 4.0. 2-D echo was done showing overall left ventricular systolic function is normal with an EF of 60- 65% with mild pulmonary hypertension along with mild tricuspid regurgitation present. 01/15/2021 Patient is seen in follow-up with no acute overnight issues noted. Patient left side deficits resolved and patient is adamant about leaving. Patient being followed by neurology and vascular surgery evaluated the patient for the right carotid artery stenosis is over 80%. Given patients extensive surgical cardiac history, recommend outpatient follow up with cardiology for clearance if endarterectomy is chosen to be done. Patient is hesitant about any surgical interventions and will discuss with family about treatment moving forward. Patient wishes to remain No Code and is agreeable to continue with prescribed medication. Risks discussed with the patient and at the bedside and are understanding of patients condition and severity. Currently no reports of chest pain, shortness of breath, or palpitations. Patient is afebrile. No reports of nausea or vomiting and patient is tolerating diet. Patient will be discharged home. Guarded prognosis. GENERAL: The patient is alert and oriented x3, not in any acute distress. Well developed, well nourished. HEENT: Pupils are round and equally reacting to light. EOMI. No scleral icterus. No conjunctival pallor. Normocephalic, atraumatic. No pharyngeal erythema. No thyromegaly. CARDIOVASCULAR: S1 and S2 present. No murmurs, rubs, or gallops. PULMONARY: Chest is clear to auscultation, no wheezing or crackles. ABDOMEN: Soft, nontender, nondistended, normoactive bowel sounds. No palpable organomegaly. MUSCULOSKELETAL: No joint swelling or deformity. EXTREMITIES: No cyanosis, clubbing, or pedal edema. NEUROLOGICAL: Patient's weakness completely resolved no residual weakness at thi s time. Strength 5 out of 5 left upper extremity and lower extremity SKIN: No rashes. On exam vital signs are stable. Cardio S1, S2 are muffled. Respiratory system shows diminished breath sounds at the bases with no wheezing or rhonchi noted. Abdomen is soft and nontender. Nervous system shows no focal deficits. Please refer to medication reconciliation sheet for a list of medications. Patient Condition at Discharge: Fair Plan - Discharge Summary Discharge Rx Participant: No New Discharge Prescriptions: New Atorvastatin [Lipitor] 40 mg PO HS #60 tab Losartan [Cozaar] 100 mg PO DAILY 30 Days #60 tab Clopidogrel [Plavix] 75 mg PO DAILY #30 tab Continue Pioglitazone HCl [Actos] 15 mg PO DAILY Docusate [Colace] 100 mg PO BID Aspirin [Glenn Aspirin EC] 81 mg PO DAILY Albuterol Nebulized [Ventolin Nebulized] 2.5 mg INHALATION RT-Q6H PRN PRN Reason: Wheezing Sertraline [Zoloft] 50 mg PO DAILY Esomeprazole Magnesium [NexIUM] 20 mg PO DAILY Changed Insulin Aspart Protam & Aspart [NovoLOG MIX 70-30 Flexpen] 75 unit SQ AC- BID@1099,1999 #0 Discontinued Atorvastatin Calcium [Lipitor] 20 mg PO HS Furosemide [Lasix] 20 mg PO DAILY Losartan Potassium [Cozaar] 50 mg PO DAILY amLODIPine [Norvasc] 5 mg PO DAILY Metoprolol Succinate [Toprol XL] 25 mg PO BID Discharge Medication List Pioglitazone HCl [Actos] 15 mg PO DAILY 06/26/18 [History] Albuterol Nebulized [Ventolin Nebulized] 2.5 mg INHALATION RT-Q6H PRN 10/01/18 [History] Aspirin [Glenn Aspirin EC] 81 mg PO DAILY 10/01/18 [History] Docusate [Colace] 100 mg PO BID 10/01/18 [History] Esomeprazole Magnesium [NexIUM] 20 mg PO DAILY 01/12/21 [History] Sertraline [Zoloft] 50 mg PO DAILY 01/12/21 [History] Atorvastatin [Lipitor] 40 mg PO HS #60 tab 01/15/21 [Rx] Clopidogrel [Plavix] 75 mg PO DAILY #30 tab 01/15/21 [Rx] Insulin Aspart Protam & Aspart [NovoLOG MIX 70-30 Flexpen] 75 unit SQ AC- BID@1100,2000 #0 01/15/21 [Rx] Losartan [Cozaar] 100 mg PO DAILY 30 Days #60 tab 01/15/21 [Rx] Follow up Appointment(s)/Referral(s): Delbert Dietrich MD [Primary Care Provider] - 1-2 Days Saji Murphy MD [STAFF PHYSICIAN] - 1 Week Marcus Clarke DO [Doctor of Osteopathic Medicine] - 1 Week Patient Instructions/Handouts: Carotid Endarterectomy (PRE), Carotid Artery Disease (DC), Ischemic Stroke (DC) Activity/Diet/Wound Care/Special Instructions: Activity Limited until follow-up Follow up with primary care provider upon discharge Follow-up with neurology outpatient Follow-up with cardiology outpatient Follow up with vascular surgery Dr. Romero outpatient in 1-2 weeks Patient will likely need cardiology clearance if any vascular surgeries are being scheduled Continue heart healthy diet with consistent carbohydrate diet Continue to take medications as prescribed Continue to monitor blood sugars and keep a diary for primary care follow-up Discharge Disposition: HOME SELF-CARE
== END 2021-01-15 17:34 | disposition home or self-care (01) | DRG 62 ==
LOC: EC 15:09 → 2SICU 16:43
PROVIDERS: ADMIT Internal Medicine; ATTEND Internal Medicine
DX: I63.511 Cerebral infarction due to unspecified occlusion or stenosis of right middle cerebral artery (principal); G81.94 Hemiplegia, unspecified affecting left nondominant side; N17.9 Acute kidney failure, unspecified; D35.2 Benign neoplasm of pituitary gland; R47.01 Aphasia; D72.829 Elevated white blood cell count, unspecified; E11.22 Type 2 diabetes mellitus with diabetic chronic kidney disease; E11.65 Type 2 diabetes mellitus with hyperglycemia; E66.9 Obesity, unspecified; E78.1 Pure hyperglyceridemia; E78.5 Hyperlipidemia, unspecified; F32.9 Major depressive disorder, single episode, unspecified; I12.9 Hypertensive chronic kidney disease with stage 1 through stage 4 chronic kidney disease, or unspecified chronic kidney disease; I25.10 Atherosclerotic heart disease of native coronary artery without angina pectoris; I27.20 Pulmonary hypertension, unspecified; I65.21 Occlusion and stenosis of right carotid artery; K21.9 Gastro-esophageal reflux disease without esophagitis; N18.30 Chronic kidney disease, stage 3 unspecified; R25.3 Fasciculation; R47.1 Dysarthria and anarthria; R53.1 Weakness; K04.7 Periapical abscess without sinus; M54.5 Low back pain; E11.21 Type 2 diabetes mellitus with diabetic nephropathy; R60.0 Localized edema; I07.1 Rheumatic tricuspid insufficiency; R63.4 Abnormal weight loss; R29.705 NIHSS score 5; R29.704 NIHSS score 4; Z79.4 Long term (current) use of insulin; Z86.73 Personal history of transient ischemic attack (TIA), and cerebral infarction without residual deficits; Z87.891 Personal history of nicotine dependence; Z95.1 Presence of aortocoronary bypass graft; Z79.899 Other long term (current) drug therapy; Z95.5 Presence of coronary angioplasty implant and graft; Z79.82 Long term (current) use of aspirin; Z96.1 Presence of intraocular lens; Z88.8 Allergy status to other drugs, medicaments and biological substances; Z90.49 Acquired absence of other specified parts of digestive tract; Z87.01 Personal history of pneumonia (recurrent); Z68.36 Body mass index [BMI] 36.0-36.9, adult
CPT/HCPCS: 36415; 70450; 70496; 70498; 70551; 71046; 80048; 80053; 80061; 83036; 83721; 84484; 85025; 85027; 85610; 85730; 93005; 93306; 93880; 99285

== ENCOUNTER → 2022-03-22 | Outpatient (CLI) | payer MEDICARE ==
[2022-03-22 14:47] LABS: ALT 13 U/L (10-49); AST 17 U/L (14-35); Albumin 4.2 g/dL (3.8-4.9); Albumin/Globulin Ratio 1.27 (1.60-3.17); Alkaline Phosphatase 125 U/L (41-126); Bilirubin, Conjugated <0.20 mg/dL (0.20-0.40); Carbon Dioxide 25.7 mmol/L (20.0-27.5); Chloride 103 mmol/L (96-109); Chol/HDL Ratio 3.75 Ratio; Globulin 3.3 g/dL (1.6-3.3); LDL Cholesterol,Calculated 89.1 mg/dL (0.0-131.0); Potassium 4.3 mmol/L (3.5-5.5); Sodium 139 mmol/L (135-145); Total Protein 7.5 g/dL (6.2-8.2)
== END | disposition home or self-care (01) ==
LOC: LABWHC1 09:19
PROVIDERS: ATTEND Orthopaedic Surgery
DX: S82.251D Displaced comminuted fracture of shaft of right tibia, subsequent encounter for closed fracture with routine healing (principal); M79.661 Pain in right lower leg; E11.9 Type 2 diabetes mellitus without complications; E78.5 Hyperlipidemia, unspecified; N18.9 Chronic kidney disease, unspecified; X58.XXXD Exposure to other specified factors, subsequent encounter
CPT/HCPCS: 36415; 80051; 80061; 80076; 82306; 83036

== ENCOUNTER → 2023-03-07 | Outpatient (CLI) | payer MEDICARE ==
[2023-03-07 12:21] LABS: ALT 16 U/L (10-49); AST 15 U/L (14-35); Albumin 4.2 d/dL (3.8-4.9); Albumin/Globulin Ratio 1.68 Ratio (1.60-3.17); Alkaline Phosphatase 138 U/L (41-126); BUN/Creat Ratio 12.13 Ratio (12.00-20.00); Blood Urea Nitrogen 18.2 mg/dL (9.0-27.0); Calcium 10.3 mg/dL (8.7-10.3); Carbon Dioxide 27.5 mmol/L (21.6-31.8); Chloride 103 mmol/L (96-109); Chol/HDL Ratio 5.49 Ratio; Globulin 2.5 d/dL (1.6-3.3); Glucose 164 mg/dL (70-110); LDL Cholesterol,Calculated 120.3 mg/dL (0.0-131.0); Potassium 4.4 mmol/L (3.5-5.5); Sodium 140 mmol/L (135-145); Total Bilirubin 1.2 mg/dL (0.3-1.2); Total Protein 6.7 d/dL (6.2-8.2)
== END | disposition home or self-care (01) ==
LOC: LABWHC1 08:08
PROVIDERS: ATTEND Psychiatry & Neurology Neurology
DX: Z12.5 Encounter for screening for malignant neoplasm of prostate (principal); E11.22 Type 2 diabetes mellitus with diabetic chronic kidney disease; N18.9 Chronic kidney disease, unspecified; E78.5 Hyperlipidemia, unspecified
CPT/HCPCS: 36415; 80053; 80061; 83036

== ENCOUNTER → 2023-05-02 | Outpatient (CLI) | payer MEDICARE ==
--- NOTE | 2023-05-02 21:49 | XR ---
EXAMINATION TYPE: XR chest 2V DATE OF EXAM: 05/02/2023 3:49 PM CLINICAL INDICATION:Male, 78 years old with history of R05.9 cough; COMPARISON: Chest radiographs from 01/12/2021 TECHNIQUE: XR chest 2V Frontal and lateral views of the chest. FINDINGS: Lungs/Pleura: There is flattening of the diaphragm with increased lucency of the lungs. No evidence o f pneumothorax, pleural effusion or focal consolidation. Pulmonary vascularity: Pulmonary vascular congestion. Heart/mediastinum: Cardiomediastinal silhouette is enlarged and stable. Musculoskeletal: No acute osseous pathology. Midline sternotomy wires are noted. Other findings: None IMPRESSION: Low lung volumes with a generalized hazy appearance which could represent atelectasis versus pulmonar y edema correlate with serum BNP.
== END | disposition home or self-care (01) ==
LOC: RADXRMAIN 15:33
PROVIDERS: ATTEND Internal Medicine
DX: R91.8 Other nonspecific abnormal finding of lung field (principal); R05.9 Cough, unspecified
CPT/HCPCS: 71046

== ENCOUNTER → 2023-05-04 | Outpatient (CLI) | payer MEDICARE ==
[2023-05-04 16:23] LABS: Basophils # (A) 0.03 X 10*3/uL (0.00-0.10); Basophils % (A) 0.3 %; Eosinophils # (A) 0.02 X 10*3/uL (0.04-0.35); Eosinophils % (A) 0.2 %; HCT 38.7 % (39.6-50.0); HGB 12.6 g/dL (13.0-17.0); Lymphocytes # (A) 1.09 X 10*3/uL (0.90-5.00); MCH 28.4 pg (27.0-32.0); MCHC 32.6 g/dL (32.0-37.0); MCV 87.4 FL (80.0-97.0); Mean Platelet Volume 12.5 FL (9.5-12.2); Monocytes # (A) 0.68 X 10*3/uL (0.20-1.00); Monocytes % (A) 6.8 %; NRBC Per 100 WBC 0 X 10*3/uL (0.00-0.01); Neutrophils # (A) 8.06 X 10*3/uL (1.80-7.70); Platelet Count 235 X 10*3/uL (140-440); RBC 4.43 X 10*6/uL (4.40-5.60); RDW 14.3 % (11.5-14.5); WBC 9.95 X 10*3/uL (4.50-10.00)
[2023-05-04 18:14] LABS: ALT 14 U/L (10-49); AST 13 U/L (14-35); Albumin 3.8 g/dL (3.8-4.9); Albumin/Globulin Ratio 1.58 Ratio (1.60-3.17); Alkaline Phosphatase 125 U/L (41-126); BUN/Creat Ratio 21.36 Ratio (12.00-20.00); Blood Urea Nitrogen 29.9 mg/dL (9.0-27.0); Calcium 10.2 mg/dL (8.7-10.3); Carbon Dioxide 22.9 mmol/L (21.6-31.8); Chloride 97 mmol/L (96-109); Globulin 2.4 g/dL (1.6-3.3); Glucose 569 mg/dL (70-110); Potassium 4.9 mmol/L (3.5-5.5); Sodium 135 mmol/L (135-145); Total Protein 6.2 g/dL (6.2-8.2)
[2023-05-04 21:52] LABS: NT-Pro-B-Type Natriuretic Pept 807 pg/mL
== END | disposition home or self-care (01) ==
LOC: LABWHC1 09:53
PROVIDERS: ATTEND Internal Medicine
DX: R05.9 Cough, unspecified (principal); J81.0 Acute pulmonary edema
CPT/HCPCS: 36415; 80053; 83880; 85025

== ENCOUNTER → 2023-08-11 | Outpatient (CLI) | payer MEDICARE | END | disposition home or self-care (01) | LOC: LABWHC1 06:58 | PROVIDERS: ATTEND Psychiatry & Neurology Neurology | DX: R56.9 Unspecified convulsions (principal) | CPT/HCPCS: 36415; 80177 ==

== ENCOUNTER → 2024-01-05 | Outpatient (CLI) | payer MEDICARE ==
--- NOTE | 2024-01-06 15:28 | US ---
EXAMINATION TYPE: US venous doppler duplex LE RT DATE OF EXAM: 01/05/2024 2:26 PM COMPARISON: NONE CLINICAL INDICATION: Male, 78 years old with history of I80.9 PHLEBITIS THROMBOPHLEBITIS; Right leg s welling SIDE PERFORMED: Right TECHNIQUE: The lower extremity deep venous system is examined utilizing real time linear array sonog dain with graded compression, doppler sonography and color-flow sonography. VESSELS IMAGED: Common Femoral Vein Deep Femoral Vein Greater Saphenous Vein * Femoral Vein Popliteal Vein Small Saphenous Vein * Proximal Calf Veins (* superficial vessels) Extremely difficult and limited study due to leg swelling and small size of veins Right Leg: visualized portions appear wnl IMPRESSION: Grayscale, color doppler, spectral doppler imaging performed of the deep veins of the lo wer extremities. There is normal flow, compressibility, vascular waveforms.
== END | disposition home or self-care (01) ==
LOC: RADUSWWP 13:58
PROVIDERS: ATTEND Orthopaedic Surgery
DX: I80.9 Phlebitis and thrombophlebitis of unspecified site